=== PATIENT | female | born 1960 | race Caucasian/White ===

== ENCOUNTER → 2017-03-16 10:43 | Outpatient (CLI) | payer BC, SELFPAY ==
[2017-03-16 12:02] LABS: Absolute Lymphocyte Count 2.08 X10^3/ul (0.83-4.51); Absolute Neutrophil Count 2.4 X10^3/uL (2.0-7.7); Basophil# 0.04 X10^3/uL; Basophil% 0.7 % (0-1); Eosinophil# 0.16 X10^3/uL; Hematocrit 44.6 % (37-47); Hemoglobin 15.2 g/dl (12.0-15.0); Lymphocyte # 2.08 X10^3/ul (4.0); Lymphocyte % 38.4 % (19-41); Mean Corp Hgb Conc 34.1 g/gl (32-36); Mean Corpuscular Hgb 31.7 pg (27.0-32.0); Mean Corpuscular Volume 92.9 fL (81-99); Mean Platelet Vol. 10.8 fl (6.2-12.0); Monocyte# 0.76 X10^3/uL; Neutrophil # 2.37 X10^3/uL (2.7-7.7); Neutrophil % 43.7 % (47-70); Platelet Count 333 K/mm3 (150-450); RBC Distribution Width SD 46.1 fl (35.1-43.9); White Blood Count 5.4 K/mm3 (4.4-11.0)
[2017-03-16 12:07] LABS: POSITIVE COUNT NO; POSITIVE DIFFERENTIAL NO; POSITIVE MORPHOLOGY NO
[2017-03-16 12:26] LABS: ALB/GLOB Ratio 1.1 RATIO (0.9-2.4); AST(SGOT) 28 U/L (15-37); Alanine Aminotransfer ALT/SGPT 46 U/L (13-56); Albumin, Serum 3.9 g/dL (3.2-5.0); Alkaline Phosphatase 83 U/L (45-117); Anion Gap 10 (5-15); BUN 11 mg/dL (7-18); BUN/Creat Ratio 13.7 RATIO (10-20); Calcium,Total 8.8 mg/dL (8.5-10.1); Chloride 101 mmol/L (98-107); EST Glomerular Filtration Rate 78 mL/min (>60); Est Glom Filt Rate - Afr Amer 95 mL/min (>60); Globulin 3.6 g/dL (2.2-4.2); Glucose 92 mg/dL (70-110); Potassium 3.7 mmol/L (3.5-5.1); Protein, Total 7.5 g/dL (6.4-8.2); Sodium Level 136 mmol/L (136-145)
== END ==
PROVIDERS: Family Provider Family Medicine; PCP Family Medicine; Visit Provider Internal Medicine Rheumatology
DX: L40.59 Other psoriatic arthropathy (principal); Z79.899 Other long term (current) drug therapy; L40.8 Other psoriasis; M35.00 Sjogren syndrome, unspecified; Q66.7 Congenital pes cavus; K21.9 Gastro-esophageal reflux disease without esophagitis; M47.892 Other spondylosis, cervical region; M51.36 Other intervertebral disc degeneration, lumbar region; F32.89 Other specified depressive episodes; F41.9 Anxiety disorder, unspecified; E03.9 Hypothyroidism, unspecified; Z85.820 Personal history of malignant melanoma of skin
CPT/HCPCS: 36415; 80053; 85025

== ENCOUNTER → 2017-06-08 09:38 | Outpatient (CLI) | payer BC, SELFPAY ==
[2017-06-08 12:01] LABS: Absolute Lymphocyte Count 1.95 X10^3/ul (0.83-4.51); Absolute Neutrophil Count 3.2 X10^3/uL (2.0-7.7); Basophil# 0.02 X10^3/uL; Basophil% 0.3 % (0-1); Eosinophil# 0.15 X10^3/uL; Eosinophils% 2.4 % (0-5); Hematocrit 46.4 % (37-47); Hemoglobin 15.4 g/dl (12.0-15.0); Lymphocyte # 1.95 X10^3/ul (4.0); Lymphocyte % 31.8 % (19-41); Mean Corp Hgb Conc 33.2 g/gl (32-36); Mean Corpuscular Hgb 31.5 pg (27.0-32.0); Mean Corpuscular Volume 94.9 fL (81-99); Mean Platelet Vol. 10.6 fl (6.2-12.0); Monocyte# 0.83 X10^3/uL; Monocyte% 13.5 % (0-10); Neutrophil # 3.17 X10^3/uL (2.7-7.7); Neutrophil % 51.8 % (47-70); Platelet Count 356 K/mm3 (150-450); RBC Distribution Width CV 14.1 % (11.6-14.6); RBC Distribution Width SD 47.8 fl (35.1-43.9); Red Blood Count 4.89 M/mm3 (4.2-5.4); White Blood Count 6.1 K/mm3 (4.4-11.0)
[2017-06-08 12:02] LABS: Differential Indicated SCAN CRITERIA MET; POSITIVE COUNT NO; POSITIVE DIFFERENTIAL NO; POSITIVE MORPHOLOGY YES
[2017-06-08 12:13] LABS: ALB/GLOB Ratio 1.1 RATIO (0.9-2.4); AST(SGOT) 28 U/L (15-37); Alanine Aminotransfer ALT/SGPT 41 U/L (13-56); Alkaline Phosphatase 91 U/L (45-117); Anion Gap 8 (5-15); BUN 9 mg/dL (7-18); BUN/Creat Ratio 11.1 RATIO (10-20); Calcium,Total 9.2 mg/dL (8.5-10.1); Chloride 103 mmol/L (98-107); Creatinine, Serum 0.81 mg/dL (0.55-1.02); EST Glomerular Filtration Rate 77 mL/min (>60); Est Glom Filt Rate - Afr Amer 93 mL/min (>60); Globulin 3.7 g/dL (2.2-4.2); Glucose 73 mg/dL (74-106); Potassium 4.1 mmol/L (3.5-5.1); Protein, Total 7.7 g/dL (6.4-8.2); Sodium Level 137 mmol/L (136-145)
[2017-06-08 12:29] LABS: Platelet Estimate ADEQUATE (ADEQ); Platelet Morphology LARGE
== END ==
PROVIDERS: Family Provider Family Medicine; PCP Family Medicine; Visit Provider Internal Medicine Rheumatology
DX: L40.59 Other psoriatic arthropathy (principal); Z79.899 Other long term (current) drug therapy; L40.8 Other psoriasis; M35.00 Sjogren syndrome, unspecified; Q66.7 Congenital pes cavus; K21.9 Gastro-esophageal reflux disease without esophagitis; M47.892 Other spondylosis, cervical region; M51.36 Other intervertebral disc degeneration, lumbar region; F32.89 Other specified depressive episodes; F41.9 Anxiety disorder, unspecified; E03.9 Hypothyroidism, unspecified; Z85.820 Personal history of malignant melanoma of skin
CPT/HCPCS: 36415; 80053; 85025

== ENCOUNTER → 2017-07-08 17:02 | Outpatient (CLI) | payer BC, SELFPAY ==
--- NOTE | 2017-07-08 17:06 | CT_ITS ---
STUDY: CT TEMPORAL BONES WITH CONTRAST - ATTN: I.A.C. S REASON FOR EXAM: Female, 56 years old. GRAVES DX RADIATION DOSAGE (If Supplied By Facility): CTDIvol = ( 29.38 ) mGy, DLP = ( 742.30 ) mGycm TECHNIQUE: The patient was scanned in a multi detector CT scanner. Transaxial imaging was performed with the administration of 100 ml of Isovue 300 intravenous contrast material. Sagittal and coronal images were reconstructed. Individualized dose optimization techniques were used for this CT. COMPARISON: None. FINDINGS: RIGHT TEMPORAL BONE Normal right internal auditory canal. There is no demonstrated enhancing abnormality. Normal visualized ossicles and tympanic cavity. Normal right cochlea and semicircular canals. Normal vestibular aqueduct. Normal right petrous carotid artery. Normal right jugular fossa. Normal right mastoid air cells. Normal right petrous apex. LEFT TEMPORAL BONE Normal left internal auditory canal. There is no demonstrated enhancing abnormality. Degenerative findings of left mandibular condyle. Normal visualized ossicles and tympanic cavity. Normal left cochlea and semicircular canals. Normal vestibular aqueduct. Normal left petrous carotid artery. Normal right jugular fossa. Normal left mastoid air cells. Normal left petrous apex. CT/Orb Sella Post Fossa Ear W/WO IMPRESSION: Normal enhanced CT examination of the bilateral temporal bones (I.A.C.'s). Degenerative findings of left mandibular condyle. Electronically Signed: Gume Zapata MD at 22:22 EDT , Service support ,
== END ==
PROVIDERS: Family Provider Family Medicine; PCP Family Medicine; Visit Provider Ophthalmology
DX: H05.20 Unspecified exophthalmos (principal); E03.9 Hypothyroidism, unspecified
CPT/HCPCS: 70482; Q9967

== ENCOUNTER → 2017-07-20 11:24 | Outpatient (CLI) | payer BC, SELFPAY ==
--- NOTE | 2017-07-20 11:24 | DT_ITS ---
This patient was seen during an EMR downtime July 18, 2017 - July 25, 2017. This patient may have a combination of paper and electronic documentation or all paper documentation. All documentation is viewable within the e-chart portion of [employer] for each patient visit.
--- NOTE | 2017-07-20 11:24 | DT_ITS ---
This patient was seen during an EMR downtime July 18, 2017 - July 25, 2017. This patient may have a combination of paper and electronic documentation or all paper documentation. All documentation is viewable within the e-chart portion of [employer] for each patient visit.
[2017-07-25 08:18] LABS: T4 Free Direct 1.09 ng/dL (0.76-1.46); Thyroid Stim Hormone (TSH) 1.45 uIU/mL (0.358-3.74)
== END ==
PROVIDERS: Family Provider Family Medicine; PCP Family Medicine; Visit Provider Family Medicine
DX: E03.9 Hypothyroidism, unspecified (principal)
CPT/HCPCS: 36415; 84439; 84443

== ENCOUNTER → 2017-08-22 14:45 | Outpatient (CLI) | payer BC, SELFPAY ==
[2017-08-22 17:40] LABS: Absolute Lymphocyte Count 2.12 X10^3/ul (0.83-4.51); Absolute Neutrophil Count 3.1 X10^3/uL (2.0-7.7); Basophil# 0.02 X10^3/uL; Basophil% 0.3 % (0-1); Eosinophil# 0.12 X10^3/uL; Eosinophils% 2.1 % (0-5); Hematocrit 44.3 % (37-47); Hemoglobin 14.8 g/dl (12.0-15.0); Lymphocyte # 2.12 X10^3/ul (4.0); Lymphocyte % 36.5 % (19-41); Mean Corp Hgb Conc 33.4 g/gl (32-36); Mean Corpuscular Hgb 31.4 pg (27.0-32.0); Mean Corpuscular Volume 93.9 fL (81-99); Mean Platelet Vol. 10.3 fl (6.2-12.0); Monocyte# 0.45 X10^3/uL; Monocyte% 7.7 % (0-10); Neutrophil # 3.09 X10^3/uL (2.7-7.7); Neutrophil % 53.2 % (47-70); Platelet Count 324 K/mm3 (150-450); RBC Distribution Width CV 14.1 % (11.6-14.6); Red Blood Count 4.72 M/mm3 (4.2-5.4); White Blood Count 5.8 K/mm3 (4.4-11.0)
[2017-08-22 17:45] LABS: POSITIVE COUNT NO; POSITIVE DIFFERENTIAL NO; POSITIVE MORPHOLOGY NO
[2017-08-22 18:03] LABS: ALB/GLOB Ratio 1.1 RATIO (0.9-2.4); AST(SGOT) 35 U/L (15-37); Alanine Aminotransfer ALT/SGPT 44 U/L (13-56); Albumin, Serum 3.9 g/dL (3.2-5.0); Alkaline Phosphatase 92 U/L (45-117); Anion Gap 11 (5-15); BUN 12 mg/dL (7-18); BUN/Creat Ratio 14.3 RATIO (10-20); Calcium,Total 9.1 mg/dL (8.5-10.1); Chloride 104 mmol/L (98-107); Creatinine, Serum 0.84 mg/dL (0.55-1.02); EST Glomerular Filtration Rate 74 mL/min (>60); Est Glom Filt Rate - Afr Amer 90 mL/min (>60); Globulin 3.5 g/dL (2.2-4.2); Glucose 101 mg/dL (74-106); Potassium 3.6 mmol/L (3.5-5.1); Protein, Total 7.4 g/dL (6.4-8.2); Sodium Level 140 mmol/L (136-145)
== END ==
PROVIDERS: Family Provider Family Medicine; PCP Family Medicine; Visit Provider Internal Medicine Rheumatology
DX: L40.59 Other psoriatic arthropathy (principal); Z79.899 Other long term (current) drug therapy; L40.8 Other psoriasis; M35.00 Sjogren syndrome, unspecified; Q66.7 Congenital pes cavus; K21.9 Gastro-esophageal reflux disease without esophagitis; M47.892 Other spondylosis, cervical region; M51.36 Other intervertebral disc degeneration, lumbar region; F32.89 Other specified depressive episodes; F41.9 Anxiety disorder, unspecified; E03.9 Hypothyroidism, unspecified; Z85.820 Personal history of malignant melanoma of skin
CPT/HCPCS: 36415; 80053; 85025

== ENCOUNTER → 2017-11-17 09:45 | Outpatient (CLI) | payer BC, SELFPAY ==
[2017-11-17 12:41] LABS: Absolute Lymphocyte Count 1.74 X10^3/ul (0.83-4.51); Absolute Neutrophil Count 2.5 X10^3/uL (2.0-7.7); Basophil# 0.03 X10^3/uL; Basophil% 0.6 % (0-1); Eosinophils% 2.1 % (0-5); Hematocrit 43.7 % (37-47); Hemoglobin 14.9 g/dl (12.0-15.0); Lymphocyte # 1.74 X10^3/ul (4.0); Lymphocyte % 36.6 % (19-41); Mean Corp Hgb Conc 34.1 g/gl (32-36); Mean Corpuscular Hgb 31.8 pg (27.0-32.0); Mean Corpuscular Volume 93.4 fL (81-99); Mean Platelet Vol. 10.4 fl (6.2-12.0); Monocyte# 0.37 X10^3/uL; Monocyte% 7.8 % (0-10); Neutrophil % 52.7 % (47-70); Platelet Count 332 K/mm3 (150-450); RBC Distribution Width CV 14.1 % (11.6-14.6); RBC Distribution Width SD 46.2 fl (35.1-43.9); Red Blood Count 4.68 M/mm3 (4.2-5.4); White Blood Count 4.8 K/mm3 (4.4-11.0)
[2017-11-17 12:51] LABS: POSITIVE COUNT NO; POSITIVE DIFFERENTIAL NO; POSITIVE MORPHOLOGY NO
[2017-11-17 13:00] LABS: ALB/GLOB Ratio 1.1 RATIO (0.9-2.4); AST(SGOT) 28 U/L (15-37); Alanine Aminotransfer ALT/SGPT 46 U/L (13-56); Albumin, Serum 3.8 g/dL (3.2-5.0); Alkaline Phosphatase 93 U/L (45-117); Anion Gap 10 (5-15); BUN 10 mg/dL (7-18); BUN/Creat Ratio 11.1 RATIO (10-20); Calcium,Total 9.1 mg/dL (8.5-10.1); Chloride 105 mmol/L (98-107); EST Glomerular Filtration Rate 69 mL/min (>60); Est Glom Filt Rate - Afr Amer 83 mL/min (>60); Globulin 3.4 g/dL (2.2-4.2); Glucose 149 mg/dL (74-106); Potassium 4.2 mmol/L (3.5-5.1); Protein, Total 7.2 g/dL (6.4-8.2); Sodium Level 138 mmol/L (136-145)
== END ==
PROVIDERS: Family Provider Family Medicine; PCP Family Medicine; Referring Provider Internal Medicine Rheumatology; Visit Provider Internal Medicine Rheumatology
DX: L40.59 Other psoriatic arthropathy (principal); Z79.899 Other long term (current) drug therapy; L40.8 Other psoriasis; M35.00 Sjogren syndrome, unspecified; Q66.7 Congenital pes cavus; K21.9 Gastro-esophageal reflux disease without esophagitis; M47.892 Other spondylosis, cervical region; M51.36 Other intervertebral disc degeneration, lumbar region
CPT/HCPCS: 36415; 80053; 85025

== ENCOUNTER → 2018-02-13 10:09 | Outpatient (CLI) | payer BC, SELFPAY ==
[2018-02-13 12:22] LABS: Absolute Lymphocyte Count 1.69 X10^3/ul (0.83-4.51); Absolute Neutrophil Count 4.2 X10^3/uL (2.0-7.7); Basophil# 0.02 X10^3/uL; Basophil% 0.3 % (0-1); Eosinophil# 0.11 X10^3/uL; Eosinophils% 1.7 % (0-5); Hematocrit 44.3 % (37-47); Hemoglobin 15.3 g/dl (12.0-15.0); Lymphocyte # 1.69 X10^3/ul (4.0); Lymphocyte % 25.6 % (19-41); Mean Corp Hgb Conc 34.5 g/gl (32-36); Mean Corpuscular Hgb 32.2 pg (27.0-32.0); Mean Corpuscular Volume 93.3 fL (81-99); Mean Platelet Vol. 10.5 fl (6.2-12.0); Monocyte# 0.53 X10^3/uL; Neutrophil # 4.24 X10^3/uL (2.7-7.7); Neutrophil % 64.2 % (47-70); Platelet Count 345 K/mm3 (150-450); RBC Distribution Width CV 13.9 % (11.6-14.6); RBC Distribution Width SD 45.3 fl (35.1-43.9); Red Blood Count 4.75 M/mm3 (4.2-5.4); White Blood Count 6.6 K/mm3 (4.4-11.0)
[2018-02-13 12:24] LABS: POSITIVE COUNT NO; POSITIVE DIFFERENTIAL NO; POSITIVE MORPHOLOGY NO
[2018-02-13 12:43] LABS: ALB/GLOB Ratio 1.1 RATIO (0.9-2.4); AST(SGOT) 31 U/L (15-37); Alanine Aminotransfer ALT/SGPT 47 U/L (13-56); Albumin, Serum 3.9 g/dL (3.2-5.0); Alkaline Phosphatase 92 U/L (45-117); Anion Gap 10 (5-15); BUN 11 mg/dL (7-18); BUN/Creat Ratio 14.1 RATIO (10-20); Calcium,Total 9.2 mg/dL (8.5-10.1); Chloride 104 mmol/L (98-107); Cholesterol 186 mg/dL (200); Creatinine, Serum 0.78 mg/dL (0.55-1.02); EST Glomerular Filtration Rate 81 mL/min (>60); Est Glom Filt Rate - Afr Amer 98 mL/min (>60); Globulin 3.4 g/dL (2.2-4.2); Glucose 95 mg/dL (74-106); High Density Lipoprotein 35 mg/dL; Potassium 4.1 mmol/L (3.5-5.1); Protein, Total 7.3 g/dL (6.4-8.2); Sodium Level 139 mmol/L (136-145); T4 Free Direct 1.05 ng/dL (0.76-1.46); Thyroid Stim Hormone (TSH) 1.46 uIU/mL (0.358-3.74); Triglycerides 201 mg/dL; Very Low Density Lipoprotein 40 mg/dL (5-40)
== END ==
PROVIDERS: Family Provider Family Medicine; PCP Family Medicine; Referring Provider Internal Medicine Rheumatology; Visit Provider Family Medicine
DX: L40.59 Other psoriatic arthropathy (principal); Z79.899 Other long term (current) drug therapy; L40.8 Other psoriasis; M35.00 Sjogren syndrome, unspecified; Q66.7 Congenital pes cavus; K21.9 Gastro-esophageal reflux disease without esophagitis; M47.892 Other spondylosis, cervical region; M51.36 Other intervertebral disc degeneration, lumbar region; E78.1 Pure hyperglyceridemia; E03.9 Hypothyroidism, unspecified
CPT/HCPCS: 36415; 80053; 80061; 84439; 84443; 85025

== ENCOUNTER → 2018-03-08 14:53 | Outpatient (CLI) | payer BC, SELFPAY ==
[2018-02-25 10:39] VITALS: BMI 31.4
--- NOTE | 2018-03-08 14:56 | BI_ITS ---
MAMMOGRAPHY - BILATERAL SCREENING REASON FOR EXAM: Female, 57 years old. Routine annual screening examination. PERTINENT HISTORY: Non-contributory. Remote left stereotactic breast biopsy and excisional breast biopsy. TECHNIQUE: Digital bilateral breast ifrah (3D mammographic acquisition) in the CC and MLO projections. 2-D mediolateral oblique (MLO) and craniocaudad (CC) views of both breasts were obtained. CAD: Full Field Digital Mammography with Computer Added Detection was performed. COMPARISON: Comparison is made with prior study dated January 19, 2017 and December 04, 2015. FINDINGS: Breast Composition: There are scattered areas of fibroglandular density. There are no dominant masses or suspicious calcifications. Stable small bilateral axillary lymph nodes. A tissue clip marker is once again seen in the central lateral aspect of the left breast. No other significant abnormalities are identified. There has been no significant change since the prior study. BI/SCREENING MAMM (CAD), BILAT IMPRESSION: Stable bilateral screening mammogram. Yearly follow-up mammogram recommended. (A) ASSESSMENT CATEGORY: BIRADS Category 2: Benign. A letter regarding these results will be sent to the patient by the facility within 30 days. Approximately 10% of breast cancers are not detected by mammography. A normal mammogram should not delay biopsy of a clinically suspicious abnormality. [id number] Electronically Signed: Raleigh Corrales MD at 8:48 EST , Service support ,
--- OUTSIDE RECORDS SUMMARY | 2018-05-10 17:28 | XMS RPT_ITS ---
:1960 Author Organization [place] Support Name Relationship Address Phone JMSM Unavailable [address] + [place] [address] SILVA, NEISHA Unavailable [address] + [address] [place] [address] JMSM Unavailable [address] + [place] [address] SILVA, NEISHA Unavailable [address] + [address] [place] [address] JMSM Unavailable [address] + [place] [address] SILVA, NEISHA Unavailable Unavailable + JMSM Unavailable [address] + [place] [address] LONBHARTI, PANTERA Unavailable [address] + [place] [address] JMSM Unavailable [address] + [place] [address] LONIER, PANTERA Unavailable [address] + [place] [address] JMSM Unavailable [address] + [place] [address] LONIER, PANTERA Unavailable [address] + [place] [address] JMSM Unavailable [address] + [place] [address] LONIER, PANTERA Unavailable [address] + [place] [address] JMSM Unavailable [address] + [place] [address] LONIER, PANTERA Unavailable [address] + [place] [address] JMSM Unavailable [address] + [place] [address] PANTERA SEO Unavailable [facility] + [place] [address] Care Team Providers Name Role Phone NazAdam Attending Unavailable Naz, Adam Primary Care Unavailable Vellanki, Marybel Referring Unavailable Vellanki, Marybel Consulting Unavailable Adam Sampson NASCAR RACER-C Attending Unavailable Naz, Adam Referring Unavailable Vellanki, Marybel Attending Unavailable Vellanki, Marybel Referring Unavailable Naz, Adam Primary Care Unavailable Vellanki, Marybel Attending Unavailable Naz, Adam Primary Care Unavailable Mona Fatima Attending Unavailable Mona Fatima Referring Unavailable Naz, Adam Primary Care Unavailable NazAdam parks Attending Unavailable Naz, Adam Referring Unavailable Naz, Adam Primary Care Unavailable NazAdam parks Attending Unavailable Naz, Adam Referring Unavailable Naz, Adam Primary Care Unavailable Vellanki, Marybel Attending Unavailable Vellanki, Marybel Referring Unavailable Naz, Adam Primary Care Unavailable Vellanki, Marybel Attending Unavailable Vellanki, Marybel Referring Unavailable Naz, Adam Primary Care Unavailable PROBLEMS PROBLEMS DATE TYPE CONDITION / CODE ATTENDING STATUS SOURCE 02/13/2018 Unknown 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 [place] hyperglyceridemia / Community E78.1(ICD-10) Hospital Repository 02/13/2018 Unknown E03.9 - Adam Childs Active [place] Hypothyroidism, Community unspecified / Hospital E03.9(ICD-10) Repository 11/17/2017 Unknown 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, Active [place] psoriatic arthropathy [facility] / L40.59(ICD-10) Hospital Repository 11/17/2017 Unknown Z79.899 - Other long Vellanki, Active [facility] term (current) drug [facility] therapy / Hospital Z79.899(ICD-10) Repository 11/17/2017 Unknown L40.8 - Other [place]i, Active [facility] psoriasis / [facility] L40.8(ICD-10) Hospital Repository 11/17/2017 Unknown M35.00 - Sicca Vellanki, Active [place] syndrome, unspecified [facility] / M35.00(ICD-10) Hospital Repository 11/17/2017 Unknown 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, 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 / Q66.7(ICD-10) [facility] Hospital Repository 11/17/2017 Unknown K21.9 - Vellanki, Active [place] Gastro-esophageal [facility] reflux disease without Hospital esophagitis / Repository K21.9(ICD-10) 11/17/2017 Unknown M47.892 - Other V[place]anki, Active [place] spondylosis, cervical [facility] region / Hospital M47.892(ICD-10) Repository 11/17/2017 Unknown M51.36 - Other [place]i, Active [place] intervertebral disc [facility] degeneration, lumbar Hospital region / Repository M51.36(ICD-10) 08/22/2017 Unknown F41.9 - Anxiety [place]i, Active [place] disorder, unspecified [facility] / F41.9(ICD-10) Hospital Repository 08/22/2017 Unknown Z85.820 - Personal [place]i, Active [facility] history of malignant [facility] melanoma of skin / Hospital Z85.820(ICD-10) Repository 07/08/2017 Unknown 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.20 - Unspecified Kushal, Active [facility] exophthalmos / [facility] H05.20(ICD-10) Hospital Repository PROCEDURES PROCEDURES No Procedure Records FoundRESULTS RESULTS SCREENING MAMM (CAD), Observed: 03/08/2018 Status: F Source: [facility] 2:56 PM [facility] REPOSITORY [facility] Imaging Services [address] [place] [address] SCREENING MAMM (CAD), BILAT MR#: [id number] Acct: [id number] Name: KATJATAMIE Abdullahi Rep #: [id number] : 1960 F 57 From: Raleigh Corrales MD PCP: Adam Childs DO Status: REG CLI Study: SCREENING MAMM (CAD), BILAT Date of Exam: 03/08/18 Exam# [id number] Ordering Dr: Adam Childs DO MAMMOGRAPHY - BILATERAL SCREENING REASON FOR EXAM: Female, 57 years old. Routine annual screening examination. PERTINENT HISTORY: Non-contributory. Remote left stereotactic breast biopsy and excisional breast biopsy. TECHNIQUE: Digital bilateral breast ifrah (3D mammographic acquisition) in the CC and MLO projections. 2-D mediolateral oblique (MLO) and craniocaudad (CC) views of both breasts were obtained. CAD: Full Field Digital Mammography with Computer Added Detection was performed. COMPARISON: Comparison is made with prior study dated January 19, 2017 and December 04, 2015. FINDINGS: Breast Composition: There are scattered areas of fibroglandular density. There are no dominant masses or suspicious calcifications. Stable small bilateral axillary lymph nodes. A tissue clip marker is once again seen in the central lateral aspect of the left breast. No other significant abnormalities are identified. There has been no significant change since the prior study. BI/SCREENING MAMM (CAD), BILAT IMPRESSION: Stable bilateral screening mammogram. Yearly follow-up mammogram recommended. (A) ASSESSMENT CATEGORY: BIRADS Category 2: Benign. A letter regarding these results will be sent to the patient by the facility within 30 days. Approximately 10% of breast cancers are not detected by mammography. A normal mammogram should not delay biopsy of a clinically suspicious abnormality. [id number] Electronically Signed: Raleigh Corrales MD at 8:48 EST , Service support , CC: Adam Childs DO Poacher Operator: Signed URGENT CARE VISIT Observed: 02/25/2018 Status: F Source: [place] REPORT 11:00 AM [facility] REPOSITORY [facility] [address] [place] [address] [address] [place] [address] OFFICE VISIT Date of Service: 02/25/18 MR#: [id number] Acct: [id number] Name: TAMIE HIGHTOWER Rep #: [id number] : 1960 Provider: Adam Sampson NP Age/Sex: 57/F Location: [facility] Status: Signed Intake Vital Signs02/25/18 Height 5 ft 8 in 02/25/18 Weight: 207 lb 02/25/18 Body Mass Index (BMI) 31.4 02/25/18 Blood Pressure 122/74 H Intake Visit Reasons: SINUS INFECTION Chief Complaint: sinus pressure, headache Film And Video Graphics Designer Required: No Accompanied by: SELF Is patient in pain?: No Allergies No Known Allergies Allergy (Verified 02/25/18 10:39) Medications Levothyroxine [Synthroid] 75 mcg PO DAILY 02/10/16 [History Confirmed 02/25/18] Methotrexate 2.5 mg PO DAILY 02/10/16 [History Confirmed 02/25/18] citalopram 10 mg tablet 10 mg PO DAILY 02/25/18 [History Confirmed 02/25/18] doxycycline hyclate 100 mg tablet 100 mg PO BID #14 tab 02/25/18 [Rx Confirmed 02/25/18] esomeprazole magnesium 20 mg capsule,delayed release 20 mg PO DAILY 02/25/18 [History Confirmed 02/25/18] folic acid 0.8 mg capsule 0.8 mg PO DAILY 02/25/18 [History Confirmed 02/25/18] PFSH Medical History Arthritis (Acute) Fatigue (Acute) History of cancer (Acute) Severe headache (Acute) Shortness of breath (Acute) Shoulder pain (Acute) Thyroid disease (Acute) Surgical History HISTORY OF BLADDER LIFT (Acute) History of hysterectomy (Acute) Family History Mother Heart disease Father Heart disease Social History Smoking Status: Former smoker alcohol intake: never HPI HPI Chief Complaint: sinus pressure, headache Details: TAMIE HIGHTOWER, is a 57 F who presents to the office today for an acute visit for sinus pressure and headache. Patient history as listed above. Patient states was seen in primary care office on Tuesday diagnosed with viral URI and was instructed to continue supportive therapy unless not resolved or worsening. Patient states that now it has been going on for a week and half with no relief of symptoms. Patient having sinus pressure, headaches and cough which has mostly been nonproductive but infrequently will produce a green sputum. Patient denies any fevers and states she is sleeping okay at night. She is taking Tylenol and nasal spray with little relief. She states that bending forward makes the sinus pressure headache worse. Patient denies any other aggravating or alleviating factors. Denies any recent antibiotic use The patient otherwise denies any fever, chills, nausea, vomiting, shortness of breath, chest pain or pressure, palpitations, orthopnea, lower extremity edema, syncope or presyncopal episodes. ROS Const Constitutional: No fever(s), chills, weakness, change in appetite, sleep problems, fatigue, malaise or frequent falls Eyes Eyes: No blurry vision, change in vision, double vision or discharge ENT ENT: Positive for nasal congestion, sinus pain, sinus pressure and nasal discharge; no abnormal hearing, ear pain, ear pressure or dizziness/vertigo Resp Respiratory: No cough, wheezing or shortness of breath Cardio Cardiology: No chest pain at rest, chest pain with exertion, shortness of breath, dyspnea on exertion, lightheadedness, irregular heart rhythm, fast heart rate, palpitations, orthopnea or generalized swelling Gastro GI: No abdominal pain, change in bowel habits, constipation, diarrhea, vomiting or nausea/dyspepsia Musc Musculoskeletal: No joint pain, back pain, limited range of motion, joint swelling, muscle weakness, tingling or numbness Skin Skin: No change in skin color, wounds, rash or itching Neuro Neurology: No weakness, frequent falls, abnormal hearing, tingling, numbness, unsteady gait/balance, dizziness, loss of vision or memory loss Psych Psychiatric: No change in appetite, No memory loss, No anxiety, No depression, No Thoughts of harming yourself/Others Endo Endocrine: No fatigue, increased thirst/drinking, increased urination, increased hunger or heat intolerance Aller/Imm Allergy/Immunologic: No wheezing, itchy eyes or seasonal allergy symptoms Samuel/Lymp Hematologic/Lymphatic: No easy bleeding, easy bruising or enlarged lymph nodes Exam Const General: cooperative, comfortable, no acute distress Nutritional Appearance: average body habitus, well nourished Orientation: alert, oriented x3 Limitations: mental status not altered [facility] Head: normal to inspection Ears: hearing grossly normal bilaterally, TM abnormal (old scarring present b/l) Nose: external nose normal, mucous membranes and turbinates abnormal erythematous, nasal discharge clear Face and sinus: normal facial exam, sinus tenderness frontal Neck Neck: no lymphadenopathy Resp Effort AND Inspection: normal respiratory effort, able to speak in complete sentences, normal respiratory pattern, symmetric chest movement, no audible wheezes, no cough Auscultation: Bilateral: Clear to Auscultation Cardio Palpation: normal PMI Rate: regular rate Heart Sounds: S1 normal, S2 normal, normal S1 and S2, no click, no gallops, no murmurs, no rubs Musc Musculoskeletal: No muscle weakness Skin General: no rashes or lesions noted, elasticity normal, turgor normal Lesions: no lesions Rashes: no rashes Neuro General: alert, awake, oriented x3, CN's II-XI intact bilaterally Speech: speech normal Gait: normal gait Motor: muscle tone normal throughout Extrem General: normal to inspection, normal gait, no edema, no pedal edema Psych Appearance: grossly normal Mental Status: mental status grossly normal Affect: normal affect Attitude: cooperative Thought Process: normal Assessment AND Plan Problems 1. Acute non-recurrent frontal sinusitis J01.10 Plan Patient symptoms are consistent with that of acute frontal sinusitis, given the duration of her symptoms and the fact that she is immunocompromised on methotrexate therapy, we will treat her empirically with doxycycline 100 mg x 7 days twice daily. Discussed potential side effects of medication and how to properly take this. Also encourage patient to continue with her nasal steroid as this will help with her symptoms as well. Discussed red flag symptoms requiring urgent medical attention. Discussed conservative measures such as rest, increasing fluids, and hand hygiene. Patient verbalized understanding. Patient to follow-up with PCP if condition progresses or worsens. Dragon disc Medications New: Coding Level of Care Code Off vis,new,level 3 Diagnoses Acute non-recurrent frontal sinusitis J01.10 Recurrence: non-recurrent 02/25/18 1100 <Electronically signed by Adam LAWRENCE> Date Adam LAWRENCE Cosigner Signature: Date (if applicable) CC: CBC W/DIFF, AUTOMATED Collected: 02/13/2018 Status: F Source: [place] 10:14 AM [facility] REPOSITORY TYPE CODE TESTS RESULT OUT OF RANGE REFERENCE UNITS LAB L100.1000 4.4-11.0 K/mm3 Normal WBC 6.6 LAB L100.1200 4.2-5.4 M/mm3 Normal RBC 4.75 LAB L100.1300 12.0-15.0 g/dl High HGB 15.3 LAB L100.1400 37-47 % Normal HCT 44.3 LAB L100.1500 81-99 fL Normal MCV 93.3 LAB L100.1600 27.0-32.0 pg High MCH 32.2 LAB L100.1700 32-36 g/gl Normal MCHC 34.5 LAB L100.1810 11.6-14.6 % Normal RDW CV 13.9 LAB L100.1820 35.1-43.9 fl High RDW SD 45.3 LAB L100.1900 150-450 K/mm3 Normal PLT 345 LAB L100.2000 6.2-12.0 fl Normal MPV 10.5 LAB L100.2100 47-70 % Normal NEUT% 64.2 LAB L100.2200 19-41 % Normal LY% 25.6 LAB L100.2300 0-10 % Normal MONO% 8.0 LAB L100.2400 0-5 % Normal EO% 1.7 LAB L100.2500 0-1 % Normal BASO% 0.3 LAB L100.2550 0.0-0.9 % Normal IM GRAN % 0.200 Result Comment: IG% - Immature Granulocytes (promyelocytes, myelocytes and metamyelocytes) > 1% indicates that a LEFT SHIFT is Present. LAB L100.2620 2.0-7.7 X10 3/uL Normal Absolute Neut 4.2 LAB L100.2720 0.83-4.51 X10 3/ul Normal Absolute Lymph 1.69 Performed By: #### L100.0100 #### [facility] [address] [place], [address] LIPID PROFILE Collected: 02/13/2018 Status: F Source: [place] 10:14 AM [facility] REPOSITORY TYPE CODE TESTS RESULT OUT OF RANGE REFERENCE UNITS LAB L501.4900 200 mg/dL Normal CHOL 186 Result Comment: <200 mg/dL Desirable 200-240 mg/dL Borderline >240 mg/dL High Risk LAB L501.5000 mg/dL High TRIG 201 Result Comment: The drugs N-Acetylcysteine and Metamizole may falsely depress this assay. Serum Triglycerides Reference Interval Normal <150 mg/dL Borderline high 150 - 199 mg/dL High 200 - 499 mg/dL Very High > or = 500 mg/dL LAB L501.6400 mg/dL Low HDL 35 Result Comment: The drugs N-Acetylcysteine and Metamizole may falsely depress this assay. Reference Range HDL <40 mg/dL Low HDL Cholesterol HDL >or= 60 mg/dL High HDL Cholesterol LAB L501.6500 0-130 mg/dL Normal LDL 111 LAB L501.6600 5-40 mg/dL Normal VLDL 40 Performed By: #### L500.4100, L501.9520, L506.0400 #### [facility] [address] [place], [address] THYROID STIM HORMONE Collected: 02/13/2018 Status: F Source: [place] (TSH) 10:14 AM [facility] REPOSITORY TYPE CODE TESTS RESULT OUT OF RANGE REFERENCE UNITS LAB L501.9520 0.358-3.74 uIU/mL Normal TSH 1.46 Performed By: #### L500.4100, L501.9520, L506.0400 #### [facility] [address] [place], [place], [address] T4 FREE DIRECT Collected: 02/13/2018 Status: F Source: [place] 10:14 AM [facility] REPOSITORY TYPE CODE TESTS RESULT OUT OF RANGE REFERENCE UNITS LAB L506.0400 0.76-1.46 ng/dL Normal T4 FREE 1.05 DIRECT Performed By: #### L500.4100, L501.9520, L506.0400 #### [facility] [address] [place], [address] COMPREHENSIVE METABOLIC Collected: 02/13/2018 Status: F Source: [place] [facility] 10:14 AM [facility] REPOSITORY TYPE CODE TESTS RESULT OUT OF RANGE REFERENCE UNITS LAB L501.0100 74-106 mg/dL Normal GLU 95 Result Comment: Please note revised GLUCOSE reference range effective 2017. LAB L501.1000 7-18 mg/dL Normal BUN 11 LAB L501.1100 0.55-1.02 mg/dL Normal CREAT,SERUM 0.78 Result Comment: The validity of the calculated GFR AND GFRAA in patients over 70 years has not been determined. Clinical correlation is essential. LAB L501.1110 >60 mL/min Normal EST GFR 81 Result Comment: Non- GFR Calc LAB L501.1115 >60 mL/min Normal EST GFR - AA 98 Result Comment: GFR Calc LAB L501.1300 10-20 RATIO Normal BUN/CRE 14.1 LAB L501.1500 6.4-8.2 g/dL T Normal PROT 7.3 LAB L501.1800 3.2-5.0 g/dL Normal ALB 3.9 LAB L501.1950 2.2-4.2 g/dL Normal GLOB 3.4 LAB L501.2000 0.9-2.4 RATIO Normal A/G 1.1 LAB L501.2200 8.5-10.1 mg/dL CA Normal 9.2 LAB L501.4100 15-37 U/L Normal AST 31 LAB L501.4305 45-117 U/L Normal ALK P 92 LAB L501.4405 13-56 U/L Normal ALT 47 LAB L501.4600 0.20-1.00 mg/dL T Normal BILI 0.60 LAB L501.5300 136-145 mmol/L NA Normal 139 LAB L501.5600 3.5-5.1 mmol/L K Normal 4.1 LAB L501.5900 98-107 mmol/L CL Normal 104 LAB L501.6100 21.0-32.0 mmol/L Normal CO2 25.0 LAB L501.6200 5-15 Normal GAP 10 Performed By: #### L500.4050 #### [facility] [address] [place], [address] CBC W/DIFF, AUTOMATED Collected: 11/17/2017 Status: F Source: [place] 9:48 AM [facility] REPOSITORY TYPE CODE TESTS RESULT OUT OF RANGE REFERENCE UNITS LAB L100.1000 4.4-11.0 K/mm3 Normal WBC 4.8 LAB L100.1200 4.2-5.4 M/mm3 Normal RBC 4.68 LAB L100.1300 12.0-15.0 g/dl Normal HGB 14.9 LAB L100.1400 37-47 % Normal HCT 43.7 LAB L100.1500 81-99 fL Normal MCV 93.4 LAB L100.1600 27.0-32.0 pg Normal MCH 31.8 LAB L100.1700 32-36 g/gl Normal MCHC 34.1 LAB L100.1810 11.6-14.6 % Normal RDW CV 14.1 LAB L100.1820 35.1-43.9 fl High RDW SD 46.2 LAB L100.1900 150-450 K/mm3 Normal PLT 332 LAB L100.2000 6.2-12.0 fl Normal MPV 10.4 LAB L100.2100 47-70 % Normal NEUT% 52.7 LAB L100.2200 19-41 % Normal LY% 36.6 LAB L100.2300 0-10 % Normal MONO% 7.8 LAB L100.2400 0-5 % Normal EO% 2.1 LAB L100.2500 0-1 % Normal BASO% 0.6 LAB L100.2550 0.0-0.9 % Normal IM GRAN % 0.200 Result Comment: IG% - Immature Granulocytes (promyelocytes, myelocytes and metamyelocytes) > 1% indicates that a LEFT SHIFT is Present. LAB L100.2620 2.0-7.7 X10 3/uL Normal Absolute Neut 2.5 LAB L100.2720 0.83-4.51 X10 3/ul Normal Absolute Lymph 1.74 Performed By: #### L100.0100 #### [facility] [address] [place], [place], [address] COMPREHENSIVE METABOLIC Collected: 11/17/2017 Status: F Source: [facility] 9:48 AM [facility] REPOSITORY TYPE CODE TESTS RESULT OUT OF RANGE REFERENCE UNITS LAB L501.0100 74-106 mg/dL High GLU 149 Result Comment: Fasting Glucose result greater than or equal to 126 mg/dL suggests DIABETES MELLITUS per A.D.A. criteria. Please note revised GLUCOSE reference range effective 2017. LAB L501.1000 7-18 mg/dL Normal BUN 10 LAB L501.1100 0.55-1.02 mg/dL Normal CREAT,SERUM 0.90 Result Comment: The validity of the calculated GFR AND GFRAA in patients over 70 years has not been determined. Clinical correlation is essential. LAB L501.1110 >60 mL/min Normal EST GFR 69 Result Comment: Non- GFR Calc LAB L501.1115 >60 mL/min Normal EST GFR - AA 83 Result Comment: GFR Calc LAB L501.1300 10-20 RATIO Normal BUN/CRE 11.1 LAB L501.1500 6.4-8.2 g/dL T Normal PROT 7.2 LAB L501.1800 3.2-5.0 g/dL Normal ALB 3.8 LAB L501.1950 2.2-4.2 g/dL Normal GLOB 3.4 LAB L501.2000 0.9-2.4 RATIO Normal A/G 1.1 LAB L501.2200 8.5-10.1 mg/dL CA Normal 9.1 LAB L501.4100 15-37 U/L Normal AST 28 LAB L501.4305 45-117 U/L Normal ALK P 93 LAB L501.4405 13-56 U/L Normal ALT 46 LAB L501.4600 0.20-1.00 mg/dL T Normal BILI 0.40 LAB L501.5300 136-145 mmol/L NA Normal 138 LAB L501.5600 3.5-5.1 mmol/L K Normal 4.2 LAB L501.5900 98-107 mmol/L CL Normal 105 LAB L501.6100 21.0-32.0 mmol/L Normal CO2 23.0 LAB L501.6200 5-15 Normal GAP 10 Performed By: #### L500.4050 #### [facility] [address] [place], [place] [address]. [place], [address] CBC W/DIFF, AUTOMATED Collected: 08/22/2017 Status: F Source: [place] 2:52 PM [facility] REPOSITORY TYPE CODE TESTS RESULT OUT OF RANGE REFERENCE UNITS LAB L100.1000 4.4-11.0 K/mm3 Normal WBC 5.8 LAB L100.1200 4.2-5.4 M/mm3 Normal RBC 4.72 LAB L100.1300 12.0-15.0 g/dl Normal HGB 14.8 LAB L100.1400 37-47 % Normal HCT 44.3 LAB L100.1500 81-99 fL Normal MCV 93.9 LAB L100.1600 27.0-32.0 pg Normal MCH 31.4 LAB L100.1700 32-36 g/gl Normal MCHC 33.4 LAB L100.1810 11.6-14.6 % Normal RDW CV 14.1 LAB L100.1820 35.1-43.9 fl High RDW SD 48.0 LAB L100.1900 150-450 K/mm3 Normal PLT 324 LAB L100.2000 6.2-12.0 fl Normal MPV 10.3 LAB L100.2100 47-70 % Normal NEUT% 53.2 LAB L100.2200 19-41 % Normal LY% 36.5 LAB L100.2300 0-10 % Normal MONO% 7.7 LAB L100.2400 0-5 % Normal EO% 2.1 LAB L100.2500 0-1 % Normal BASO% 0.3 LAB L100.2550 0.0-0.9 % Normal IM GRAN % 0.200 Result Comment: IG% - Immature Granulocytes (promyelocytes, myelocytes and metamyelocytes) > 1% indicates that a LEFT SHIFT is Present. LAB L100.2620 2.0-7.7 X10 3/uL Normal Absolute Neut 3.1 LAB L100.2720 0.83-4.51 X10 3/ul Normal Absolute Lymph 2.12 Performed By: #### L100.0100 #### [facility] [address] [place], [address] COMPREHENSIVE METABOLIC Collected: 08/22/2017 Status: F Source: [facility] 2:52 PM [facility] REPOSITORY TYPE CODE TESTS RESULT OUT OF RANGE REFERENCE UNITS LAB L501.0100 74-106 mg/dL Normal GLU 101 Result Comment: Fasting Glucose result from 100 to 125 mg/dL suggests IMPAIRED HOMEOSTASIS per A.D.A. criteria. Please note revised GLUCOSE reference range effective 2017. LAB L501.1000 7-18 mg/dL Normal BUN 12 LAB L501.1100 0.55-1.02 mg/dL Normal CREAT,SERUM 0.84 Result Comment: The validity of the calculated GFR AND GFRAA in patients over 70 years has not been determined. Clinical correlation is essential. LAB L501.1110 >60 mL/min Normal EST GFR 74 Result Comment: Non- GFR Calc LAB L501.1115 >60 mL/min Normal EST GFR - AA 90 Result Comment: GFR Calc LAB L501.1300 10-20 RATIO Normal BUN/CRE 14.3 LAB L501.1500 6.4-8.2 g/dL T Normal PROT 7.4 LAB L501.1800 3.2-5.0 g/dL Normal ALB 3.9 LAB L501.1950 2.2-4.2 g/dL Normal GLOB 3.5 LAB L501.2000 0.9-2.4 RATIO Normal A/G 1.1 LAB L501.2200 8.5-10.1 mg/dL CA Normal 9.1 LAB L501.4100 15-37 U/L Normal AST 35 LAB L501.4305 45-117 U/L Normal ALK P 92 LAB L501.4405 13-56 U/L Normal ALT 44 LAB L501.4600 0.20-1.00 mg/dL T Normal BILI 0.40 LAB L501.5300 136-145 mmol/L NA Normal 140 LAB L501.5600 3.5-5.1 mmol/L K Normal 3.6 LAB L501.5900 98-107 mmol/L CL Normal 104 LAB L501.6100 21.0-32.0 mmol/L Normal CO2 25.0 LAB L501.6200 5-15 Normal GAP 11 Performed By: #### L500.4050 #### [facility] [address] [place], [address] DOWNTIME REPORT Observed: 08/04/2017 Status: F Source: [place] 2:51 PM [facility] REPOSITORY [facility] Medical Records Department [address] [place] [address] Downtime Report MR#: [id number] Acct: [id number] Name: TAMIE HIGHTOWER Rep #: [id number] : 1960 57 From: Manjit Aleman PCP: Adam Childs DO Status: REG CLI This patient was seen during an EMR downtime July 18, 2017 - July 25, 2017. This patient may have a combination of paper and electronic documentation or all paper documentation. All documentation is viewable within the e-chart portion of [employer] for each patient visit. DOWNTIME REPORT Observed: 08/04/2017 Status: F Source: [place] 2:38 PM [facility] REPOSITORY [facility] Medical Records Department [address] [address] Downtime Report MR#: [id number] Acct: [id number] Name: TAMIE HIGHTOWER Rep #: [id number] : 1960 57 From: Manjit Aleman PCP: Adam Childs DO Status: REG CLI This patient was seen during an EMR downtime July 18, 2017 - July 25, 2017. This patient may have a combination of paper and electronic documentation or all paper documentation. All documentation is viewable within the e-chart portion of [employer] for each patient visit. THYROID STIM HORMONE Collected: 07/20/2017 Status: F Source: [place] (TSH) 11:24 AM [facility] REPOSITORY Order Comment: RESULT(S) PREVIOUSLY REPORTED ON MANUAL REQUISITION DURING DOWNTIME. TYPE CODE TESTS RESULT OUT OF RANGE REFERENCE UNITS LAB L501.9520 0.358-3.74 uIU/mL Normal TSH 1.45 Performed By: #### L501.9520, L506.0400 #### [facility] [address] [place], [address] T4 FREE DIRECT Collected: 07/20/2017 Status: F Source: [place] 11:24 AM [facility] REPOSITORY Order Comment: RESULT(S) PREVIOUSLY REPORTED ON MANUAL REQUISITION DURING DOWNTIME. TYPE CODE TESTS RESULT OUT OF RANGE REFERENCE UNITS LAB L506.0400 0.76-1.46 ng/dL Normal T4 FREE 1.09 DIRECT Performed By: #### L501.9520, L506.0400 #### [facility] [address] [place], [address] ORB SELLA POST Observed: 07/08/2017 Status: F Source: [place] FOSSA EAR W/WO 5:07 PM [facility] REPOSITORY [facility] Imaging Services [address] [address] Orb Sella Post Fossa Ear W/WO MR#: [id number] Acct: [id number] Name: TAMIE HIGHTOWER Rep #: [id number] : 1960 F 56 From: Gume Zapata MD PCP: Adam Childs DO Status: REG CLI Study: Orb Sella Post Fossa Ear W/WO Date of Exam: 07/08/17 Exam# [id number] Ordering Dr: Mona Fatima MD ADDENDUM by Ruel Jimenez on 07/15/[address]/Orb Sella Post Fossa Ear W/WO IMPRESSION: Normal CT examination of the bilateral orbits. Electronically Signed: Ruel Jimenez MD at 14:39 EDT , Service support , 07/15/17 1509 Date cc: Adam Childs DO; Mona Fatima * Signed ADDENDUM by Ruel Jimenez on 07/15/[address]/Orb Sella Post Fossa Ear W/WO IMPRESSION: Normal CT examination of the bilateral orbits. Electronically Signed: Ruel Jimenez MD at 14:39 EDT , Service support , 07/15/17 1446 Date cc: Adam Childs DO; Mona Fatima * Signed ADDENDUM by Ruel Jimenez on 07/15/17 at 1439 ADDENDUM Normal globes. Normal intraconal spaces. Normal optic nerve sheath complex. Normal bilateral extraocular muscles. Normal lacrimal glands. Normal bilateral medial and inferior orbital franco. Normal bilateral maxillary bones. Normal soft tissue structures. 07/15/171438 Date cc: Adam Childs DO; Mona Fatima * Signed ADDENDUM by Ruel Jimenez on 07/15/17 at 1439 ADDENDUM Normal globes. Normal intraconal spaces. Normal optic nerve sheath complex. Normal bilateral extraocular muscles. Normal lacrimal glands. Normal bilateral medial and inferior orbital franco. Normal bilateral maxillary bones. Normal soft tissue structures. 07/15/17 1439 Date cc: Adam Childs DO; Mona Fatima * Signed ADDENDUM by Gume Zapata on 07/08/[address]/Orb Sella Post Fossa Ear W/WO IMPRESSION: Normal enhanced CT examination of the bilateral temporal bones (I.A.C.'s). Degenerative findings of left mandibular condyle. Electronically Signed: Gume Zapata MD at 22:22 EDT , Service support , 07/15/17 1508 Date cc: Adam Childs DO; Mona Fatima * Signed ADDENDUM by Gume Zapata on 07/08/17 at 2222 STUDY: CT TEMPORAL BONES WITH CONTRAST - ATTN: I.A.C. S REASON FOR EXAM: Female, 56 years old. GRAVES DX RADIATION DOSAGE (If Supplied By Facility): CTDIvol = ( 29.38 ) mGy, DLP = ( 742.30 ) mGycm TECHNIQUE: The patient was scanned in a multi detector CT scanner. Transaxial imaging was performed with the administration of 100 ml of Isovue 300 intravenous contrast material. Sagittal and coronal images were reconstructed. Individualized dose optimization techniques were used for this CT. COMPARISON: None. FINDINGS: RIGHT TEMPORAL BONE Normal right internal auditory canal. There is no demonstrated enhancing abnormality. Normal visualized ossicles and tympanic cavity. Normal right cochlea and semicircular canals. Normal vestibular aqueduct. Normal right petrous carotid artery. Normal right jugular fossa. Normal right mastoid air cells. Normal right petrous apex. LEFT TEMPORAL BONE Normal left internal auditory canal. There is no demonstrated enhancing abnormality. Degenerative findings of left mandibular condyle. Normal visualized ossicles and tympanic cavity. Normal left cochlea and semicircular canals. Normal vestibular aqueduct. Normal left petrous carotid artery. Normal right jugular fossa. Normal left mastoid air cells. Normal left petrous apex. 07/08/172221 Date cc: Adam Childs DO; Mona Fatima * Signed STUDY: CT TEMPORAL BONES WITH CONTRAST - ATTN: I.A.C. S REASON FOR EXAM: Female, 56 years old. GRAVES DX RADIATION DOSAGE (If Supplied By Facility): CTDIvol = ( 29.38 ) mGy, DLP = ( 742.30 ) mGycm TECHNIQUE: The patient was scanned in a multi detector CT scanner. Transaxial imaging was performed with the administration of 100 ml of Isovue 300 intravenous contrast material. Sagittal and coronal images were reconstructed. Individualized dose optimization techniques were used for this CT. COMPARISON: None. FINDINGS: RIGHT TEMPORAL BONE Normal right internal auditory canal. There is no demonstrated enhancing abnormality. Normal visualized ossicles and tympanic cavity. Normal right cochlea and semicircular canals. Normal vestibular aqueduct. Normal right petrous carotid artery. Normal right jugular fossa. Normal right mastoid air cells. Normal right petrous apex. LEFT TEMPORAL BONE Normal left internal auditory canal. There is no demonstrated enhancing abnormality. Degenerative findings of left mandibular condyle. Normal visualized ossicles and tympanic cavity. Normal left cochlea and semicircular canals. Normal vestibular aqueduct. Normal left petrous carotid artery. Normal right jugular fossa. Normal left mastoid air cells. Normal left petrous apex. CT/Orb Sella Post Fossa Ear W/WO IMPRESSION: Normal enhanced CT examination of the bilateral temporal bones (I.A.C.'s). Degenerative findings of left mandibular condyle. Electronically Signed: Gume Zapata MD at 22:22 EDT , Service support , CC: Adam Fatima Poacher Operator: Signed CBC W/DIFF, AUTOMATED Collected: 06/08/2017 Status: F Source: [place] 9:42 AM [facility] REPOSITORY TYPE CODE TESTS RESULT OUT OF RANGE REFERENCE UNITS LAB L100.1000 4.4-11.0 K/mm3 Normal WBC 6.1 LAB L100.1200 4.2-5.4 M/mm3 Normal RBC 4.89 LAB L100.1300 12.0-15.0 g/dl High HGB 15.4 LAB L100.1400 37-47 % Normal HCT 46.4 LAB L100.1500 81-99 fL Normal MCV 94.9 LAB L100.1600 27.0-32.0 pg Normal MCH 31.5 LAB L100.1700 32-36 g/gl Normal MCHC 33.2 LAB L100.1810 11.6-14.6 % Normal RDW CV 14.1 LAB L100.1820 35.1-43.9 fl High RDW SD 47.8 LAB L100.1900 150-450 K/mm3 Normal PLT 356 LAB L100.2000 6.2-12.0 fl Normal MPV 10.6 LAB L100.2100 47-70 % Normal NEUT% 51.8 LAB L100.2200 19-41 % Normal LY% 31.8 LAB L100.2300 0-10 % High MONO% 13.5 LAB L100.2400 0-5 % Normal EO% 2.4 LAB L100.2500 0-1 % Normal BASO% 0.3 LAB L100.2550 0.0-0.9 % Normal IM GRAN % 0.200 Result Comment: IG% - Immature Granulocytes (promyelocytes, myelocytes and metamyelocytes) > 1% indicates that a LEFT SHIFT is Present. LAB L100.2620 2.0-7.7 X10 3/uL Normal Absolute Neut 3.2 LAB L100.2720 0.83-4.51 X10 3/ul Normal Absolute Lymph 1.95 LAB L100.5500 ADEQ Normal PLT EST ADEQUATE LAB L100.5650 Normal PLT MORPH LARGE Performed By: #### L100.0100 #### [facility] [address] [place], [place], [address] COMPREHENSIVE METABOLIC Collected: 06/08/2017 Status: F Source: [facility] 9:42 AM [facility] REPOSITORY TYPE CODE TESTS RESULT OUT OF RANGE REFERENCE UNITS LAB L501.0100 74-106 mg/dL Low GLU 73 Result Comment: Please note revised GLUCOSE reference range effective 2017. LAB L501.1000 7-18 mg/dL Normal BUN 9 LAB L501.1100 0.55-1.02 mg/dL Normal CREAT,SERUM 0.81 Result Comment: The validity of the calculated GFR AND GFRAA in patients over 70 years has not been determined. Clinical correlation is essential. LAB L501.1110 >60 mL/min Normal EST GFR 77 Result Comment: Non- GFR Calc LAB L501.1115 >60 mL/min Normal EST GFR - AA 93 Result Comment: GFR Calc LAB L501.1300 10-20 RATIO Normal BUN/CRE 11.1 LAB L501.1500 6.4-8.2 g/dL T Normal PROT 7.7 LAB L501.1800 3.2-5.0 g/dL Normal ALB 4.0 LAB L501.1950 2.2-4.2 g/dL Normal GLOB 3.7 LAB L501.2000 0.9-2.4 RATIO Normal A/G 1.1 LAB L501.2200 8.5-10.1 mg/dL CA Normal 9.2 LAB L501.4100 15-37 U/L Normal AST 28 Result Comment: Slight Hemolysis, Result may be falsely increased. LAB L501.4305 45-117 U/L Normal ALK P 91 LAB L501.4405 13-56 U/L Normal ALT 41 LAB L501.4600 0.20-1.00 mg/dL Normal T BILI 0.40 LAB L501.5300 136-145 mmol/L Normal NA 137 LAB L501.5600 3.5-5.1 mmol/L Normal K 4.1 Result Comment: Slight Hemolysis, Result may be falsely increased. LAB L501.5900 98-107 mmol/L Normal CL 103 LAB L501.6100 21.0-32.0 mmol/L Normal CO2 26.0 LAB L501.6200 5-15 Normal 8 GAP Performed By: #### L500.4050 #### [facility] [address] [place], [place] [address], [address] CBC W/DIFF, AUTOMATED Collected: 03/16/2017 Status: F Source: [place] 10:53 AM [facility] [place] REPOSITORY TYPE CODE TESTS RESULT OUT OF RANGE REFERENCE UNITS LAB L100.1000 4.4-11.0 K/mm3 Normal WBC 5.4 LAB L100.1200 4.2-5.4 M/mm3 Normal RBC 4.80 LAB L100.1300 12.0-15.0 g/dl High HGB 15.2 LAB L100.1400 37-47 % Normal HCT 44.6 LAB L100.1500 81-99 fL Normal MCV 92.9 LAB L100.1600 27.0-32.0 pg Normal MCH 31.7 LAB L100.1700 32-36 g/gl Normal MCHC 34.1 LAB L100.1810 11.6-14.6 % Normal RDW CV 14.0 LAB L100.1820 35.1-43.9 fl High RDW SD 46.1 LAB L100.1900 150-450 K/mm3 Normal PLT 333 LAB L100.2000 6.2-12.0 fl Normal MPV 10.8 LAB L100.2100 47-70 % Low NEUT% 43.7 LAB L100.2200 19-41 % Normal LY% 38.4 LAB L100.2300 0-10 % High MONO% 14.0 LAB L100.2400 0-5 % Normal EO% 3.0 LAB L100.2500 0-1 % Normal BASO% 0.7 LAB L100.2550 0.0-0.9 % Normal IM GRAN % 0.200 Result Comment: IG% - Immature Granulocytes (promyelocytes, myelocytes and metamyelocytes) > 1% indicates that a LEFT SHIFT is Present. LAB L100.2620 2.0-7.7 X10 3/uL Normal Absolute Neut 2.4 LAB L100.2720 0.83-4.51 X10 3/ul Normal Absolute Lymph 2.08 Performed By: #### L100.0100 #### [facility] [address] [place], [address] COMPREHENSIVE METABOLIC Collected: 03/16/2017 Status: F Source: [facility] 10:53 AM [facility] REPOSITORY TYPE CODE TESTS RESULT OUT OF RANGE REFERENCE UNITS LAB L501.0100 70-110 mg/dL Normal GLU 92 LAB L501.1000 7-18 mg/dL Normal BUN 11 LAB L501.1100 0.55-1.02 mg/dL Normal 0.80 CREAT,SERUM Result Comment: The validity of the calculated GFR AND GFRAA in patients over 70 years has not been determined. Clinical correlation is essential. LAB L501.1110 >60 mL/min Normal EST GFR 78 Result Comment: Non- GFR Calc LAB L501.1115 >60 mL/min Normal EST GFR - AA 95 Result Comment: GFR Calc LAB L501.1300 10-20 RATIO Normal BUN/CRE 13.7 LAB L501.1500 6.4-8.2 g/dL T Normal PROT 7.5 LAB L501.1800 3.2-5.0 g/dL Normal ALB 3.9 LAB L501.1950 2.2-4.2 g/dL Normal GLOB 3.6 LAB L501.2000 0.9-2.4 RATIO Normal A/G 1.1 LAB L501.2200 8.5-10.1 mg/dL CA Normal 8.8 LAB L501.4100 15-37 U/L Normal AST 28 LAB L501.4305 45-117 U/L Normal ALK P 83 LAB L501.4405 13-56 U/L Normal ALT 46 Result Comment: Please note revised ALT reference range effective 2017. LAB L501.4600 0.20-1.00 mg/dL Normal T BILI 0.50 LAB L501.5300 136-145 mmol/L Normal NA 136 LAB L501.5600 3.5-5.1 mmol/L Normal K 3.7 LAB L501.5900 98-107 mmol/L Normal CL 101 LAB L501.6100 21.0-32.0 mmol/L Normal CO2 25.0 LAB L501.6200 5-15 Normal GAP 10 Performed By: #### L500.4050 #### [facility] [address] [place], [address] ALLERGIES ALLERGIES DATE TYPE / CODE NAME / CODE REACTION SEVERITY SOURCE 02/25/2018 Drug No Known Unknown [facility] Allergy/4160 Allergies/F00 Hospital 99442(SNOMED [id number](RXNOR Repository CT) M) ENCOUNTERS ENCOUNTERS ADMIT/DISCHARGE ACCOUNT ADMITTING ENCOUNTER LOCATION SOURCE NUMBER CLASS 03/08/2018 [id number] Ambulatory [place] [facility] 8 [facility] ing:OPBI Repository 02/25/2018/ [id number] Ambulatory BMSBuilding:B [place] [address] [place] [address] Repository 02/13/2018 [id number] Ambulatory [place] 8 [facility] ing:MTLAB Repository 11/17/2017 [id number] Ambulatory [place] 6 [facility] ing:MTLAB Repository 08/22/2017 [id number] Ambulatory [place] 9 [facility] ing:MTLAB Repository 07/20/2017 [id number] Ambulatory [place] 9 [facility] ing:BFHLAB Repository 07/08/2017 [id number] Ambulatory [place] 2 [facility] ing:CT Repository 06/08/2017 [id number] Ambulatory [place] 3 [facility] ing:MTLAB Repository 03/16/2017 [id number] Ambulatory [place] 8 [facility] ing:MTLAB Repository PAYERS PAYERS ENCOUNTER GUARANTOR PAYER SUBSCRIBER SOURCE 03/08/2018 TAMIE L Primary TAMIE L [place] [id number] Insurance:ANTHEMPolic WALKERDOB: [facility] [address] Number: [id number] [id number] Repository [address]Jpp: (330) Date:3415-31-50XQ [phone] () [address] [place] [address] [place] [address]DV: 03/08/2018 Secondary NOT GIVENUNK [place] Insurance:SELF PAY [facility] Number: Effective Repository Date:2018-02-01 02/25/2018 TAMIE L Primary TAMIE L [place] [id number] Insurance:ANTHEMPolic [facility]ERD[facility] [address] Number: [id number] [id number] Repository [address]Raf: (330) Date:4239-97-26CD [phone] () [address] [place] [address] [place] [address]YT: 02/25/2018 Secondary NOT GIVENUNK [place] Insurance:SELF PAY [facility] Number: Effective Repository Date:2018-02-25 02/13/2018 TAMIE L Primary TAMIE L [place] [id number] Insurance:ANTHEMPolic WALKERDOB[facility] [address] Number: [id number] [address] [id number] Repository [address]Vhc: (330) Date:2859-48-79XB [phone] () [address] [place] [address] [place] [address]TS: 02/13/2018 Secondary NOT GIVENUNK [place] Insurance:SELF PAY [facility] Number: Effective Repository Date:2018-02-01 11/17/2017 Tamie L Primary Tamie L [place] [id number] Insurance:ANTHEMPolic [address]D[facility] [address] Number: [id number] [id number] Repository [address]Xup: (330) Date:4230-20-77QK [phone] () [id number], [place] [address]RQ: 11/17/2017 Secondary NOT GIVENUNK [place] Insurance:SELF PAY [facility] Number: Effective Repository Date:2017-11-17 08/22/2017 Tamie L Primary Tamie L [place] [id number] Insurance:ANTHEMPolic WalkerDOB[facility] [address] Number: [id number] [id number] Repository [address]Afd: (330) Date:3056-30-68CX [phone] () [address], [place] [address]HS: 08/22/2017 Secondary NOT GIVENUNK [place] Insurance:SELF PAY [facility] Number: Effective Repository Date:2017-08-22 07/20/2017 Tamie L Primary Tamie L [place] [id number] Insurance:ANTHEMPolic WalkerDOB: [facility] [address] Number: [id number] [id number] Repository [address]Hjy: (330) Date:1653-32-97AP [phone] () [id number], [place] [address]IF: 07/20/2017 Secondary NOT GIVENUNK [place] Insurance:SELF PAY [facility] Number: Effective Repository Date:2017-07-20 07/08/2017 Tamie L Primary Tamie L [place] [id number] Insurance:ANTHEMPolic WalkerDOB: [facility] [address] Number: [id number] [id number] Repository [address]Spw: (330) Date:4488-58-50QG [phone] () [address], [place] [address]NB: 07/08/2017 Secondary NOT GIVENUNK [place] Insurance:SELF PAY [facility] Number: Effective Repository Date:2017-07-01 06/08/2017 Tamie L Primary Tamie L [place] [id number] Insurance:ANTHEMPolic WalkerDOB: [facility] [address] Number: [id number] [id number] Repository [address]Rrj: (330) Date:3018-48-90HG [phone] () [address], [place] [address]DM: 06/08/2017 Secondary NOT GIVENUNK [place] Insurance:SELF PAY [facility] Number: Effective Repository Date:2017-06-08 03/16/2017 Tamie L Primary Tamie L [place] [id number] Insurance:ANTHEMPolic WalkerDOB: [facility] [address] Number: [id number] [id number] Repository [address]Dzi: (330) Date:9794-55-43BR [phone] () [address]Q, [place] [address]DB: 03/16/2017 Secondary NOT GIVENUNK [place] Insurance:SELF PAY [facility] Number: Effective Repository Date:2017-03-16
== END ==
PROVIDERS: Family Provider Family Medicine; PCP Family Medicine; Referring Provider Family Medicine; Visit Provider Family Medicine
DX: Z12.31 Encounter for screening mammogram for malignant neoplasm of breast (principal)
CPT/HCPCS: 77063; 77067

== ENCOUNTER → 2018-06-07 | Outpatient (CLI) | payer BC, SELFPAY ==
[2018-02-25 10:39] VITALS: BMI 31.4
[2018-06-07 12:36] LABS: Absolute Lymphocyte Count 2.14 X10^3/ul (0.83-4.51); Absolute Neutrophil Count 2.8 X10^3/uL (2.0-7.7); Basophil# 0.02 X10^3/uL; Basophil% 0.3 % (0-1); Eosinophil# 0.22 X10^3/uL; Eosinophils% 3.8 % (0-5); Hemoglobin 15.3 g/dl (12.0-15.0); Lymphocyte # 2.14 X10^3/ul (4.0); Lymphocyte % 37.3 % (19-41); Mean Corpuscular Hgb 31.7 pg (27.0-32.0); Mean Corpuscular Volume 93.4 fL (81-99); Mean Platelet Vol. 10.4 fl (6.2-12.0); Monocyte# 0.55 X10^3/uL; Monocyte% 9.6 % (0-10); Neutrophil # 2.79 X10^3/uL (2.7-7.7); Neutrophil % 48.8 % (47-70); Platelet Count 343 K/mm3 (150-450); RBC Distribution Width CV 14.7 % (11.6-14.6); RBC Distribution Width SD 49.5 fl (35.1-43.9); Red Blood Count 4.82 M/mm3 (4.2-5.4); White Blood Count 5.7 K/mm3 (4.4-11.0)
[2018-06-07 12:37] LABS: POSITIVE COUNT NO; POSITIVE DIFFERENTIAL NO; POSITIVE MORPHOLOGY NO
[2018-06-07 12:45] LABS: ALB/GLOB Ratio 1.2 RATIO (0.9-2.4); AST(SGOT) 41 U/L (15-37); Alanine Aminotransfer ALT/SGPT 57 U/L (13-56); Alkaline Phosphatase 95 U/L (45-117); Anion Gap 5 (5-15); BUN 10 mg/dL (7-18); BUN/Creat Ratio 11.5 RATIO (10-20); Calcium,Total 8.7 mg/dL (8.5-10.1); Chloride 103 mmol/L (98-107); Creatinine, Serum 0.87 mg/dL (0.55-1.02); EST Glomerular Filtration Rate 71 mL/min (>60); Est Glom Filt Rate - Afr Amer 86 mL/min (>60); Globulin 3.4 g/dL (2.2-4.2); Glucose 90 mg/dL (74-106); Protein, Total 7.4 g/dL (6.4-8.2); Sodium Level 136 mmol/L (136-145)
== END | disposition home or self-care (01) ==
LOC: MTLAB 11:13
PROVIDERS: Family Provider Family Medicine; PCP Family Medicine; Referring Provider Internal Medicine Rheumatology; Visit Provider Internal Medicine Rheumatology
DX: L40.59 Other psoriatic arthropathy (principal); Z79.899 Other long term (current) drug therapy; L40.8 Other psoriasis; M35.00 Sjogren syndrome, unspecified; Q66.7 Congenital pes cavus; M47.892 Other spondylosis, cervical region; M51.36 Other intervertebral disc degeneration, lumbar region; F32.89 Other specified depressive episodes; F41.9 Anxiety disorder, unspecified; E03.9 Hypothyroidism, unspecified; Z85.820 Personal history of malignant melanoma of skin
CPT/HCPCS: 36415; 80053; 85025

== ENCOUNTER → 2018-06-14 | Outpatient (CLI) | payer BC, SELFPAY ==
[2018-02-25 10:39] VITALS: BMI 31.4
[2018-06-14 14:27] LABS: AST(SGOT) 35 U/L (15-37); Alanine Aminotransfer ALT/SGPT 49 U/L (13-56); Albumin, Serum 4.1 g/dL (3.2-5.0); Alkaline Phosphatase 93 U/L (45-117); Bilirubin, Direct 0.09 mg/dL (0.00-0.30); Globulin 3.3 g/dL (2.2-4.2); Protein, Total 7.4 g/dL (6.4-8.2)
== END | disposition home or self-care (01) ==
LOC: MTLAB 11:49
PROVIDERS: Family Provider Family Medicine; PCP Family Medicine; Referring Provider Internal Medicine Rheumatology; Visit Provider Internal Medicine Rheumatology
DX: L40.59 Other psoriatic arthropathy (principal); Z79.899 Other long term (current) drug therapy; L40.8 Other psoriasis; M35.00 Sjogren syndrome, unspecified; Q66.7 Congenital pes cavus; K21.9 Gastro-esophageal reflux disease without esophagitis; M47.892 Other spondylosis, cervical region; M51.36 Other intervertebral disc degeneration, lumbar region; E03.9 Hypothyroidism, unspecified; Z85.820 Personal history of malignant melanoma of skin
CPT/HCPCS: 36415; 80076

== ENCOUNTER → 2018-08-09 | Outpatient (CLI) | payer BC, SELFPAY ==
[2018-07-07 17:50] VITALS: BMI 31.4
--- NOTE | 2018-08-09 12:20 | RAD_ITS ---
STUDY: X-RAY CHEST REASON FOR EXAM: Female, 58 years old. TECHNIQUE: 1 view COMPARISON: June 18, 2015. FINDINGS: Both lung thompson are clear except for minimal linear atelectasis right midlung. Heavy markings seen in in the medial aspect of the right base. Otherwise no evidence of pneumothorax or pleural effusion. The heart is not enlarged. The trachea is in the midline. The bony thorax is intact. There is mild scoliosis of the dorsal spine convexity to the right RAD/Chest PA and Lateral IMPRESSION: Negative study for intrathoracic active disease Electronically Signed: Black Robertson, at 15:21 EDT Tel , Service support ,
== END | disposition home or self-care (01) ==
LOC: MTRAD 12:19
PROVIDERS: Family Provider Family Medicine; PCP Family Medicine; Referring Provider Family Medicine; Visit Provider Family Medicine
DX: R05 Cough (principal)
CPT/HCPCS: 71046

== ENCOUNTER → 2018-09-20 | Outpatient (CLI) | payer BC, SELFPAY ==
[2018-07-07 17:50] VITALS: BMI 31.4
[2018-09-20 12:20] LABS: Absolute Lymphocyte Count 2.19 X10^3/uL (0.83-4.51); Absolute Neutrophil Count 2.3 X10^3/uL (2.0-7.7); Basophil# 0.04 X10^3/uL; Basophil% 0.7 % (0-1); Eosinophil# 0.12 X10^3/uL; Eosinophils% 2.2 % (0-5); Hematocrit 44.3 % (37-47); Hemoglobin 14.8 g/dL (12.0-15.0); Lymphocyte # 2.19 X10^3/ul (4.0); Lymphocyte % 40.8 % (19-41); Mean Corp Hgb Conc 33.4 g/dL (32-36); Mean Corpuscular Hgb 31.5 pg (27.0-32.0); Mean Corpuscular Volume 94.3 fL (81-99); Mean Platelet Vol. 10.1 fl (6.2-12.0); NRBC Flagged by Analyzer 0 % (0-5); Neutrophil % 42.9 % (47-70); Platelet Count 346 K/mm3 (150-450); RBC Distribution Width CV 14.2 % (11.6-14.6); RBC Distribution Width SD 48.6 fl (35.1-43.9); White Blood Count 5.4 K/mm3 (4.4-11.0)
[2018-09-20 13:04] LABS: ALB/GLOB Ratio 1.1 RATIO (0.9-2.4); AST(SGOT) 35 U/L (15-37); Alanine Aminotransfer ALT/SGPT 48 U/L (13-56); Albumin, Serum 3.9 g/dL (3.2-5.0); Alkaline Phosphatase 90 U/L (45-117); Anion Gap 6 (5-15); BUN 12 mg/dL (7-18); BUN/Creat Ratio 14.6 RATIO (10-20); Calcium,Total 8.9 mg/dL (8.5-10.1); Chloride 103 mmol/L (98-107); Creatinine, Serum 0.82 mg/dL (0.55-1.02); EST Glomerular Filtration Rate 76 mL/min (>60); Est Glom Filt Rate - Afr Amer 92 mL/min (>60); Globulin 3.5 g/dL (2.2-4.2); Glucose 109 mg/dL (74-106); Potassium 3.5 mmol/L (3.5-5.1); Protein, Total 7.4 g/dL (6.4-8.2); Sodium Level 136 mmol/L (136-145)
== END | disposition home or self-care (01) ==
LOC: MTLAB 11:24
PROVIDERS: Family Provider Family Medicine; PCP Family Medicine; Referring Provider Internal Medicine Rheumatology; Visit Provider Internal Medicine Rheumatology
DX: L40.59 Other psoriatic arthropathy (principal); Z79.899 Other long term (current) drug therapy; L40.8 Other psoriasis; M35.00 Sjogren syndrome, unspecified; Q66.7 Congenital pes cavus; K21.9 Gastro-esophageal reflux disease without esophagitis; M47.892 Other spondylosis, cervical region; M51.36 Other intervertebral disc degeneration, lumbar region; F32.89 Other specified depressive episodes
CPT/HCPCS: 36415; 80053; 85025

== ENCOUNTER 2018-10-02 04:50 | Emergency (ER) | payer BC, SELFPAY ==
[2018-07-07 17:50] VITALS: BMI 31.4
[2018-10-02 04:51] VITALS: BP 134/74; PULSE 60; RESP 16; TEMP 36.6; O2SAT 95; BMI 32.3
--- NOTE | 2018-10-02 05:00 | RAD_ITS ---
STUDY: X-RAY - LUMBAR SPINE REASON FOR EXAM: Female, 58 years old. Trauma. TECHNIQUE: 3 view(s) of the lumbar spine were obtained. COMPARISON: None FINDINGS: Normal lumbar lordosis. There is 18 degrees levoscoliosis of the lumbar spine. There is 5 mm retrolisthesis at L2-3. There is multilevel endplate spondylosis of the lumbar vertebrae. There is multi-level degenerative disc disease with multi-level disc space narrowing. The soft tissue structures are unremarkable. RAD/Lumbar Spine 2 or 3 Views IMPRESSION: Degenerative changes of the spine, as detailed above. Electronically Signed: Jarrod Anthony, at 5:36 EDT Tel , Service support ,
--- NOTE | 2018-10-02 05:01 | ED.VIS.BACK ---
History of Present Illness Chief Complaint: Back Informant: Patient Onset: Hours - about 17 Context: Sudden Onset Injury: Lifting Timing: Continuous Quality: Aching Location: Lumbar Current Severity: Severe Maximum Severity: Severe Worsened by: improves with: Movement Relieved by: Remaining Still Associated Symptoms: Tingling, Radiation to Right Leg Narrative: Patient lifted her grandson yesterday and had sudden onset of significant discomfort in her low back, she states it feels deep inside. She denies any saddle anesthesia but states she had some tingling at one point down in her distal right lower extremity. No weakness. No falls or direct injury. No bowel or bladder dysfunction. No abdominal discomfort. At one point the pain was so severe it made her feel like she was going to pass out. No chest discomfort or palpitations. Moving makes it worse. Pain feels like it is mostly in the middle. Past Medical History - Allergies and Home Meds Allergies/Adverse Reactions: Allergies No Known Allergies Allergy (Verified 02/25/18 10:39) Primary Care Physician: Adam Childs DO [Primary Care Provider] - Smoking Status: Never smoker Review of Systems General: Denies: Chills, Fever, Sweats Cardiovascular: Denies: Chest pain, Palpitations Respiratory: Denies: Dyspnea, Cough, Dyspnea on exertion Gastrointestinal: Denies: Abdominal pain, Nausea, Vomiting, Diarrhea, Melena, Hematochezia Musculoskeletal: Reports: Back pain, Extremity Pain - when shooting down RLE. Denies: Neck pain, Swelling Skin: Denies: Rash, Wounds Neurological: Reports: Parasthesia - tingling down RLE intermittently. Denies: Headache, Weakness Physical Exam Vital Signs/Narrative: Vital Signs Temp Pulse Resp BP Pulse Ox 10/02/18 04:51 97.9 F 60 16 134/74 H 95 Inital Vital Signs reviewed: Yes General: Well nourished, Well developed, - - NAD. uncomfortable when actively sitting forward/up. Head: Normocephalic, Atraumatic Back: Normal Inspection, Nontender, Negative SLR - Right, Negative SLR - Left Extremeties: Nontender, No edema Skin: Normal color, No rash Neuro: Alert, Oriented, Normal Strength, Normal Sensation, Normal DTR, Normal Gait, Normal Reflexes Psychological: Normal affect, Normal Mood Diagnostic/Tx/Re-eval Clinical Impression(s) from Imaging Studies Lumbar Spine X-Ray 10/02/18 05:00 IMPRESSION: Degenerative changes of the spine, as detailed above. Electronically Signed: Jarrod Anthony, at 5:36 EDT Tel , Service support , - Medical Decision Making X-rays show chronic abnormalities and no acute compression fractures. Differential here includes musculoskeletal strain/sprain, in addition to ruptured disc. At this time I recommend supportive care, she states she is not having any of the leg symptoms now, letting pain be her guide, close outpatient follow-up as if the pain continues, she may need reevaluation for possible advanced imaging. Discussed all this at the bedside, all questions answered and she is comfortable with this plan. We will give her prescription for some analgesics, she was given Toradol here which helped a little, but she is driving herself home. ED Disposition - Plan for ED Patient: Disposition: Home or Assisted Living Diagnosis: Acute lumbosacral myofascial strain Instructions: BACK PAIN (Acute or Chronic) Prescriptions: Hydrocodone Bitart/Apap 5-325 [[place] 5MG-325MG] 1 tab PO Q6H PRN PRN 3 Days #12 tab PRN Reason: Pain Prescription Printed Orphenadrine [Norflex ER] 100 mg PO BID PRN #10 tab PRN Reason: Muscle Spasm Prescription Printed Referrals: Adam Childs DO [Primary Care Provider] - 1 Week if not improving Additional Instructions: Take ibuprofen in addition to prescriptions as tolerated for pain.
[2018-10-02] MEDS: Ketorolac 60 MG/2 ML Vial IM (05:07)
== END 2018-10-02 05:59 | disposition home or self-care (01) ==
PROVIDERS: Emergency Provider Emergency Medicine; Family Provider Family Medicine; PCP Family Medicine
DX: S39.012A Strain of muscle, fascia and tendon of lower back, initial encounter (principal); R20.2 Paresthesia of skin; X50.9XXA Other and unspecified overexertion or strenuous movements or postures, initial encounter; Y93.9 Activity, unspecified; Y92.9 Unspecified place or not applicable; Z79.899 Other long term (current) drug therapy
CPT/HCPCS: 72100; 96372; 99282

== ENCOUNTER → 2018-11-25 14:45 | Outpatient (CLI) | payer BC, SELFPAY ==
[2018-11-25 10:14] VITALS: BMI 32.3
[2018-11-25 15:05] LABS: Mucous, Urine 0 SEEN /hpf (<or=2+); Red Blood Cells-Urine 0 SEEN /hpf (0-5); Squamous Epithelial Cells - UA 0 SEEN /hpf (5-10)
[2018-11-25 15:20] LABS: Color, Urine Yellow (Yellow); Glucose, Dipstick Normal (Normal); Ketone-Dipstick Negative (Negative); Leukocyte Esterase-Dipstick 100 /ul (Negative); Nitrite-Dipstick Negative (Negative); Occult Blood-Urine 10 /ul (Negative); Protein-Dipstick Negative (Negative); Specific Gravity, Urine 1.015 (1.002-1.030); Urine Bilirubin Dipstick Negative (Negative); Urine Clarity Clear (Clear); Urine Urobilinogen Normal (Normal)
[2018-11-25 16:25] LABS: Bacteria RARE /hpf (None Seen); White Blood Cells 0-5 SEEN /hpf (0-5)
== END ==
PROVIDERS: Family Provider Family Medicine; PCP Family Medicine; Visit Provider Physician Assistant Medical
DX: M54.5 Low back pain (principal); R10.9 Unspecified abdominal pain
CPT/HCPCS: 81001; 87077; 87086; 87088; 87186

== ENCOUNTER → 2018-12-21 11:53 | Outpatient (CLI) | payer BC, SELFPAY ==
[2018-11-25 10:14] VITALS: BMI 32.3
[2018-12-21 14:32] LABS: Absolute Lymphocyte Count 2.12 X10^3/uL (0.83-4.51); Absolute Neutrophil Count 2.8 X10^3/uL (2.0-7.7); Basophil# 0.05 X10^3/uL; Basophil% 0.8 % (0-1); Eosinophil# 0.15 X10^3/uL; Eosinophils% 2.5 % (0-5); Hematocrit 44.3 % (37-47); Hemoglobin 14.8 g/dL (12.0-15.0); Lymphocyte # 2.12 X10^3/ul (4.0); Lymphocyte % 35.3 % (19-41); Mean Corp Hgb Conc 33.4 g/dL (32-36); Mean Corpuscular Hgb 31.5 pg (27.0-32.0); Mean Corpuscular Volume 94.3 fL (81-99); Mean Platelet Vol. 10.2 fl (6.2-12.0); Monocyte# 0.92 X10^3/uL; Monocyte% 15.3 % (0-10); NRBC Flagged by Analyzer 0 % (0-5); Neutrophil # 2.75 X10^3/uL (2.7-7.7); Neutrophil % 45.8 % (47-70); Platelet Count 359 K/mm3 (150-450); RBC Distribution Width CV 13.8 % (11.6-14.6)
[2018-12-21 14:46] LABS: ALB/GLOB Ratio 1.1 RATIO (0.9-2.4); AST(SGOT) 26 U/L (15-37); Alanine Aminotransfer ALT/SGPT 36 U/L (13-56); Albumin, Serum 3.9 g/dL (3.2-5.0); Alkaline Phosphatase 90 U/L (45-117); Anion Gap 9 (5-15); BUN 11 mg/dL (7-18); BUN/Creat Ratio 12.3 RATIO (10-20); Calcium,Total 9.5 mg/dL (8.5-10.1); Chloride 103 mmol/L (98-107); Creatinine, Serum 0.89 mg/dL (0.55-1.02); EST Glomerular Filtration Rate 69 mL/min (>60); Est Glom Filt Rate - Afr Amer 83 mL/min (>60); Globulin 3.6 g/dL (2.2-4.2); Glucose 81 mg/dL (74-106); Potassium 4.1 mmol/L (3.5-5.1); Protein, Total 7.5 g/dL (6.4-8.2); Sodium Level 138 mmol/L (136-145)
== END ==
PROVIDERS: Family Provider Family Medicine; PCP Family Medicine; Referring Provider Internal Medicine Rheumatology; Visit Provider Internal Medicine Rheumatology
DX: L40.59 Other psoriatic arthropathy (principal); Z79.899 Other long term (current) drug therapy; L40.8 Other psoriasis; M35.00 Sjogren syndrome, unspecified; Q66.70 Congenital pes cavus, unspecified foot; K21.9 Gastro-esophageal reflux disease without esophagitis; M47.892 Other spondylosis, cervical region; M51.36 Other intervertebral disc degeneration, lumbar region
CPT/HCPCS: 36415; 80053; 85025

== ENCOUNTER 2019-02-13 08:43 | Emergency (ER) | payer BC, SELFPAY ==
[2019-01-04 17:48] VITALS: BMI 32.3
[2019-02-13 08:44] VITALS: BP 126/72; PULSE 75; RESP 18; TEMP 35.9; O2SAT 99; BMI 31.6
[2019-02-13 08:45] VITALS: BP 126/72; PULSE 75; RESP 18; TEMP 35.9; O2SAT 99
--- NOTE | 2019-02-13 08:51 | ED.VIS.GEN ---
History of Present Illness Chief Complaint: Abscess Informant: Patient Onset: Weeks Context: Gradual Onset Timing: Waxes and wanes Current Severity: Mild Maximum Severity: Moderate Narrative: Patient presents with an abscess to the left axilla. She states she first noted it a month or so ago. She states she was able to get it to drain slightly and improved for short time, but recently became enlarged again. She has an appointment to see her doctor later this week but when she noted red streaking thought she should get it seen earlier. She denies fever or chills. She is had no spontaneous drainage from the wound. It is noted that she is on methotrexate secondary to history of psoriatic arthritis. - Past Medical History (1) Hypothyroid Status: Chronic (2) GERD (gastroesophageal reflux disease) Status: Chronic (3) Anxiety Status: Chronic (4) Depression Status: Chronic (5) Psoriatic arthritis Status: Chronic Past Medical History - Allergies and Home Meds Allergies/Adverse Reactions: Allergies No Known Allergies Allergy (Verified 02/13/19 08:44) Primary Care Physician: Adam Childs DO [Primary Care Provider] - Prior records reviewed: Yes Surgical History: appendectomy, hysterectomy Smoking Status: Never smoker Review of Systems General: Denies: Chills, Fever Eyes: Denies: Visual changes - bilaterally ENT: Denies: Bilateral ear pain Cardiovascular: Denies: Chest pain Respiratory: Denies: Dyspnea, Cough Gastrointestinal: Denies: Abdominal pain, Nausea, Vomiting, Diarrhea Musculoskeletal: Denies: Neck pain, Back pain Skin: Reports: Abscess Endocrine: Denies: Polyuria, Polydipsia Hematologic: Denies: Easy bruising Allergy: Denies: Uticaria Physical Exam Vital Signs/Narrative: Vital Signs Temp Pulse Resp BP Pulse Ox 02/13/19 08:45 96.6 F L 75 18 126/72 H 99 02/13/19 08:44 96.6 F L 75 18 126/72 H 99 Inital Vital Signs reviewed: Yes General: Well nourished, Well developed Head: Normocephalic ENT: Moist mucous membranes Neck: Supple Cardiovascular: Regular rate, Regular rhythm Respiratory: No distress, CTA bilaterally Abdomen: Soft, Nontender Skin: - - 2 x 3 cm cutaneous abscess in the left axilla with mild surrounding erythema. No spontaneous drainage. Slight lymphangitic streak noted. Psychological: Normal affect Diagnostic/Tx/Re-eval - Medical Decision Making Patient is given Bactrim and Keflex. I&D is performed. 1/2 cc of 1% lidocaine is used locally for anesthesia. Stab incision is made with a #11 blade. There is return of blood and pus. Capsule wall remains thick and firm. Wound is cleansed and dressed. She will be given prescription for Bactrim and Keflex. She already has follow-up ointment scheduled with her doctor later this week. ED Disposition - Plan for ED Patient: Disposition: Home or Assisted Living Diagnosis: Cutaneous abscess Instructions: ABSCESS, Incision and Drainage Prescriptions: Smz/Tmp Ds [Bactrim Ds] 1 tab PO BID #20 tab Transmission Status: Pending to [id number] Cephalexin [Keflex] 500 mg PO Q6 #40 cap Transmission Status: [facility] to [id number] Referrals: Adam Childs DO [Primary Care Provider] - Keep Delphine appointment
[2019-02-13] MEDS: Cephalexin 500 MG Capsule PO (08:56)
[2019-02-13] MEDS: Smz/Tmp Ds Tablet 1 TABLET PO (08:56)
== END 2019-02-13 09:21 | disposition home or self-care (01) ==
LOC: ED 09:13
PROVIDERS: Emergency Provider Emergency Medicine; Family Provider Family Medicine; PCP Family Medicine
DX: L02.412 Cutaneous abscess of left axilla (principal); L40.50 Arthropathic psoriasis, unspecified; E03.9 Hypothyroidism, unspecified; K21.9 Gastro-esophageal reflux disease without esophagitis; F32.9 Major depressive disorder, single episode, unspecified; F41.9 Anxiety disorder, unspecified; Z79.899 Other long term (current) drug therapy
CPT/HCPCS: 10060; 99283

== ENCOUNTER 2019-02-25 17:32 | Emergency (ER) | payer BC, SELFPAY ==
[2019-02-25 17:33] VITALS: BP 156/76; PULSE 65; RESP 18; TEMP 36.4; O2SAT 97; BMI 30.9
--- NOTE | 2019-02-25 17:50 | ED.VIS.GEN ---
History of Present Illness Chief Complaint: Overdose Informant: Patient Onset: Today Narrative: Presents ED for evaluation after being referred by poison control. Patient reports he took an extra days worth of methotrexate. She has been taken this medication for the past 1 to 2 years for treatment of psoriatic arthritis. She is followed by rheumatology. She takes the medications weekly on Tuesday 10 mg in the morning and 10 mg in the evening. She reports she took it yesterday, however today after taking her evening dose realized it was Tuesday and Tuesday. She reports called her pharmacy who referred her to talk with poison control. Reports she was placed on hold and was told to go to the ED. She states she has her typical nausea with the medications. Denies vomiting. Denies abdominal pain. No chest pains or palpitations. Prior similar symptoms: No Past Medical History - Allergies and Home Meds Allergies/Adverse Reactions: Allergies No Known Allergies Allergy (Verified 02/25/19 17:33) Primary Care Physician: Adam Childs DO [Primary Care Provider] - Surgical History: appendectomy, hysterectomy Smoking Status: Former smoker Review of Systems General: Denies: Chills, Fever, Sweats Eyes: Denies: Visual changes - bilaterally, Diplopia ENT: Denies: Rhinorrhea, Sore throat Cardiovascular: Denies: Chest pain, Palpitations Respiratory: Denies: Dyspnea, Cough, Dyspnea on exertion Gastrointestinal: Reports: Nausea. Denies: Abdominal pain, Vomiting, Diarrhea, Melena, Hematochezia Genitourinary: Denies: Dysuria, Hematuria, Frequency Musculoskeletal: Denies: Back pain, Extremity Pain Skin: Denies: Rash, Wounds Neurological: Denies: Headache, Weakness, Numbness Physical Exam Vital Signs/Narrative: Vital Signs Temp Pulse Resp BP Pulse Ox 02/25/19 17:33 97.6 F L 65 18 156/76 H 97 Inital Vital Signs reviewed: Yes General: Well nourished, Well developed, No Acute Distress Head: Normocephalic, Atraumatic Eyes: Perrl, EOMI ENT: Moist mucous membranes, No rhinorrhea Neck: Supple, Nontender Cardiovascular: Regular rate, Regular rhythm, No murmurs Respiratory: No distress, CTA bilaterally, Chest nontender Abdomen: Soft, Nontender, Nondistended, Normal bowel sounds Back: Nontender, Normal Inspection Extremities: Nontender, No edema Skin: Normal color, No rash Neurological: Alert, Oriented x3, Cranial nerves II-XII grossly intact, Normal Strength, Normal Sensation Psychological: Normal affect, Normal Mood Diagnostic/Tx/Re-eval - Medical Decision Making Patient vital signs stable, nontoxic. Typical nausea with her medications. She declines any medications. Evaluation of medications, there are treatments with this medications that are for daily treatments and not weekly. Discussed with patient that her accidentally taking an extra days worth should not be harmful. Her vital signs are stable. Do not feel any work-up is necessary. However discussed with patient any abnormal symptoms she may return for reevaluation. All questions were answered. ED Disposition - Plan for ED Patient: Disposition: Home or Assisted Living Diagnosis: Accidental drug ingestion, History of psoriatic arthritis Referrals: Adam Childs DO [Primary Care Provider] - 5-7 Days Additional Instructions: Continue your methotrexate regimen on Saturdays. Any new or abnormal symptoms may return for reevaluation.
[2019-02-25 18:02] VITALS: RESP 18
== END 2019-02-25 18:02 | disposition home or self-care (01) ==
PROVIDERS: Emergency Provider Emergency Medicine; Family Provider Family Medicine; PCP Family Medicine
DX: R11.0 Nausea (principal); T45.1X5A Adverse effect of antineoplastic and immunosuppressive drugs, initial encounter; Y92.9 Unspecified place or not applicable; L40.50 Arthropathic psoriasis, unspecified; Z87.891 Personal history of nicotine dependence
CPT/HCPCS: 99282

== ENCOUNTER → 2019-03-21 09:55 | Outpatient (CLI) | payer BC, SELFPAY ==
[2019-02-25 17:33] VITALS: BMI 30.9
[2019-03-21 12:22] LABS: Absolute Lymphocyte Count 1.46 X10^3/uL (0.83-4.51); Absolute Neutrophil Count 2.1 X10^3/uL (2.0-7.7); Basophil# 0.03 X10^3/uL; Basophil% 0.8 % (0-1); Eosinophil# 0.07 X10^3/uL; Eosinophils% 1.8 % (0-5); Hematocrit 43.4 % (37-47); Hemoglobin 14.6 g/dL (12.0-15.0); Lymphocyte # 1.46 X10^3/ul (4.0); Lymphocyte % 36.5 % (19-41); Mean Corp Hgb Conc 33.6 g/dL (32-36); Mean Corpuscular Hgb 30.7 pg (27.0-32.0); Mean Corpuscular Volume 91.4 fL (81-99); Monocyte# 0.37 X10^3/uL; Monocyte% 9.3 % (0-10); NRBC Flagged by Analyzer 0 % (0-5); Neutrophil # 2.06 X10^3/uL (2.7-7.7); Neutrophil % 51.3 % (47-70); Platelet Count 333 K/mm3 (150-450); RBC Distribution Width SD 46.5 fl (35.1-43.9); Red Blood Count 4.75 M/mm3 (4.2-5.4)
[2019-03-21 12:41] LABS: AST(SGOT) 17 U/L (15-37); Alanine Aminotransfer ALT/SGPT 27 U/L (12-78); Albumin, Serum 3.6 g/dL (3.4-5.0); Alkaline Phosphatase 94 U/L (50-136); Anion Gap 6 (5-15); BUN 11 mg/dL (7-18); BUN/Creat Ratio 11.4 RATIO (10-20); Calcium,Total 8.9 mg/dL (8.5-10.1); Chloride 108 mmol/L (98-107); Creatinine, Serum 0.96 mg/dL (0.55-1.20); EST Glomerular Filtration Rate 63 mL/min (>60); Est Glom Filt Rate - Afr Amer 76 mL/min (>60); Globulin 3.5 g/dL (2.3-3.5); Glucose 118 mg/dL (70-110); Potassium 3.7 mmol/L (3.5-5.1); Protein, Total 7.1 g/dL (6.4-8.2); Sodium Level 139 mmol/L (136-145)
== END ==
PROVIDERS: PCP Family Medicine; Referring Provider Internal Medicine Rheumatology; Visit Provider Internal Medicine Rheumatology
DX: L40.59 Other psoriatic arthropathy (principal); Z79.899 Other long term (current) drug therapy; L40.8 Other psoriasis; M35.00 Sjogren syndrome, unspecified; Q66.70 Congenital pes cavus, unspecified foot; K21.9 Gastro-esophageal reflux disease without esophagitis; M47.892 Other spondylosis, cervical region; M51.36 Other intervertebral disc degeneration, lumbar region
CPT/HCPCS: 36415; 80053; 85025

== ENCOUNTER → 2019-06-13 09:50 | Outpatient (CLI) | payer BC, SELFPAY ==
[2019-06-13 12:11] LABS: Absolute Lymphocyte Count 1.58 X10^3/uL (0.83-4.51); Absolute Neutrophil Count 1.9 X10^3/uL (2.0-7.7); Basophil# 0.03 X10^3/uL; Basophil% 0.8 % (0-1); Eosinophil# 0.08 X10^3/uL; Hemoglobin 14.7 g/dL (12.0-15.0); Lymphocyte # 1.58 X10^3/ul (4.0); Lymphocyte % 39.6 % (19-41); Mean Corp Hgb Conc 33.4 g/dL (32-36); Mean Corpuscular Hgb 30.9 pg (27.0-32.0); Mean Corpuscular Volume 92.6 fL (81-99); Mean Platelet Vol. 10.4 fl (6.2-12.0); Monocyte# 0.35 X10^3/uL; Monocyte% 8.8 % (0-10); NRBC Flagged by Analyzer 0 % (0-5); Neutrophil # 1.94 X10^3/uL (2.7-7.7); Neutrophil % 48.5 % (47-70); Platelet Count 322 K/mm3 (150-450); RBC Distribution Width CV 13.6 % (11.6-14.6); RBC Distribution Width SD 46.5 fl (35.1-43.9); Red Blood Count 4.75 M/mm3 (4.2-5.4)
[2019-06-13 12:22] LABS: ALB/GLOB Ratio 1.1 RATIO (0.9-2.4); AST(SGOT) 30 U/L (15-37); Alanine Aminotransfer ALT/SGPT 37 U/L (13-56); Albumin, Serum 3.8 g/dL (3.2-5.0); Alkaline Phosphatase 80 U/L (45-117); Anion Gap 5 (5-15); BUN 7 mg/dL (7-18); BUN/Creat Ratio 8.1 RATIO (10-20); Calcium,Total 9.5 mg/dL (8.5-10.1); Chloride 105 mmol/L (98-107); Creatinine, Serum 0.86 mg/dL (0.55-1.02); EST Glomerular Filtration Rate 71 mL/min (>60); Est Glom Filt Rate - Afr Amer 86 mL/min (>60); Globulin 3.6 g/dL (2.2-4.2); Glucose 111 mg/dL (74-106); Potassium 3.5 mmol/L (3.5-5.1); Protein, Total 7.4 g/dL (6.4-8.2); Sodium Level 137 mmol/L (136-145)
== END ==
PROVIDERS: PCP Family Medicine; Referring Provider Internal Medicine Rheumatology; Visit Provider Internal Medicine Rheumatology
DX: L40.59 Other psoriatic arthropathy (principal); Z79.899 Other long term (current) drug therapy; L40.8 Other psoriasis; M35.00 Sjogren syndrome, unspecified; Q66.70 Congenital pes cavus, unspecified foot; K21.9 Gastro-esophageal reflux disease without esophagitis; M47.892 Other spondylosis, cervical region; M51.36 Other intervertebral disc degeneration, lumbar region; F32.89 Other specified depressive episodes; F41.9 Anxiety disorder, unspecified; E03.9 Hypothyroidism, unspecified; Z85.820 Personal history of malignant melanoma of skin
CPT/HCPCS: 36415; 80053; 85025

== ENCOUNTER → 2019-08-27 | Outpatient (CLI) | payer BC, SELFPAY ==
[2019-08-27 08:55] VITALS: BMI 30.9
[2019-08-27 12:00] LABS: Mucous, Urine 0 SEEN /hpf (<or=2+)
[2019-08-27 12:15] LABS: Color, Urine Yellow (Yellow); Glucose, Dipstick Normal (Normal); Ketone-Dipstick Negative (Negative); Leukocyte Esterase-Dipstick 500 /ul (Negative); Nitrite-Dipstick Negative (Negative); Occult Blood-Urine 10 /ul (Negative); Protein-Dipstick Negative (Negative); Urine Bilirubin Dipstick Negative (Negative); Urine Clarity Sl. Cloudy (Clear); Urine Urobilinogen Normal (Normal)
[2019-08-27 12:29] LABS: Bacteria 1+ /hpf (None Seen); Red Blood Cells-Urine 0-5 SEEN /hpf (0-5); Squamous Epithelial Cells - UA 0-5 SEEN /hpf (5-10); White Blood Cells 25-50 SEEN /hpf (0-5)
== END | disposition home or self-care (01) ==
LOC: LABSPEC 10:26
PROVIDERS: PCP Family Medicine; Referring Provider Physician Assistant Surgical; Visit Provider Physician Assistant Surgical
DX: R35.0 Frequency of micturition (principal)
CPT/HCPCS: 81001; 87086; 87088; 87186

== ENCOUNTER → 2019-09-05 09:19 | Outpatient (CLI) | payer BC, SELFPAY ==
[2019-08-27 08:55] VITALS: BMI 30.9
[2019-09-05 10:21] LABS: Absolute Lymphocyte Count 1.61 X10^3/uL (0.83-4.51); Absolute Neutrophil Count 2.9 X10^3/uL (2.0-7.7); Basophil# 0.03 X10^3/uL; Basophil% 0.6 % (0-1); Eosinophils% 1.9 % (0-5); Hematocrit 44.7 % (37-47); Hemoglobin 14.9 g/dL (12.0-15.0); Lymphocyte # 1.61 X10^3/ul (4.0); Lymphocyte % 30.9 % (19-41); Mean Corp Hgb Conc 33.3 g/dL (32-36); Mean Corpuscular Hgb 31.8 pg (27.0-32.0); Mean Corpuscular Volume 95.5 fL (81-99); Mean Platelet Vol. 10.4 fl (6.2-12.0); Monocyte# 0.57 X10^3/uL; Monocyte% 10.9 % (0-10); NRBC Flagged by Analyzer 0 % (0-5); Neutrophil # 2.88 X10^3/uL (2.7-7.7); Neutrophil % 55.3 % (47-70); Platelet Count 340 K/mm3 (150-450); RBC Distribution Width CV 13.3 % (11.6-14.6); RBC Distribution Width SD 46.5 fl (35.1-43.9); Red Blood Count 4.68 M/mm3 (4.2-5.4); White Blood Count 5.2 K/mm3 (4.4-11.0)
[2019-09-05 11:26] LABS: ALB/GLOB Ratio 1.1 RATIO (0.9-2.4); AST(SGOT) 19 U/L (15-37); Alanine Aminotransfer ALT/SGPT 25 U/L (13-56); Albumin, Serum 3.7 g/dL (3.2-5.0); Alkaline Phosphatase 89 U/L (45-117); Anion Gap 3 (5-15); BUN 5 mg/dL (7-18); BUN/Creat Ratio 6.6 RATIO (10-20); Chloride 103 mmol/L (98-107); Creatinine, Serum 0.76 mg/dL (0.55-1.02); EST Glomerular Filtration Rate 82 mL/min (>60); Est Glom Filt Rate - Afr Amer 99 mL/min (>60); Globulin 3.5 g/dL (2.2-4.2); Glucose 83 mg/dL (74-106); Potassium 3.7 mmol/L (3.5-5.1); Protein, Total 7.2 g/dL (6.4-8.2); Sodium Level 135 mmol/L (136-145)
== END ==
PROVIDERS: PCP Family Medicine; Referring Provider Internal Medicine Rheumatology; Visit Provider Internal Medicine Rheumatology
DX: L40.59 Other psoriatic arthropathy (principal); L40.8 Other psoriasis; M35.00 Sjogren syndrome, unspecified; K21.9 Gastro-esophageal reflux disease without esophagitis; M47.892 Other spondylosis, cervical region; M51.36 Other intervertebral disc degeneration, lumbar region; F41.9 Anxiety disorder, unspecified; E03.9 Hypothyroidism, unspecified; Z79.899 Other long term (current) drug therapy; Z85.820 Personal history of malignant melanoma of skin
CPT/HCPCS: 36415; 80053; 85025

== ENCOUNTER 2019-11-01 16:09 | Emergency (ER) | payer BC, SELFPAY ==
[2019-08-27 08:55] VITALS: BMI 30.9
[2019-11-01 16:11] VITALS: BP 117/75; BP 119/75; PULSE 56; PULSE 59; RESP 17; TEMP 36.2; O2SAT 97; O2SAT 99; BMI 26.4
[2019-11-01] MEDS: diazePAM 5 MG Tablet PO (16:34)
[2019-11-01] MEDS: Ketorolac 60 MG/2 ML Vial IM (16:34)
--- NOTE | 2019-11-01 16:41 | ED.VIS.GEN ---
History of Present Illness Chief Complaint: Back Informant: Patient Onset: Today Narrative: Patient presents with worsening nontraumatic back pain since awakening this morning. Pain to her sides of her legs. She states she does yoga every day, there was no event that worsen the symptoms. She states she felt tight throughout the morning she tried doing yoga with stiffened up and caused her significant pain. She states she has had similar symptoms in the past however this is more significant she took tramadol at noon with no relief. She uses it for arthritis as needed however is not used it for 8 months. Denies any allergies. Denies history of gastric ulcers or kidney injury. Denies loss of bowel or bladder control. Pain is worse with movement. Prior similar symptoms: Yes Past Medical History - Allergies and Home Meds Allergies/Adverse Reactions: Allergies No Known Allergies Allergy (Verified 11/01/19 16:11) Primary Care Physician: Adam Childs DO [Primary Care Provider] - Past Medical History: - - Depression, anxiety, psoriatic arthritis, hypothyroidism Surgical History: appendectomy, hysterectomy Smoking Status: Former smoker Review of Systems General: Denies: Chills, Fever, Sweats Eyes: Denies: Visual changes - bilaterally, Diplopia ENT: Denies: Rhinorrhea, Sore throat Cardiovascular: Denies: Chest pain, Palpitations Respiratory: Denies: Dyspnea, Cough, Dyspnea on exertion Gastrointestinal: Denies: Abdominal pain, Nausea, Vomiting, Diarrhea, Melena, Hematochezia Genitourinary: Denies: Dysuria, Hematuria, Frequency Musculoskeletal: Reports: Back pain. Denies: Extremity Pain Skin: Denies: Rash, Wounds Neurological: Denies: Headache, Weakness, Numbness Physical Exam Vital Signs/Narrative: Vital Signs Temp Pulse Resp BP Pulse Ox 11/01/19 16:11 97.2 F L 59 L 17 117/75 99 Inital Vital Signs reviewed: Yes General: Well nourished, Well developed, - - Uncomfortable, pain worse with movement. Head: Normocephalic, Atraumatic Eyes: Perrl, EOMI ENT: Moist mucous membranes, No rhinorrhea Neck: Supple, Nontender Cardiovascular: Regular rate, Regular rhythm, No murmurs Respiratory: No distress, CTA bilaterally, Chest nontender Abdomen: Soft, Nontender, Nondistended, Normal bowel sounds Back: Normal Inspection, - - No midline back pain paralumbar tenderness, straight leg test was negative bilaterally 2+ patellar reflex bilaterally. Extremities: Nontender, No edema Skin: Normal color, No rash Neurological: Alert, Oriented x3, Cranial nerves II-XII grossly intact, Normal Strength, Normal Sensation Psychological: Normal affect, Normal Mood Diagnostic/Tx/Re-eval - Medical Decision Making Patient with no falls or direct injuries. No cauda equina symptoms. History exam concerns for significant back spasms. She is given Toradol and p.o. Valium. She was observed, on reevaluation significant improvement and was able to move by herself. Discussed with patient will use NSAIDs [id number] for the next 2 days then as needed, she will use Valium as needed, additionally she does have her tramadol's for additional breakthrough medications as needed. Discussed with patient follow-up with her PCP for further evaluation and treatment as needed. All questions were answered. ED Disposition - Plan for ED Patient: Disposition: Home or Assisted Living Diagnosis: Spasm of back muscles Instructions: ED Spasm Back No Trauma Prescriptions: Ibuprofen 600 mg PO 4X/DAY PRN #20 tab PRN Reason: Pain Or Fever Transmission Status: [id number] Diazepam [Valium] 5 mg PO Q8 PRN #12 tablet PRN Reason: Muscle Spasm Transmission Status: [id number] Referrals: Adam Childs DO [Primary Care Provider] - 3-5 Days
== END 2019-11-01 17:42 | disposition home or self-care (01) ==
PROVIDERS: Emergency Provider Emergency Medicine; PCP Family Medicine
DX: M62.830 Muscle spasm of back (principal); M54.9 Dorsalgia, unspecified; F41.9 Anxiety disorder, unspecified; E03.9 Hypothyroidism, unspecified; L40.50 Arthropathic psoriasis, unspecified; F32.9 Major depressive disorder, single episode, unspecified; Z79.899 Other long term (current) drug therapy; Z87.891 Personal history of nicotine dependence
CPT/HCPCS: 96372; 99284

== ENCOUNTER → 2019-11-28 08:21 | Outpatient (CLI) | payer BC, SELFPAY ==
[2019-11-01 16:11] VITALS: BMI 26.4
[2019-11-28 09:54] LABS: Absolute Lymphocyte Count 1.48 X10^3/uL (0.83-4.51); Absolute Neutrophil Count 2.6 X10^3/uL (2.0-7.7); Basophil# 0.03 X10^3/uL; Basophil% 0.7 % (0-1); Eosinophil# 0.09 X10^3/uL; Hematocrit 45.4 % (37-47); Lymphocyte # 1.48 X10^3/ul (4.0); Lymphocyte % 32.5 % (19-41); Mean Corpuscular Hgb 31.4 pg (27.0-32.0); Mean Platelet Vol. 10.3 fl (6.2-12.0); Monocyte# 0.32 X10^3/uL; NRBC Flagged by Analyzer 0 % (0-5); Neutrophil # 2.62 X10^3/uL (2.7-7.7); Neutrophil % 57.6 % (47-70); Platelet Count 335 K/mm3 (150-450); RBC Distribution Width CV 13.6 % (11.6-14.6); RBC Distribution Width SD 47.9 fl (35.1-43.9); Red Blood Count 4.78 M/mm3 (4.2-5.4); White Blood Count 4.6 K/mm3 (4.4-11.0)
[2019-11-28 10:30] LABS: ALB/GLOB Ratio 1.1 RATIO (0.9-2.4); AST(SGOT) 16 U/L (15-37); Alanine Aminotransfer ALT/SGPT 21 U/L (13-56); Albumin, Serum 3.8 g/dL (3.2-5.0); Alkaline Phosphatase 85 U/L (45-117); Anion Gap 6 (5-15); BUN 8 mg/dL (7-18); BUN/Creat Ratio 9.3 RATIO (10-20); Calcium,Total 9.3 mg/dL (8.5-10.1); Chloride 104 mmol/L (98-107); Creatinine, Serum 0.86 mg/dL (0.55-1.02); EST Glomerular Filtration Rate 72 mL/min (>60); Est Glom Filt Rate - Afr Amer 87 mL/min (>60); Globulin 3.5 g/dL (2.2-4.2); Glucose 123 mg/dL (74-106); Potassium 3.8 mmol/L (3.5-5.1); Protein, Total 7.3 g/dL (6.4-8.2); Sodium Level 137 mmol/L (136-145)
== END ==
PROVIDERS: PCP Family Medicine; Referring Provider Internal Medicine Rheumatology; Visit Provider Internal Medicine Rheumatology
DX: L40.59 Other psoriatic arthropathy (principal); Z79.899 Other long term (current) drug therapy; L40.8 Other psoriasis; M35.00 Sjogren syndrome, unspecified; Q66.70 Congenital pes cavus, unspecified foot; K21.9 Gastro-esophageal reflux disease without esophagitis; M47.892 Other spondylosis, cervical region; M51.36 Other intervertebral disc degeneration, lumbar region; F32.89 Other specified depressive episodes; F41.9 Anxiety disorder, unspecified; E03.9 Hypothyroidism, unspecified; Z85.820 Personal history of malignant melanoma of skin
CPT/HCPCS: 36415; 80053; 85025

== ENCOUNTER → 2020-02-05 09:10 | Outpatient (CLI) | payer BC, SELFPAY | PROVIDERS: PCP Family Medicine; Referring Provider Family Medicine; Visit Provider Family Medicine | DX: Z20.828 Contact with and (suspected) exposure to other viral communicable diseases (principal) | CPT/HCPCS: 87635; C9803; U0003 ==

== ENCOUNTER → 2020-02-18 12:45 | Outpatient (CLI) | payer BC, SELFPAY ==
[2020-02-18 15:38] LABS: Absolute Lymphocyte Count 2.12 X10^3/uL (0.83-4.51); Basophil# 0.03 X10^3/uL; Basophil% 0.5 % (0-1); Eosinophil# 0.07 X10^3/uL; Eosinophils% 1.2 % (0-5); Hematocrit 43.5 % (37-47); Hemoglobin 14.5 g/dL (12.0-15.0); Lymphocyte # 2.12 X10^3/ul (4.0); Lymphocyte % 36.7 % (19-41); Mean Corp Hgb Conc 33.3 g/dL (32-36); Mean Corpuscular Hgb 31.3 pg (27.0-32.0); Mean Corpuscular Volume 93.8 fL (81-99); Mean Platelet Vol. 9.9 fl (6.2-12.0); Monocyte# 0.52 X10^3/uL; NRBC Flagged by Analyzer 0 % (0-5); Neutrophil # 3.03 X10^3/uL (2.7-7.7); Neutrophil % 52.4 % (47-70); Platelet Count 347 K/mm3 (150-450); RBC Distribution Width CV 13.2 % (11.6-14.6); RBC Distribution Width SD 45.1 fl (35.1-43.9); Red Blood Count 4.64 M/mm3 (4.2-5.4); White Blood Count 5.8 K/mm3 (4.4-11.0)
[2020-02-18 15:56] LABS: ALB/GLOB Ratio 1.2 RATIO (0.9-2.4); AST(SGOT) 14 U/L (15-37); Alanine Aminotransfer ALT/SGPT 21 U/L (13-56); Albumin, Serum 3.8 g/dL (3.2-5.0); Alkaline Phosphatase 83 U/L (45-117); Anion Gap 7 (5-15); BUN 9 mg/dL (7-18); BUN/Creat Ratio 10.4 RATIO (10-20); Chloride 106 mmol/L (98-107); Creatinine, Serum 0.86 mg/dL (0.55-1.02); EST Glomerular Filtration Rate 71 mL/min (>60); Est Glom Filt Rate - Afr Amer 86 mL/min (>60); Globulin 3.3 g/dL (2.2-4.2); Glucose 107 mg/dL (74-106); Potassium 3.6 mmol/L (3.5-5.1); Protein, Total 7.1 g/dL (6.4-8.2); Sodium Level 139 mmol/L (136-145)
== END ==
PROVIDERS: PCP Family Medicine; Referring Provider Internal Medicine Rheumatology; Visit Provider Internal Medicine Rheumatology
DX: L40.59 Other psoriatic arthropathy (principal); Z79.899 Other long term (current) drug therapy; L40.8 Other psoriasis; M35.00 Sjogren syndrome, unspecified; Q66.70 Congenital pes cavus, unspecified foot; K21.9 Gastro-esophageal reflux disease without esophagitis; M47.892 Other spondylosis, cervical region; M51.36 Other intervertebral disc degeneration, lumbar region; F32.89 Other specified depressive episodes; F41.9 Anxiety disorder, unspecified; E03.9 Hypothyroidism, unspecified; Z85.820 Personal history of malignant melanoma of skin
CPT/HCPCS: 36415; 80053; 85025

== ENCOUNTER → 2020-05-13 10:40 | Outpatient (CLI) | payer BC, SELFPAY ==
[2020-05-13 12:11] LABS: Absolute Lymphocyte Count 1.25 X10^3/uL (0.83-4.51); Absolute Neutrophil Count 2.3 X10^3/uL (2.0-7.7); Basophil# 0.04 X10^3/uL; Eosinophil# 0.07 X10^3/uL; Eosinophils% 1.7 % (0-5); Hematocrit 43.4 % (37-47); Hemoglobin 14.6 g/dL (12.0-15.0); Lymphocyte # 1.25 X10^3/ul (4.0); Lymphocyte % 30.4 % (19-41); Mean Corp Hgb Conc 33.6 g/dL (32-36); Mean Corpuscular Hgb 31.7 pg (27.0-32.0); Mean Corpuscular Volume 94.3 fL (81-99); Mean Platelet Vol. 10.4 fl (6.2-12.0); Monocyte# 0.49 X10^3/uL; Monocyte% 11.9 % (0-10); NRBC Flagged by Analyzer 0 % (0-5); Neutrophil # 2.26 X10^3/uL (2.7-7.7); Platelet Count 354 K/mm3 (150-450); RBC Distribution Width CV 13.3 % (11.6-14.6); White Blood Count 4.1 K/mm3 (4.4-11.0)
[2020-05-13 12:23] LABS: ALB/GLOB Ratio 1.1 RATIO (0.9-2.4); AST(SGOT) 17 U/L (15-37); Alanine Aminotransfer ALT/SGPT 22 U/L (13-56); Albumin, Serum 3.8 g/dL (3.2-5.0); Alkaline Phosphatase 90 U/L (45-117); Anion Gap 7 (5-15); BUN 8 mg/dL (7-18); BUN/Creat Ratio 9.5 RATIO (10-20); Calcium,Total 9.4 mg/dL (8.5-10.1); Chloride 106 mmol/L (98-107); Creatinine, Serum 0.84 mg/dL (0.55-1.02); EST Glomerular Filtration Rate 73 mL/min (>60); Est Glom Filt Rate - Afr Amer 89 mL/min (>60); Globulin 3.4 g/dL (2.2-4.2); Glucose 91 mg/dL (74-106); Potassium 3.7 mmol/L (3.5-5.1); Protein, Total 7.2 g/dL (6.4-8.2); Sodium Level 137 mmol/L (136-145)
== END ==
PROVIDERS: PCP Family Medicine; Referring Provider Internal Medicine Rheumatology; Visit Provider Internal Medicine Rheumatology
DX: L40.59 Other psoriatic arthropathy (principal); Z79.899 Other long term (current) drug therapy; L40.8 Other psoriasis; M35.00 Sjogren syndrome, unspecified; Q66.70 Congenital pes cavus, unspecified foot; K21.9 Gastro-esophageal reflux disease without esophagitis; M47.892 Other spondylosis, cervical region; M51.36 Other intervertebral disc degeneration, lumbar region; F32.89 Other specified depressive episodes; F41.9 Anxiety disorder, unspecified; E03.9 Hypothyroidism, unspecified; Z85.820 Personal history of malignant melanoma of skin
CPT/HCPCS: 36415; 80053; 85025

== ENCOUNTER → 2020-05-28 09:20 | Outpatient (CLI) | payer BC, SELFPAY ==
[2020-05-28 11:02] LABS: Cholesterol 192 mg/dL (200); High Density Lipoprotein 50 mg/dL; T4 Free Direct 1.17 ng/dL (0.76-1.46); Triglycerides 154 mg/dL; Very Low Density Lipoprotein 31 mg/dL (5-40)
== END ==
PROVIDERS: PCP Family Medicine; Referring Provider Family Medicine; Visit Provider Family Medicine
DX: Z00.00 Encounter for general adult medical examination without abnormal findings (principal); E03.9 Hypothyroidism, unspecified; E78.1 Pure hyperglyceridemia
CPT/HCPCS: 36415; 80061; 84439; 84443

== ENCOUNTER → 2020-08-13 07:54 | Outpatient (CLI) | payer BC, SELFPAY ==
--- NOTE | 2020-08-13 07:56 | BI_ITS ---
MAMMOGRAPHY - BILATERAL SCREENING REASON FOR EXAM: Female, 60 years old. Routine annual screening examination. PERTINENT HISTORY: Non-contributory. Remote left stereotactic and left excisional breast biopsies. TECHNIQUE: Digital bilateral breast osiel (3D mammographic acquisition) in the CC and MLO projections. 2-D mediolateral oblique (MLO) and craniocaudad (CC) views of both breasts were obtained. CAD: Full Field Digital Mammography with Computer Added Detection was performed. COMPARISON: Comparison is made with prior study dated 03/08/2018 and 01/19/2017. FINDINGS: Breast Composition: There are scattered areas of fibroglandular density. There are no dominant masses or suspicious calcifications. Stable asymmetry of breast tissue were more breast tissue is seen in the retroareolar region of the left breast as compared to the right side. A tissue clip marker is once again seen in the central lateral aspect of the left breast. Stable small benign-appearing bilateral axillary lymph nodes. No other significant abnormalities are identified. There has been no significant change since the prior study. BI/SCRN MAMM (CAD)W/OSIEL BILAT IMPRESSION: Stable bilateral screening mammogram. Yearly follow-up mammogram recommended. (A) ASSESSMENT CATEGORY: BIRADS Category 2: Benign. A letter regarding these results will be sent to the patient by the facility within 30 days. Approximately 10% of breast cancers are not detected by mammography. A normal mammogram should not delay biopsy of a clinically suspicious abnormality. [id number] Electronically Signed: Raleigh Corrales MD at 8:55 EDT , Service support ,
== END ==
PROVIDERS: PCP Family Medicine; Referring Provider Family Medicine; Visit Provider Family Medicine
DX: Z12.31 Encounter for screening mammogram for malignant neoplasm of breast (principal)
CPT/HCPCS: 77063; 77067

== ENCOUNTER → 2020-08-19 09:31 | Outpatient (CLI) | payer BC, SELFPAY ==
[2020-08-19 12:06] LABS: Absolute Lymphocyte Count 1.42 X10^3/uL (0.83-4.51); Absolute Neutrophil Count 2.7 X10^3/uL (2.0-7.7); Basophil# 0.03 X10^3/uL; Basophil% 0.6 % (0-1); Eosinophil# 0.14 X10^3/uL; Eosinophils% 2.9 % (0-5); Hematocrit 43.6 % (37-47); Hemoglobin 14.7 g/dL (12.0-15.0); Lymphocyte # 1.42 X10^3/ul (0.83-4.51); Lymphocyte % 29.7 % (19-41); Mean Corp Hgb Conc 33.7 g/dL (32-36); Mean Corpuscular Hgb 31.1 pg (27.0-32.0); Mean Corpuscular Volume 92.4 fL (81-99); Mean Platelet Vol. 9.8 fl (6.2-12.0); Monocyte# 0.53 X10^3/uL; Monocyte% 11.1 % (0-10); NRBC Flagged by Analyzer 0 % (0-5); Neutrophil # 2.65 X10^3/uL (2.7-7.7); Neutrophil % 55.5 % (47-70); Platelet Count 339 K/mm3 (150-450); RBC Distribution Width CV 13.3 % (11.6-14.6); RBC Distribution Width SD 45.1 fl (35.1-43.9); Red Blood Count 4.72 M/mm3 (4.2-5.4); White Blood Count 4.8 K/mm3 (4.4-11.0)
[2020-08-19 12:18] LABS: ALB/GLOB Ratio 1.1 RATIO (0.9-2.4); AST(SGOT) 19 U/L (15-37); Alanine Aminotransfer ALT/SGPT 21 U/L (13-56); Albumin, Serum 3.7 g/dL (3.2-5.0); Alkaline Phosphatase 93 U/L (45-117); Anion Gap 9 (5-15); BUN 9 mg/dL (7-18); BUN/Creat Ratio 10.4 RATIO (10-20); Calcium,Total 9.5 mg/dL (8.5-10.1); Chloride 104 mmol/L (98-107); Creatinine, Serum 0.87 mg/dL (0.55-1.02); EST Glomerular Filtration Rate 70 mL/min (>60); Est Glom Filt Rate - Afr Amer 85 mL/min (>60); Globulin 3.4 g/dL (2.2-4.2); Glucose 75 mg/dL (74-106); Potassium 3.7 mmol/L (3.5-5.1); Protein, Total 7.1 g/dL (6.4-8.2); Sodium Level 140 mmol/L (136-145)
== END ==
PROVIDERS: PCP Family Medicine; Referring Provider Internal Medicine Rheumatology; Visit Provider Internal Medicine Rheumatology
DX: L40.59 Other psoriatic arthropathy (principal); Z79.899 Other long term (current) drug therapy; L40.8 Other psoriasis; M35.00 Sjogren syndrome, unspecified; Q66.70 Congenital pes cavus, unspecified foot; K21.9 Gastro-esophageal reflux disease without esophagitis; M47.892 Other spondylosis, cervical region; M51.36 Other intervertebral disc degeneration, lumbar region; F32.89 Other specified depressive episodes; F41.9 Anxiety disorder, unspecified; E03.9 Hypothyroidism, unspecified; Z85.820 Personal history of malignant melanoma of skin
CPT/HCPCS: 36415; 80053; 85025

== ENCOUNTER → 2020-11-10 09:32 | Outpatient (CLI) | payer BC, SELFPAY ==
[2020-11-10 12:15] LABS: Absolute Lymphocyte Count 1.44 X10^3/uL (0.83-4.51); Absolute Neutrophil Count 2.3 X10^3/uL (2.0-7.7); Basophil# 0.04 X10^3/uL; Basophil% 0.9 % (0-1); Eosinophil# 0.09 X10^3/uL; Hemoglobin 14.6 g/dL (12.0-15.0); Lymphocyte # 1.44 X10^3/ul (0.83-4.51); Lymphocyte % 32.3 % (19-41); Mean Corp Hgb Conc 33.2 g/dL (32-36); Mean Corpuscular Hgb 31.2 pg (27.0-32.0); Monocyte# 0.59 X10^3/uL; Monocyte% 13.2 % (0-10); NRBC Flagged by Analyzer 0 % (0-5); Neutrophil # 2.29 X10^3/uL (2.7-7.7); Neutrophil % 51.4 % (47-70); Platelet Count 371 K/mm3 (150-450); RBC Distribution Width CV 13.8 % (11.6-14.6); RBC Distribution Width SD 46.8 fl (35.1-43.9); Red Blood Count 4.68 M/mm3 (4.2-5.4); White Blood Count 4.5 K/mm3 (4.4-11.0)
[2020-11-10 12:50] LABS: ALB/GLOB Ratio 1.1 RATIO (0.9-2.4); AST(SGOT) 19 U/L (15-37); Alanine Aminotransfer ALT/SGPT 21 U/L (13-56); Albumin, Serum 3.7 g/dL (3.2-5.0); Alkaline Phosphatase 81 U/L (45-117); Anion Gap 9 (5-15); BUN 9 mg/dL (7-18); BUN/Creat Ratio 11.1 RATIO (10-20); Calcium,Total 9.1 mg/dL (8.5-10.1); Chloride 102 mmol/L (98-107); Creatinine, Serum 0.81 mg/dL (0.55-1.02); EST Glomerular Filtration Rate 76 mL/min (>60); Est Glom Filt Rate - Afr Amer 93 mL/min (>60); Globulin 3.5 g/dL (2.2-4.2); Glucose 85 mg/dL (74-106); Potassium 3.6 mmol/L (3.5-5.1); Protein, Total 7.2 g/dL (6.4-8.2); Sodium Level 137 mmol/L (136-145)
== END ==
PROVIDERS: PCP Family Medicine; Referring Provider Internal Medicine Rheumatology; Visit Provider Internal Medicine Rheumatology
DX: L40.59 Other psoriatic arthropathy (principal); Z79.899 Other long term (current) drug therapy; L40.8 Other psoriasis; M35.00 Sjogren syndrome, unspecified; Q66.70 Congenital pes cavus, unspecified foot; K21.9 Gastro-esophageal reflux disease without esophagitis; M47.892 Other spondylosis, cervical region; M51.36 Other intervertebral disc degeneration, lumbar region; F32.89 Other specified depressive episodes; F41.9 Anxiety disorder, unspecified; E03.9 Hypothyroidism, unspecified; Z85.820 Personal history of malignant melanoma of skin
CPT/HCPCS: 36415; 80053; 85025

== ENCOUNTER → 2021-02-03 15:43 | Outpatient (CLI) | payer BC, SELFPAY ==
[2021-02-03 17:36] LABS: Absolute Lymphocyte Count 2.54 X10^3/uL (0.83-4.51); Basophil# 0.04 X10^3/uL; Basophil% 0.6 % (0-1); Eosinophil# 0.14 X10^3/uL; Eosinophils% 2.2 % (0-5); Hematocrit 43.6 % (37-47); Hemoglobin 14.5 g/dL (12.0-15.0); Lymphocyte # 2.54 X10^3/ul (0.83-4.51); Lymphocyte % 39.2 % (19-41); Mean Corp Hgb Conc 33.3 g/dL (32-36); Mean Corpuscular Hgb 31.1 pg (27.0-32.0); Mean Corpuscular Volume 93.6 fL (81-99); Mean Platelet Vol. 9.3 fl (6.2-12.0); Monocyte# 0.74 X10^3/uL; Monocyte% 11.4 % (0-10); NRBC Flagged by Analyzer 0 % (0-5); Neutrophil # 2.98 X10^3/uL (2.7-7.7); Platelet Count 421 K/mm3 (150-450); RBC Distribution Width CV 13.2 % (11.6-14.6); RBC Distribution Width SD 45.2 fl (35.1-43.9); Red Blood Count 4.66 M/mm3 (4.2-5.4); White Blood Count 6.5 K/mm3 (4.4-11.0)
[2021-02-03 18:06] LABS: AST(SGOT) 15 U/L (15-37); Alanine Aminotransfer ALT/SGPT 22 U/L (13-56); Albumin, Serum 3.8 g/dL (3.2-5.0); Alkaline Phosphatase 102 U/L (45-117); Anion Gap 7 (5-15); BUN 10 mg/dL (7-18); Calcium,Total 9.2 mg/dL (8.5-10.1); Chloride 103 mmol/L (98-107); Creatinine, Serum 0.84 mg/dL (0.55-1.02); EST Glomerular Filtration Rate 74 mL/min (>60); Est Glom Filt Rate - Afr Amer 89 mL/min (>60); Globulin 3.7 g/dL (2.2-4.2); Glucose 89 mg/dL (74-106); Potassium 3.8 mmol/L (3.5-5.1); Protein, Total 7.5 g/dL (6.4-8.2); Sodium Level 136 mmol/L (136-145)
== END ==
PROVIDERS: PCP Family Medicine; Referring Provider Internal Medicine Rheumatology; Visit Provider Internal Medicine Rheumatology
DX: L40.59 Other psoriatic arthropathy (principal); Z79.899 Other long term (current) drug therapy; L40.8 Other psoriasis; M35.00 Sjogren syndrome, unspecified; Q66.70 Congenital pes cavus, unspecified foot; K21.9 Gastro-esophageal reflux disease without esophagitis; M47.892 Other spondylosis, cervical region; M51.36 Other intervertebral disc degeneration, lumbar region; F32.89 Other specified depressive episodes; F41.9 Anxiety disorder, unspecified
CPT/HCPCS: 36415; 80053; 85025

== ENCOUNTER 2021-04-30 09:16 | Outpatient (CLI) | payer BC, SELFPAY ==
[2021-04-30 12:21] LABS: Absolute Lymphocyte Count 1.46 X10^3/uL (0.83-4.51); Absolute Neutrophil Count 3.1 X10^3/uL (2.0-7.7); Basophil# 0.03 X10^3/uL; Basophil% 0.6 % (0-1); Eosinophil# 0.09 X10^3/uL; Eosinophils% 1.7 % (0-5); Hematocrit 42.3 % (37-47); Hemoglobin 14.7 g/dL (12.0-15.0); Lymphocyte # 1.46 X10^3/ul (0.83-4.51); Lymphocyte % 28.2 % (19-41); Mean Corp Hgb Conc 34.8 g/dL (32-36); Mean Platelet Vol. 10.2 fl (6.2-12.0); Monocyte% 9.7 % (0-10); NRBC Flagged by Analyzer 0 % (0-5); Neutrophil # 3.09 X10^3/uL (2.7-7.7); Neutrophil % 59.6 % (47-70); Platelet Count 335 K/mm3 (150-450); RBC Distribution Width CV 13.7 % (11.6-14.6); White Blood Count 5.2 K/mm3 (4.4-11.0)
[2021-04-30 12:29] LABS: ALB/GLOB Ratio 1.1 RATIO (0.9-2.4); AST(SGOT) 23 U/L (15-37); Alanine Aminotransfer ALT/SGPT 24 U/L (13-56); Albumin, Serum 3.9 g/dL (3.2-5.0); Alkaline Phosphatase 76 U/L (45-117); Anion Gap 8 (5-15); BUN 9 mg/dL (7-18); Calcium,Total 9.2 mg/dL (8.5-10.1); Chloride 106 mmol/L (98-107); Creatinine, Serum 0.82 mg/dL (0.55-1.02); EST Glomerular Filtration Rate 75 mL/min (>60); Est Glom Filt Rate - Afr Amer 91 mL/min (>60); Globulin 3.4 g/dL (2.2-4.2); Glucose 116 mg/dL (74-106); Potassium 3.6 mmol/L (3.5-5.1); Protein, Total 7.3 g/dL (6.4-8.2); Sodium Level 136 mmol/L (136-145)
== END 2021-04-30 23:59 | disposition home or self-care (01) ==
LOC: MTLAB 09:17
PROVIDERS: PCP Family Medicine; Referring Provider Internal Medicine Rheumatology; Visit Provider Internal Medicine Rheumatology
DX: L40.59 Other psoriatic arthropathy (principal); M35.00 Sjogren syndrome, unspecified; Z79.899 Other long term (current) drug therapy; L40.8 Other psoriasis; K21.9 Gastro-esophageal reflux disease without esophagitis; M47.892 Other spondylosis, cervical region; M51.36 Other intervertebral disc degeneration, lumbar region; F32.89 Other specified depressive episodes; F41.9 Anxiety disorder, unspecified; E03.9 Hypothyroidism, unspecified; Z85.820 Personal history of malignant melanoma of skin
CPT/HCPCS: 36415; 80053; 85025

== ENCOUNTER → 2021-07-22 | Outpatient (CLI) | payer BC, SELFPAY ==
[2021-07-22 12:16] LABS: Absolute Lymphocyte Count 1.29 X10^3/uL (0.83-4.51); Absolute Neutrophil Count 2.5 X10^3/uL (2.0-7.7); Basophil# 0.04 X10^3/uL; Basophil% 0.9 % (0-1); Eosinophil# 0.09 X10^3/uL; Hematocrit 42.2 % (37-47); Hemoglobin 14.5 g/dL (12.0-15.0); Lymphocyte # 1.29 X10^3/ul (0.83-4.51); Lymphocyte % 28.7 % (19-41); Mean Corp Hgb Conc 34.4 g/dL (32-36); Mean Corpuscular Hgb 31.9 pg (27.0-32.0); Mean Platelet Vol. 10.1 fl (6.2-12.0); Monocyte# 0.52 X10^3/uL; Monocyte% 11.6 % (0-10); NRBC Flagged by Analyzer 0 % (0-5); Neutrophil # 2.54 X10^3/uL (2.7-7.7); Neutrophil % 56.6 % (47-70); Platelet Count 345 K/mm3 (150-450); RBC Distribution Width CV 13.9 % (11.6-14.6); RBC Distribution Width SD 46.6 fl (35.1-43.9); Red Blood Count 4.54 M/mm3 (4.2-5.4); White Blood Count 4.5 K/mm3 (4.4-11.0)
[2021-07-22 12:42] LABS: ALB/GLOB Ratio 1.2 RATIO (0.9-2.4); AST(SGOT) 18 U/L (15-37); Alanine Aminotransfer ALT/SGPT 23 U/L (13-56); Albumin, Serum 3.8 g/dL (3.2-5.0); Alkaline Phosphatase 77 U/L (45-117); Anion Gap 7 (5-15); BUN 8 mg/dL (7-18); BUN/Creat Ratio 9.9 RATIO (10-20); Calcium,Total 9.3 mg/dL (8.5-10.1); Chloride 104 mmol/L (98-107); Creatinine, Serum 0.81 mg/dL (0.55-1.02); EST Glomerular Filtration Rate 77 mL/min (>60); Est Glom Filt Rate - Afr Amer 93 mL/min (>60); Globulin 3.2 g/dL (2.2-4.2); Glucose 96 mg/dL (74-106); Potassium 3.9 mmol/L (3.5-5.1); Sodium Level 137 mmol/L (136-145)
== END | disposition home or self-care (01) ==
LOC: MTLAB 09:45
PROVIDERS: PCP Family Medicine; Referring Provider Internal Medicine Rheumatology; Visit Provider Internal Medicine Rheumatology
DX: L40.59 Other psoriatic arthropathy (principal); M35.00 Sjogren syndrome, unspecified; Z79.899 Other long term (current) drug therapy; L40.8 Other psoriasis; Q66.70 Congenital pes cavus, unspecified foot; K21.9 Gastro-esophageal reflux disease without esophagitis; M47.892 Other spondylosis, cervical region; M51.36 Other intervertebral disc degeneration, lumbar region; F32.89 Other specified depressive episodes; F41.9 Anxiety disorder, unspecified; E03.9 Hypothyroidism, unspecified; Z85.820 Personal history of malignant melanoma of skin
CPT/HCPCS: 36415; 80053; 85025

== ENCOUNTER → 2021-08-26 | Outpatient (CLI) | payer BC, SELFPAY ==
--- NOTE | 2021-08-26 10:11 | BI_ITS ---
MAMMOGRAPHY - BILATERAL SCREENING REASON FOR EXAM: Female, 61 years old. Routine annual screening examination. PERTINENT HISTORY: Non-contributory. Prior left excisional breast biopsy and left stereotactic breast. TECHNIQUE: Digital bilateral breast osiel (3D mammographic acquisition) in the CC and MLO projections. 2-D mediolateral oblique (MLO) and craniocaudad (CC) views of both breasts were obtained. CAD: Full Field Digital Mammography with Computer Added Detection was performed. COMPARISON: Comparison is made with prior study dated 08/13/2020 and 03/08/2018. FINDINGS: Breast Composition: There are scattered areas of fibroglandular density. There are no dominant masses or suspicious calcifications. Stable small benign appearing bilateral axillary nodes. No other significant abnormalities are identified. There has been no significant change since the prior study. BI/SCRN MAMM (CAD)W/OSIEL BILAT IMPRESSION: Stable bilateral screening mammogram. Yearly follow-up mammogram recommended. (A) ASSESSMENT CATEGORY: BIRADS Category 2: Benign. A letter regarding these results will be sent to the patient by the facility within 30 days. Approximately 10% of breast cancers are not detected by mammography. A normal mammogram should not delay biopsy of a clinically suspicious abnormality. [id number] Electronically Signed: Raleigh Corrales MD at 11:11 EDT ,
== END | disposition home or self-care (01) ==
LOC: OPBI 10:10
PROVIDERS: PCP Family Medicine; Visit Provider Family Medicine
DX: Z12.31 Encounter for screening mammogram for malignant neoplasm of breast (principal)
CPT/HCPCS: 77063; 77067

== ENCOUNTER → 2021-10-08 | Outpatient (CLI) | payer BC, SELFPAY ==
[2021-10-08 17:49] LABS: Absolute Lymphocyte Count 1.41 X10^3/uL (0.83-4.51); Absolute Neutrophil Count 5.2 X10^3/uL (2.0-7.7); Basophil# 0.03 X10^3/uL; Basophil% 0.4 % (0-1); Eosinophils% 1.4 % (0-5); Hematocrit 44.9 % (37-47); Hemoglobin 15.3 g/dL (12.0-15.0); Lymphocyte # 1.41 X10^3/ul (0.83-4.51); Lymphocyte % 19.9 % (19-41); Mean Corp Hgb Conc 34.1 g/dL (32-36); Mean Corpuscular Hgb 31.7 pg (27.0-32.0); Mean Corpuscular Volume 93.2 fL (81-99); Mean Platelet Vol. 10.1 fl (6.2-12.0); Monocyte# 0.37 X10^3/uL; Monocyte% 5.2 % (0-10); NRBC Flagged by Analyzer 0 % (0-5); Neutrophil # 5.15 X10^3/uL (2.7-7.7); Neutrophil % 72.8 % (47-70); Platelet Count 356 K/mm3 (150-450); RBC Distribution Width CV 13.6 % (11.6-14.6); RBC Distribution Width SD 45.8 fl (35.1-43.9); Red Blood Count 4.82 M/mm3 (4.2-5.4); White Blood Count 7.1 K/mm3 (4.4-11.0)
[2021-10-08 18:31] LABS: ALB/GLOB Ratio 1.1 RATIO (0.9-2.4); AST(SGOT) 24 U/L (15-37); Alanine Aminotransfer ALT/SGPT 27 U/L (13-56); Albumin, Serum 3.9 g/dL (3.2-5.0); Alkaline Phosphatase 83 U/L (45-117); Anion Gap 8 (5-15); BUN 9 mg/dL (7-18); BUN/Creat Ratio 11.2 RATIO (10-20); Calcium,Total 9.5 mg/dL (8.5-10.1); Chloride 102 mmol/L (98-107); EST Glomerular Filtration Rate 77 mL/min (>60); Est Glom Filt Rate - Afr Amer 93 mL/min (>60); Globulin 3.5 g/dL (2.2-4.2); Glucose 105 mg/dL (74-106); Protein, Total 7.4 g/dL (6.4-8.2); Sodium Level 136 mmol/L (136-145)
== END | disposition home or self-care (01) ==
LOC: MTLAB 16:33
PROVIDERS: PCP Family Medicine; Referring Provider Internal Medicine Rheumatology; Visit Provider Internal Medicine Rheumatology
DX: L40.59 Other psoriatic arthropathy (principal); M35.00 Sjogren syndrome, unspecified; Z79.899 Other long term (current) drug therapy; L40.8 Other psoriasis; Q66.70 Congenital pes cavus, unspecified foot; K21.9 Gastro-esophageal reflux disease without esophagitis; M47.892 Other spondylosis, cervical region; M51.36 Other intervertebral disc degeneration, lumbar region; F32.89 Other specified depressive episodes; F41.9 Anxiety disorder, unspecified; E03.9 Hypothyroidism, unspecified; Z85.820 Personal history of malignant melanoma of skin
CPT/HCPCS: 36415; 80053; 85025

== ENCOUNTER 2022-01-11 09:16 | Outpatient (CLI) | payer BC, SELFPAY ==
[2022-01-11 09:52] LABS: Absolute Lymphocyte Count 1.28 X10^3/uL (0.83-4.51); Absolute Neutrophil Count 2.8 X10^3/uL (2.0-7.7); Basophil# 0.04 X10^3/uL; Basophil% 0.8 % (0-1); Eosinophil# 0.08 X10^3/uL; Eosinophils% 1.7 % (0-5); Hematocrit 43.7 % (37-47); Hemoglobin 14.7 g/dL (12.0-15.0); Lymphocyte # 1.28 X10^3/ul (0.83-4.51); Lymphocyte % 26.8 % (19-41); Mean Corp Hgb Conc 33.6 g/dL (32-36); Mean Corpuscular Hgb 31.4 pg (27.0-32.0); Mean Corpuscular Volume 93.4 fL (81-99); Mean Platelet Vol. 9.7 fl (6.2-12.0); Monocyte# 0.55 X10^3/uL; Monocyte% 11.5 % (0-10); NRBC Flagged by Analyzer 0 % (0-5); Neutrophil # 2.82 X10^3/uL (2.7-7.7); Platelet Count 373 K/mm3 (150-450); RBC Distribution Width CV 13.7 % (11.6-14.6); RBC Distribution Width SD 46.5 fl (35.1-43.9); Red Blood Count 4.68 M/mm3 (4.2-5.4); White Blood Count 4.8 K/mm3 (4.4-11.0)
[2022-01-11 10:21] LABS: ALB/GLOB Ratio 1.2 RATIO (0.9-2.4); AST(SGOT) 21 U/L (15-37); Alanine Aminotransfer ALT/SGPT 25 U/L (13-56); Albumin, Serum 3.8 g/dL (3.2-5.0); Alkaline Phosphatase 86 U/L (45-117); Anion Gap 6 (5-15); BUN 11 mg/dL (7-18); BUN/Creat Ratio 13.5 RATIO (10-20); Calcium,Total 9.7 mg/dL (8.5-10.1); Chloride 105 mmol/L (98-107); Creatinine, Serum 0.82 mg/dL (0.55-1.02); EST Glomerular Filtration Rate 75 mL/min (>60); Est Glom Filt Rate - Afr Amer 91 mL/min (>60); Globulin 3.3 g/dL (2.2-4.2); Glucose 91 mg/dL (74-106); Potassium 4.1 mmol/L (3.5-5.1); Protein, Total 7.1 g/dL (6.4-8.2); Sodium Level 137 mmol/L (136-145)
== END 2022-01-11 23:59 | disposition home or self-care (01) ==
PROVIDERS: PCP Family Medicine; Referring Provider Internal Medicine Rheumatology; Visit Provider Internal Medicine Rheumatology
DX: L40.59 Other psoriatic arthropathy (principal); M35.00 Sjogren syndrome, unspecified; Z79.899 Other long term (current) drug therapy; L40.8 Other psoriasis; K21.9 Gastro-esophageal reflux disease without esophagitis; M47.892 Other spondylosis, cervical region; M51.36 Other intervertebral disc degeneration, lumbar region; F41.9 Anxiety disorder, unspecified; E03.9 Hypothyroidism, unspecified; Z85.820 Personal history of malignant melanoma of skin; Q66.70 Congenital pes cavus, unspecified foot; F32.A Depression, unspecified
CPT/HCPCS: 36415; 80053; 85025

== ENCOUNTER → 2022-02-03 | Outpatient (CLI) | payer BC, SELFPAY ==
[2022-02-03 15:32] LABS: Mucous, Urine 0 SEEN /hpf (<or=2+)
[2022-02-03 15:50] LABS: Color, Urine Straw (Yellow); Glucose, Dipstick Normal (Normal); Ketone-Dipstick Negative (Negative); Leukocyte Esterase-Dipstick 500 /ul (Negative); Nitrite-Dipstick Negative (Negative); Occult Blood-Urine 50 /ul (Negative); Protein-Dipstick 15 mg/dl (Negative); Specific Gravity, Urine 1.005 (1.002-1.030); Urine Bilirubin Dipstick Negative (Negative); Urine Clarity Sl. Cloudy (Clear); Urine Urobilinogen Normal (Normal)
[2022-02-03 16:10] LABS: White Blood Cells >100 SEEN /hpf (0-5)
[2022-02-03 16:11] LABS: Squamous Epithelial Cells - UA 0-5 SEEN /hpf (5-10)
[2022-02-03 16:12] LABS: Red Blood Cells-Urine 5-10 SEEN /hpf (0-5)
[2022-02-03 16:13] LABS: Bacteria 1+ /hpf (None Seen)
== END | disposition home or self-care (01) ==
LOC: LABSPEC 15:27
PROVIDERS: PCP Family Medicine; Visit Provider Physician Assistant
DX: R30.0 Dysuria (principal)
CPT/HCPCS: 81001; 87086; 87088; 87186

== ENCOUNTER → 2022-02-25 | Outpatient (CLI) | payer BC, SELFPAY ==
[2022-02-25 15:31] LABS: Mucous, Urine 0 SEEN /hpf (<or=2+); Red Blood Cells-Urine 0 SEEN /hpf (0-5)
[2022-02-25 16:03] LABS: Color, Urine Yellow (Yellow); Glucose, Dipstick Normal (Normal); Ketone-Dipstick Negative (Negative); Leukocyte Esterase-Dipstick 500 /ul (Negative); Nitrite-Dipstick Negative (Negative); Occult Blood-Urine 10 /ul (Negative); Protein-Dipstick Negative (Negative); Urine Bilirubin Dipstick Negative (Negative); Urine Clarity Clear (Clear); Urine Urobilinogen Normal (Normal)
[2022-02-25 16:40] LABS: Bacteria RARE /hpf (None Seen); Squamous Epithelial Cells - UA 0-5 SEEN /hpf (5-10); White Blood Cells 5-10 SEEN /hpf (0-5)
== END | disposition home or self-care (01) ==
LOC: LABSPEC 15:11
PROVIDERS: PCP Family Medicine; Visit Provider Physician Assistant
DX: R30.0 Dysuria (principal)
CPT/HCPCS: 81001; 87086; 87088

== ENCOUNTER → 2022-04-02 | Outpatient (CLI) | payer BC, SELFPAY ==
[2022-04-02 12:46] LABS: Absolute Lymphocyte Count 1.58 X10^3/uL (0.83-4.51); Absolute Neutrophil Count 2.4 X10^3/uL (2.0-7.7); Basophil# 0.04 X10^3/uL; Basophil% 0.9 % (0-1); Eosinophil# 0.08 X10^3/uL; Eosinophils% 1.7 % (0-5); Hematocrit 44.9 % (37-47); Hemoglobin 14.8 g/dL (12.0-15.0); Lymphocyte # 1.58 X10^3/ul (0.83-4.51); Lymphocyte % 34.3 % (19-41); Mean Corpuscular Hgb 31.7 pg (27.0-32.0); Mean Corpuscular Volume 96.1 fL (81-99); Mean Platelet Vol. 10.3 fl (6.2-12.0); Monocyte# 0.54 X10^3/uL; Monocyte% 11.7 % (0-10); NRBC Flagged by Analyzer 0 % (0-5); Neutrophil # 2.36 X10^3/uL (2.7-7.7); Neutrophil % 51.2 % (47-70); Platelet Count 355 K/mm3 (150-450); RBC Distribution Width CV 13.8 % (11.6-14.6); RBC Distribution Width SD 48.5 fl (35.1-43.9); Red Blood Count 4.67 M/mm3 (4.2-5.4); White Blood Count 4.6 K/mm3 (4.4-11.0)
[2022-04-02 12:49] LABS: ALB/GLOB Ratio 1.1 RATIO (0.9-2.4); AST(SGOT) 24 U/L (15-37); Alanine Aminotransfer ALT/SGPT 24 U/L (13-56); Albumin, Serum 3.8 g/dL (3.2-5.0); Alkaline Phosphatase 80 U/L (45-117); Anion Gap 9 (5-15); BUN 7 mg/dL (7-18); BUN/Creat Ratio 7.9 RATIO (10-20); Calcium,Total 9.3 mg/dL (8.5-10.1); Chloride 109 mmol/L (98-107); Creatinine, Serum 0.88 mg/dL (0.55-1.02); EST Glomerular Filtration Rate 69 mL/min (>60); Est Glom Filt Rate - Afr Amer 83 mL/min (>60); Globulin 3.4 g/dL (2.2-4.2); Glucose 115 mg/dL (74-106); Protein, Total 7.2 g/dL (6.4-8.2); Sodium Level 138 mmol/L (136-145)
== END | disposition home or self-care (01) ==
LOC: MTLAB 09:41
PROVIDERS: PCP Family Medicine; Referring Provider Internal Medicine Rheumatology; Visit Provider Internal Medicine Rheumatology
DX: L40.59 Other psoriatic arthropathy (principal); Z79.899 Other long term (current) drug therapy
CPT/HCPCS: 36415; 80053; 85025

== ENCOUNTER → 2022-06-29 | Outpatient (CLI) | payer BC, SELFPAY ==
[2022-06-29 17:47] LABS: Absolute Lymphocyte Count 2.05 X10^3/uL (0.83-4.51); Basophil# 0.03 X10^3/uL; Basophil% 0.5 % (0-1); Eosinophil# 0.12 X10^3/uL; Hematocrit 43.1 % (37-47); Hemoglobin 14.5 g/dL (12.0-15.0); Lymphocyte # 2.05 X10^3/ul (0.83-4.51); Lymphocyte % 34.6 % (19-41); Mean Corp Hgb Conc 33.6 g/dL (32-36); Mean Corpuscular Hgb 31.7 pg (27.0-32.0); Mean Corpuscular Volume 94.3 fL (81-99); Mean Platelet Vol. 10.3 fl (6.2-12.0); Monocyte% 11.8 % (0-10); NRBC Flagged by Analyzer 0 % (0-5); Neutrophil % 50.8 % (47-70); Platelet Count 357 K/mm3 (150-450); RBC Distribution Width CV 13.5 % (11.6-14.6); RBC Distribution Width SD 46.8 fl (35.1-43.9); Red Blood Count 4.57 M/mm3 (4.2-5.4); White Blood Count 5.9 K/mm3 (4.4-11.0)
[2022-06-29 18:33] LABS: AST(SGOT) 23 U/L (15-37); Alanine Aminotransfer ALT/SGPT 26 U/L (13-56); Albumin, Serum 3.6 g/dL (3.2-5.0); Alkaline Phosphatase 98 U/L (45-117); Anion Gap 6 (5-15); BUN 9 mg/dL (7-18); BUN/Creat Ratio 12.2 RATIO (10-20); Calcium,Total 9.1 mg/dL (8.5-10.1); Chloride 107 mmol/L (98-107); Creatinine, Serum 0.74 mg/dL (0.55-1.02); EST Glomerular Filtration Rate 85 mL/min (>60); Est Glom Filt Rate - Afr Amer 103 mL/min (>60); Globulin 3.6 g/dL (2.2-4.2); Glucose 84 mg/dL (74-106); Protein, Total 7.2 g/dL (6.4-8.2); Sodium Level 138 mmol/L (136-145)
== END | disposition home or self-care (01) ==
LOC: MTLAB 15:44
PROVIDERS: PCP Family Medicine; Referring Provider Internal Medicine Rheumatology; Visit Provider Internal Medicine Rheumatology
DX: L40.59 Other psoriatic arthropathy (principal); M35.00 Sjogren syndrome, unspecified; Z79.899 Other long term (current) drug therapy; L40.8 Other psoriasis
CPT/HCPCS: 36415; 80053; 85025

== ENCOUNTER → 2022-07-28 | Outpatient (CLI) | payer BC, SELFPAY ==
[2022-07-28 12:52] LABS: Cholesterol 192 mg/dL (200); High Density Lipoprotein 47 mg/dL; Thyroid Stim Hormone (TSH) 1.37 uIU/mL (0.358-3.74); Triglycerides 114 mg/dL; Very Low Density Lipoprotein 23 mg/dL (5-40)
== END | disposition home or self-care (01) ==
LOC: BFHLAB 08:55
PROVIDERS: PCP Family Medicine; Referring Provider Family Medicine; Visit Provider Family Medicine
DX: Z00.00 Encounter for general adult medical examination without abnormal findings (principal); E03.9 Hypothyroidism, unspecified
CPT/HCPCS: 36415; 80061; 84439; 84443

== ENCOUNTER → 2022-09-03 | Outpatient (CLI) | payer BC, SELFPAY ==
--- NOTE | 2022-09-03 08:26 | BI_ITS ---
MAMMOGRAPHY - BILATERAL SCREENING 3-D TOMOSYNTHESIS REASON FOR EXAM: Female, 62 years old. Routine screening PERTINENT HISTORY: No significant family history. TECHNIQUE: 2-D mammograms and 3-D Tomosynthesis of the breast (s) were performed. CAD was performed. COMPARISON: 08/13/2020 FINDINGS: The breast composition is composed of scattered fibroglandular density. Scattered benign calcifications are seen. No dense spiculated masses or suspicious microcalcifications are identified. No architectural distortion is identified. There is no skin thickening or retraction. There has been no significant change since the prior study. BI/SCRN MAMM (CAD)W/OSIEL BILAT IMPRESSION: No mammographic signs of malignancy. Routine yearly mammograms recommended. ASSESSMENT CATEGORY: BIRADS Category 1: Negative. A letter regarding these results will be sent to the patient by the facility within 30 days. FOLLOW UP RECOMMENDATION: Yearly follow up mammogram recommended. (A) Approximately 10% of breast cancers are not detected by mammography. A normal mammogram should not delay biopsy of a clinically suspicious abnormality. Electronically Signed: Ruel Medrano MD at 9:28 EDT ,
== END | disposition home or self-care (01) ==
LOC: OPBI 08:24
PROVIDERS: PCP Family Medicine; Referring Provider Family Medicine; Visit Provider Family Medicine
DX: Z12.31 Encounter for screening mammogram for malignant neoplasm of breast (principal)
CPT/HCPCS: 77063; 77067

== ENCOUNTER → 2022-09-17 | Outpatient (CLI) | payer BC, SELFPAY ==
[2022-09-17 15:00] LABS: Absolute Lymphocyte Count 1.99 X10^3/uL (0.83-4.51); Basophil# 0.04 X10^3/uL; Basophil% 0.7 % (0-1); Eosinophil# 0.08 X10^3/uL; Eosinophils% 1.4 % (0-5); Hematocrit 42.6 % (37-47); Hemoglobin 14.7 g/dL (12.0-15.0); Lymphocyte # 1.99 X10^3/ul (0.83-4.51); Lymphocyte % 34.5 % (19-41); Mean Corp Hgb Conc 34.5 g/dL (32-36); Mean Corpuscular Hgb 31.3 pg (27.0-32.0); Mean Corpuscular Volume 90.8 fL (81-99); Monocyte# 0.62 X10^3/uL; Monocyte% 10.7 % (0-10); NRBC Flagged by Analyzer 0 % (0-5); Neutrophil # 3.03 X10^3/uL (2.7-7.7); Neutrophil % 52.5 % (47-70); Platelet Count 352 K/mm3 (150-450); RBC Distribution Width CV 13.4 % (11.6-14.6); RBC Distribution Width SD 44.5 fl (35.1-43.9); Red Blood Count 4.69 M/mm3 (4.2-5.4); White Blood Count 5.8 K/mm3 (4.4-11.0)
[2022-09-17 15:35] LABS: AST(SGOT) 22 U/L (15-37); Alanine Aminotransfer ALT/SGPT 23 U/L (13-56); Albumin, Serum 3.5 g/dL (3.2-5.0); Alkaline Phosphatase 83 U/L (45-117); Anion Gap 6 (5-15); BUN 8 mg/dL (7-18); BUN/Creat Ratio 10.9 RATIO (10-20); Chloride 104 mmol/L (98-107); Creatinine, Serum 0.73 mg/dL (0.55-1.02); EST Glomerular Filtration Rate 85 mL/min (>60); Est Glom Filt Rate - Afr Amer 103 mL/min (>60); Globulin 3.4 g/dL (2.2-4.2); Glucose 123 mg/dL (74-106); Potassium 3.9 mmol/L (3.5-5.1); Protein, Total 6.9 g/dL (6.4-8.2); Sodium Level 134 mmol/L (136-145)
== END | disposition home or self-care (01) ==
LOC: MTLAB 12:49
PROVIDERS: PCP Family Medicine; Referring Provider Internal Medicine Rheumatology; Visit Provider Internal Medicine Rheumatology
DX: L40.59 Other psoriatic arthropathy (principal); Z79.899 Other long term (current) drug therapy
CPT/HCPCS: 36415; 80053; 85025

== ENCOUNTER → 2022-12-21 | Outpatient (CLI) | payer BC, SELFPAY ==
[2022-12-21 12:15] LABS: Absolute Lymphocyte Count 0.85 X10^3/uL (0.83-4.51); Basophil# 0.05 X10^3/uL; Basophil% 0.7 % (0-1); Eosinophil# 0.06 X10^3/uL; Eosinophils% 0.9 % (0-5); Hematocrit 43.3 % (37-47); Hemoglobin 14.5 g/dL (12.0-15.0); Lymphocyte # 0.85 X10^3/ul (0.83-4.51); Lymphocyte % 12.1 % (19-41); Mean Corp Hgb Conc 33.5 g/dL (32-36); Mean Corpuscular Hgb 31.2 pg (27.0-32.0); Mean Corpuscular Volume 93.1 fL (81-99); Mean Platelet Vol. 9.8 fl (6.2-12.0); Monocyte# 1.06 X10^3/uL; Monocyte% 15.1 % (0-10); NRBC Flagged by Analyzer 0 % (0-5); Neutrophil # 4.99 X10^3/uL (2.7-7.7); Neutrophil % 70.9 % (47-70); Platelet Count 297 K/mm3 (150-450); RBC Distribution Width CV 14.2 % (11.6-14.6); RBC Distribution Width SD 48.2 fl (35.1-43.9); Red Blood Count 4.65 M/mm3 (4.2-5.4)
[2022-12-21 12:40] LABS: ALB/GLOB Ratio 0.9 RATIO (0.9-2.4); AST(SGOT) 20 U/L (15-37); Alanine Aminotransfer ALT/SGPT 24 U/L (13-56); Albumin, Serum 3.5 g/dL (3.2-5.0); Alkaline Phosphatase 84 U/L (45-117); Anion Gap 7 (5-15); BUN 10 mg/dL (7-18); BUN/Creat Ratio 11.6 RATIO (10-20); Calcium,Total 8.8 mg/dL (8.5-10.1); Chloride 105 mmol/L (98-107); Creatinine, Serum 0.86 mg/dL (0.55-1.02); EST Glomerular Filtration Rate 71 mL/min (>60); Est Glom Filt Rate - Afr Amer 86 mL/min (>60); Globulin 3.7 g/dL (2.2-4.2); Glucose 92 mg/dL (74-106); Potassium 3.6 mmol/L (3.5-5.1); Protein, Total 7.2 g/dL (6.4-8.2); Sodium Level 136 mmol/L (136-145)
== END | disposition home or self-care (01) ==
LOC: MTLAB 10:34
PROVIDERS: PCP Family Medicine; Referring Provider Internal Medicine Rheumatology; Visit Provider Internal Medicine Rheumatology
DX: L40.59 Other psoriatic arthropathy (principal); M35.00 Sjogren syndrome, unspecified; Z79.899 Other long term (current) drug therapy; L40.8 Other psoriasis; K21.9 Gastro-esophageal reflux disease without esophagitis
CPT/HCPCS: 36415; 80053; 85025

== ENCOUNTER → 2023-03-10 | Outpatient (CLI) | payer BC, SELFPAY ==
--- OUTSIDE RECORDS SUMMARY | 2023-03-10 11:27 | XMS RPT_ITS | CCD ---
Author Name Unknown Address [address] [place] [address] Organization [facility] Care Team Providers Care Inorganic Chemical Technician Name Role Phone Crystal Watson Unavailable Maile Brunner Unavailable Unavailable Unavailable Unavailable Dandy Childs Primary Care Provider Shannan Pulliam Attending Unavailable Dandy Childs Primary Care Unavailable PROVIDER, UNKNOWN Referring Unavailable Dandy Childs Primary Care Provider DALY KELLEY Attending Unavailable DANDY CHILDS Primary Care Unavailable JESICA LAM Attending Unavailable DANDY CHILDS Primary Care Unavailable Medications Current Medications Medication Drug Class(es) Dates Sig (Normalized) Sig (Original) apremilast 30 mg oral tablet (2 sources) Start: 03-30-2019 take 1 tablet by mouth in the morning apremilast (Otezla) 30 MG tablet Take 30 mg by mouth in the morning and 30 mg in the evening. 0 03/30/2019 Active Completed/Discontinued Medications Medication Drug Class(es) Dates Sig (Normalized) Sig (Original) budesonide 0.032 mg/actuat metered dose nasal spray (1 source) Corticosteroid Start: 03-23-2016 Rhinocort Allergy 32 MCG/ACT Nasal Suspension 2 (two) Puff once daily for 0 days Quantity: 1 {Puff} Refills: 0 Ordered: 23-Mar-2016 Crystal Watson CNP, CNP, Mary E Start : 23-Mar-2016 Active citalopram 10 mg oral tablet (3 sources) Serotonin Reuptake Inhibitor Start: 03-23-2016 take 1 tablet by mouth once daily CeleXA 10 MG Oral Tablet 1 (one) Tablet daily for 0 days Quantity: 30 {Tablet} Refills: 0 Ordered: 23-Mar-2016 Crystal Watson CNP, CNP, Mary E Start : 23-Mar-2016 Active Problems Active Problems Problem Classification Problem Date Documented Date Episodic/Chronic Anxiety disorders (1 source) Mixed anxiety and depressive disorder; Translations: [Depression with anxiety] 03-23-2016 Chronic Cataract (1 source) Bilateral cataracts; Translations: [Cataracts, bilateral] 03-23-2016 Chronic Diverticulosis and diverticulitis (2 sources) Diverticulosis of large intestine without perforation or abscess without bleeding; Translations: [Dvrtclos of lg int w/o perforation or abscess w/o bleeding] Onset: 11-18-2021 Chronic Esophageal disorders (2 sources) Gastro-esophageal reflux disease without esophagitis; Translations: [Gastro-esophageal reflux disease without esophagitis] Onset: 11-18-2021 Chronic Genitourinary symptoms and ill-defined conditions (1 source) Female stress incontinence; Translations: [Stress incontinence (female) (male)] Onset: 01-27-2022 01-27-2022 Chronic Melanomas of skin (2 sources) Malignant melanoma of skin; Translations: [Malignant melanoma] 03-23-2016 Chronic Past or Other Problems Problem Classification Problem Date Documented Da te Episodic/Chronic Cataract (1 source) Cataract Mood disorders (1 source) Mood disorders Mycoses (1 source) Candidiasis of mouth; Translations: [Thrush] 03-23-2016 Episodic Other complications of (1 source) Livebirth 03-23-2016 Episodic Results Test Name Value Interpretation Reference Range Facil ity Vital Signs Date Time Vital Sign Value Performing Clinician Faci lity 11-18-2021 10:39-0400 Diastolic blood pressure 79 mm[Hg] Shannan Pulliam MD Work Phone: [facility] 11-18-2021 10:39-0400 Heart rate 60 /min Shannan Pulliam MD Work Phone: [facility] 11-18-2021 10:39-0400 Respiratory rate 18 /min Shannan Pulliam MD Work Phone: [facility] 11-18-2021 10:39-0400 SaO2% (BldA) [Mass fraction] 99 % Shannan Pulliam MD Work Phone: [facility] 11-18-2021 10:39-0400 Systolic blood pressure 124 mm[Hg] Shannan Pulliam MD Work Phone: [facility] 11-18-2021 08:59-0400 Body height 168.9 cm Shannan Pulliam MD Work Phone: [facility] 11-18-2021 08:59-0400 Body mass index (BMI) [Ratio] 27.03 kg/m2 Shannan Pulliam MD Work Phone: [facility] 11-18-2021 08:59-0400 Body temperature 97 [degF] Shannan Pulliam MD Work Phone: [facility] 11-18-2021 08:59-0400 Body weight 77.11 kg Shannan Pulliam MD Work Phone: [facility] Encounters Encounter Date Encounter Type Care Provider Facility Start: 06-04-2022 End: 06-04-2022 ambulatory [facility] Start: 05-18-2022 ambulatory Remi Moser RN [facility] Clinical Communication Start: 05-18-2022 Patient encounter procedure Remi Moser RN [facility] Clinical Communication Start: 03-17-2022 End: 03-17-2022 [facility]ulatory [facility] Start: 01-27-2022 End: 01-28-2022 ambulatory [facility] Start: 11-18-2021 End: 11-18-2021 ambulatory [facility] Start: 11-18-2021 End: 11-18-2021 Subsequent hospital visit by physician Shannan Pulliam MD Work Phone: [facility] Procedures Date Procedure Procedure Detail Performing Clinician Start: 06-04-2022 Follow-up visit Follow-up [facility] Start: 11-18-2021 End: 11-18-2021 Colonoscopy Physician Generic Start: 08-26-2021 Mammography Remi milian RN Breast biops Maile Brunner Plan of Treatment Date Care Activity Detail Author Start: 11-19-2031 Screening for malignant neoplasm of colon [facility] Start: 10-15-2022 Influenza vaccination Influenza Vaccine (Season Ended) [facility] Start: 08-26-2022 Screening for malignant neoplasm of breast Mammogram [facility] Start: 06-04-2022 End: 06-04-2022 Patient encounter procedure 06/04/2022 Office Visit Urogynecology Daly Kelley, HEAD PUMPER - STEAM FITTER SUPERVISOR [address] [place] [address] [facility] Start: 09-29-2021 DTaP/Tdap/Td vaccine (2 - Td or Tdap) DTaP/Tdap/Td vaccine (2 - Td or Tdap) [facility] Start: 09-29-2021 DTaP/Tdap/Td Vaccines (2 - Td or Tdap) DTaP/Tdap/Td Vaccines (2 - Td or Tdap) [facility] Start: 09-14-2021 Influenza vaccination Flu vaccine (#1) [facility] Start: 03-23-2016 Iaadiadoo influenza Rapid Flu (78925 x 2) [facility] Work Phone: Start: 03-23-2016 Procedure Education Eprescribed prescriptions (G8553) [facility] Work Phone: Start: 07-30-2009 Screening for malignant neoplasm of breast Breast cancer screen [facility] Start: 07-30-2009 Shingles vaccine (1 of 2) Shingles vaccine (1 of 2) [facility] Start: 07-30-2009 Zoster Vaccines (1 of 2) Zoster Vaccines (1 of 2) [facility] Start: 07-30-2004 Screening for malignant neoplasm of colon [facility] Start: 1999 Lipid panel Lipids [facility] Start: 07-30-1994 Diabetes screen Diabetes screen [facility] Start: 07-30-1989 Screening for malignant neoplasm of cervix [facility] Start: 07-30-1980 Screening for malignant neoplasm of cervix Pap smear [facility] Start: 07-30-1977 Diabetes mellitus screening Diabetes Screening [facility] Start: 07-30-1977 Hepatitis C screening [facility] Start: 07-30-1974 HIV screening HIV screen [facility] Start: 1971 Depression Screen Depression Screen [facility] Start: 07-30-1960 MMR Vaccines (1 of 1 - Standard series) MMR Vaccines (1 of 1 - Standard series) [facility] Start: 01-30-1960 COVID-19 Vaccine (#1) COVID-19 Vaccine (#1) [facility] Start: 1959 Hepatitis B Vaccines (1 of 3 - 3-dose series) Hepatitis B Vaccines (1 of 3 - 3-dose series) [facility] Start: 1959 HIV screening HIV Screening [facility] Start: 1959 Screening for malignant neoplasm of colon [facility] Start: 1959 Thyroid stimulating hormone measurement TSH Level [facility] Immunizations Immunization Date Immunization Notes Care Provider Fa vladimir 11-01-2016 influenza virus vacc ine, unspecified formulation Remi Moser RN [facility] Payers Date Payer Category Payer Unknown 2020 Unknown [id number] [id number] 1959 Unknown [id number] Social History Date Type Detail Facility Alcohol use: Alcohol use: [facility] Work Phone: Tobacco use: Tobacco use: [facility] Work Phone: Start: 11-05-2021 Tobacco smoking status NHIS Never smoked tobacco [facility] Start: 11-05-2021 Tobacco use and exposure Smokeless tobacco non-user [facility] Work Phone: Start: 11-18-2021 End: 03-17-2022 Alcohol intake Ex-drinker (finding) [facility] Work Phone: Start: 10-21-2021 History SDOH Alcohol Comment rare [facility] Work Phone: Start: 1960 Sex Assigned At Not on file [facility] Work Phone: Start: 11-08-2021 End: 11-18-2021 Exposure to SARS-CoV-2 (event) Not sure [facility] Work Phone: Medical Equipment Procedure Code Equipment Code Equipment Origin al Text Equipment Identifier Dates System Sling Transvaginal Midurethral Advantage Fit Blue Polypropylene 2.7 Mm Dilator Pusher Center Tab Delivery Device Handle Curve Needle Tip Steril - [id number] Start: 01-27-2022 Telephone encounter Note 05-21-2022 Telephone Encounter - Jesica Dorado MA - 05/21/2022 8:38 AM EDT Note Date & Type Note Facility 05-21-2022 Telephone encounter Note Form atting of this note might be different from the original. Pt scheduled appt. Thanks [facility] Health Note 05-21-2022 Telephone Encounter - Jesica Dorado MA - 05/21/2022 8:38 AM EDTTelephone Encounter - Remi Moser RN - 05/18/2022 1:26 PM EDT Note Date & Type Note Facility 05-21-2022 Miscellaneous Notes Formattin g of this note might be different from the original. Pt scheduled appt. Thanks Reason for Disposition Caller has NON-URGENT question and triager unable to answer question Answer Assessment - Initial Assessment Questions 1. SYMPTOM: What's the main symptom you're concerned about? (e.g., pain, fever, vomiting) Painful sex and has cold sx temp is 99.4. 2. ONSET: When did start? 3. SURGERY: What surgery did you have? 4. DATE of SURGERY: When was the surgery? 5. ANESTHESIA: What type of anesthesia did you have? (e.g., general, spinal, epidural, local) 6. PAIN: Is there any pain? If Yes, ask: How bad is it? (Scale 1-10; or mild, moderate, severe) Vaginal pain was severe with intercourse 09/23 7. FEVER: Do you have a fever? If Yes, ask: What is your temperature, how was it measured, and when did it start? 99.4 orally 8. VOMITING: Is there any vomiting? If Yes, ask: How many times? 9. BLEEDING: Is there any bleeding? If Yes, ask: How much? and Where? [place] discharge with intercourse mostly. 10. OTHER SYMPTOMS: Do you have any other symptoms? (e.g., drainage from wound, painful urination, constipation) Protocols used: Post-Op Symptoms and [id number] S: [facility] nurse regarding painful intercourse since surgery 02/04. B: Onset of symptoms/concern painful intercourse since surgery. A: Patient complains of painful intercourse and even painful with digital penetration. Patient is experiencing pinkish discharge after intercourse and also woke up with discharge in her underwear. Low grade fever of 99.4 orally. R: Patient advised a message will be sent to practice and she will be contacted for further plan of care. No further needs at this time. Patient instructed to call back with new or worsening symptoms. documented in this encounter [facility] Telephone encounter Note 05-18-2022 Telephone Encounter - Remi Moser RN - 05/18/2022 1:26 PM EDT Note Date & Type Note Facility 05-18-2022 Telephone encounter Note Form atting of this note might be different from the original. Reason for Disposition Caller has NON-URGENT question and triager unable to answer question Answer Assessment - Initial Assessment Questions 1. SYMPTOM: What's the main symptom you're concerned about? (e.g., pain, fever, vomiting) Painful sex and has cold sx temp is 99.4. 2. ONSET: When did start? 3. SURGERY: What surgery did you have? 4. DATE of SURGERY: When was the surgery? 5. ANESTHESIA: What type of anesthesia did you have? (e.g., general, spinal, epidural, local) 6. PAIN: Is there any pain? If Yes, ask: How bad is it? (Scale 1-10; or mild, moderate, severe) Vaginal pain was severe with intercourse 09/23 7. FEVER: Do you have a fever? If Yes, ask: What is your temperature, how was it measured, and when did it start? 99.4 orally 8. VOMITING: Is there any vomiting? If Yes, ask: How many times? 9. BLEEDING: Is there any bleeding? If Yes, ask: How much? and Where? [place] discharge with intercourse mostly. 10. OTHER SYMPTOMS: Do you have any other symptoms? (e.g., drainage from wound, painful urination, constipation) Protocols used: Post-Op Symptoms and [id number] S: [facility] nurse regarding painful intercourse since surgery 02/04. B: Onset of symptoms/concern painful intercourse since surgery. A: Patient complains of painful intercourse and even painful with digital penetration. Patient is experiencing pinkish discharge after intercourse and also woke up with discharge in her underwear. Low grade fever of 99.4 orally. R: Patient advised a message will be sent to practice and she will be contacted for further plan of care. No further needs at this time. Patient instructed to call back with new or worsening symptoms. [facility] Clinical Note 01-27-2022 Note Date & Type Note Facility 01-27-2022 Note [facility] - Patient Pre-procedure Instructions Sleep Apnea: If yes, please bring CPAP machine May shower/brush teeth. Leave valuables/jewelry at home. No makeup, lotion, powder, deodorant or body sprays. No contact lenses No makeup, contact lenses, piercings, or dark nail albanian No solid food after midnight before procedure. Clear liquids only - up to 2 hours prior to your arrival time (water, clear juice, Gatorade, coffee/tea with no milk/sugar, no mints gum or candy If of age, you may need to undergo a test Medications to take the morning of surgery Take the following medications: Levothyroxine No Motrin, ibuprofen or Advil in 24 hours prior to surgery, longer if directed by your surgeon No Aleve or Naprosyn for 3 days prior to surgery or longer if instructed by you r surgeon. If you take blood thinners or aspirin, follow instructions given to you by your surgeon You may take your prescription pain medication, you may take Tylenol for pain. Do not use/smoke THC or drink alcohol in the 24 hours prior to your arrival time. Please Bring your Technical Document Writer's license/photo ID, insurance card, eye drops/sunglasses, inhalers if applicable If you have a Medical Power of Clinical Nursing Instructor, living will, or an advanced directive, please bring a copy with you. We are required to resuscitate and transfer you to the hospital along with your directive. [facility] Clinical Note 01-27-2022 Note Date & Type Note Facility 01-27-2022 Note Patient: Tamie lozano Procedure Summary Date: 01/27/22 Room / Location: [facility] / [facility] OR Anesthesia Start: 814 Anesthesia Stop: 915 Procedures: SLING OPERATION FOR STRESS INCONTINENCE (Perineum) POSTERIOR COLPORRHAPHY REPAIR RECTOCELE (Perineum) CYSTOSCOPY (Urethra) Diagnosis: Stress incontinence (female) (male) (POSTERIOR REPAIR) (CYSTOSCOPY) (SLING) Surgeons: Jesica Lam MD Responsible Provider: No Anesthesiologist - Adrien/MD Melvin Anesthesia Type: general anesthesia ASA Status: 2 Anesthesia Type: general anesthesia Vitals Value Taken Time BP 146/78 01/27/22916 Temp 37 01/27/22916 Pulse 81 01/27/22916 Resp 14 01/27/22916 SpO2 98 01/27/22916 Anesthesia Post Evaluation Patient location during evaluation: PACU Patient participation: complete - patient participated Level of consciousness: awake and alert Pain management: satisfactory to patient Multimodal analgesia pain management approach Airway patency: patent Two or more strategies used to mitigate risk of obstructive sleep apnea Cardiovascular status: acceptable and hemodynamically stable Respiratory status: acceptable Hydration status: acceptable No notable events documented. MIPS #430 PONV Patient received an inhalational anesthetic (4554F) Patient exhibits three or more risk factors for PONV (4556F) Patient received at leaset 2 prophylactic Rx PONV anti-emtic agents of different classes preop and/or intraop (G9775) MIPS # 424 Perioperative Temperature Management Anesthesia time was 60 minutes or longer (4255F) Anesthesai administered was General (inhalational or TIVA) or Neuraxial block At least one body temperature greater than 95.8F/35.5C achieved within the 30 mins immediately prior to or the 15 minutes immediately following anesthesia end time MIPS #477 Multimodal Pain Management Not emergent case Patientw was administered multimodal pain management (two or more drugs and/or interventions excluding systemic opioids) in the periopeartive period occurring at some time between 6 hours prior to anesthesia start time until discharged from PACU (G2148) MIPS #404 Anesthesiology Smoking Abstinence MIPS 404 I completed my handoff to the receiving clinician during which we: 1. Identified the patient 2. Identified the responsible provider 3. Reviewed the pertinent medical history 4. Discussed the surgical course 5. Reviewed intra-op anesthesia management and issues during anesthesia 6. Set expectations for post-procedure period 7. Allowed opportunity for questions and acknowledgement of understanding. [facility] Clinical Note 01-27-2022 Note Date & Type Note Facility 01-27-2022 Note Patient: Tamie lozano Procedure Summary Date: 01/27/22 Room / Location: [place] [address] / [facility] OR Anesthesia Start: 814 Anesthesia Stop: 915 Procedures: SLING OPERATION FOR STRESS INCONTINENCE (Perineum) POSTERIOR COLPORRHAPHY REPAIR RECTOCELE (Perineum) CYSTOSCOPY (Urethra) Diagnosis: Stress incontinence (female) (male) (POSTERIOR REPAIR) (CYSTOSCOPY) (SLING) Surgeons: Jesica Lam MD Responsible Provider: No Anesthesiologist - Adrien/MD Melvin Anesthesia Type: general anesthesia ASA Status: 2 Anesthesia Type: general anesthesia Vitals Value Taken Time BP 146/68 01/27/22 0916 Temp 37 01/27/22 0916 Pulse 70 01/27/22 0916 Resp 14 01/27/22 0916 SpO2 99 01/27/22 0916 Anesthesia Post Evaluation Patient location during evaluation: PACU Patient participation: complete - patient participated Level of consciousness: awake and alert Pain management: satisfactory to patient Airway patency: patent Dental Injury: no Cardiovascular status: acceptable, blood pressure returned to baseline and hemodynamically stable Respiratory status: acceptable and spontaneous ventilation Hydration status: euvolemic Nausea/Vomiting: controlled No notable events documented. Patient can be discharged once all PACU criteria has been met. [facility] Clinical Note 01-27-2022 Note Date & Type Note Facility 01-27-2022 Note Airway Date/Time: 01/27/2022 8:12 AM Urgency: scheduled General Information and Staff Patient location during procedure: Procedural Resident/VENEER JOINTER OPERATOR: Dandy Arellano APRN - VENEER JOINTER OPERATOR Performed: VENEER JOINTER OPERATOR Indications and Patient Condition Sedation level: Asleep Patient position: sniffing Mask difficulty assessment: 1 - vent by mask Final Airway Details Final airway type: supraglottic airway Successful airway: Igel Size 4 ETT size (mm): 7.5 Number of attempts at approach: 1 [facility] Clinical Note 01-27-2022 Note Date & Type Note Facility 01-27-2022 Note Patient: Tamie lozano Procedure Information Date/Time: 01/27/22 0800 Procedures: SLING OPERATION FOR STRESS INCONTINENCE (Perineum) POSTERIOR COLPORRHAPHY REPAIR RECTOCELE (Perineum) CYSTOSCOPY (Urethra) Location: [facility] / [facility] OR Surgeons: Jesica Lam MD Relevant Problems No relevant active problems Past Medical History: Past Medical History: No date: GERD (gastroesophageal reflux disease) No date: Hypothyroidism No date: Melanoma (HCC) No date: Psoriatic arthritis (HCC) Past Surgical History: Past Surgical History: No date: BLADDER SURGERY Comment: Bladder lift No date: COLONOSCOPY 11/18/2021: COLONOSCOPY Comment: dr pulliam No date: EGD No date: HYSTERECTOMY No date: MANDIBLE FRACTURE SURGERY No date: MOUTH SURGERY No date: OTHER SURGICAL HISTORY Comment: melanoma No date: OVARIAN CYST REMOVAL Social History: TOBACCO: reports that she has never smoked. She has never used smokeless tobacco. ETOH: reports that she does not currently use alcohol. Social History Substance and Sexual Activity Drug Use Yes ? Types: Marijuana Family History: Family History Problem Relation Name Age of Onset ? Heart failure Mother ? Colon cancer Neg Hx ? Thyroid disease Mother ? Heart failure Father ? Hypertension Father ? Emphysema Father ? Hypertension Mother Screening: Hysterectomy Clinical information reviewed: Tobacco Allergies Meds Med Hx Surg Hx OB Status Fam Hx Soc Hx Physical Exam Airway Mallampati: II Cardiovascular - normal exam Dental Pulmonary - normal exam Abdominal - normal exam Anesthesia Plan ASA 2 general anesthesia The patient is not a current smoker. Patient was not previously instructed to abstain from smoking on day of procedure. Patient did not smoke on day of procedure. Education provided regarding risk of obstructive sleep apnea. Anesthetic plan and risks discussed with patient. Use of blood products discussed with who consented to blood products. patient is NPO KAVITHA Screening Labs: No results found for: WBC, HGB, HCT, MCV, PLT No results found for: NA, K, CL, CO2, BUN, CREATININE, GLUCOSE, CALCIUM, PROT, BILIRUBINFL, ALKPHOS, AST, ALT, EGFR, GLOB No components found for: LVEF, LVEFMODE No echocardiogram results found for the past 14 days No results found for this or any previous visit. [facility] Clinical Note 01-26-2022 Note Date & Type Note Facility 01-26-2022 Note 61 y.o. female Complaints started 1 year(s) ago. Getting worse now. Tried Kegel's with no results. Also feel as if something is falling out of the vagina; ball/bulge in the vagina. Getting worse during afternoon/evening. Pt does not manipulate to have BM. Bothers her a lot and significantly impacts her quality of life. Stress incontinence: Yes, severe. It bothers her a lot and significantly impacts her quality of life. Urgency: Yes, sometimes Urge incontinence: Yes Frequency: Yes, urinates every 1 hours during the day Nocturia: Yes, 1 x per night Enuresis: No Pad use: none Feels like she empties her bladder well. No recurrent UTI. No macroscopic hematuria. Sexual Activity: yes; Dyspareunia: yes Constipation: No Other bowel problems: None. Past Surgical History: Procedure Laterality Date BLADDER SURGERY Bladder lift COLONOSCOPY EGD HYSTERECTOMY (CERVIX STATUS UNKNOWN) MANDIBLE FRACTURE SURGERY MOUTH SURGERY OTHER SURGICAL HISTORY melanoma OVARIAN CYST REMOVAL TONSILLECTOMY Past Medical History: Diagnosis Date GERD (gastroesophageal reflux disease) Hypothyroidism Melanoma (HCC) Psoriatic arthritis (HCC) Current Outpatient Medications Medication Sig Dispense Refill Citalopram Hydrobromide (CELEXA PO) Take by mouth FOLIC ACID PO Take by mouth LEVOTHYROXINE SODIUM PO Take by mouth METHOTREXATE PO Take 2.5 mg by mouth every 7 days busPIRone (BUSPAR) 7.5 MG tablet esomeprazole Magnesium (NEXIUM) 20 MG PACK Take by mouth leucovorin calcium (WELLCOVORIN) 15 MG tablet TAKE 1 TABLET(S) ORAL ONCE A WEEK LORazepam (ATIVAN) 1 MG tablet TAKE 1/2 TO 1 TABLET BY MOUTH TWICE DAILY NEEDED FOR ANXIETY Apremilast 10 & 20 & 30 MG TBPK Take by mouth (Patient not taking: Reported on 11/05/2021) predniSONE (DELTASONE) 10 MG tablet 1 TABLET(S) ORAL EVERY DAY TAKE FOR 3-5 DAYS WITH A FLARE methocarbamol (ROBAXIN) 500 MG tablet TAKE 1 TABLET BY MOUTH THREE TIMES A DAY NEEDED No current facility-administered medications for this visit. OB History 2 Para Term AB Living SAB IAB Ectopic Molar Multiple Live Births 2 No Known Allergies BP 131/86 Pulse 61 Resp 16 Wt 172 lb (78 kg) BMI 27.35 kg/m? Physical Exam Vulva: atrophic Vagina: atrophic Cervix: surgicallyabsent Aa -2, Ba -2, C -5 gh 4, pb 3, tvl9 Ap +1, Bp +1, D n/a Levators: 2/5 Urethra: Hypermobility: Yes Incontinence: Supine: yes Bimanual: no adnexal masses felt Rectal: good tone Residual volume: 100 ml U/A negative Assessment: ICD-10-CM 1. RENA (stress urinary incontinence, female) N39.3 2. Rectocele N81.6 I spent a total time of 60 minutes caring for this patient today. The patient was seen and examined. I have also spent time communicating results to the patient, counseling/educating the patient, documenting in the medical record and ordering the necessary procedures. I discussed the diagnosis and importance of compliance with the treatment plan. Pt with symptomatic stage 2 posterior vaginal prolapse. Observation and different treatment options were discussed with the pt in detail. Pt would like to proceed with the surgical treatment at the same time with surgery for RENA. She is a candidate for posterior repair. She understands the risks, which include but are not limited to bleeding, infection, injury to adjacent organs (including the bladder, bowel, urethra, ureters, blood vessels and nerves), dyspareunia, and fistula formation. She is aware of the possibility of additional surgery and/or re-operation to address any complications. She is aware of the risks of anesthesia, blood clots, and possible need for transfusion of blood products. She is aware of the possibility of urinary retention and the need for intermittent self-catheterization post-operatively. She understands that no operation can provide a 100% guarantee, and that recurrence of her prolapse is possible in the future. She understands that this operation is designed to treat prolapse specifically, and does not address stress urinary incontinence, detrusor instability, urge incontinence or other symptoms of overactive bladder. The patient was made aware of conservative options for treatment and has either tried or declined them. The patient demonstrated her understanding of the above and asked appropriate questions. All her questions were answered and informed consent was obtained. Stress urinary incontinence. Different treatment options were discussed with the patient in detail. Patient was taught Kegels exercises. She tried Kegel's in the past, but failed to improve her symptoms. Referral to pelvic floor therapy for biofeedback/electrostimulation was offered, but patient declined. Also, pessary and surgical treatment were discussed. She declined pessary fitting and wanted to proceed with surgery . A suburethral sling is recommended. I discussed the (more content not included)... [facility] Discharge instructions 11-18-2021 Discharge Instructions Note Date & Type Note Facility 11-18-2021 Hospital Discharg e instructions Carmen Hernandez RN - 11/18/2021 10:22 AM EDT Colonoscopy: What to expect at home ACTIVITY: DO NOT DRIVE, OPERATE MACHINERY, OR DRINK ANY ALCOHOL TODAY. Avoid making critical decisions, signing legal documents, or performing any activity that requires alertness for the rest of the day. You may be bloated or have gas pains since air was introduced into the colon for the procedure. You may need to pass the gas throughout the day. You may experience a small amount of rectal bleeding; this can be normal after your colonoscopy. Notify your physician if the bleeding is enough to saturate your clothes. Rest the remainder of the day. You may resume normal activity tomorrow. You may return to work tomorrow. DIET: You may resume a normal diet unless notified or recommended by your physician. You may be eager to eat a large meal after fasting, but it is a good idea to start with light meals and ease into solid foods the first day. (*) If your stomach is upset, try clear liquids and bland, low-fat foods like plain toast or rice. Drink plenty of fluids for the first 24 hours (unless your physician states otherwise). MEDICATION: Resume your normal home medications unless notified or recommended by your physician. If you take blood thinners (such as Coumadin, Eliquis, Plavix, Aspirin, etc.) or anti-inflammatory medications (Advil, Motrin, Aleve, etc.), ask your physician when you may resume these medications. FOLLOW-UP APPOINTMENT: Follow up with or call your physician as needed. When to call for help: Call your doctor IMMEDIATELY or seek medical care if you experience: Severe pain or vomiting A large amount (filling the toilet) of maroon, bloody stools or tar-like stools Your belly is swollen and firm with severe pain A fever greater than 101 degrees Redness or swelling of arm from the IV site for more than 48 hours Sudden onset of chest pain or shortness of breath If you become extremely dizzy or pass out (lose consciousness) IF YOU ARE UNABLE TO REACH YOUR PHYSICIAN GO TO NEAREST EMERGENCY DEPARTMENT documented in this encounter JOY Carmichael Phone: Summary Purpose Family History No Family History Records FoundUnknown Family Member Name Dates Details Father Comments:high cholesterol, C OPD Status:Active Mother Comments:depression/anxiety, hypothyroid, high cholesterol Status:Active Advance Directives No Advanced Directives Records FoundLatest Code Status on File Code Status Date Activated Date Inactivated Comments Full Code 11/18/2021 9:46 AM Latest Code Status on File Code Status Date Activated Date Inactivated Comments Full Code 01/27/2022 6:57 AM 01/28/2022 2:41 AM Instructions Name Dates Details How to access health informa tion online Indication:Flu-like symptoms Start:23-Mar-2016 Instruction Type:Patient Edu cation How to access health informa tion online - Detail Indication:Flu-like symptoms Start:23-Mar-2016 Instruction Type:Patient Edu cation Patient Instructions Indication:Flu-like symptoms Start:23-Mar-2016 Instruction Type:Provider Instructions for Treatment Additional Source Comments INFORMATION SOURCE (unrecogn ized section and content) DATE CREATED AUTHOR AUTHOR'S ORGANIZ ATION 03/03/2020 [facility] ([place]) DATE CREATED AUTHOR AUTHOR'S ORGANIZ ATION [facility] DATE CREATED AUTHOR AUTHOR'S ORGANIZ ATION 06/04/2022 [facility] Care Teams (unrecognized sec tion and content) 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 This clinical summary was aggregated from multiple sources. Caution should be exercised in using it in the provision of clinical care. This summary normalizes information from multiple sources, and as a consequence, information in this document may materially change the coding, format and clinical context of patient data. In addition, data may be omitted in some cases. CLINICAL DECISIONS SHOULD BE BASED ON THE PRIMARY CLINICAL RECORDS. [facility]. provides no warranty or guarantee of the accuracy or completeness of information in this document.
[2023-03-10 12:41] LABS: Absolute Lymphocyte Count 1.63 X10^3/uL (0.83-4.51); Absolute Neutrophil Count 2.9 X10^3/uL (2.0-7.7); Basophil# 0.04 X10^3/uL; Basophil% 0.7 % (0-1); Eosinophil# 0.13 X10^3/uL; Eosinophils% 2.4 % (0-5); Hematocrit 45.1 % (37-47); Hemoglobin 15.1 g/dL (12.0-15.0); Lymphocyte # 1.63 X10^3/ul (0.83-4.51); Lymphocyte % 30.2 % (19-41); Mean Corp Hgb Conc 33.5 g/dL (32-36); Mean Corpuscular Hgb 31.3 pg (27.0-32.0); Mean Corpuscular Volume 93.4 fL (81-99); Mean Platelet Vol. 10.5 fl (6.2-12.0); Monocyte# 0.68 X10^3/uL; Monocyte% 12.6 % (0-10); NRBC Flagged by Analyzer 0 % (0-5); Neutrophil # 2.89 X10^3/uL (2.7-7.7); Neutrophil % 53.7 % (47-70); Platelet Count 327 K/mm3 (150-450); RBC Distribution Width CV 13.4 % (11.6-14.6); RBC Distribution Width SD 45.9 fl (35.1-43.9); Red Blood Count 4.83 M/mm3 (4.2-5.4); White Blood Count 5.4 K/mm3 (4.4-11.0)
[2023-03-10 13:29] LABS: ALB/GLOB Ratio 1.1 RATIO (0.9-2.4); AST(SGOT) 23 U/L (15-37); Alanine Aminotransfer ALT/SGPT 28 U/L (13-56); Albumin, Serum 3.7 g/dL (3.2-5.0); Alkaline Phosphatase 72 U/L (45-117); Anion Gap 2 (5-15); BUN 10 mg/dL (7-18); BUN/Creat Ratio 11.9 RATIO (10-20); Calcium,Total 9.3 mg/dL (8.5-10.1); Chloride 107 mmol/L (98-107); Creatinine, Serum 0.84 mg/dL (0.55-1.02); EST Glomerular Filtration Rate 73 mL/min (>60); Est Glom Filt Rate - Afr Amer 88 mL/min (>60); Globulin 3.3 g/dL (2.2-4.2); Glucose 88 mg/dL (74-106); Potassium 4.2 mmol/L (3.5-5.1); Sodium Level 136 mmol/L (136-145)
== END | disposition home or self-care (01) ==
LOC: MTLAB 10:57
PROVIDERS: PCP Family Medicine; Referring Provider Internal Medicine Rheumatology; Visit Provider Internal Medicine Rheumatology
DX: L40.59 Other psoriatic arthropathy (principal); Z79.899 Other long term (current) drug therapy
CPT/HCPCS: 36415; 80053; 85025

== ENCOUNTER → 2023-05-31 | Outpatient (CLI) | payer BC, SELFPAY ==
[2023-05-31 17:10] LABS: Absolute Lymphocyte Count 2.32 X10^3/uL (0.83-4.51); Absolute Neutrophil Count 2.7 X10^3/uL (2.0-7.7); Basophil# 0.06 X10^3/uL; Eosinophil# 0.24 X10^3/uL; Eosinophils% 3.9 % (0-5); Hemoglobin 15.8 g/dL (12.0-15.0); Lymphocyte # 2.32 X10^3/ul (0.83-4.51); Lymphocyte % 37.7 % (19-41); Mean Corp Hgb Conc 34.3 g/dL (32-36); Mean Corpuscular Hgb 31.8 pg (27.0-32.0); Mean Corpuscular Volume 92.6 fL (81-99); Mean Platelet Vol. 9.5 fl (6.2-12.0); Monocyte# 0.83 X10^3/uL; Monocyte% 13.5 % (0-10); NRBC Flagged by Analyzer 0 % (0-5); Neutrophil # 2.69 X10^3/uL (2.7-7.7); Neutrophil % 43.7 % (47-70); Platelet Count 358 K/mm3 (150-450); RBC Distribution Width CV 13.9 % (11.6-14.6); RBC Distribution Width SD 46.6 fl (35.1-43.9); Red Blood Count 4.97 M/mm3 (4.2-5.4); White Blood Count 6.2 K/mm3 (4.4-11.0)
== END | disposition home or self-care (01) ==
LOC: LAB 16:43
PROVIDERS: PCP Family Medicine; Referring Provider Internal Medicine Rheumatology; Visit Provider Internal Medicine Rheumatology
DX: L40.59 Other psoriatic arthropathy (principal); Z79.899 Other long term (current) drug therapy
CPT/HCPCS: 36415; 85025

== ENCOUNTER → 2023-08-05 | Outpatient (CLI) | payer BC, SELFPAY ==
[2023-08-05 10:39] LABS: Mucous, Urine 0 SEEN /hpf (<or=2+); Squamous Epithelial Cells - UA 0 SEEN /hpf (5-10)
[2023-08-05 10:50] LABS: Color, Urine Yellow (Yellow); Glucose, Dipstick Normal (Normal); Ketone-Dipstick Negative (Negative); Leukocyte Esterase-Dipstick 500 /ul (Negative); Nitrite-Dipstick Negative (Negative); Occult Blood-Urine 10 /ul (Negative); Protein-Dipstick Negative (Negative); Urine Bilirubin Dipstick Negative (Negative); Urine Clarity Sl. Cloudy (Clear); Urine Urobilinogen Normal (Normal)
[2023-08-05 10:58] LABS: Bacteria 1+ /hpf (None Seen); Red Blood Cells-Urine 0-5 SEEN /hpf (0-5); White Blood Cells 25-50 SEEN /hpf (0-5)
== END | disposition home or self-care (01) ==
LOC: LABSPEC 10:35
PROVIDERS: PCP Family Medicine; Referring Provider Physician Assistant; Visit Provider Physician Assistant
DX: R30.0 Dysuria (principal)
CPT/HCPCS: 81001; 87077; 87086; 87088; 87186

== ENCOUNTER → 2023-08-09 | Outpatient (CLI) | payer BC, SELFPAY ==
[2023-08-09 12:33] LABS: Absolute Lymphocyte Count 1.67 X10^3/uL (0.83-4.51); Basophil# 0.04 X10^3/uL; Basophil% 0.7 % (0-1); Eosinophil# 0.13 X10^3/uL; Eosinophils% 2.3 % (0-5); Hematocrit 43.4 % (37-47); Hemoglobin 14.7 g/dL (12.0-15.0); Lymphocyte # 1.67 X10^3/ul (0.83-4.51); Lymphocyte % 29.8 % (19-41); Mean Corp Hgb Conc 33.9 g/dL (32-36); Mean Corpuscular Hgb 31.3 pg (27.0-32.0); Mean Corpuscular Volume 92.3 fL (81-99); Mean Platelet Vol. 10.7 fl (6.2-12.0); Monocyte# 0.78 X10^3/uL; Monocyte% 13.9 % (0-10); NRBC Flagged by Analyzer 0 % (0-5); Neutrophil # 2.96 X10^3/uL (2.7-7.7); Neutrophil % 52.9 % (47-70); Platelet Count 311 K/mm3 (150-450); RBC Distribution Width CV 13.5 % (11.6-14.6); RBC Distribution Width SD 46.2 fl (35.1-43.9); White Blood Count 5.6 K/mm3 (4.4-11.0)
[2023-08-09 15:31] LABS: AST(SGOT) 19 U/L (15-37); Alanine Aminotransfer ALT/SGPT 22 U/L (13-56); Albumin, Serum 3.6 g/dL (3.2-5.0); Alkaline Phosphatase 88 U/L (45-117); Anion Gap 6 (5-15); BUN 9 mg/dL (7-18); BUN/Creat Ratio 11.6 RATIO (10-20); Calcium,Total 9.2 mg/dL (8.5-10.1); Chloride 107 mmol/L (98-107); Creatinine, Serum 0.78 mg/dL (0.55-1.02); EST Glomerular Filtration Rate 80 mL/min (>60); Est Glom Filt Rate - Afr Amer 96 mL/min (>60); Globulin 3.5 g/dL (2.2-4.2); Glucose 86 mg/dL (74-106); Protein, Total 7.1 g/dL (6.4-8.2); Sodium Level 136 mmol/L (136-145)
== END | disposition home or self-care (01) ==
LOC: MTLAB 10:58
PROVIDERS: PCP Family Medicine; Referring Provider Internal Medicine Rheumatology; Visit Provider Internal Medicine Rheumatology
DX: L40.59 Other psoriatic arthropathy (principal); L40.8 Other psoriasis; M35.00 Sjogren syndrome, unspecified; Z79.899 Other long term (current) drug therapy
CPT/HCPCS: 36415; 80053; 85025

== ENCOUNTER → 2023-10-31 | Outpatient (CLI) | payer BC, SELFPAY ==
[2023-10-31 15:04] LABS: Absolute Lymphocyte Count 1.77 X10^3/uL (0.83-4.51); Absolute Neutrophil Count 2.7 X10^3/uL (2.0-7.7); Basophil# 0.02 X10^3/uL; Basophil% 0.4 % (0-1); Eosinophil# 0.09 X10^3/uL; Eosinophils% 1.7 % (0-5); Hematocrit 42.9 % (37-47); Hemoglobin 14.2 g/dL (12.0-15.0); Lymphocyte # 1.77 X10^3/ul (0.83-4.51); Mean Corp Hgb Conc 33.1 g/dL (32-36); Mean Corpuscular Hgb 30.7 pg (27.0-32.0); Mean Corpuscular Volume 92.7 fL (81-99); Mean Platelet Vol. 10.5 fl (6.2-12.0); Monocyte# 0.58 X10^3/uL; Monocyte% 11.1 % (0-10); NRBC Flagged by Analyzer 0 % (0-5); Neutrophil # 2.74 X10^3/uL (2.7-7.7); Neutrophil % 52.6 % (47-70); Platelet Count 341 K/mm3 (150-450); RBC Distribution Width CV 13.6 % (11.6-14.6); RBC Distribution Width SD 45.5 fl (35.1-43.9); Red Blood Count 4.63 M/mm3 (4.2-5.4); White Blood Count 5.2 K/mm3 (4.4-11.0)
[2023-10-31 15:43] LABS: AST(SGOT) 18 U/L (15-37); Alanine Aminotransfer ALT/SGPT 17 U/L (13-56); Albumin, Serum 3.6 g/dL (3.2-5.0); Alkaline Phosphatase 89 U/L (45-117); Anion Gap 8 (5-15); BUN 10 mg/dL (7-18); BUN/Creat Ratio 13.6 RATIO (10-20); Calcium,Total 9.5 mg/dL (8.5-10.1); Chloride 104 mmol/L (98-107); Creatinine, Serum 0.74 mg/dL (0.55-1.02); EST Glomerular Filtration Rate 85 mL/min (>60); Est Glom Filt Rate - Afr Amer 102 mL/min (>60); Globulin 3.6 g/dL (2.2-4.2); Glucose 86 mg/dL (74-106); Potassium 3.8 mmol/L (3.5-5.1); Protein, Total 7.2 g/dL (6.4-8.2); Sodium Level 135 mmol/L (136-145)
== END | disposition home or self-care (01) ==
PROVIDERS: PCP Family Medicine; Referring Provider Internal Medicine Rheumatology; Visit Provider Internal Medicine Rheumatology
DX: L40.59 Other psoriatic arthropathy (principal); Z79.899 Other long term (current) drug therapy
CPT/HCPCS: 36415; 80053; 85025

== ENCOUNTER → 2024-01-19 | Outpatient (CLI) | payer BC, SELFPAY ==
[2024-01-19 15:22] LABS: Absolute Lymphocyte Count 1.71 X10^3/uL (0.83-4.51); Absolute Neutrophil Count 3.5 X10^3/uL (2.0-7.7); Basophil# 0.04 X10^3/uL; Basophil% 0.6 % (0-1); Eosinophil# 0.11 X10^3/uL; Eosinophils% 1.8 % (0-5); Hematocrit 42.9 % (37-47); Hemoglobin 14.6 g/dL (12.0-15.0); Lymphocyte # 1.71 X10^3/ul (0.83-4.51); Lymphocyte % 27.6 % (19-41); Mean Corpuscular Hgb 31.3 pg (27.0-32.0); Mean Corpuscular Volume 92.1 fL (81-99); Monocyte# 0.79 X10^3/uL; Monocyte% 12.8 % (0-10); NRBC Flagged by Analyzer 0 % (0-5); Neutrophil # 3.52 X10^3/uL (2.7-7.7); Neutrophil % 56.9 % (47-70); Platelet Count 342 K/mm3 (150-450); RBC Distribution Width CV 14.2 % (11.6-14.6); RBC Distribution Width SD 47.2 fl (35.1-43.9); Red Blood Count 4.66 M/mm3 (4.2-5.4); White Blood Count 6.2 K/mm3 (4.4-11.0)
[2024-01-19 15:57] LABS: ALB/GLOB Ratio 1.1 RATIO (0.9-2.4); AST(SGOT) 23 U/L (15-37); Alanine Aminotransfer ALT/SGPT 24 U/L (13-56); Albumin, Serum 3.8 g/dL (3.2-5.0); Alkaline Phosphatase 93 U/L (45-117); Anion Gap 9 (5-15); BUN 12 mg/dL (7-18); BUN/Creat Ratio 12.9 RATIO (10-20); Calcium,Total 9.2 mg/dL (8.5-10.1); Chloride 104 mmol/L (98-107); Creatinine, Serum 0.93 mg/dL (0.55-1.02); EST Glomerular Filtration Rate 65 mL/min (>60); Est Glom Filt Rate - Afr Amer 78 mL/min (>60); Globulin 3.5 g/dL (2.2-4.2); Glucose 120 mg/dL (74-106); Potassium 3.9 mmol/L (3.5-5.1); Protein, Total 7.3 g/dL (6.4-8.2); Sodium Level 134 mmol/L (136-145)
== END | disposition home or self-care (01) ==
LOC: MTLAB 13:45
PROVIDERS: PCP Family Medicine; Referring Provider Internal Medicine Rheumatology; Visit Provider Internal Medicine Rheumatology
DX: L40.59 Other psoriatic arthropathy (principal); Z79.899 Other long term (current) drug therapy
CPT/HCPCS: 36415; 80053; 85025

== ENCOUNTER → 2024-01-24 | Outpatient (CLI) | payer BC, SELFPAY ==
[2024-01-24 13:40] LABS: Cholesterol 191 mg/dL (200); High Density Lipoprotein 44 mg/dL; T4 Free Direct 1.19 ng/dL (0.76-1.46); Triglycerides 133 mg/dL; Very Low Density Lipoprotein 27 mg/dL (5-40)
== END | disposition home or self-care (01) ==
LOC: BFHLAB 09:23
PROVIDERS: PCP Family Medicine; Referring Provider Family Medicine; Visit Provider Family Medicine
DX: Z00.00 Encounter for general adult medical examination without abnormal findings (principal); E03.9 Hypothyroidism, unspecified
CPT/HCPCS: 36415; 80061; 84439; 84443

== ENCOUNTER → 2024-02-21 | Outpatient (CLI) | payer BC, SELFPAY ==
--- NOTE | 2024-02-21 09:33 | BI_ITS ---
MAMMOGRAPHY - BILATERAL SCREENING REASON FOR EXAM: Female, 63 years old. Routine annual screening examination. PERTINENT HISTORY: Non-contributory. Prior left excisional breast biopsy and left stereotactic breast biopsy. TECHNIQUE: Digital bilateral breast osiel (3D mammographic acquisition) in the CC and MLO projections. 2-D mediolateral oblique (MLO) and craniocaudad (CC) views of both breasts were obtained. CAD: Full Field Digital Mammography with Computer Added Detection was performed. COMPARISON: Comparison is made with prior study September 03, 2022 and August 26, 2021. FINDINGS: Breast Composition: There are scattered areas of fibroglandular density. There are no dominant masses or suspicious calcifications. Stable bilateral benign-appearing axillary lymph nodes. A tissue clip marker is seen in the deep central lateral aspect of the left breast. No other significant abnormalities are identified. There has been no significant change since the prior study. BI/SCRN MAMM (CAD)W/OSIEL BILAT IMPRESSION: Stable bilateral screening mammogram. Yearly follow-up mammogram recommended. (A) ASSESSMENT CATEGORY: BIRADS Category 2: Benign. A letter regarding these results will be sent to the patient by the facility within 30 days. Approximately 10% of breast cancers are not detected by mammography. A normal mammogram should not delay biopsy of a clinically suspicious abnormality. [id number] Electronically Signed: Raleigh Corrales MD at 11:15 EST ,
== END | disposition home or self-care (01) ==
PROVIDERS: PCP Family Medicine; Referring Provider Family Medicine; Visit Provider Family Medicine
DX: Z12.31 Encounter for screening mammogram for malignant neoplasm of breast (principal)
CPT/HCPCS: 77063; 77067

== ENCOUNTER → 2024-04-17 | Outpatient (CLI) | payer BC, SELFPAY ==
[2024-04-17 15:19] LABS: Absolute Lymphocyte Count 1.71 X10^3/uL (0.83-4.51); Absolute Neutrophil Count 2.7 X10^3/uL (2.0-7.7); Basophil# 0.03 X10^3/uL; Basophil% 0.6 % (0-1); Eosinophil# 0.12 X10^3/uL; Eosinophils% 2.3 % (0-5); Hematocrit 41.6 % (37-47); Lymphocyte # 1.71 X10^3/ul (0.83-4.51); Lymphocyte % 32.8 % (19-41); Mean Corp Hgb Conc 33.7 g/dL (32-36); Mean Corpuscular Hgb 31.1 pg (27.0-32.0); Mean Corpuscular Volume 92.4 fL (81-99); Monocyte# 0.62 X10^3/uL; Monocyte% 11.9 % (0-10); NRBC Flagged by Analyzer 0 % (0-5); Neutrophil # 2.73 X10^3/uL (2.7-7.7); Neutrophil % 52.2 % (47-70); Platelet Count 314 K/mm3 (150-450); RBC Distribution Width CV 13.8 % (11.6-14.6); RBC Distribution Width SD 46.2 fl (35.1-43.9); White Blood Count 5.2 K/mm3 (4.4-11.0)
[2024-04-17 21:37] LABS: ALB/GLOB Ratio 1.4 RATIO (0.9-2.4); AST(SGOT) 31 U/L (<=31); Alanine Aminotransfer ALT/SGPT 24 U/L (<=34); Albumin, Serum 4.2 g/dL (3.4-4.8); Alkaline Phosphatase 87 U/L (35-104); Anion Gap 15 (5-15); BUN 13 mg/dL (4-19); BUN/Creat Ratio 13.9 RATIO (10-20); Calcium,Total 9.5 mg/dL (7.6-11.0); Carbon Dioxide 20.8 mmol/L (21.0-32.0); Chloride 100 mmol/L (98-108); Creatinine, Serum 0.91 mg/dL (0.70-1.20); EST Glomerular Filtration Rate 71 (>60); Globulin 2.9 g/dL (2.2-4.2); Glucose 94 mg/dL (70-99); Potassium 4.7 mmol/L (3.3-5.1); Protein, Total 7.1 g/dL (5.9-8.4); Sodium Level 136 mmol/L (133-145); Total Bilirubin 0.45 mg/dL (0.00-1.30)
== END | disposition home or self-care (01) ==
LOC: MTLAB 11:44
PROVIDERS: PCP Family Medicine; Referring Provider Internal Medicine Rheumatology; Visit Provider Internal Medicine Rheumatology
DX: L40.59 Other psoriatic arthropathy (principal); Z79.899 Other long term (current) drug therapy
CPT/HCPCS: 36415; 80053; 85025

== ENCOUNTER → 2024-07-18 | Outpatient (CLI) | payer MEDICARE, SELFPAY ==
[2024-07-18 18:04] LABS: Absolute Lymphocyte Count 1.78 X10^3/uL (0.83-4.51); Basophil# 0.04 X10^3/uL; Basophil% 0.6 % (0-1); Eosinophil# 0.13 X10^3/uL; Hematocrit 42.1 % (37-47); Hemoglobin 14.4 g/dL (12.0-15.0); Lymphocyte # 1.78 X10^3/ul (0.83-4.51); Lymphocyte % 27.4 % (19-41); Mean Corp Hgb Conc 34.2 g/dL (32-36); Mean Corpuscular Hgb 31.7 pg (27.0-32.0); Mean Corpuscular Volume 92.7 fL (81-99); Mean Platelet Vol. 10.6 fl (6.2-12.0); Monocyte# 0.49 X10^3/uL; Monocyte% 7.6 % (0-10); NRBC Flagged by Analyzer 0 % (0-5); Neutrophil # 4.03 X10^3/uL (2.7-7.7); Neutrophil % 62.1 % (47-70); Platelet Count 324 K/mm3 (150-450); RBC Distribution Width CV 13.7 % (11.6-14.6); RBC Distribution Width SD 46.8 fl (35.1-43.9); Red Blood Count 4.54 M/mm3 (4.2-5.4); White Blood Count 6.5 K/mm3 (4.4-11.0)
[2024-07-18 18:22] LABS: ALB/GLOB Ratio 1.5 RATIO (0.9-2.4); AST(SGOT) 36 U/L (<=31); Alanine Aminotransfer ALT/SGPT 23 U/L (<=34); Albumin, Serum 4.3 g/dL (3.4-4.8); Alkaline Phosphatase 99 U/L (35-104); Anion Gap 14 (5-15); BUN 11 mg/dL (4-19); BUN/Creat Ratio 13.1 RATIO (10-20); Calcium,Total 9.4 mg/dL (7.6-11.0); Carbon Dioxide 20.1 mmol/L (21.0-32.0); Chloride 101 mmol/L (98-108); Creatinine, Serum 0.86 mg/dL (0.70-1.20); EST Glomerular Filtration Rate 76 (>60); Globulin 2.8 g/dL (2.2-4.2); Glucose 112 mg/dL (70-99); Potassium 3.6 mmol/L (3.3-5.1); Protein, Total 7.1 g/dL (5.9-8.4); Sodium Level 135 mmol/L (133-145); Total Bilirubin 0.47 mg/dL (0.00-1.30)
== END | disposition home or self-care (01) ==
LOC: MTLAB 14:21
PROVIDERS: PCP Family Medicine; Referring Provider Internal Medicine Rheumatology; Visit Provider Internal Medicine Rheumatology
DX: L40.59 Other psoriatic arthropathy (principal); Z79.899 Other long term (current) drug therapy; L40.8 Other psoriasis
CPT/HCPCS: 36415; 80053; 85025

== ENCOUNTER → 2024-07-25 | Outpatient (CLI) | payer MEDICARE, SELFPAY ==
--- NOTE | 2024-07-25 07:05 | US_ITS ---
PROCEDURE: LIVER 07/25/2024 REASON FOR EXAM: ELEVATED LIVER ENZYMES COMPARISON: None FINDINGS: Liver: Diffusely echogenic suggesting fatty infiltration. Liver measures 15.6 cm. Gallbladder: No stones, sludge, wall thickening or tenderness. Common bile duct: Normal measuring 4 mm. . Pancreas: Visualized portions are sonographically unremarkable. Other: Visualized portions of the right kidney are unremarkable. No right upper quadrant ascites. US/Liver IMPRESSION: Fatty infiltration of the liver. Reading Location: [place] [id number]
--- OUTSIDE RECORDS SUMMARY | 2024-07-25 07:19 | XMS RPT_ITS | CCD ---
Author Organization [facility] Care Team Providers Care Stroboscope Operator Name Role Phone Crystal Watson Unavailable Maile Brunner Unavailable Unavailable Unavailable Unavailable Dr. Dandy Childs Primary Care Provider Dr. Dandy Childs Referring Provider CATARINA Hunter Attending Provider Dandy Childs Primary Care Provider Shannan Mon Attending Unavailable Dandy Childs Primary Care Unavailable PROVIDER, UNKNOWN Referring Unavailable Dr. Dandy Childs Primary Care Provider Dr. Dandy Childs Referring Provider CATARINA Hunter Attending Provider Dandy Childs Primary Care Provider TYLER KELLEY Attending Unavailable DANDY CHILDS Primary Care Unavailable GILLES BRONSON Attending Unavailable DANDY CHILDS Primary Care Unavailable Dr. Dandy Childs DO Primary Care Provider Dr. Marybel Hidalgo MD Attending Provider Dr. Marybel Hidalgo MD Referring Provider Dr. Dadny Childs DO Attending Provider Dr. Dandy Childs DO Referring Provider Nik Lynch Attending Provider [phone] Dr. Dandy Childs DO Primary Care Provider Dr. Marybel Hidalgo MD Attending Provider Dr. Marybel Hidalgo MD Referring Provider Olegariolanvalentino, Marybel Referring Unavailable Naz, Dandy Primary Care Unavailable Vellanvalentino Marybel Attending Unavailable Vellanvalentino, Marybel Referring Unavailable VellanMarybel avelar Attending Unavailable NazDandy parks Primary Care Unavailable Naz, Dandy Primary Care Unavailable Vellanvalentino, Marybel Attending Unavailable Vellanvalentino, Marybel Referring Unavailable Naz, Dandy Primary Care Unavailable Homero Neil Referring Unavailable Nina ELMORE, Homero Attending Unavailable Naz, Dandy Primary Care Unavailable Vellanvalentino, Marybel Attending Unavailable Vellanvalentino, Marybel Referring Unavailable Naz, Dandy Primary Care Unavailable Naz, Dandy Referring Unavailable Naz, Dandy Attending Unavailable Naz, Dandy Primary Care Unavailable Vellanvalentino, Marybel Attending Unavailable Vellanvalentino, Marybel Referring Unavailable Naz, Dandy Referring Unavailable Naz, Dandy Primary Care Unavailable Nina ELMORE, Homero Attending Unavailable Naz, Dandy Primary Care Unavailable Naz, Dandy Referring Unavailable Nik Lynch Attending Unavailable Naz, Dandy Primary Care Unavailable Vellanki, Marybel Referring Unavailable Vellanvalentino, Marybel Attending Unavailable Naz, Dandy Primary Care Unavailable Naz, Dandy Referring Unavailable Naz, Dandy Attending Unavailable Medications Current Medications Medication Drug Class(es) Dates Sig (Normalized) Sig (Original) apremilast 30 mg oral tablet (17 sources) Start: 03-30-2019 take 1 tablet by mouth twice daily Apremilast 30 mg tablet Active 30 mg PO TWICE A DAY August 27, 2019 12:00am Apremilast 10 & 20 & 30 MG TBPK Take by mouth 0 Active citalopram 20 mg oral tablet (18 sources) Serotonin Reuptake Inhibitor Start: 10-02-2018 take 1 tablet by mouth once daily Citalopram 20 MG tablet Active 20 mg PO DAILY October 02, 2018 12:00am Start: 03-23-2016 take 1 tablet by katalina th once daily CeleXA 10 MG Oral Tablet 1 (one) Tablet daily for 0 days Quantity: 30 {Tablet} Refills: 0 Ordered: 23-Mar-2016 Crystal Watson CNP, CNP, Mary E Start : 23-Mar-2016 Active Citalopram [place] bromide (CELEXA PO) Take by mouth 0 Active esomeprazole 20 mg delayed release oral capsule (18 sources) Proton Pump Inhibitor Start: 02-25-2018 take 1 capsule by mouth once daily Esomeprazole Magnesium (Nexium) 20 mg capsule,delayed release(DR/EC) Active 20 mg PO DAILY February 25, 2018 1:00am Start: 03-23-2016 take 1 dose by mouth once sari y NexIUM 20 MG Oral Packet 1 (one) Packet daily for 0 days Quantity: 30 {Packet} Refills: 0 Ordered: 23-Mar-2016 Walter ALDANA Crystal Avendano Idaliagilbertangel ALDANA Crystal Avendano Start : 23-Mar-2016 Active Start: 02-16-2009 take 1 capsule by mo [facility] once daily esomeprazole (NexIUM) [address] capsule Take 40 mg by mouth daily. 0 02/16/2009 Active folic acid 0.8 mg oral capsule (18 sources) Start: 02-25-2018 take 1 capsule by mouth once daily Folic Acid 0.8 mg capsule Active 0.8 mg PO DAILY February 25, 2018 1:00am Start: 03-23-2016 take 1 capsule by [facility] once daily Folic Acid 5 MG Oral Capsule 1 (one) Capsule daily for 0 days Quantity: 30 {Capsule} Refills: 0 Ordered: 23-Mar-2016 Idaliagilbertangel ALDANA Linda Cigilbertangel ALDANA Crystal Avendano Start : 23-Mar-2016 Active folic acid (Folv ite) 1 MG tablet Take 2 mg by mouth in the morning. 0 Active FOLIC ACID PO Ta ke by mouth 0 Active ibuprofen 600 mg oral tablet (13 sources) Nonsteroidal Anti-inflammatory Drug Start: 11-01-2019 take 1 tablet by mouth four times daily as needed for pain Ibuprofen 600 MG tablet Active 600 mg PO 4 TIMES DAILY as needed for Pain Or Fever November 01, 2019 12:00am leucovorin 15 mg oral tablet (17 sources) Folate Analog Start: 10-02-2018 Leucovorin Calcium 15 tablet Active 1 {tbl} PO October 02, 2018 12:00am Start: 06-15-2018 leucovorin (We llcovorin) 15 MG tablet Take 15 mg by mouth every 7 days. 0 06/15/2018 Active LORazepam 1 mg oral tablet (17 sources) Benzodiazepine Start: 03-25-2019 take 0.5-1 tablets by mouth twice daily as needed for anxiety LORazepam (ATIVAN) 1 MG tablet TAKE 1/2 TO 1 TABLET BY MOUTH TWICE DAILY NEEDED FOR ANXIETY 0 03/25/2019 Active Start: 10-02-2018 Lorazepam 1 MG tablet Active 0.5 mg PO NEEDED as needed for Anxiety October 02, 2018 12:00am Start: 10-02-2018 Lorazepam Acti ve 0.5 MG PO NEEDED October 02, 2018 12:00am methocarbamol 500 mg oral tablet (1 source) Muscle Relaxant Start: 10-14-2021 take 1 tablet by mouth three times daily as needed methocarbamol (ROBAXIN) 500 MG tablet TAKE 1 TABLET BY MOUTH THREE TIMES A DAY NEEDED 0 10/14/2021 Active phenazopyridine hydrochloride 100 mg oral tablet (15 sources) Start: 08-05-2023 take 1 tablet by mouth three times daily as needed for pain Phenazopyridine (Pyridium) 100 mg tablet Active 100 mg PO THREE TIMES A DAY as needed for pain August 05, 2023 12:00am Start: 12-25-2020 End: 12-28-2020 take 1 tablet by mouth three times daily as needed for pain Phenazopyridine (Pyridium) 200 mg tablet Discontinued 200 mg PO THREE TIMES A DAY as needed for pain 10 3 December 25, 2020 1:00am December 27, 2020 1:00am December 28, 2020 1:01am predniSONE 10 mg oral tablet (1 source) Start: 10-14-2021 take 1 tablet by mouth once daily predniSONE (DELTASONE) 10 MG tablet 1 TABLET(S) ORAL EVERY DAY TAKE FOR 3-5 DAYS WITH A FLARE 0 10/14/2021 Active Completed/Discontinued Medications Medication Drug Class(es) Dates Sig (Normalized) Sig (Original) acetaminophen 325 mg / HYDROcodone bitartrate 5 mg oral tablet (13 sources) Opioid Agonist Start: 10-02-2018 End: 10-07-2018 Hydrocodone-Acetami nophen 1 TABLET tablet Discontinued 1 {tbl} PO EVERY 6 HOURS NEEDED as needed for Pain 12 October 02, 2018 October 04, 2018 12:00am October 07, 2018 12:08am Start: 10-02-2018 End: 10-07-2018 take 1 tablet by mouth every six hours as needed Hydrocodone-Acetaminophen Discontinued 1 TABLET PO EVERY 6 HOURS NEEDED 12 October 02, 2018 October 07, 2018 12:08am amoxicillin 875 mg / clavulanate 125 mg oral tablet (2 sources) Penicillin-class Antibacterial Start: 01-26-2024 End: 02-05-2024 Amoxicillin-Pot Clavulanate 875-125 mg tablet Discontinued 1 {tbl} PO Q12H 20 January 26, 2024 1:00am February 04, 2024 1:00am February 05, 2024 1:11am budesonide 0.032 mg/actuat metered dose nasal spray (1 source) Corticosteroid Start: 03-23-2016 Rhinocort Allergy 32 MCG/ACT Nasal Suspension 2 (two) Puff once daily for 0 days Quantity: 1 {Puff} Refills: 0 Ordered: 23-Mar-2016 Crystal Watson CNP, CNP, Mary E Start : 23-Mar-2016 Active busPIRone hydrochloride 7.5 mg oral tablet (15 sources) Start: 04-15-2019 End: 03-17-2022 take 1 tablet by mouth in the morning busPIRone (Buspar) 7.5 MG tablet Take 7.5 mg by mouth in the morning and 7.5 mg in the evening. 0 04/15/2019 03/17/2022 Discontinued (Therapy completed) Start: 10-02-2018 Buspirone 7.5 MG tablet Active 7.5 {tbl} PO TWICE A DAY October 02, 2018 12:00am cephalexin 500 mg oral capsule (15 sources) Cephalosporin Antibacterial Start: 08-08-2023 End: 08-13-2023 take 1 capsule by mouth every eight hours Cephalexin 500 mg capsule Discontinued 500 mg PO Q8H 15 August 08, 2023 12:00am August 12, 2023 12:00am August 13, 2023 12:12am Start: 12-25-2020 End: 05-11-2022 take 1 capsule by mouth three times daily Cephalexin 500 mg capsule Discontinued 500 mg PO THREE TIMES A DAY December 25, 2020 1:00am May 11, 2022 9:43am ciprofloxacin 500 mg oral tablet (15 sources) Quinolone Antimicrobial Start: 02-03-2022 End: 05-11-2022 take 1 tablet by mouth twice daily Ciprofloxacin Hcl 500 mg tablet Discontinued 500 mg PO TWICE A DAY February 25, 2022 1:00am May 11, 2022 9:43am clindamycin 300 mg oral capsule (13 sources) Lincosamide Antibacterial Start: 06-22-2018 End: 07-07-2018 take 1 capsule by mouth three times daily Clindamycin Hcl 300 mg capsule Discontinued 300 mg PO THREE TIMES A DAY June 22, 2018 12:00am July 07, 2018 5:37pm clotrimazole 10 mg oral lozenge (1 source) Azole Antifungal Start: 03-23-2016 End: 04-02-2016 Clotrimazole 10 MG Mouth/Throat Prachi 1 (one) Prachi 5 x daily for 10 days Quantity: 50 {Prachi} Refills: 0 Ordered: 23-Mar-2016 Crystal Watson CNP, CNP, Mary E Start : 23-Mar-2016 End : 02-Apr-2016 Inactive codeine phosphate 2 mg/ml / guaiFENesin 20 mg/ml oral solution (1 source) Opioid Agonist Start: 03-23-2016 take 1-2 [tsp_us] by mouth once daily at bedtime as needed Cheratussin AC 100-10 MG/5ML Oral Solution 1-2 Teaspoon qhs prn for 0 days Quantity: 6 {Ounce} Refills: 0 Ordered: 23-Mar-2016 Crystal Watson CNP, CNP, Mary E Start : 23-Mar-2016 Active diazePAM 5 mg oral tablet (13 sources) Benzodiazepine Start: 11-01-2019 End: 07-09-2023 take 1 tablet by mouth every eight hours as needed for muscle spasms Diazepam 5 MG tablet Discontinued 5 mg PO EVERY 8 HOURS as needed for Muscle Spasm November 01, 2019 12:00am July 09, 2023 12:56pm doxycycline monohydrate 100 mg oral capsule (20 sources) Tetracycline-class Drug Start: 07-09-2023 End: 07-14-2023 take 1 capsule by mouth twice daily Doxycycline Monohydrate 100 mg capsule Discontinued 100 mg PO TWICE A DAY 10 July 09, 2023 12:00am July 13, 2023 12:00am July 14, 2023 12:05am Start: 01-29-2021 End: 05-11-2022 take 1 capsule by mouth twice daily Doxycycline Monohydrate 100 mg capsule Discontinued 100 mg PO TWICE A DAY January 29, 2021 1:00am May 11, 2022 9:44am Start: 02-25-2018 End: 11-25-2018 take 1 tablet by mouth twice daily Doxycycline Hyclate 100 mg tablet Discontinued 100 mg PO TWICE A DAY February 25, 2018 1:00am November 25, 2018 10:14am Start: 02-10-2016 End: 02-25-2018 take 1 capsule by mouth twice daily Doxycycline Hyclate 100 MG capsule Discontinued 100 mg PO TWICE A DAY February 10, 2016 1:00am February 25, 2018 11:40am levothyroxine sodium 0.05 mg oral tablet (18 sources) l-Thyroxine Start: 03-23-2016 End: 04-22-2016 take 1 tablet by mouth once daily Synthroid 50 MCG Oral Tablet 1 (one) Tablet daily for 30 days Quantity: 30 {Tablet} Refills: 0 Ordered: 05-Dec-2017 Crystal Watson CNP, CNP, Mary E Start : 23-Mar-2016 End : 22-Apr-2016 Inactive Start: 02-10-2016 take 1 tablet by katalina th once daily Levothyroxine 75 MCG tablet Active 75 ug PO DAILY February 10, 2016 1:00am LEVOTHYROXINE SO DIUM PO Take by mouth 0 Active methotrexate 2.5 mg oral tablet (18 sources) Folate Analog Metabolic Inhibitor Start: 03-23-2016 take 1 tablet by mouth every week Methotrexate 2.5 MG Oral Tablet 1 (one) Tablet 6 pills weekly for 0 days Quantity: 6 {Tablet} Refills: 0 Ordered: 23-Mar-2016 Crystal Watson CNP, CNP, Mary E Start : 23-Mar-2016 Active Start: 02-10-2016 Methotrexate S odium 2.5 MG tablet Active 20 mg PO SA February 10, 2016 1:00am Start: 02-10-2016 Methotrexate S odium Active 20 MG PO SA February 10, 2016 1:00am METHOTREXATE PO Take 2.5 mg by mouth every 7 days 0 Active nitrofurantoin, macrocrystals 100 mg oral capsule (2 sources) Nitrofuran Antibacterial Start: 08-05-2023 End: 08-08-2023 take 1 capsule by mouth every twelve hours at mealtime Nitrofurantoin Macrocrystal 100 mg capsule Discontinued 100 mg PO Q12H August 05, 2023 12:00am August 08, 2023 6:01am must administer with a meal/food nitrofurantoin, macrocrystals 25 mg / nitrofurantoin, monohydrate 75 mg oral capsule (20 sources) Nitrofuran Antibacterial Start: 08-27-2019 End: 09-03-2019 take 1 capsule by mouth every twelve hours at mealtime Nitrofurantoin Monohyd/M-Cryst 100 mg capsule Discontinued 1 NMA PO Q12H 14 August 27, 2019 12:00am September 02, 2019 12:00am September 03, 2019 12:02am administer with a meal/food; swallow whole; do not open, crush, dissolve , or chew Start: 11-25-2018 End: 12-02-2018 take 1 capsule by mouth twice daily at mealtime Nitrofurantoin Monohyd/M-Cryst (Macrobid) 100 mg capsule Discontinued 100 mg PO TWICE A DAY 14 November 25, 2018 12:00am December 01, 2018 12:00am December 02, 2018 12:08am must administer with a meal/food traMADol hydrochloride 50 mg oral tablet (13 sources) Opioid Agonist Start: 11-01-2019 End: 07-09-2023 take 1 tablet by mouth three times daily as needed for pain Tramadol 50 MG tablet Discontinued 50 mg PO THREE TIMES A DAY as needed for Pain Or Fever November 01, 2019 12:00am July 09, 2023 12:56pm Problems Active Problems Problem Classification Problem Date Documented Date Episodic/Chronic Acute bronchitis (14 sources) Acute bronchitis; Translations: [Acute bronchitis, unspecified] Episodic Anxiety disorders (14 sources) Mixed anxiety and depressive disorder; Translations: [Anxiety] 03-23-2016 Chronic Cataract (1 source) Bilateral cataracts; Translations: [Cataracts, bilateral] 03-23-2016 Chronic Chronic obstructive pulmonary disease and bronchiectasis (13 sources) Bronchitis; Translations: [Bronchitis, not specified as acute or chronic] 10-02-2018 Episodic Diverticulosis and diverticulitis (2 sources) Diverticulosis of large intestine without perforation or abscess without bleeding; Translations: [Dvrtclos of lg int w/o perforation or abscess w/o bleeding] Onset: 11-18-2021 Chronic Esophageal disorders (15 sources) Gastroesophageal reflux disease; Translations: [Gastro-esophageal reflux disease without esophagitis] Onset: 11-18-2021 Chronic Genitourinary symptoms and ill-defined conditions (3 sources) Female stress incontinence; Translations: [Stress incontinence (female) (male)] Onset: 01-27-2022 01-27-2022 Chronic Immunizations and screening for infectious disease (18 sources) Patient encounter status; Translations: [Encounter for screening for COVID-19] Onset: 11-18-2021 Episodic Inflammation; infection of eye (except that caused by tuberculosis or sexually transmitteddisease) (13 sources) Seasonal allergic conjunctivitis; Translations: [Acute atopic conjunctivitis, unspecified eye] 07-07-2018 Episodic Melanomas of skin (2 sources) Malignant melanoma of skin; Translations: [Malignant melanoma] 03-23-2016 Chronic Comment on above: Leg--removed, nothin g since Mood disorders (13 sources) Depressive disorder; Translations: [Depression] 02-13-2019 Chronic Other aftercare (1 source) Other jail (current) drug therapy; Translations: [Other termite technician (current) drug therapy] Onset: 07-20-2024 Episodic Other and unspecified benign neoplasm (2 sources) Benign neoplasm of ascending colon; Translations: [Benign neoplasm of ascending colon] Onset: 11-18-2021 Episodic Other inflammatory condition of skin (14 sources) Psoriatic arthritis; Translations: [Arthropathic psoriasis, unspecified] 03-23-2016 Chronic Comment on above: off methotrexate Other inflammatory condition of skin (2 sources) Other psoriatic arthropathy; Translations: [Other psoriatic arthropathy] Onset: 07-20-2024 Chronic Other inflammatory condition of skin (1 source) Other psoriasis; Translations: [Other psoriasis] Onset: 07-20-2024 Chronic Other skin disorders (13 sources) H/O: arthritis; Translations: [Personal history of diseases of the skin and subcutaneous tissue] 02-26-2019 Episodic Other upper respiratory disease (2 sources) Allergic rhinitis; Translations: [Allergic rhinitis] 03-23-2016 Chronic Other upper respiratory infections (3 sources) Sinusitis; Translations: [Chronic sinusitis, unspecified] 07-09-2023 Chronic Otitis media and related conditions (13 sources) Dysfunction of eustachian tube; Translations: [Other specified disorders of Eustachian tube, left ear] 07-07-2018 Episodic Poisoning by other medications and drugs (13 sources) Poisoning by unspecified drugs, medicaments and biological substances, accidental (unintentional), initial encounter; Translations: [Accidental drug ingestion] 02-26-2019 Episodic Prolapse of female genital organs (5 sources) Rectocele; Translations: [Disorder of rectum] Onset: 11-18-2021 Chronic Residual codes; unclassified (2 sources) Family history of ischemic heart disease and other diseases of the circulatory system; Translations: [Family hx of ischem heart dis and oth dis of the circ sys] Onset: 11-18-2021 Episodic Skin and subcutaneous tissue infections (13 sources) Abscess of skin and/or subcutaneous tissue; Translations: [Cutaneous abscess, unspecified] 02-14-2019 Episodic Spondylosis; intervertebral disc disorders; other back problems (13 sources) Spasm of back muscles; Translations: [Muscle spasm of back] 11-02-2019 Episodic Sprains and strains (13 sources) Lower back injury; Translations: [Strain of muscle, fascia and tendon of lower back, initial encounter] 10-03-2018 Episodic Systemic lupus erythematosus and connective tissue disorders (1 source) Sicca syndrome, unspecified; Translations: [Sjogren syndrome, unspecified] Onset: 07-20-2024 Chronic Thyroid disorders (17 sources) Hypothyroidism; Translations: [Hypothyroidism, unspecified] Onset: 11-18-2021 03-23-2016 Chronic Unclassified (2 sources) Post-op Visit; Translations: [Post-op Visit] Onset: 03-17-2022 Urinary tract infections (20 sources) Urinary tract infectious disease; Translations: [Urinary tract infection, site not specified] Episodic Past or Other Problems Problem Classification Problem Date Documented Date Episodic/Chronic Cataract (1 source) Cataract Genitourinary symptoms and ill-defined conditions (1 source) Dysuria; Translations: [Dysuria] Onset: 08-10-2023 Episodic Mood disorders (1 source) Mood disorders Mycoses (1 source) Candidiasis of mouth; Translations: [Thrush] 03-23-2016 Episodic Other aftercare (1 source) Surgical follow-up; Translations: [Encounter for follow-up examination after completed treatment for conditions other than malignant neoplasm] Episodic Other complications of (1 source) Livebirth 03-23-2016 Episodic Comment on above: 2 Other nervous system disorders (2 sources) Other acute postprocedural pain; Translations: [Other acute postprocedural pain] Onset: 01-27-2022 Episodic Other screening for suspected conditions (not mental disorders or infectious disease) (3 sources) Encounter for screening for malignant neoplasm of colon; Translations: [Encounter for screening mammogram for malignant neoplasm of breast] Onset: 11-18-2021 Episodic Other upper respiratory infections (20 sources) Acute maxillary sinusitis; Translations: [Acute maxillary sinusitis, unspecified] Onset: 01-26-2024 10-02-2018 Episodic Residual codes; unclassified (1 source) Influenza-like symptoms; Translations: [Flu-like symptoms] 03-23-2016 Episodic Unclassified (1 source) Unclassified (1 source) Psoriatic arthritis Unclassified (1 source) Flu-like symptoms Unclassified (1 source) Thrush Unclassified (10 sources) HISTORY OF BLADDER LIFT 09-12-2021 Results Test Name Value Interpretation Reference Range Facility Absolute lymphocyte countOrd ered By: Marybel Hidalgo on 07-18-2024 Lymphocytes Auto (Unsp spec) [#/Vol] 1.78 10*3/uL 0.83-4.51 [facility] Absolute neutrophil countOrd ered By: Marybel Hidalgo on 07-18-2024 Neutrophils (Bld) [#/Vol] 4.0 10*3/uL 2.0-7.7 [facility] Anion gap in Serum or Plasma Ordered By: Marybel Hidalgo on 07-18-2024 Anion gap [Moles/Vol] 14 mmol/L 5-15 [facility] Automated lymphocyte count a s percentage of total leukocytesOrdered By: Marybel Hidalgo on 07-18-2024 Lymphocytes/100 WBC Auto (Unsp spec) 27.4 % 19-41 [facility] BUN/creatinine ratioOrdered By: Marybel Hidalgo on 07-18-2024 Urea nitrogen/Creatinine [Mass ratio] 13.1 mg/mg 10-20 [facility] Basophil percentageOrdered B y: Marybel Hidalgo on 07-18-2024 Basophils/100 WBC (Bld) 0.6 % 0-1 [facility] Bilirubin, totalOrdered By: Marybel Hidalgo on 07-18-2024 Bilirubin [Mass/Vol] 0.47 mg/dL 0.00-1.30 [facility] CBC W/Diff, Automatedon 06-0 4-2024 Absolute Lymph 1.78 X10 3/uL Normal 0.83-4.51 [facility] Comment on above: Performed By: #### L [id number], L100.0100 #### [facility] [address] [place], [address] Absolute Neut 4.0 X10 3/uL Normal 2.0-7.7 [facility] Comment on above: Performed By: #### L [id number], L100.0100 #### [facility] [address] [place], [address] Basophils/100 WBC (Bld) 0.6 % Normal 0-1 [facility] Comment on above: Performed By: #### L [id number], L100.0100 #### [facility] [address] [place], [address] Eosinophils/100 WBC (Bld) 2.0 % Normal 0-5 [facility] Comment on above: Performed By: #### L [id number], L100.0100 #### [facility] [address] [place], [address] Erythrocyte distribution width (RBC) [Ratio] 13.7 % Normal 11.6-14.6 [facility] Comment on above: Performed By: #### L [id number], L100.0100 #### [facility] [address] [place], [address] Hematocrit (Bld) [Volume fraction] 42.1 % Normal 37-47 [facility] Comment on above: Performed By: #### L [id number], L100.0100 #### [facility] [address] [place], [address] Hemoglobin (Bld) [Mass/Vol] 14.4 g/dL Normal 12.0-15.0 [facility] Comment on above: Performed By: #### L [id number], L100.0100 #### [facility] [address] [place], [address] IG% 0.300 Normal 0.0-0.9 [facility] Comment on above: Result Comment: IG% - Immature Granulocytes (promyelocytes, myelocytes and metamyelocytes) > 1% indicates that a LEFT SHIFT is Present. Performed By: #### L [id number], L100.0100 #### [facility] [address] [place], [address] Lymphocytes/100 WBC (Bld) 27.4 % Normal 19-41 [facility] Comment on above: Performed By: #### L [id number], L100.0100 #### [facility] [address] [place], [address] MCH (RBC) [Entitic mass] 31.7 pg Normal 27.0-32.0 [facility] Comment on above: Performed By: #### L [id number], L100.0100 #### [facility] [address] [place], [address] MCHC (RBC) [Mass/Vol] 34.2 g/dL Normal 32-36 [facility] Comment on above: Performed By: #### L [id number], L100.0100 #### [facility] [address] [place], [address] MCV (RBC) [Entitic vol] 92.7 fL Normal 81-99 [facility] Comment on above: Performed By: #### L [id number], L100.0100 #### [facility] [address] [place], [address] Monocytes/100 WBC (Bld) 7.6 % Normal 0-10 [facility] Comment on above: Performed By: #### L [id number], L100.0100 #### [facility] [address] [place], [address] Neutrophils/100 WBC (Bld) 62.1 % Normal 47-70 [facility] Comment on above: Performed By: #### L [id number], L100.0100 #### [facility] [address] [place], [address] Nucleated RBC (Bld) [#/Vol] 0 10*3/uL Normal 0-5 [facility] Comment on above: Performed By: #### L [id number], L100.0100 #### [facility] [address] [place], [address] Platelet mean volume (Bld) [Entitic vol] 10.6 fL Normal 6.2-12.0 [facility] Comment on above: Performed By: #### L 500.4050, L100.0100 #### [facility] [address] [place], [address] Platelets (Bld) [#/Vol] 324 10*3/uL Normal 150-450 [facility] Comment on above: Performed By: #### L 500.4050, L100.0100 #### [facility] [address] [place], [address] RBC (Bld) [#/Vol] 4.54 10*6/uL Normal 4.2-5.4 [facility] Comment on above: Performed By: #### L 500.4050, L100.0100 #### [facility] [address] [place], [address] RDW SD 46.8 fl High 35.1-43.9 [facility] Comment on above: Performed By: #### L 500.4050, L100.0100 #### [facility] [address] [place], [address] WBC (Bld) [#/Vol] 6.5 10*3/uL Normal 4.4-11.0 [facility] Comment on above: Performed By: #### L 500.4050, L100.0100 #### [facility] [address] [place], [address] Carbon dioxide, total [Moles /volume] in Central venous bloodOrdered By: Marybel Hidalgo on 07-18-2024 CO2 [Moles/Vol] 20.1 mmol/L Low 21.0-32.0 [facility] Chloride assayOrdered By: Catarina Hidalgo on 07-18-2024 Chloride [Moles/Vol] 101 mmol/L 98-108 [facility] Comprehensive Metabolic Prof ilon 07-18-2024 Albumin [Mass/Vol] 4.3 g/dL Normal 3.4-4.8 [facility] Comment on above: Performed By: #### L 500.4050, L100.0100 #### [facility] [address] [place], [address] Albumin/Globulin [Mass ratio] 1.5 {ratio} Normal 0.9-2.4 [facility] Comment on above: Performed By: #### L 500.4050, L100.0100 #### [facility] [address] [place], [address] ALK PHOS 99 U/L Normal 35-104 [facility] Comment on above: Performed By: #### L 500.4050, L100.0100 #### [facility] [address] [place], [address] ALT [Catalytic activity/Vol] 23 U/L Normal <=34 [facility] Comment on above: Performed By: #### L 500.4050, L100.0100 #### [facility] [address] [place], [address] AST [Catalytic activity/Vol] 36 U/L High <=31 [facility] Comment on above: Performed By: #### L 500.4050, L100.0100 #### [facility] [address] [place], [address] Bilirubin [Mass/Vol] 0.47 mg/dL Normal 0.00-1.30 [facility] Comment on above: Performed By: #### L 500.4050, L100.0100 #### [facility] [address] [place], [address] BUN/CRE 13.1 RATIO Normal 10-20 [facility] Comment on above: Performed By: #### L 500.4050, L100.0100 #### [facility] [address] [place], [address] Calcium [Mass/Vol] 9.4 mg/dL Normal 7.6-11.0 [facility] Comment on above: Performed By: #### L 500.4050, L100.0100 #### [facility] [address] [place], [address] Chloride [Moles/Vol] 101 mmol/L Normal 98-108 [facility] Comment on above: Performed By: #### L 500.4050, L100.0100 #### [facility] [address] [place], [address] CO2 [Moles/Vol] 20.1 mmol/L Low 21.0-32.0 [facility] Comment on above: Performed By: #### L 500.4050, L100.0100 #### [facility] [address] [place], [address] Creatinine [Mass/Vol] 0.86 mg/dL Normal 0.70-1.20 [facility] Comment on above: Performed By: #### L 500.4050, L100.0100 #### [facility] [address] [place], [address] GAP 14 Normal 5-15 [facility] Comment on above: Performed By: #### L 500.4050, L100.0100 #### [facility] [address] [place], [address] GFR/1.73 sq M.predicted among non-blacks MDRD (S/P/Bld) [Vol rate/Area] 76 mL/min/{1.73_m2} Normal >60 [facility] Comment on above: Result Comment: mL/m in/1.73m2 CKD-EPI Creatinine Equation (2020) Performed By: #### L 500.4050, L100.0100 #### [facility] [address] [place], [address] Globulin (S) [Mass/Vol] 2.8 g/dL Normal 2.2-4.2 [facility] Comment on above: Performed By: #### L 500.4050, L100.0100 #### [facility] [address] [place], [address] Glucose [Mass/Vol] 112 mg/dL High 70-99 [facility] Comment on above: Performed By: #### L 500.4050, L100.0100 #### [facility] [address] [place], [address] Potassium [Moles/Vol] 3.6 mmol/L Normal 3.3-5.1 [facility] Comment on above: Performed By: #### L 500.4050, L100.0100 #### [facility] [address] [place], [address] Sodium [Moles/Vol] 135 mmol/L Normal 133-145 [facility] Comment on above: Performed By: #### L 500.4050, L100.0100 #### [facility] [address] [place], [address] T PROT 7.1 g/dL Normal 5.9-8.4 [facility] Comment on above: Performed By: #### L 500.4050, L100.0100 #### [facility] [address] [place], [address] Urea nitrogen [Mass/Vol] 11 mg/dL Normal 4-19 [facility] Comment on above: Performed By: #### L 500.4050, L100.0100 #### [facility] [address] [place], [address] Eosinophil percentageOrdered By: Marybel Hidalgo on 07-18-2024 Eosinophils/100 WBC (Bld) 2.0 % 0-5 [facility] Erythrocyte distribution wid th ratioOrdered By: Marybel Hidalgo on 07-18-2024 Erythrocyte distribution width (RBC) [Ratio] 13.7 % 11.6-14.6 [facility] Erythrocyte distribution wid th standard deviationOrdered By: Marybel Hidalgo on 07-18-2024 Erythrocyte distribution width (RBC) [Ratio] 46.8 fl High 35.1-43.9 [facility] Glomerular filtration rate ( GFR) estimation/1.73 sq m using serum, plasma, or whole bOrdered By: Marybel Hidalgo on 07-18-2024 GFR/1.73 sq M.predicted among non-blacks MDRD (S/P/Bld) [Vol rate/Area] 76 mL/min/{1.73_m2} >60 [facility] Comment on above: mL/min/1.73m2 CKD-EP I Creatinine Equation (2020) Hematocrit Auto (Bld) [Volum e fraction]Ordered By: Marybel Hidalgo on 07-18-2024 Hematocrit (Bld) [Volume fraction] 42.1 % 37-47 [facility] Hemoglobin measurementOrdere d By: Marybel Hidalgo on 07-18-2024 Hemoglobin (Bld) [Mass/Vol] 14.4 g/dL 12.0-15.0 [facility] Immature granulocytes/100 WB C Auto (Bld)Ordered By: Marybel Hidalgo on 07-18-2024 Immature granulocytes/100 WBC (Bld) 0.300 % 0.0-0.9 [facility] Comment on above: IG% - Immature Granu locytes (promyelocytes, myelocytes and metamyelocytes) > 1% indicates that a LEFT SHIFT is Present. Laboratory - Chemistry and C hemistry - challengeOrdered By: Marybel Hidalgo on 07-18-2024 AST [Catalytic activity/Vol] 36 U/L High <32 [facility] MCV (mean corpuscular volume ) determinationOrdered By: Marybel Hidalgo on 07-18-2024 MCV (RBC) [Entitic vol] 92.7 fL 81-99 [facility] Mean corpuscular hemoglobin (MCH) determinationOrdered By: Marybel Hidalgo on 07-18-2024 MCH (RBC) [Entitic mass] 31.7 pg 27.0-32.0 [facility] Mean corpuscular hemoglobin concentration (MCHC) determinationOrdered By: Marybel Hidalgo on 07-18-2024 MCHC (RBC) [Mass/Vol] 34.2 g/dL 32-36 [facility] Mean platelet volume determi nationOrdered By: Marybel Hidalgo on 07-18-2024 Platelet mean volume (Bld) [Entitic vol] 10.6 fL 6.2-12.0 [facility] Monocyte percentageOrdered B y: Marybel Hidalgo on 07-18-2024 Monocytes/100 WBC (Bld) 7.6 % 0-10 [facility] Neutrophil percentageOrdered By: Marybel Hidalgo on 07-18-2024 Neutrophils/100 WBC (Bld) 62.1 % 47-70 [facility] Nucleated red blood cell per centageOrdered By: Marybel Hidalgo on 07-18-2024 Nucleated RBC/100 WBC (Bld) [Ratio] 0 % 0-5 [facility] Platelet countOrdered By: Catarina Hidalgo on 07-18-2024 Platelets (Bld) [#/Vol] 324 10*3/uL 150-450 [facility] Potassium measurement (mass/ volume)Ordered By: Marybel Hidalgo on 07-18-2024 Potassium (Unsp spec) [Mass/Vol] 3.6 mmol/L 3.3-5.1 [facility] RBC Auto (Bld) [#/Vol]Ordere d By: Marybel Hidalgo on 07-18-2024 RBC (Bld) [#/Vol] 4.54 10*6/uL 4.2-5.4 [facility] Serum creatinine measurement (mass/volume)Ordered By: Marybel Hidalgo on 07-18-2024 Creatinine [Mass/Vol] 0.86 mg/dL 0.70-1.20 [facility] Serum globulin measurementOr dered By: Marybel Hidalgo on 07-18-2024 Globulin (S) [Mass/Vol] 2.8 g/dL 2.2-4.2 [facility] Serum glucose measurement (m ass/volume)Ordered By: Marybel Hidalgo on 07-18-2024 Glucose [Mass/Vol] 112 mg/dL High 70-99 [facility] Serum or plasma alanine ferguson otransferase (ALT) measurementOrdered By: Marybel Hidalgo on 07-18-2024 ALT [Catalytic activity/Vol] 23 U/L <35 [facility] Serum or plasma albumin rosie urement (mass/volume)Ordered By: Marybel Hidalgo on 07-18-2024 Albumin [Mass/Vol] 4.3 g/dL 3.4-4.8 [facility] Serum or plasma albumin/glob ulin mass ratioOrdered By: Marybel Hidalgo on 07-18-2024 Albumin/Globulin [Mass ratio] 1.5 {ratio} 0.9-2.4 [facility] Serum or plasma alkaline carol sphatase measurementOrdered By: Marybel Hidalgo on 07-18-2024 ALP [Catalytic activity/Vol] 99 U/L 35-104 [facility] Serum or plasma calcium rosie urement (mass/volume)Ordered By: Marybel Hidalgo on 07-18-2024 Calcium [Mass/Vol] 9.4 mg/dL 7.6-11.0 [facility] Serum or plasma urea nitroge n measurement (mass/volume)Ordered By: Marybel Hidalgo on 07-18-2024 Urea nitrogen [Mass/Vol] 11 mg/dL 4-19 [facility] Sodium levelOrdered By: Mary Hidalgo on 07-18-2024 Sodium [Moles/Vol] 135 mmol/L 133-145 [facility] Total proteinOrdered By: Oumou Hidalgo on 07-18-2024 Protein [Mass/Vol] 7.1 g/dL 5.9-8.4 [facility] White blood cell (WBC) count Ordered By: Marybel Hidalgo on 07-18-2024 WBC (Bld) [#/Vol] 6.5 10*3/uL 4.4-11.0 [facility] Absolute lymphocyte countOrd ered By: Marybel Hidalgo on 04-17-2024 Lymphocytes Auto (Unsp spec) [#/Vol] 1.71 10*3/uL 0.83-4.51 [facility] Absolute neutrophil countOrd ered By: Marybelkendal Hidalgo on 04-17-2024 Neutrophils (Bld) [#/Vol] 2.7 10*3/uL 2.0-7.7 [facility] Anion gap in Serum or Plasma Ordered By: Marybel Hidalgo on 04-17-2024 Anion gap [Moles/Vol] 15 mmol/L 5-15 [facility] Automated lymphocyte count a s percentage of total leukocytesOrdered By: Marybel Hidalgo on 04-17-2024 Lymphocytes/100 WBC Auto (Unsp spec) 32.8 % 19-41 [facility] BUN/creatinine ratioOrdered By: Marybelkendal Hidalgo on 04-17-2024 Urea nitrogen/Creatinine [Mass ratio] 13.9 mg/mg 10-20 [facility] Basophil percentageOrdered B y: Marybel Hidalgo on 04-17-2024 Basophils/100 WBC (Bld) 0.6 % 0-1 [facility] Bilirubin, totalOrdered By: Marybel Hidalgo on 04-17-2024 Bilirubin [Mass/Vol] 0.45 mg/dL 0.00-1.30 [facility] CBC W/Diff, Automatedon Absolute Lymph 1.71 X10 3/uL Normal 0.83-4.51 [facility] Comment on above: Performed By: #### L 500.4050, L100.0100 #### [facility] [address] [place], [address] Absolute Neut 2.7 X10 3/uL Normal 2.0-7.7 [facility] Comment on above: Performed By: #### L 500.4050, L100.0100 #### [facility] [address] [place], [address] Basophils/100 WBC (Bld) 0.6 % Normal 0-1 [facility] Comment on above: Performed By: #### L 500.4050, L100.0100 #### [facility] [address] [place], [address] Eosinophils/100 WBC (Bld) 2.3 % Normal 0-5 [facility] Comment on above: Performed By: #### L 500.4050, L100.0100 #### [facility] [address] [place], [address] Erythrocyte distribution width (RBC) [Ratio] 13.8 % Normal 11.6-14.6 [facility] Comment on above: Performed By: #### L 500.4050, L100.0100 #### [facility] [address] [place], [address] Hematocrit (Bld) [Volume fraction] 41.6 % Normal 37-47 [facility] Comment on above: Performed By: #### L 500.4050, L100.0100 #### [facility] [address] [place], [address] Hemoglobin (Bld) [Mass/Vol] 14.0 g/dL Normal 12.0-15.0 [facility] Comment on above: Performed By: #### L 500.4050, L100.0100 #### [facility] [address] [place], [address] IG% 0.200 Normal 0.0-0.9 [facility] Comment on above: Result Comment: IG% - Immature Granulocytes (promyelocytes, myelocytes and metamyelocytes) > 1% indicates that a LEFT SHIFT is Present. Performed By: #### L 500.4050, L100.0100 #### [facility] [address] [place], [address] Lymphocytes/100 WBC (Bld) 32.8 % Normal 19-41 [facility] Comment on above: Performed By: #### L 500.4050, L100.0100 #### [facility] [address] [place], [address] MCH (RBC) [Entitic mass] 31.1 pg Normal 27.0-32.0 [facility] Comment on above: Performed By: #### L 500.4050, L100.0100 #### [facility] [address] [place], [address] MCHC (RBC) [Mass/Vol] 33.7 g/dL Normal 32-36 [facility] Comment on above: Performed By: #### L 500.4050, L100.0100 #### [facility] [address] [place], [address] MCV (RBC) [Entitic vol] 92.4 fL Normal 81-99 [facility] Comment on above: Performed By: #### L 500.4050, L100.0100 #### [facility] [address] [place], [address] Monocytes/100 WBC (Bld) 11.9 % High 0-10 [facility] Comment on above: Performed By: #### L 500.4050, L100.0100 #### [facility] [address] [place], [address] Neutrophils/100 WBC (Bld) 52.2 % Normal 47-70 [facility] Comment on above: Performed By: #### L 500.4050, L100.0100 #### [facility] [address] [place], [address] Nucleated RBC (Bld) [#/Vol] 0 10*3/uL Normal 0-5 [facility] Comment on above: Performed By: #### L 500.4050, L100.0100 #### [facility] [address] [place], [address] Platelet mean volume (Bld) [Entitic vol] 10.0 fL Normal 6.2-12.0 [facility] Comment on above: Performed By: #### L 500.4050, L100.0100 #### [facility] [address] [place], [address] Platelets (Bld) [#/Vol] 314 10*3/uL Normal 150-450 [facility] Comment on above: Performed By: #### L 500.4050, L100.0100 #### [facility] [address] [place], [address] RBC (Bld) [#/Vol] 4.50 10*6/uL Normal 4.2-5.4 [facility] Comment on above: Performed By: #### L 500.4050, L100.0100 #### [facility] [address] [place], [address] RDW SD 46.2 fl High 35.1-43.9 [facility] Comment on above: Performed By: #### L 500.4050, L100.0100 #### [facility] [address] [place], [address] WBC (Bld) [#/Vol] 5.2 10*3/uL Normal 4.4-11.0 [facility] Comment on above: Performed By: #### L 500.4050, L100.0100 #### [facility] [address] [place], [address] Carbon dioxide, total [Moles /volume] in Central venous bloodOrdered By: Marybel Hidalgo on 04-17-2024 CO2 [Moles/Vol] 20.8 mmol/L Low 21.0-32.0 [facility] Chloride assayOrdered By: Catarina Hidalgo on 04-17-2024 Chloride [Moles/Vol] 100 mmol/L 98-108 [facility] Comprehensive Metabolic Prof ilon 04-17-2024 Albumin [Mass/Vol] 4.2 g/dL Normal 3.4-4.8 [facility] Comment on above: Performed By: #### L 500.4050, L100.0100 #### [facility] [address] [place], [address] Albumin/Globulin [Mass ratio] 1.4 {ratio} Normal 0.9-2.4 [facility] Comment on above: Performed By: #### L 500.4050, L100.0100 #### [facility] [address] [place], [address] ALK PHOS 87 U/L Normal 35-104 [facility] Comment on above: Performed By: #### L 500.4050, L100.0100 #### [facility] [address] [place], [address] ALT [Catalytic activity/Vol] 24 U/L Normal <=34 [facility] Comment on above: Performed By: #### L 500.4050, L100.0100 #### [facility] [address] [place], [address] AST [Catalytic activity/Vol] 31 U/L Normal <=31 [facility] Comment on above: Performed By: #### L 500.4050, L100.0100 #### [facility] [address] [place], [address] Bilirubin [Mass/Vol] 0.45 mg/dL Normal 0.00-1.30 [facility] Comment on above: Performed By: #### L 500.4050, L100.0100 #### [facility] [address] [place], [address] BUN/CRE 13.9 RATIO Normal 10-20 [facility] Comment on above: Performed By: #### L 500.4050, L100.0100 #### [facility] [address] [place], [address] Calcium [Mass/Vol] 9.5 mg/dL Normal 7.6-11.0 [facility] Comment on above: Performed By: #### L 500.4050, L100.0100 #### [facility] [address] [place], [address] Chloride [Moles/Vol] 100 mmol/L Normal 98-108 [facility] Comment on above: Performed By: #### L 500.4050, L100.0100 #### [facility] [address] [place], [address] CO2 [Moles/Vol] 20.8 mmol/L Low 21.0-32.0 [facility] Comment on above: Performed By: #### L 500.4050, L100.0100 #### [facility] [address] [place], [address] Creatinine [Mass/Vol] 0.91 mg/dL Normal 0.70-1.20 [facility] Comment on above: Performed By: #### L 500.4050, L100.0100 #### [facility] [address] [place], [address] GAP 15 Normal 5-15 [facility] Comment on above: Performed By: #### L 500.4050, L100.0100 #### [facility] [address] [place], [address] GFR/1.73 sq M.predicted among non-blacks MDRD (S/P/Bld) [Vol rate/Area] 71 mL/min/{1.73_m2} Normal >60 [facility] Comment on above: Result Comment: mL/m in/1.73m2 CKD-EPI Creatinine Equation (2020) Performed By: #### L 500.4050, L100.0100 #### [facility] [address] [place], [address] Globulin (S) [Mass/Vol] 2.9 g/dL Normal 2.2-4.2 [facility] Comment on above: Performed By: #### L 500.4050, L100.0100 #### [facility] [address] [place], [address] Glucose [Mass/Vol] 94 mg/dL Normal 70-99 [facility] Comment on above: Performed By: #### L 500.4050, L100.0100 #### [facility] [address] [place], [address] Potassium [Moles/Vol] 4.7 mmol/L Normal 3.3-5.1 [facility] Comment on above: Performed By: #### L 500.4050, L100.0100 #### [facility] [address] [place], [address] Sodium [Moles/Vol] 136 mmol/L Normal 133-145 [facility] Comment on above: Performed By: #### L 500.4050, L100.0100 #### [facility] [address] [place], [address] T PROT 7.1 g/dL Normal 5.9-8.4 [facility] Comment on above: Performed By: #### L 500.4050, L100.0100 #### [facility] [address] [place], [address] Urea nitrogen [Mass/Vol] 13 mg/dL Normal 4-19 [facility] Comment on above: Performed By: #### L 500.4050, L100.0100 #### [facility] [address] [place], [address] Eosinophil percentageOrdered By: Marybelkendal Hidalgo on 04-17-2024 Eosinophils/100 WBC (Bld) 2.3 % 0-5 [facility] Erythrocyte distribution wid th ratioOrdered By: Marybel Hidalgo on 04-17-2024 Erythrocyte distribution width (RBC) [Ratio] 13.8 % 11.6-14.6 [facility] Erythrocyte distribution wid th standard deviationOrdered By: Marybel Hidalgo on 04-17-2024 Erythrocyte distribution width (RBC) [Entitic vol] 46.2 fL High 35.1-43.9 [facility] Erythrocyte distribution width (RBC) [Ratio] 46.2 fl High 35.1-43.9 [facility] GFR/1.73 sq M.predicted myla g non-blacks MDRD (S/P/Bld) [Vol rate/Area]Ordered By: Marybel Hidalgo on 04-17-2024 Estimated GFR (MDRD) Non-Af Amer 71 >60 [facility] Comment on above: mL/min/1.73m2 CKD-EP I Creatinine Equation (2020) Glomerular filtration rate ( GFR) estimation/1.73 sq m using serum, plasma, or whole bOrdered By: Marybel Hidalgo on 04-17-2024 GFR/1.73 sq M.predicted among non-blacks MDRD (S/P/Bld) [Vol rate/Area] 71 mL/min/{1.73_m2} >60 [facility] Comment on above: mL/min/1.73m2 CKD-EP I Creatinine Equation (2020) Hematocrit Auto (Bld) [Volum e fraction]Ordered By: Marybel Hidalgo on 04-17-2024 Hematocrit (Bld) [Volume fraction] 41.6 % 37-47 [facility] Hemoglobin measurementOrdere d By: Marybel Hidalgo on 04-17-2024 Hemoglobin (Bld) [Mass/Vol] 14.0 g/dL 12.0-15.0 [facility] Immature granulocytes/100 WB C Auto (Bld)Ordered By: Marybelkendal Hidalgo on 04-17-2024 Immature granulocytes/100 WBC (Bld) 0.200 % 0.0-0.9 [facility] Comment on above: IG% - Immature Granu locytes (promyelocytes, myelocytes and metamyelocytes) > 1% indicates that a LEFT SHIFT is Present. Laboratory - Chemistry and C hemistry - challengeOrdered By: Marybel Hidalgo on 04-17-2024 AST [Catalytic activity/Vol] 31 U/L <32 [facility] Lymphocytes Auto (Unsp spec) [#/Vol]Or[facility]-17-[facility]24 Lymphocytes (Bld) [#/Vol] 1.71 10*3/uL 0.83-4.51 [facility] Lymphocytes/100 WBC Auto (Un sp spec)Ordered By: Marybel Hidalgo on 04-17-2024 Lymphocytes/100 WBC (Bld) 32.8 % 19-41 [facility] MCV (mean corpuscular volume ) determinationOrdered By: Marybelkendal Hidalgo on 04-17-2024 MCV (RBC) [Entitic vol] 92.4 fL 81-99 [facility] Mean corpuscular hemoglobin (MCH) determinationOrdered By: Marybel Hidalgo on 04-17-2024 MCH (RBC) [Entitic mass] 31.1 pg 27.0-32.0 [facility] Mean corpuscular hemoglobin concentration (MCHC) determinationOrdered By: Marybel Hidalgo on 04-17-2024 MCHC (RBC) [Mass/Vol] 33.7 g/dL 32-36 [facility] Mean platelet volume determi nationOrdered By: [facility] [place] on 04-17-2024 Platelet mean volume (Bld) [Entitic vol] 10.0 fL 6.2-12.0 [facility] Monocyte percentageOrdered B y: Marybel Hidalgo on 04-17-2024 Monocytes/100 WBC (Bld) 11.9 % High 0-10 [facility] Neutrophil percentageOrdered By: Marybel Hidalgo on 04-17-2024 Neutrophils/100 WBC (Bld) 52.2 % 47-70 [facility] Nucleated red blood cell per centageOrdered By: Marybel Hidalgo on 04-17-2024 Nucleated RBC/100 WBC (Bld) [Ratio] 0 % 0-5 [facility] Platelet countOrdered By: Catarina Hidalgo on 04-17-2024 Platelets (Bld) [#/Vol] 314 10*3/uL 150-450 [facility] Potassium (Unsp spec) [Mass/ Vol]Ordered By: Marybel Hidalgo on 04-17-2024 Potassium [Moles/Vol] 4.7 mmol/L 3.3-5.1 [facility] Potassium measurement (mass/ volume)Ordered By: Marybel Hidalgo on 04-17-2024 Potassium (Unsp spec) [Mass/Vol] 4.7 mmol/L 3.3-5.1 [facility] RBC Auto (Bld) [#/Vol]Ordere d By: Marybel Hidalgo on 04-17-2024 RBC (Bld) [#/Vol] 4.50 10*6/uL 4.2-5.4 [facility] Serum creatinine measurement (mass/volume)Ordered By: Marybel Hidalgo on 04-17-2024 Creatinine [Mass/Vol] 0.91 mg/dL 0.70-1.20 [facility] Serum globulin measurementOr dered By: Marybel Hidalgo on 04-17-2024 Globulin (S) [Mass/Vol] 2.9 g/dL 2.2-4.2 [facility] Serum glucose measurement (m ass/volume)Ordered By: Marybel Hidalgo on 04-17-2024 Glucose [Mass/Vol] 94 mg/dL 70-99 [facility] Serum or plasma alanine ferguson otransferase (ALT) measurementOrdered By: Marybel Hidalgo on 04-17-2024 ALT [Catalytic activity/Vol] 24 U/L <35 [facility] Serum or plasma albumin rosie urement (mass/volume)Ordered By: Marybel Hidlago on 04-17-2024 Albumin [Mass/Vol] 4.2 g/dL 3.4-4.8 [facility] Serum or plasma albumin/glob ulin mass ratioOrdered By: Marybel Hidalgo on 04-17-2024 Albumin/Globulin [Mass ratio] 1.4 {ratio} 0.9-2.4 [facility] Serum or plasma alkaline carol sphatase measurementOrdered By: Marybel Hidalgo on 04-17-2024 ALP [Catalytic activity/Vol] 87 U/L 35-104 [facility] Serum or plasma calcium rosie urement (mass/volume)Ordered By: Marybel Hidalgo on 04-17-2024 Calcium [Mass/Vol] 9.5 mg/dL 7.6-11.0 [facility] Serum or plasma urea nitroge n measurement (mass/volume)Ordered By: Marybel Hidalgo on 04-17-2024 Urea nitrogen [Mass/Vol] 13 mg/dL 4-19 [facility] Sodium levelOrdered By: Mary Hidalgo on 04-17-2024 Sodium [Moles/Vol] 136 mmol/L 133-145 [facility] Total proteinOrdered By: Oumou Hidalgo on 04-17-2024 Protein [Mass/Vol] 7.1 g/dL 5.9-8.4 [facility] White blood cell (WBC) count Ordered By: Marybel Hidalgo on 04-17-2024 WBC (Bld) [#/Vol] 5.2 10*3/uL 4.4-11.0 [facility] SCRN MAMM (CAD)W/OSIEL BILATo n 02-21-2024 SCRN MAMM (CAD)W/OSIEL BILAT [facility] Imaging Services [address] [place] [id number] SCRN MAMM (CAD)W/OSIEL BILAT MR#: [id number] Acct: [id number] Name: CALDERON REID Rep #: [id number] : 1960 F 63 From: Raleigh kemp MD PCP: Dr. Dandy Childs DO Status: REG CLI Study: SCRN MAMM (CAD)W/OSIEL BILAT Date of Exam: 09/07 Exam# [id number] Ordering Dr: Dandy Childs DO [id number] MAMMOGRAPHY - BILATERAL SCREENING REASON FOR EXAM: Female, 63 years old. Routine annual screening examination. PERTINENT HISTORY: Non-contributory. Prior left excisional breast biopsy and left stereotactic breast biopsy. TECHNIQUE: Digital bilateral breast osiel (3D mammographic acquisition) in the CC and MLO projections. 2-D mediolateral oblique (MLO) and craniocaudad (CC) views of both breasts were obtained. CAD: Full Field Digital Mammography with Computer Added Detection was performed. COMPARISON: Comparison is made with prior study September 03, 2022 and August 26, 2021. FINDINGS: Breast Composition: There are scattered areas of fibroglandular density. There are no dominant masses or suspicious calcifications. Stable bilateral benign-appearing axillary lymph nodes. A tissue clip marker is seen in the deep central lateral aspect of the left breast. No other significant abnormalities are identified. There has been no significant change since the prior study. BI/SCRN MAMM (CAD)W/OSIEL BILAT IMPRESSION: Stable bilateral screening mammogram. Yearly follow-up mammogram recommended. (A) ASSESSMENT CATEGORY: BIRADS Category 2: Benign. A letter regarding these results will be sent to the patient by the facility within 30 days. Approximately 10% of breast cancers are not detected by mammography. A normal mammogram should not delay biopsy of a clinically suspicious abnormality. [id number] Electronically Signed: Raleigh Corrales MD at 11:15 EST , CC: Dr. Dandy Childs, [employer] Applier: Signed Normal [facility] Urgent Care Visit Reporton 1 03-28-2023 Urgent Care Visit Report [facility] [address], [address] [place] [address] OFFICE VISIT Date of Service: 01/26/24 MR#: [id number] Acct: [id number] Name: CALDERON REID Rep #: [id number] : 1960 Provider: CATARINA Dominguez Age/Sex: 63/F Location: [facility] Status: Signed Intake Vital Signs 08/05/23 09:07 Height 5 ft 6 in Intake Visit Reasons: CONCERN FOR SINUS INFECTION Chief Complaint: Sinus congestion Allergies No Known Allergies Allergy (Verified 01/26/24 09:44) Medications ???Medication ???Instructions ???Recorded ???Confirmed ???Type levothyroxine 75 mcg tablet 75 mcg PO DAILY 02/10/16 01/26/24 History methotrexate sodium 2.5 mg tablet 20 mg PO SA 02/10/16 01/26/24 History esomeprazole magnesium 20 mg 20 mg PO DAILY 02/25/18 01/26/24 History capsule,delayed release (Nexium) folic acid 0.8 mg capsule 0.8 mg PO DAILY 02/25/18 01/26/24 History buspirone 7.5 mg tablet 7.5 tab PO BID 10/02/18 01/26/24 History citalopram 20 mg tablet 20 mg PO DAILY 10/02/18 01/26/24 History leucovorin calcium 15 mg tablet 1 tab PO KIM 10/02/18 01/26/24 History lorazepam 1 mg tablet 0.5 mg PO PRN PRN Anxiety 10/02/18 01/26/24 History apremilast 30 mg tablet 30 mg PO BID 08/27/19 01/26/24 History ibuprofen 600 mg tablet 600 mg PO 4X/DAY PRN Pain Or Fever 11/01/19 01/26/24 Rx #20 tabs phenazopyridine 100 mg tablet 100 mg PO TID PRN pain 6 doses #6 08/05/23 01/26/24 Rx (Pyridium) tabs amoxicillin 875 mg-potassium 1 tab PO Q12H 10 days #20 tabs 01/26/24 01/26/24 Rx clavulanate 125 mg tablet Nurse's Note: Patient has sinus pressure,congestion, Pressure in ears. patient has teeth pain. this has been going on for 8 days. [facility] Medical History Acute pharyngitis, unspecified URI (upper respiratory infection) Urinary tract infection with hematuria Encounter for screening for COVID-19 Acute bronchitis, unspecified Thyroid disease Severe headache Fatigue Shoulder pain Shortness of breath History of cancer Arthritis Surgical History History of hysterectomy HISTORY OF BLADDER LIFT Family History Mother Heart disease Father Heart disease Social History Smoking Status: Former smoker alcohol intake: never HPI HPI Chief Complaint: Sinus congestion Details: CALDERON REID, is a 63 F who presents to the office today for complaint of sinus congestion/pressure and pain for the past week. Patient denies fever, chills, sweats. No hemoptysis, shortness of breath or difficulty breathing. No other associated symptoms or alleviating/aggravating factors. ROS Const Constitutional: Positive for other (ROS negative x6 except what was placed in HPI) Exam Const General: cooperative and healthy appearing HENMT Head: normal to inspection Ears: hearing grossly normal bilaterally, TM's normal bilaterally and EAC's normal Nose: nasal discharge purulent Face and sinus: sinus tenderness frontal and maxillary Mouth: oral mucosae normal Throat: abnormal tonsil bilaterally erythema and hypertrophy 1+ and postnasal drainage Resp Effort Inspection: normal respiratory effort Auscultation: Bilateral: Clear to Auscultation Cardio Palpation: normal PMI Rate: regular rate Rhythm: regular rhythm Neuro General: patient alert and CN's II-XI intact bilaterally Psych Appearance: grossly normal Mental Status: mental status grossly normal Coding Level of Care Code Off vis,est,level 3 Diagnoses Acute non-recurrent sinusitis, unspecified location J01.90 Sinusitis location: unspecified location Chronicity: acute Recurrence: non-recurrent Assessment and Plan Assessment and Plan (1) Sinus infection: Status: Acute Qualifiers: Sinusitis location: unspecified location Chronicity: acute Recurrence: non-recurrent Qualified Code(s): J01.90 - Acute sinusitis, unspecified Plan: Augmentin as prescribed today. Encouraged to get plenty of rest, drink lots of clear liquids, and use Tylenol or Ibuprofen (unless contraindicated) for fever and comfort. Patient also educated on other symptomatic management techniques. To be seen in 7-10 days if no improvement; sooner if worsening of symptoms. Patient advised of potential red flags and when appropriate to report to the ED. Patient verbalized understanding and agreement with all the above. Medications: New amoxicillin-pot clavulanate 875-125 mg 1 TAB PO Q12H 20 tabs 0RF 10 days J01.90 - Acute sinusitis, unspecified 01/26/24 0954 Date Nik Villeda Signature: Date ____ (more content not included)... Normal [facility] Direct serum free thyroxine (FT4) measurementOrdered By: Dandy Childs on 01-24-2024 Free T4 [Mass/Vol] 1.19 ng/dL 0.76-1.46 [facility] High density lipoprotein (HD L) measurementOrdered By: Dandy Childs on 01-24-2024 Cholesterol in HDL [Mass/Vol] 44 mg/dL >40 [facility] Comment on above: The drugs N-Acetylcy steine and Metamizole may falsely depress this assay. Reference Range HDL <40 mg/dL Low HDL Cholesterol HDL >or= 60 mg/dL High HDL Cholesterol Lipid Profileon 01-24-2024 Cholesterol [Mass/Vol] 191 mg/dL Normal 200 [facility] Comment on above: Result Comment: <200 mg/dL Desirable 200-240 mg/dL Borderline >240 mg/dL High Risk Performed By: #### L 506.0400, L500.4100, L501.9520 #### [facility] [address] [place], [address] Cholesterol in HDL [Mass/Vol] 44 mg/dL Normal [facility] Comment on above: Result Comment: The drugs N-Acetylcysteine and Metamizole may falsely depress this assay. Reference Range HDL <40 mg/dL Low HDL Cholesterol HDL >or= 60 mg/dL High HDL Cholesterol Performed By: #### L 506.0400, L500.4100, L501.9520 #### [facility] [address] [place], [address] Cholesterol in LDL [Mass/Vol] 120 mg/dL Normal 0-130 [facility] Comment on above: Performed By: #### L 506.0400, L500.4100, L501.9520 #### [facility] [address] [place], [address] Cholesterol in VLDL [Mass/Vol] 27 mg/dL Normal 5-40 [facility] Comment on above: Performed By: #### L 506.0400, L500.4100, L501.9520 #### [facility] [address] [place], [address] Triglyceride [Mass/Vol] 133 mg/dL Normal [facility] Comment on above: Result Comment: The drugs N-Acetylcysteine and Metamizole may falsely depress this assay. Serum Triglycerides Reference Interval Normal <150 mg/dL Borderline high 150 - 199 mg/dL High 200 - 499 mg/dL Very High > or = 500 mg/dL Performed By: #### L 506.0400, L500.4100, L501.9520 #### [facility] [address] [place], [address] Low density lipoprotein (LDL ) cholesterol measurementOrdered By: Dandy Childs on 01-24-2024 Cholesterol in LDL [Mass/Vol] 120 mg/dL 0-130 [facility] Serum or plasma cholesterol measurement (mass/volume)Ordered By: Dandy Childs on 01-24-2024 Cholesterol [Mass/Vol] 191 mg/dL <200 [facility] Comment on above: <200 mg/dL Desirable 200-240 mg/dL Borderline >240 mg/dL High Risk T4 Free Directon 01-24-2024 T4 FREE DIRECT 1.19 ng/dL Normal 0.76-1.46 [facility] Comment on above: Performed By: #### L 500.4050, L100.0100 #### [facility] [address] [place], [place], [address] TSH QnOrdered By: Dandy prather on 01-24-2024 Thyroid Stimulating Hormone (TSH) 1.630 uIU/mL 0.358-3.740 [facility] Thyroid Stim Hormone (TSH)on 01-24-2024 TSH 1.630 uIU/mL Normal 0.358-3.740 [facility] Comment on above: Performed By: #### L 500.4050, L100.0100 #### [facility] [address] [place], [place], [id number] Triglycerides measurementOrd ered By: Dandy Naz on 01-24-2024 Triglyceride [Mass/Vol] 133 mg/dL <199 [facility] Comment on above: The drugs N-Acetylcy steine and Metamizole may falsely depress this assay.Serum Triglycerides Reference Interval Normal <150 mg/dL Borderline high 150 - 199 mg/dL High 200 - 499 mg/dL Very High > or = 500 mg/dL Very low density lipoprotein (VLDL) cholesterol measurementOrdered By: Dandy Childs on 01-24-2024 VLDL Cholesterol 27 mg/dL 5-40 [facility] Absolute neutrophil countOrd ered By: Marybel Hidalgo on 01-19-2024 Neutrophils (Bld) [#/Vol] 3.5 10*3/uL 2.0-7.7 [facility] Albumin to globulin ratioOrd ered By: Marybel Hidalgo on 01-19-2024 Albumin/Globulin [Mass ratio] 1.1 {ratio} 0.9-2.4 [facility] Basophil percentageOrdered B y: Marybel Hidalgo on 01-19-2024 Basophils/100 WBC (Bld) 0.6 % 0-1 [facility] Bilirubin, totalOrdered By: Marybel Hidalgo on 01-19-2024 Bilirubin [Mass/Vol] 0.50 mg/dL 0.20-1.00 [facility] Comment on above: For patients on eltr ombopag therapy, use of Dimension [place] TBIL is not recommended. Blood urea nitrogen (BUN)/cr eatinine ratioOrdered By: Marybel Hidalgo on 01-19-2024 Urea nitrogen/Creatinine [Mass ratio] 12.9 mg/mg 10- [facility] CBC W/Diff, Automatedon Absolute Lymph 1.71 X10 3/uL Normal 0.83-4.51 [facility] Comment on above: Performed By: #### L 100.0100, L500.4050 #### [facility] [address] [place], [address] Absolute Neut 3.5 X10 3/uL Normal 2.0-7.7 [facility] Comment on above: Performed By: #### L 100.0100, L500.4050 #### [facility] [address] [place], [address] Basophils/100 WBC (Bld) 0.6 % Normal 0-1 [facility] Comment on above: Performed By: #### L 100.0100, L500.4050 #### [facility] [address] [place], [address] Eosinophils/100 WBC (Bld) 1.8 % Normal 0-5 [facility] Comment on above: Performed By: #### L 100.0100, L500.4050 #### [facility] [address] [place], [address] Erythrocyte distribution width (RBC) [Ratio] 14.2 % Normal 11.6-14.6 [facility] Comment on above: Performed By: #### L 100.0100, L500.4050 #### [facility] [address] [place], [address] Hematocrit (Bld) [Volume fraction] 42.9 % Normal 37-47 [facility] Comment on above: Performed By: #### L 100.0100, L500.4050 #### [facility] [address] [place], [address] Hemoglobin (Bld) [Mass/Vol] 14.6 g/dL Normal 12.0-15.0 [facility] Comment on above: Performed By: #### L 100.0100, L500.4050 #### [facility] [address] [place], [address] IG% 0.300 Normal 0.0-0.9 [facility] Comment on above: Result Comment: IG% - Immature Granulocytes (promyelocytes, myelocytes and metamyelocytes) > 1% indicates that a LEFT SHIFT is Present. Performed By: #### L 100.0100, L500.4050 #### [facility] [address] [place], [address] Lymphocytes/100 WBC (Bld) 27.6 % Normal 19-41 [facility] Comment on above: Performed By: #### L 100.0100, L500.4050 #### [facility] [address] [place], [address] MCH (RBC) [Entitic mass] 31.3 pg Normal 27.0-32.0 [facility] Comment on above: Performed By: #### L 100.0100, L500.4050 #### [facility] [address] [place], [address] MCHC (RBC) [Mass/Vol] 34.0 g/dL Normal 32-36 [facility] Comment on above: Performed By: #### L 100.0100, L500.4050 #### [facility] [address] [place], [address] MCV (RBC) [Entitic vol] 92.1 fL Normal 81-99 [facility] Comment on above: Performed By: #### L 100.0100, L500.4050 #### [facility] [address] [place], [address] Monocytes/100 WBC (Bld) 12.8 % High 0-10 [facility] Comment on above: Performed By: #### L 100.0100, L500.4050 #### [facility] [address] [place], [address] Neutrophils/100 WBC (Bld) 56.9 % Normal 47-70 [facility] Comment on above: Performed By: #### L 100.0100, L500.4050 #### [facility] [address] [place], [address] Nucleated RBC (Bld) [#/Vol] 0 10*3/uL Normal 0-5 [facility] Comment on above: Performed By: #### L 100.0100, L500.4050 #### [facility] [address] [place], [address] Platelet mean volume (Bld) [Entitic vol] 10.0 fL Normal 6.2-12.0 [facility] Comment on above: Performed By: #### L 100.0100, L500.4050 #### [facility] [address] [place], [address] Platelets (Bld) [#/Vol] 342 10*3/uL Normal 150-450 [facility] Comment on above: Performed By: #### L 100.0100, L500.4050 #### [facility] [address] [place], [address] RBC (Bld) [#/Vol] 4.66 10*6/uL Normal 4.2-5.4 [facility] Comment on above: Performed By: #### L 100.0100, L500.4050 #### [facility] [address] [place], [address] RDW SD 47.2 fl High 35.1-43.9 [facility] Comment on above: Performed By: #### L 100.0100, L500.4050 #### [facility] [address] [place], [address] WBC (Bld) [#/Vol] 6.2 10*3/uL Normal 4.4-11.0 [facility] Comment on above: Performed By: #### L 100.0100, L500.4050 #### [facility] [address] [place], [address] Carbon dioxide measurementOr dered By: Marybelkendal Hidalgo on 01-19-2024 CO2 [Moles/Vol] 21.0 mmol/L 21.0-32.0 [facility] Chloride measurementOrdered By: Marybelkendal Hidalgo on 01-19-2024 Chloride [Moles/Vol] 104 mmol/L 98-107 [facility] Comprehensive Metabolic Prof ilon 01-19-2024 Albumin [Mass/Vol] 3.8 g/dL Normal 3.2-5.0 [facility] Comment on above: Performed By: #### L 100.0100, L500.4050 #### [facility] [address] [place], [address] Albumin/Globulin [Mass ratio] 1.1 {ratio} Normal 0.9-2.4 [facility] Comment on above: Performed By: #### L 100.0100, L500.4050 #### [facility] [address] [place], [address] ALK P 93 U/L Normal 45-117 [facility] Comment on above: Performed By: #### L 100.0100, L500.4050 #### [facility] [address] [place], [address] ALT [Catalytic activity/Vol] 24 U/L Normal 13-56 [facility] Comment on above: Performed By: #### L 100.0100, L500.4050 #### [facility] [address] [place], [address] AST [Catalytic activity/Vol] 23 U/L Normal 15-37 [facility] Comment on above: Performed By: #### L 100.0100, L500.4050 #### [facility] [address] [place], [address] Bilirubin [Mass/Vol] 0.50 mg/dL Normal 0.20-1.00 [facility] Comment on above: Result Comment: For patients on eltrombopag therapy, use of Dimension [place] TBIL is not recommended. Performed By: #### L 100.0100, L500.4050 #### [facility] [address] [place], [address] BUN/CRE 12.9 RATIO Normal 10-20 [facility] Comment on above: Performed By: #### L 100.0100, L500.4050 #### [facility] [address] [place], [address] CA,Total 9.2 mg/dL Normal 8.5-10.1 [facility] Comment on above: Performed By: #### L 100.0100, L500.4050 #### [facility] [address] [place], [address] Chloride [Moles/Vol] 104 mmol/L Normal 98-107 [facility] Comment on above: Performed By: #### L 100.0100, L500.4050 #### [facility] [address] [place], [address] CO2 [Moles/Vol] 21.0 mmol/L Normal 21.0-32.0 [facility] Comment on above: Performed By: #### L 100.0100, L500.4050 #### [facility] [address] [place], [address] Creatinine [Mass/Vol] 0.93 mg/dL Normal 0.55-1.02 [facility] Comment on above: Result Comment: The validity of the calculated GFR GFRAA in patients over 70 years has not been determined. Clinical correlation is essential. Performed By: #### L 100.0100, L500.4050 #### [facility] [address] [place], [address] EST GFR - AA 78 mL/min Normal >60 [facility] Comment on above: Result Comment: Afri can Ni[place] GFR Calc Performed By: #### L 100.0100, L500.4050 #### [facility] [address] [place], [address] GAP 9 Normal 5-15 [facility] Comment on above: Performed By: #### L 100.0100, L500.4050 #### [facility] [address] [place], [address] GFR/1.73 sq M.predicted among non-blacks MDRD (S/P/Bld) [Vol rate/Area] 65 mL/min/{1.73_m2} Normal >60 [facility] Comment on above: Result Comment: Non- GFR Calc Performed By: #### L 100.0100, L500.4050 #### [facility] [address] [place], [address] Globulin (S) [Mass/Vol] 3.5 g/dL Normal 2.2-4.2 [facility] Comment on above: Performed By: #### L 100.0100, L500.4050 #### [facility] [address] [place], [address] Glucose [Mass/Vol] 120 mg/dL High 74-106 [facility] Comment on above: Result Comment: Fast ing Glucose result from 100 to 125 mg/dL suggests IMPAIRED HOMEOSTASIS per A.D.A. criteria. Performed By: #### L 100.0100, L500.4050 #### [facility] [address] [place], [address] Potassium [Moles/Vol] 3.9 mmol/L Normal 3.5-5.1 [facility] Comment on above: Performed By: #### L 100.0100, L500.4050 #### [facility] [address] [place], [address] Sodium [Moles/Vol] 134 mmol/L Low 136-145 [facility] Comment on above: Performed By: #### L 100.0100, L500.4050 #### [facility] [address] [place], [address] T PROT 7.3 g/dL Normal 6.4-8.2 [facility] Comment on above: Performed By: #### L 100.0100, L500.4050 #### [facility] [address] [place], [address] Urea nitrogen [Mass/Vol] 12 mg/dL Normal 7-18 [facility] Comment on above: Performed By: #### L 100.0100, L500.4050 #### [facility] [address] [place], [address] Eosinophil percentageOrdered By: Marybel Hidalgo on 01-19-2024 Eosinophils/100 WBC (Bld) 1.8 % 0-5 [facility] Erythrocyte distribution wid th ratioOrdered By: Marybel Hidalgo on 01-19-2024 Erythrocyte distribution width (RBC) [Ratio] 14.2 % 11.6-14.6 [facility] Erythrocyte distribution wid th standard deviationOrdered By: Marybel Hidalgo on 01-19-2024 Erythrocyte distribution width (RBC) [Entitic vol] 47.2 fL High 35.1-43.9 [facility] Estimated glomerular filtrat ion rate (GFR) AmericanOrdered By: Marybel Hidalgo on 01-19-2024 Estimated GFR (MDRD) Amer 78 mL/min >60 [facility] Comment on above: GFR Calc Glomerular filtration rate ( GFR) estimationOrdered By: Marybel Hidalgo on 01-19-2024 Estimated GFR (MDRD) Non-Af Amer 65 mL/min >60 [facility] Comment on above: Non- GFR Calc Glucose measurementOrdered B y: Marybel Hidalgo on 01-19-2024 Glucose [Mass/Vol] 120 mg/dL High 74-106 [facility] Comment on above: Fasting Glucose resu lt from 100 to 125 mg/dL suggests IMPAIRED HOMEOSTASIS per A.D.A. criteria. Hematocrit Auto (Bld) [Volum e fraction]Ordered By: Marybel Hidalgo on 01-19-2024 Hematocrit (Bld) [Volume fraction] 42.9 % 37-47 [facility] Hemoglobin measurementOrdere d By: Marybel Hidalgo on 01-19-2024 Hemoglobin (Bld) [Mass/Vol] 14.6 g/dL 12.0-15.0 [facility] Immature granulocytes/100 WB C Auto (Bld)Ordered By: Marybel Hidalgo on 01-19-2024 Immature granulocytes/100 WBC (Bld) 0.300 % 0.0-0.9 [facility] Comment on above: IG% - Immature Granu locytes (promyelocytes, myelocytes and metamyelocytes) > 1% indicates that a LEFT SHIFT is Present. Laboratory - Chemistry and C hemistry - challengeOrdered By: Marybel Hidalgo on 01-19-2024 AST [Catalytic activity/Vol] 23 U/L 15-37 [facility] Lymphocytes Auto (Unsp spec) [#/Vol]Ordered By: Marybel Hidalgo on 01-19-2024 Lymphocytes (Bld) [#/Vol] 1.71 10*3/uL 0.83-4.51 [facility] Lymphocytes/100 WBC Auto (Un sp spec)Ordered By: Marybel Hidalgo on 01-19-2024 Lymphocytes/100 WBC (Bld) 27.6 % 19-41 [facility] MCV (mean corpuscular volume ) determinationOrdered By: Marybel Hidalgo on 01-19-2024 MCV (RBC) [Entitic vol] 92.1 fL 81-99 [facility] Mean corpuscular hemoglobin (MCH) determinationOrdered By: Marybel Hidalgo on 01-19-2024 MCH (RBC) [Entitic mass] 31.3 pg 27.0-32.0 [facility] Mean corpuscular hemoglobin concentration (MCHC) determinationOrdered By: Marybel Hidalgo on 01-19-2024 MCHC (RBC) [Mass/Vol] 34.0 g/dL 32-36 [facility] Mean platelet volume determi nationOrdered By: Marybel Hidalgo on 01-19-2024 Platelet mean volume (Bld) [Entitic vol] 10.0 fL 6.2-12.0 [facility] Monocyte percentageOrdered B y: Marybel Hidalgo on 01-19-2024 Monocytes/100 WBC (Bld) 12.8 % High 0-10 [facility] Neutrophil percentageOrdered By: Marybel Hidalgo on 01-19-2024 Neutrophils/100 WBC (Bld) 56.9 % 47-70 [facility] Nucleated red blood cell per centageOrdered By: Marybel Hidalgo on 01-19-2024 Nucleated RBC/100 WBC (Bld) [Ratio] 0 % 0-5 [facility] Platelet countOrdered By: Catarina Hidalgo on 01-19-2024 Platelets (Bld) [#/Vol] 342 10*3/uL 150-450 [facility] Potassium measurementOrdered By: Marybel Hidalgo on 01-19-2024 Potassium [Moles/Vol] 3.9 mmol/L 3.5-5.1 [facility] RBC Auto (Bld) [#/Vol]Ordere d By: Marybel Hidalgo on 01-19-2024 RBC (Bld) [#/Vol] 4.66 10*6/uL 4.2-5.4 [facility] Serum anion gap measurementO rdered By: Marybel Hidalgo on 01-19-2024 Anion gap [Moles/Vol] 9 mmol/L 5-15 [facility] Serum globulin measurementOr dered By: Marybel Hidalgo on 01-19-2024 Globulin (S) [Mass/Vol] 3.5 g/dL 2.2-4.2 [facility] Serum or plasma alanine ferguson otransferase (ALT) measurementOrdered By: Marybel Hidalgo on 01-19-2024 ALT [Catalytic activity/Vol] 24 U/L 13-56 [facility] Serum or plasma albumin rosie urement (mass/volume)Ordered By: Marybel Hidalgo on 01-19-2024 Albumin [Mass/Vol] 3.8 g/dL 3.2-5.0 [facility] Serum or plasma alkaline carol sphatase measurementOrdered By: Marybel Hidalgo on 01-19-2024 ALP [Catalytic activity/Vol] 93 U/L 45-117 [facility] Serum or plasma calcium rosie urement (mass/volume)Ordered By: Marybel Hidalgo on 01-19-2024 Calcium [Mass/Vol] 9.2 mg/dL 8.5-10.1 [facility] Serum or plasma creatinine m easurement (mass/volume)Ordered By: Marybel Hidalgo on 01-19-2024 Creatinine [Mass/Vol] 0.93 mg/dL 0.55-1.02 [facility] Comment on above: The validity of the calculated GFR & GFRAA in patients over 70 years has not been determined. Clinical correlation is essential. Serum or plasma urea nitroge n measurement (mass/volume)Ordered By: Marybel Hidalgo on 01-19-2024 Urea nitrogen [Mass/Vol] 12 mg/dL 7-18 [facility] Sodium levelOrdered By: Mary Hidalgo on 01-19-2024 Sodium [Moles/Vol] 134 mmol/L Low 136-145 [facility] Total proteinOrdered By: Oumou Hidalgo on 01-19-2024 Protein [Mass/Vol] 7.3 g/dL 6.4-8.2 [facility] White blood cell (WBC) count Ordered By: Marybel Hidalgo on 01-19-2024 WBC (Bld) [#/Vol] 6.2 10*3/uL 4.4-11.0 [facility] CBC W/Diff, Automatedon 10-15 Absolute Lymph 1.77 X10 3/uL Normal 0.83-4.51 [facility] Comment on above: Performed By: #### L 500.4050, L100.0100 #### [facility] [address] [place], [address] Absolute Neut 2.7 X10 3/uL Normal 2.0-7.7 [facility] Comment on above: Performed By: #### L 500.4050, L100.0100 #### [facility] [address] [place], [address] Basophils/100 WBC (Bld) 0.4 % Normal 0-1 [facility] Comment on above: Performed By: #### L 500.4050, L100.0100 #### [facility] [address] [place], [address] Eosinophils/100 WBC (Bld) 1.7 % Normal 0-5 [facility] Comment on above: Performed By: #### L 500.4050, L100.0100 #### [facility] [address] [place], [address] Erythrocyte distribution width (RBC) [Ratio] 13.6 % Normal 11.6-14.6 [facility] Comment on above: Performed By: #### L 500.4050, L100.0100 #### [facility] [address] [place], [address] Hematocrit (Bld) [Volume fraction] 42.9 % Normal 37-47 [facility] Comment on above: Performed By: #### L 500.4050, L100.0100 #### [facility] [address] [place], [address] Hemoglobin (Bld) [Mass/Vol] 14.2 g/dL Normal 12.0-15.0 [facility] Comment on above: Performed By: #### L 500.4050, L100.0100 #### [facility] [address] [place], [address] IG% 0.200 Normal 0.0-0.9 [facility] Comment on above: Result Comment: IG% - Immature Granulocytes (promyelocytes, myelocytes and metamyelocytes) > 1% indicates that a LEFT SHIFT is Present. Performed By: #### L 500.4050, L100.0100 #### [facility] [address] [place], [address] Lymphocytes/100 WBC (Bld) 34.0 % Normal 19-41 [facility] Comment on above: Performed By: #### L 500.4050, L100.0100 #### [facility] [address] [place], [address] MCH (RBC) [Entitic mass] 30.7 pg Normal 27.0-32.0 [facility] Comment on above: Performed By: #### L 500.4050, L100.0100 #### [facility] [address] [place], [address] MCHC (RBC) [Mass/Vol] 33.1 g/dL Normal 32-36 [facility] Comment on above: Performed By: #### L 500.4050, L100.0100 #### [facility] [address] [place], [address] MCV (RBC) [Entitic vol] 92.7 fL Normal 81-99 [facility] Comment on above: Performed By: #### L 500.4050, L100.0100 #### [facility] [address] [place], [address] Monocytes/100 WBC (Bld) 11.1 % High 0-10 [facility] Comment on above: Performed By: #### L 500.4050, L100.0100 #### [facility] [address] [place], [address] Neutrophils/100 WBC (Bld) 52.6 % Normal 47-70 [facility] Comment on above: Performed By: #### L 500.4050, L100.0100 #### [facility] [address] [place], [address] Nucleated RBC (Bld) [#/Vol] 0 10*3/uL Normal 0-5 [facility] Comment on above: Performed By: #### L 500.4050, L100.0100 #### [facility] [address] [place], [address] Platelet mean volume (Bld) [Entitic vol] 10.5 fL Normal 6.2-12.0 [facility] Comment on above: Performed By: #### L 500.4050, L100.0100 #### [facility] [address] [place], [address] Platelets (Bld) [#/Vol] 341 10*3/uL Normal 150-450 [facility] Comment on above: Performed By: #### L 500.4050, L100.0100 #### [facility] [address] [place], [address] RBC (Bld) [#/Vol] 4.63 10*6/uL Normal 4.2-5.4 [facility] Comment on above: Performed By: #### L 500.4050, L100.0100 #### [facility] [address] [place], [address] RDW SD 45.5 fl High 35.1-43.9 [facility] Comment on above: Performed By: #### L 500.4050, L100.0100 #### [facility] [address] [place], [address] WBC (Bld) [#/Vol] 5.2 10*3/uL Normal 4.4-11.0 [facility] Comment on above: Performed By: #### L 500.4050, L100.0100 #### [facility] [address] [place], [address] Comprehensive Metabolic Prof ilon 10-31-2023 Albumin [Mass/Vol] 3.6 g/dL Normal 3.2-5.0 [facility] Comment on above: Performed By: #### L 500.4050, L100.0100 #### [facility] [address] [place], [address] Albumin/Globulin [Mass ratio] 1.0 {ratio} Normal 0.9-2.4 [facility] Comment on above: Performed By: #### L 500.4050, L100.0100 #### [facility] [address] [place], [address] ALK P 89 U/L Normal 45-117 [facility] Comment on above: Performed By: #### L 500.4050, L100.0100 #### [facility] [address] [place], [address] ALT [Catalytic activity/Vol] 17 U/L Normal 13-56 [facility] Comment on above: Performed By: #### L 500.4050, L100.0100 #### [facility] [address] [place], [address] AST [Catalytic activity/Vol] 18 U/L Normal 15-37 [facility] Comment on above: Performed By: #### L 500.4050, L100.0100 #### [facility] [address] [place], [address] Bilirubin [Mass/Vol] 0.40 mg/dL Normal 0.20-1.00 [facility] Comment on above: Result Comment: For patients on eltrombopag therapy, use of Dimension [place] TBIL is not recommended. Performed By: #### L 500.4050, L100.0100 #### [facility] [address] [place], [address] BUN/CRE 13.6 RATIO Normal 10-20 [facility] Comment on above: Performed By: #### L 500.4050, L100.0100 #### [facility] [address] [place], [address] CA,Total 9.5 mg/dL Normal 8.5-10.1 [facility] Comment on above: Performed By: #### L 500.4050, L100.0100 #### [facility] [address] [place], [address] Chloride [Moles/Vol] 104 mmol/L Normal 98-107 [facility] Comment on above: Performed By: #### L 500.4050, L100.0100 #### [facility] [address] [place], [address] CO2 [Moles/Vol] 23.0 mmol/L Normal 21.0-32.0 [facility] Comment on above: Performed By: #### L 500.4050, L100.0100 #### [facility] [address] [place], [address] Creatinine [Mass/Vol] 0.74 mg/dL Normal 0.55-1.02 [facility] Comment on above: Result Comment: The validity of the calculated GFR GFRAA in patients over 70 years has not been determined. Clinical correlation is essential. Performed By: #### L 500.4050, L100.0100 #### [facility] [address] [place], [address] EST GFR - AA 102 mL/min Normal >60 [facility] Comment on above: Result Comment: Afri can Niuean GFR Calc Performed By: #### L 500.4050, L100.0100 #### [facility] [address] [place], [address] GAP 8 Normal 5-15 [facility] Comment on above: Performed By: #### L 500.4050, L100.0100 #### [facility] [address] [place], [address] GFR/1.73 sq M.predicted among non-blacks MDRD (S/P/Bld) [Vol rate/Area] 85 mL/min/{1.73_m2} Normal >60 [facility] Comment on above: Result Comment: Non- GFR Calc Performed By: #### L 500.4050, L100.0100 #### [facility] [address] [place], [address] Globulin (S) [Mass/Vol] 3.6 g/dL Normal 2.2-4.2 [facility] Comment on above: Performed By: #### L 500.4050, L100.0100 #### [facility] [address] [place], [address] Glucose [Mass/Vol] 86 mg/dL Normal 74-106 [facility] Comment on above: Performed By: #### L 500.4050, L100.0100 #### [facility] [address] [place], [address] Potassium [Moles/Vol] 3.8 mmol/L Normal 3.5-5.1 [facility] Comment on above: Performed By: #### L 500.4050, L100.0100 #### [facility] [address] [place], [address] Sodium [Moles/Vol] 135 mmol/L Low 136-145 [facility] Comment on above: Performed By: #### L 500.4050, L100.0100 #### [facility] [address] [place], [address] T PROT 7.2 g/dL Normal 6.4-8.2 [facility] Comment on above: Performed By: #### L 500.4050, L100.0100 #### [facility] [address] [place], [address] Urea nitrogen [Mass/Vol] 10 mg/dL Normal 7-18 [facility] Comment on above: Performed By: #### L 500.4050, L100.0100 #### [facility] [address] [place], [address] CBC W/Diff, Automatedon 06-2 -2023 Absolute Lymph 1.67 X10 3/uL Normal 0.83-4.51 [facility] Comment on above: Performed By: #### L 100.0100, L500.4050 #### [facility] [address] [place], [address] Absolute Neut 3.0 X10 3/uL Normal 2.0-7.7 [facility] Comment on above: Performed By: #### L 100.0100, L500.4050 #### [facility] [address] [place], [address] Basophils/100 WBC (Bld) 0.7 % Normal 0-1 [facility] Comment on above: Performed By: #### L 100.0100, L500.4050 #### [facility] [address] [place], [address] Eosinophils/100 WBC (Bld) 2.3 % Normal 0-5 [facility] Comment on above: Performed By: #### L 100.0100, L500.4050 #### [facility] [address] [place], [address] Erythrocyte distribution width (RBC) [Ratio] 13.5 % Normal 11.6-14.6 [facility] Comment on above: Performed By: #### L 100.0100, L500.4050 #### [facility] [address] [place], [address] Hematocrit (Bld) [Volume fraction] 43.4 % Normal 37-47 [facility] Comment on above: Performed By: #### L 100.0100, L500.4050 #### [facility] [address] [place], [address] Hemoglobin (Bld) [Mass/Vol] 14.7 g/dL Normal 12.0-15.0 [facility] Comment on above: Performed By: #### L 100.0100, L500.4050 #### [facility] [address] [place], [address] IG% 0.400 Normal 0.0-0.9 [facility] Comment on above: Result Comment: IG% - Immature Granulocytes (promyelocytes, myelocytes and metamyelocytes) > 1% indicates that a LEFT SHIFT is Present. Performed By: #### L 100.0100, L500.4050 #### [facility] [address] [place], [address] Lymphocytes/100 WBC (Bld) 29.8 % Normal 19-41 [facility] Comment on above: Performed By: #### L 100.0100, L500.4050 #### [facility] [address] [place], [address] MCH (RBC) [Entitic mass] 31.3 pg Normal 27.0-32.0 [facility] Comment on above: Performed By: #### L 100.0100, L500.4050 #### [facility] [address] [place], [address] MCHC (RBC) [Mass/Vol] 33.9 g/dL Normal 32-36 [facility] Comment on above: Performed By: #### L 100.0100, L500.4050 #### [facility] [address] [place], [address] MCV (RBC) [Entitic vol] 92.3 fL Normal 81-99 [facility] Comment on above: Performed By: #### L 100.0100, L500.4050 #### [facility] [address] [place], [address] Monocytes/100 WBC (Bld) 13.9 % High 0-10 [facility] Comment on above: Performed By: #### L 100.0100, L500.4050 #### [facility] [address] [place], [address] Neutrophils/100 WBC (Bld) 52.9 % Normal 47-70 [facility] Comment on above: Performed By: #### L 100.0100, L500.4050 #### [facility] [address] [place], [address] Nucleated RBC (Bld) [#/Vol] 0 10*3/uL Normal 0-5 [facility] Comment on above: Performed By: #### L 100.0100, L500.4050 #### [facility] [address] [place], [address] Platelet mean volume (Bld) [Entitic vol] 10.7 fL Normal 6.2-12.0 [facility] Comment on above: Performed By: #### L 100.0100, L500.4050 #### [facility] [address] [place], [address] Platelets (Bld) [#/Vol] 311 10*3/uL Normal 150-450 [facility] Comment on above: Performed By: #### L 100.0100, L500.4050 #### [facility] [address] [place], [address] RBC (Bld) [#/Vol] 4.70 10*6/uL Normal 4.2-5.4 [facility] Comment on above: Performed By: #### L 100.0100, L500.4050 #### [facility] [address] [place], [address] RDW SD 46.2 fl High 35.1-43.9 [facility] Comment on above: Performed By: #### L 100.0100, L500.4050 #### [facility] [address] [place], [address] WBC (Bld) [#/Vol] 5.6 10*3/uL Normal 4.4-11.0 [facility] Comment on above: Performed By: #### L 100.0100, L500.4050 #### [facility] [address] [place], [address] Comprehensive Metabolic Prof [facility] 08-09-2023 Albumin [Mass/Vol] 3.6 g/dL Normal 3.2-5.0 [facility] Comment on above: Performed By: #### L 100.0100, L500.4050 #### [facility] [address] [place], [address] Albumin/Globulin [Mass ratio] 1.0 {ratio} Normal 0.9-2.4 [facility] Comment on above: Performed By: #### L 100.0100, L500.4050 #### [facility] [address] [place], [address] ALK P 88 U/L Normal 45-117 [facility] Comment on above: Performed By: #### L 100.0100, L500.4050 #### [facility] [address] [place], [address] ALT [Catalytic activity/Vol] 22 U/L Normal 13-56 [facility] Comment on above: Performed By: #### L 100.0100, L500.4050 #### [facility] [address] [place], [address] AST [Catalytic activity/Vol] 19 U/L Normal 15-37 [facility] Comment on above: Performed By: #### L 100.0100, L500.4050 #### [facility] [address] [place], [address] Bilirubin [Mass/Vol] 0.40 mg/dL Normal 0.20-1.00 [facility] Comment on above: Result Comment: For patients on eltrombopag therapy, use of Dimension [place] TBIL is not recommended. Performed By: #### L 100.0100, L500.4050 #### [facility] [address] [place], [address] BUN/CRE 11.6 RATIO Normal 10-20 [facility] Comment on above: Performed By: #### L 100.0100, L500.4050 #### [facility] [address] [place], [address] CA,Total 9.2 mg/dL Normal 8.5-10.1 [facility] Comment on above: Performed By: #### L 100.0100, L500.4050 #### [facility] [address] [place], [address] Chloride [Moles/Vol] 107 mmol/L Normal 98-107 [facility] Comment on above: Performed By: #### L 100.0100, L500.4050 #### [facility] [address] [place], [address] CO2 [Moles/Vol] 23.0 mmol/L Normal 21.0-32.0 [facility] Comment on above: Performed By: #### L 100.0100, L500.4050 #### [facility] [address] [place], [address] Creatinine [Mass/Vol] 0.78 mg/dL Normal 0.55-1.02 [facility] Comment on above: Result Comment: The validity of the calculated GFR GFRAA in patients over 70 years has not been determined. Clinical correlation is essential. Performed By: #### L 100.0100, L500.4050 #### [facility] [address] [place], [address] EST GFR - AA 96 mL/min Normal >60 [facility] Comment on above: Result Comment: Afri can [place] GFR Calc Performed By: #### L 100.0100, L500.4050 #### [facility] [address] [place], [address] GAP 6 Normal 5-15 [facility] Comment on above: Performed By: #### L 100.0100, L500.4050 #### [facility] [address] [place], [address] GFR/1.73 sq M.predicted among non-blacks MDRD (S/P/Bld) [Vol rate/Area] 80 mL/min/{1.73_m2} Normal >60 [facility] Comment on above: Result Comment: Non- GFR Calc Performed By: #### L 100.0100, L500.4050 #### [facility] [address] [place], [address] Globulin (S) [Mass/Vol] 3.5 g/dL Normal 2.2-4.2 [facility] Comment on above: Performed By: #### L 100.0100, L500.4050 #### [facility] [address] [place], [address] Glucose [Mass/Vol] 86 mg/dL Normal 74-106 [facility] Comment on above: Performed By: #### L 100.0100, L500.4050 #### [facility] [address] [place], [address] Potassium [Moles/Vol] 4.0 mmol/L Normal 3.5-5.1 [facility] Comment on above: Performed By: #### L 100.0100, L500.4050 #### [facility] [address] [place], [address] Sodium [Moles/Vol] 136 mmol/L Normal 136-145 [facility] Comment on above: Performed By: #### L 100.0100, L500.4050 #### [facility] [address] [place], [address] T PROT 7.1 g/dL Normal 6.4-8.2 [facility] Comment on above: Performed By: #### L 100.0100, L500.4050 #### [facility] [address] [place], [address] Urea nitrogen [Mass/Vol] 9 mg/dL Normal 7-18 [facility] Comment on above: Performed By: #### L 100.0100, L500.4050 #### [facility] [address] [place], [address] Urine Cultureon 08-07-2023 [facility] Klebsiella pneumonia e sp pneum [place] Count 25,000-50,000 Escherichia coli [place] Count 25,000-50,000 Klebsiella pneumoniae sp pneum: REACTION Ampicillin Islt MOIRA >=32 R Ampicillin+Sulbac Islt MOIRA 4 S ceFAZolin Islt MOIRA <=4 S Cefepime Islt MOIRA <=0.12 S cefTRIAXone Islt MOIRA <=0.25 S Ciprofloxacin Islt MOIRA <=0.25 S Ertapenem Islt MOIRA <=0.12 S B-Lactamase Extended Susc Islt NEG Gentamicin Islt MOIRA <=1 S Imipenem Islt MOIRA <=0.25 S levoFLOXacin Islt MOIRA <=0.12 S Nitrofurantoin Islt MOIRA 64 I Pip+Tazo Islt MOIRA <=4 S Tobramycin Islt MOIRA <=1 S TMP SMX Islt MOIRA <=20 S Escherichia coli: REACTION Ampicillin Islt MOIRA >=32 R Ampicillin+Sulbac Islt MOIRA 16 I ceFAZolin Islt MOIRA <=4 S Cefepime Islt MOIRA <=0.12 S cefTRIAXone Islt MOIRA <=0.25 S Ciprofloxacin Islt MOIRA <=0.25 S Ertapenem Islt MOIRA <=0.12 S B-Lactamase Extended Susc Islt NEG Gentamicin Islt MOIRA <=1 S Imipenem Islt MOIRA <=0.25 S levoFLOXacin Islt MOIRA <=0.12 S Nitrofurantoin Islt MOIRA <=16 S Pip+Tazo Islt MOIRA <=4 S Tobramycin Islt MOIRA <=1 S TMP SMX Islt MOIRA <=20 S Normal [facility] Comment on above: Performed By: #### L 500.4050, L100.0100 #### [facility] [address] [place], [address] Office Visit Reporton 2023 Office Visit Report [facility] [address] [place] [address] OFFICE VISIT Date of Service: 08/05/23 MR#: [id number] Acct: [id number] Patient: CALDERON REID Rep #: [id number] : 1960 Provider: CATARINA Turner Age/Sex: 63/F Location: [facility] [place] Status: Signed with Addenda ADDENDUM by CATARINA Turner on 08/08/23 at 0601 HPI Details: CALDERON REID, is a 63 F who presents to the office today for Assessment and Plan Assessment and Plan (1) UTI (urinary tract infection): Status: Acute Plan: exam on DOS: Gen: AT NC, NAD CV: RRR Resp: CTA Abd: No cva tenderness Addendum to plan: UrCx with intermediate resistance to nitrofurantoin, change to keflex. Orders: Orders Urinalysis, Complete 08/05/23 R30.0 - Dysuria Culture, Urine 08/05/23 R30.0 - Dysuria POC Urinalysis Dip (Clinic) 08/05/23 R30.0 - Dysuria Medications: New nitrofurantoin macrocrystal must administer with a meal/food 100 mg PO Q12H 10 caps 0RF phenazopyridine (Pyridium) 100 mg PO TID PRN 6 tabs 0RF pain 08/08/23 0601 Date Homero Wood cc: * Signed Intake Vital Signs 07/09/23 12:27 08/05/23 09:07 Height 1.68 m 1.68 m Weight: 83.007 kg 81.647 kg BMI 29.5 29.0 BP 100/50 L 122/86 H Blood Pressure Location Lt brachial Lt brachial Position Standing Sitting Respiration 16 Pulse 50 L 78 Pulse Source Monitor Monitor Temp 98.0 F 98.2 F Temp Source Temporal Pulse Oximetry (%) 96 98 Oxygen Delivery Method room air room air Intake Visit Reasons: Urinary tract infection Chief Complaint: dysuria 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 Accompanied by: Self Is patient in pain?: No Allergies No Known Allergies Allergy (Verified 08/05/23 09:08) Medications ???Medication ???Instructions ???Recorded ???Confirmed ???Type levothyroxine 75 mcg tablet 75 mcg PO DAILY 02/10/16 08/05/23 History methotrexate sodium 2.5 mg tablet 20 mg PO SA 02/10/16 08/05/23 History esomeprazole magnesium 20 mg 20 mg PO DAILY 02/25/18 08/05/23 History capsule,delayed release (Nexium) folic acid 0.8 mg capsule 0.8 mg PO DAILY 02/25/18 08/05/23 History buspirone 7.5 mg tablet 7.5 tab PO BID 10/02/18 08/05/23 History citalopram 20 mg tablet 20 mg PO DAILY 10/02/18 08/05/23 History leucovorin calcium 15 mg tablet 1 tab PO KIM 10/02/18 08/05/23 History lorazepam 1 mg tablet 0.5 mg PO PRN PRN Anxiety 10/02/18 08/05/23 History apremilast 30 mg tablet 30 mg PO BID 08/27/19 08/05/23 History ibuprofen 600 mg tablet 600 mg PO 4X/DAY PRN Pain Or Fever 11/01/19 08/05/23 Rx #20 tabs nitrofurantoin macrocrystal 100 mg 100 mg PO Q12H #10 caps 08/05/23 08/05/23 Rx capsule phenazopyridine 100 mg tablet 100 mg PO TID PRN pain 6 doses #6 08/05/23 08/05/23 Rx (Pyridium) tabs PFSH Medical History Acute pharyngitis, unspecified URI (upper respiratory infection) Urinary tract infection with hematuria Encounter for screening for COVID-19 Acute bronchitis, unspecified Thyroid disease Severe headache Fatigue Shoulder pain Shortness of breath History of cancer Arthritis Surgical History History of hysterectomy HISTORY OF BLADDER LIFT Family History Mother Heart disease Father Heart disease Social History Smoking Status: Former smoker alcohol intake: never HPI HPI Chief Complaint: dysuria Details: CALDERON REID, is a 63 F who presents to the office today for dysuria. This started this AM. She notes she did not feel quite right for a couple days but had no specific symptoms. Today she has intense burning with urination, increased frequency, and difficulty going when she feels she needs to go. No breanna hematuria. No CVA pain. Some abdominal cramping. No fevers/chlils/nausea. ROS Const Constitutional: No chills, fatigue or fever(s) Gastro GI: No nausea/dyspepsia or vomiting Genitourinary-Female: Positive for difficulty urinating, burning urination, urinary frequency and urinary urgency; No blood in urine Endo Endocrine: No fatigue Results POC Urinalysis Dip (Clinic) Office Urine Color STRAW Last Edit by Khushbu Gil MA on 08/05/23 09:13 Office Urine Clarity Cloudy Last Edit by Khushbu Gil MA on 08/05/23 09:13 Office Urine Glucose Last Edit by Khushbu Gil MA on 08/05/23 09:13 Office Urine Ketones Last Edit by Khushbu Gil MA on 08/05/23 09:13 Off Ur Spec Chuckey 1.015 Last Edit by Khushbu Gil MA on 08/05/23 09:13 Office Urine pH 6.0 Last Edit by Khushbu Gil MA on 08/05/23 09:13 Office Urine Bilirubin Negative Last (more content not included)... Normal [facility] Urinalysis, Completeon 08-04 BACTERIA 1+ /hpf Normal None Seen [facility] Comment on above: Order Comment: THOMPSON CTOR TO SPECIFY Performed By: #### L 500.4050, L100.0100 #### [facility] [address] [place], [address] RBC 0-5 SEEN Normal 0-5 [facility] Comment on above: Order Comment: THOMPSON CTOR TO SPECIFY Performed By: #### L 500.4050, L100.0100 #### [facility] [address] [place], [address] WBC 25-50 SEEN Normal 0-5 [facility] Comment on above: Order Comment: THOMPSON CTOR TO SPECIFY Performed By: #### L 500.4050, L100.0100 #### [facility] [address] [place], [address] EPI,SQUAMOUS 0 SEEN Normal 5-10 [facility] Comment on above: Order Comment: THOMPSON CTOR TO SPECIFY Performed By: #### L 500.4050, L100.0100 #### [facility] [address] [place], [address] Mucus Ql (Urine sed) 0 SEEN Normal [facility] Comment on above: Order Comment: THOMPSON CTOR TO SPECIFY Performed By: #### L 500.4050, L100.0100 #### [facility] [address] [place], [address] Absolute lymphocyte countOrd ered By: Marybel Hidalgo on 05-31-2023 Lymphocytes Auto (Unsp spec) [#/Vol] 2.32 10*3/uL 0.83-4.51 [facility] Automated lymphocyte count a s percentage of total leukocytesOrdered By: Marybel Hidalgo on 05-31-2023 Lymphocytes/100 WBC Auto (Unsp spec) 37.7 % 19-41 [facility] Basophil percentageOrdered B y: Marybel Hidalgo on 05-31-2023 Basophils/100 WBC (Bld) 1.0 % 0-1 [facility] Eosinophils/100 WBC (Bld) 3.9 % 0-5 [facility] Hemoglobin (Bld) [Mass/Vol] 15.8 g/dL 12.0-15.0 [facility] Monocytes/100 WBC (Bld) 13.5 % 0-10 [facility] Neutrophils (Bld) [#/Vol] 2.7 10*3/uL 2.0-7.7 [facility] Neutrophils/100 WBC (Bld) 43.7 % 47-70 [facility] WBC (Bld) [#/Vol] 6.2 10*3/uL 4.4-11.0 [facility] Determination of erythrocyte mean corpuscular volume (MCV)Ordered By: Marybel Hidalgo on 05-31-2023 MCV (RBC) [Entitic vol] 92.6 fL 81-99 [facility] Erythrocyte distribution wid th ratioOrdered By: Marybel Hidalgo on 05-31-2023 Erythrocyte distribution width (RBC) [Ratio] 13.9 % 11.6-14.6 [facility] Erythrocyte distribution wid th standard deviationOrdered By: Marybel Rocky on 05-31-2023 Erythrocyte distribution width (RBC) [Entitic vol] 46.6 fL 35.1-43.9 [facility] Hematocrit Auto (Bld) [Volum e fraction]Ordered By: Marybel Hidalgo on 05-31-2023 Hematocrit (Bld) [Volume fraction] 46.0 % 37-47 [facility] Immature granulocytes/100 WB C Auto (Bld)Ordered By: Marybel Hidalgo on 05-31-2023 Immature granulocytes/100 WBC (Bld) 0.200 % 0.0-0.9 [facility] Comment on above: IG% - Immature Granu locytes (promyelocytes, myelocytes and metamyelocytes) > 1% indicates that a LEFT SHIFT is Present. Laboratory - Hematology and Cell countsOrdered By: Marybel Hidalgo on 05-31-2023 MCH (RBC) [Entitic mass] 31.8 pg 27.0-32.0 [facility] MCHC (RBC) [Mass/Vol] 34.3 g/dL 32-36 [facility] Nucle[facility] RBC/100 WBC (Bld) [Ratio] 0 % 0-5 [facility] Platelet mean volume (Bld) [Entitic vol] 9.5 fL 6.2-12.0 [facility] Platelets (Bld) [#/Vol] 358 10*3/uL 150-450 [facility] RBC Auto (Bld) [#/Vol]Ordere d By: Marybel Hidalgo on 05-31-2023 RBC (Bld) [#/Vol] 4.97 10*6/uL 4.2-5.4 [facility] Absolute lymphocyte countOrd ered By: [facility] Rocky on 03-10-2023 Lymphocytes Auto (Unsp spec) [#/Vol] 1.63 10*3/uL 0.83-4.51 [facility] Automated lymphocyte count a s percentage of total leukocytesOrdered By: Marybel Hidalgo on 03-10-2023 Lymphocytes/100 WBC Auto (Unsp spec) 30.2 % 19-41 [facility] Basophil percentageOrdered B y: Marybel Hidalgo on 03-10-2023 Basophils/100 WBC (Bld) 0.7 % 0-1 [facility] Bilirubin [Mass/Vol] 0.60 mg/dL 0.20-1.00 [facility] Comment on above: For patients on eltr ombopag therapy, use of Dimension [place] TBIL is not recommended. Chloride [Moles/Vol] 107 mmol/L 98-107 [facility] Eosinophils/100 WBC (Bld) 2.4 % 0-5 [facility] Glucose [Mass/Vol] 88 mg/dL 74-106 [facility] Hemoglobin (Bld) [Mass/Vol] 15.1 g/dL 12.0-15.0 [facility] Monocytes/100 WBC (Bld) 12.6 % 0-10 [facility] Neutrophils (Bld) [#/Vol] 2.9 10*3/uL 2.0-7.7 [facility] Neutrophils/100 WBC (Bld) 53.7 % 47-70 [facility] Potassium [Moles/Vol] 4.2 mmol/L 3.5-5.1 [facility] Protein [Mass/Vol] 7.0 g/dL 6.4-8.2 [facility] Sodium [Moles/Vol] 136 mmol/L 136-145 [facility] WBC (Bld) [#/Vol] 5.4 10*3/uL 4.4-11.0 [facility] Determination of erythrocyte mean corpuscular volume (MCV)Ordered By: Marybel Hidalgo on 03-10-2023 MCV (RBC) [Entitic vol] 93.4 fL 81-99 [facility] Erythrocyte distribution wid th ratioOrdered By: Marybel Hidalgo on 03-10-2023 Erythrocyte distribution width (RBC) [Ratio] 13.4 % 11.6-14.6 [facility] Erythrocyte distribution wid th standard deviationOrdered By: Marybel Hidalgo on 03-10-2023 Erythrocyte distribution width (RBC) [Entitic vol] 45.9 fL 35.1-43.9 [facility] Hematocrit Auto (Bld) [Volum e fraction]Ordered By: Marybel Hidalgo on 03-10-2023 Hematocrit (Bld) [Volume fraction] 45.1 % 37-47 [facility] Immature granulocytes/100 WB C Auto (Bld)Ordered By: Marybel Hidalgo on 03-10-2023 Immature granulocytes/100 WBC (Bld) 0.400 % 0.0-0.9 [facility] Comment on above: IG% - Immature Granu locytes (promyelocytes, myelocytes and metamyelocytes) > 1% indicates that a LEFT SHIFT is Present. Laboratory - Chemistry and C hemistry - challengeOrdered By: Marybel Hidalgo on 03-10-2023 Albumin/Globulin [Mass ratio] 1.1 {ratio} 0.9-2.4 [facility] ALP [Catalytic activity/Vol] 72 U/L 45-117 [facility] ALT [Catalytic activity/Vol] 28 U/L 13-56 [facility] CO2 [Moles/Vol] 27.0 mmol/L 21.0-32.0 [facility] Globulin (S) [Mass/Vol] 3.3 g/dL 2.2-4.2 [facility] Urea nitrogen/Creatinine [Mass ratio] 11.9 mg/mg 10-20 [facility] Laboratory - Hematology and Cell countsOrdered By: Marybel Hidalgo on 03-10-2023 MCH (RBC) [Entitic mass] 31.3 pg 27.0-32.0 [facility] MCHC (RBC) [Mass/Vol] 33.5 g/dL 32-36 [facility] Nucleated RBC/100 WBC (Bld) [Ratio] 0 % 0-5 [facility] Platelets (Bld) [#/Vol] 327 10*3/uL 150-450 [facility] No Panel InformationOrdered By: Marybel Hidalgo on 03-10-2023 Estimated GFR (MDRD) Amer 88 mL/min >60 [facility] Comment on above: GFR Calc Estimated GFR (MDRD) Non-Af Amer 73 mL/min >60 [facility] Comment on above: Non- GFR Calc Platelet mean volume Harley-Ec ker (Bld) [Entitic vol]Ordered By: Marybel Hidalgo on 03-10-2023 Platelet mean volume (Bld) [Entitic vol] 10.5 fL 6.2-12.0 [facility] RBC Auto (Bld) [#/Vol]Ordere d By: Marybel Hidalgo on 03-10-2023 RBC (Bld) [#/Vol] 4.83 10*6/uL 4.2-5.4 [facility] Serum or plasma calcium rosie urement (mass/volume)Ordered By: Marybel Hidalgo on 03-10-2023 Calcium [Mass/Vol] 9.3 mg/dL 8.5-10.1 [facility] Serum or plasma creatinine m easurement (mass/volume)Ordered By: Marybel Hidalgo on 03-10-2023 Creatinine [Mass/Vol] 0.84 mg/dL 0.55-1.02 [facility] Comment on above: The validity of the calculated GFR & GFRAA in patients over 70 years has not been determined. Clinical correlation is essential. Serum or plasma urea nitroge n measurement (mass/volume)Ordered By: Marybel Hidalgo on 03-10-2023 Urea nitrogen [Mass/Vol] 10 mg/dL 7-18 [facility] Thin prep Papanicolaou smear with manual screeningOrdered By: Marybel Hidalgo on 03-10-2023 Thin prep Papanicolaou smear with manual screening 3.7 g/dL 3.2-5.0 [facility] Thin prep Papanicolaou smear with manual screening 23 U/L 15-37 [facility] Thin prep Papanicolaou smear with manual screening 2 5-15 [facility] Absolute lymphocyte countOrd ered By: Marybel Hidalgo on 12-21-2022 Lymphocytes Auto (Unsp spec) [#/Vol] 0.85 10*3/uL 0.83-4.51 [facility] Basophil percentageOrdered B y: Marybel Hidalgo on 12-21-2022 Basophils/100 WBC (Bld) 0.7 % 0-1 [facility] Bilirubin [Mass/Vol] 0.50 mg/dL 0.20-1.00 [facility] Comment on above: For patients on eltr ombopag therapy, use of Dimension [place] TBIL is not recommended. Chloride [Moles/Vol] 105 mmol/L 98-107 [facility] Eosinophils/100 WBC (Bld) 0.9 % 0-5 [facility] Glucose [Mass/Vol] 92 mg/dL 74-106 [facility] Neutrophils (Bld) [#/Vol] 5.0 10*3/uL 2.0-7.7 [facility] Neutrophils/100 WBC (Bld) 70.9 % 47-70 [facility] Potassium [Moles/Vol] 3.6 mmol/L 3.5-5.1 [facility] Protein [Mass/Vol] 7.2 g/dL 6.4-8.2 [facility] Sodium [Moles/Vol] 136 mmol/L 136-145 [facility] WBC (Bld) [#/Vol] 7.0 10*3/uL 4.4-11.0 [facility] Blood erythrocytes count (nu mber/volume)Ordered By: Marybel Hidalgo on 12-21-2022 RBC (Bld) [#/Vol] 4.65 10*6/uL 4.2-5.4 [facility] Blood hemoglobin measurement (mass/volume)Ordered By: Marybel Hidalgo on 12-21-2022 Hemoglobin (Bld) [Mass/Vol] 14.5 g/dL 12.0-15.0 [facility] Blood lymphocytes/100 leukoc ytesOrdered By: Marybel Hidalgo on 12-21-2022 Lymphocytes/100 WBC (Bld) 12.1 % 19-41 [facility] Blood monocytes/100 leukocyt esOrdered By: Marybel Hidalgo on 12-21-2022 Monocytes/100 WBC (Bld) 15.1 % 0-10 [facility] Blood platelet mean volumeOr dered By: Marybel Hidalgo on 12-21-2022 Platelet mean volume (Bld) [Entitic vol] 9.8 fL 6.2-12.0 [facility] Determination of erythrocyte mean corpuscular volume (MCV)Ordered By: Marybel Hidalgo on 12-21-2022 MCV (RBC) [Entitic vol] 93.1 fL 81-99 [facility] Hematocrit Auto (Bld) [Volum e fraction]Ordered By: Marybel Rocky on 12-21-2022 Hematocrit (Bld) [Volume fraction] 43.3 % 37-47 [facility] Laboratory - Chemistry and C hemistry - challengeOrdered By: [facility] Rocky on 12-21-2022 ALP [Catalytic activity/Vol] 84 U/L 45-117 [facility] ALT [Catalytic activity/Vol] 24 U/L 13-56 [facility] CO2 [Moles/Vol] 24.0 mmol/L 21.0-32.0 [facility] Globulin (S) [Mass/Vol] 3.7 g/dL 2.2-4.2 [facility] Urea nitrogen/Creatinine [Mass ratio] 11.6 mg/mg 10-20 [facility] - Hematology and Cell countsOrdered By: Marybel Hidalgo on 12-21-2022 Erythrocyte distribution width (RBC) [Entitic vol] 48.2 fL 35.1-43.9 [facility] Erythrocyte distribution width (RBC) [Ratio] 14.2 % 11.6-14.6 [facility] Immature granulocytes/100 WBC (Bld) 0.300 % 0.0-0.9 [facility] Comment on above: IG% - Immature Granu locytes (promyelocytes, myelocytes and metamyelocytes) > 1% indicates that a LEFT SHIFT is Present. MCH (RBC) [Entitic mass] 31.2 pg 27.0-32.0 [facility] Nucleated RBC/100 WBC (Bld) [Ratio] 0 % 0-5 [facility] MCHC Auto (RBC) [Mass/Vol]Or dered By: Marybel Hidalgo on 12-21-2022 MCHC (RBC) [Mass/Vol] 33.5 g/dL 32-36 [facility] No Panel InformationOrdered By: Marybel Hidalgo on 12-21-2022 Estimated GFR (MDRD) Amer 86 mL/min >60 [facility] Comment on above: GFR Calc Estimated GFR (MDRD) Non-Af Amer 71 mL/min >60 [facility] Comment on above: Non- GFR Calc Platelets bldOrdered By: Oumou Hidalgo on 12-21-2022 Platelets (Bld) [#/Vol] 297 10*3/uL 150-450 [facility] Serum or plasma albumin rosie urement (mass/volume)Ordered By: Marybel Hidalgo on 12-21-2022 Albumin [Mass/Vol] 3.5 g/dL 3.2-5.0 [facility] Serum or plasma albumin/glob ulin mass ratioOrdered By: Marybel Hidalgo on 12-21-2022 Albumin/Globulin [Mass ratio] 0.9 {ratio} 0.9-2.4 [facility] Serum or plasma calcium rosie urement (mass/volume)Ordered By: Marybel Hidalgo on 12-21-2022 Calcium [Mass/Vol] 8.8 mg/dL 8.5-10.1 [facility] Serum or plasma creatinine m easurement (mass/volume)Ordered By: Marybel Hidalgo on 12-21-2022 Creatinine [Mass/Vol] 0.86 mg/dL 0.55-1.02 [facility] Comment on above: The validity of the calculated GFR & GFRAA in patients over 70 years has not been determined. Clinical correlation is essential. Serum or plasma urea nitroge n measurement (mass/volume)Ordered By: Marybel Hidalgo on 12-21-2022 Urea nitrogen [Mass/Vol] 10 mg/dL 7-18 [facility] Thin prep Papanicolaou smear with manual screeningOrdered By: Marybel Hidalgo on 12-21-2022 Thin prep Papanicolaou smear with manual screening 20 U/L 15-37 [facility] Thin prep Papanicolaou smear with manual screening 7 5-15 [facility] Absolute lymphocyte countOrd ered By: Marybel Hidalgo on 09-17-2022 Lymphocytes Auto (Unsp spec) [#/Vol] 1.99 10*3/uL 0.83-4.51 [facility] Basophil percentageOrdered B y: Marybel Hidalgo on 09-17-2022 Basophils/100 WBC (Bld) 0.7 % 0-1 [facility] Bilirubin [Mass/Vol] 0.50 mg/dL 0.20-1.00 [facility] Comment on above: For patients on eltr ombopag therapy, use of Dimension [place] TBIL is not recommended. Chloride [Moles/Vol] 104 mmol/L 98-107 [facility] Eosinophils/100 WBC (Bld) 1.4 % 0-5 [facility] Glucose [Mass/Vol] 123 mg/dL 74-106 [facility] Comment on above: Fasting Glucose resu lt from 100 to 125 mg/dL suggests IMPAIRED HOMEOSTASIS per A.D.A. criteria. Neutrophils (Bld) [#/Vol] 3.0 10*3/uL 2.0-7.7 [facility] Neutrophils/100 WBC (Bld) 52.5 % 47-70 [facility] Potassium [Moles/Vol] 3.9 mmol/L 3.5-5.1 [facility] Protein [Mass/Vol] 6.9 g/dL 6.4-8.2 [facility] Sodium [Moles/Vol] 134 mmol/L 136-145 [facility] WBC (Bld) [#/Vol] 5.8 10*3/uL 4.4-11.0 [facility] Blood erythrocytes count (nu mber/volume)Ordered By: Marybel Hidalgo on 09-17-2022 RBC (Bld) [#/Vol] 4.69 10*6/uL 4.2-5.4 [facility] Blood hemoglobin measurement (mass/volume)Ordered By: Marybel Hidalgo on 09-17-2022 Hemoglobin (Bld) [Mass/Vol] 14.7 g/dL 12.0-15.0 [facility] Blood lymphocytes/100 leukoc ytesOrdered By: Marybel Hidalgo on 09-17-2022 Lymphocytes/100 WBC (Bld) 34.5 % 19-41 [facility] Blood monocytes/100 leukocyt esOrdered By: Marybel Hidalgo on 09-17-2022 Monocytes/100 WBC (Bld) 10.7 % 0-10 [facility] Blood platelet mean volumeOr dered By: Marybel Hidalgo on 09-17-2022 Platelet mean volume (Bld) [Entitic vol] 10.0 fL 6.2-12.0 [facility] Determination of erythrocyte mean corpuscular volume (MCV)Ordered By: Marybel Hidalgo on 09-17-2022 MCV (RBC) [Entitic vol] 90.8 fL 81-99 [facility] Hematocrit Auto (Bld) [Volum e fraction]Ordered By: Marybel Hidalgo on 09-17-2022 Hematocrit (Bld) [Volume fraction] 42.6 % 37-47 [facility] - Chemistry and C hemistry - challengeOrdered By: Marybel Rocky on 09-17-2022 ALP [Catalytic activity/Vol] 83 U/L 45-117 [facility] ALT [Catalytic activity/Vol] 23 U/L 13-56 [facility] CO2 [Moles/Vol] 24.0 mmol/L 21.0-32.0 [facility] Globulin (S) [Mass/Vol] 3.4 g/dL 2.2-4.2 [facility] Urea nitrogen/Creatinine [Mass ratio] 10.9 mg/mg 10-20 [facility] - Hematology and Cell countsOrdered By: Marybel Hidalgo on 09-17-2022 Erythrocyte distribution width (RBC) [Entitic vol] 44.5 fL 35.1-43.9 [facility] Erythrocyte distribution width (RBC) [Ratio] 13.4 % 11.6-14.6 [facility] Immature granulocytes/100 WBC (Bld) 0.200 % 0.0-0.9 [facility] Comment on above: IG% - Immature Granu locytes (promyelocytes, myelocytes and metamyelocytes) > 1% indicates that a LEFT SHIFT is Present. MCH (RBC) [Entitic mass] 31.3 pg 27.0-32.0 [facility] Nucleated RBC/100 WBC (Bld) [Ratio] 0 % 0-5 [facility] MCHC Auto (RBC) [Mass/Vol]Or dered By: Marybel Hidalgo on 09-17-2022 MCHC (RBC) [Mass/Vol] 34.5 g/dL 32-36 [facility] No Panel InformationOrdered By: Marybel Hidalgo on 09-17-2022 Estimated GFR (MDRD) Amer 103 mL/min >60 [facility] Comment on above: GFR Calc Estimated GFR (MDRD) Non-Af Amer 85 mL/min >60 [facility] Comment on above: Non- GFR Calc Platelets bldOrdered By: Oumou Hidalgo on 09-17-2022 Platelets (Bld) [#/Vol] 352 10*3/uL 150-450 [facility] Serum or plasma albumin rosie urement (mass/volume)Ordered By: Marybel Hidalgo on 09-17-2022 Albumin [Mass/Vol] 3.5 g/dL 3.2-5.0 [facility] Serum or plasma albumin/glob ulin mass ratioOrdered By: Marybel Hidalgo on 09-17-2022 Albumin/Globulin [Mass ratio] 1.0 {ratio} 0.9-2.4 [facility] Serum or plasma calcium rosie urement (mass/volume)Ordered By: Marybel Hidalgo on 09-17-2022 Calcium [Mass/Vol] 9.0 mg/dL 8.5-10.1 [facility] Serum or plasma creatinine m easurement (mass/volume)Ordered By: Marybel Hidalgo on 09-17-2022 Creatinine [Mass/Vol] 0.73 mg/dL 0.55-1.02 [facility] Comment on above: The validity of the calculated GFR & GFRAA in patients over 70 years has not been determined. Clinical correlation is essential. Serum or plasma urea nitroge n measurement (mass/volume)Ordered By: Marybel Hidalgo on 09-17-2022 Urea nitrogen [Mass/Vol] 8 mg/dL 7-18 [facility] Thin prep Papanicolaou smear with manual screeningOrdered By: Marybel Hidalgo on 09-17-2022 Thin prep Papanicolaou smear with manual screening 22 U/L 15-37 [facility] Thin prep Papanicolaou smear with manual screening 6 5-15 [facility] Office Visiton 06-04-2022 Follow-up visit [id number] Araceli Reid 1960 F Date Provider Department Center 06/04/2022 [id number] None Family History Problem Relation Age of Onset Heart failure Mother Colon cancer Neg Hx Thyroid disease Mother Heart failure Father Hypertension Father Emphysema Father Hypertension Mother Family Status - Relation Status Age at Mother Alive Neg Hx Father Son Alive Daughter Alive Sister Alive Level of Service:[id number] [place] OFFICE/OUTPATIENT ESTABLISHED LOW MDM 20-29 MIN Reason for Visit and Comments: Follow-up [841543] - Painful intercourse after sling Normal [facility] Progress Noteon 06-04-2022 Progress Note Painful [place] Last Visit: 03/17/2022 HPI: Pt underwent posterior repair and mid urethral sling in 01/2022. She reports sling is working well and she is doing well overall. Pt does report pain and scant bleeding with intercourse. States pain is on entrance Past Medical History: Diagnosis Date GERD (gastroesophageal reflux disease) Hypothyroidism Melanoma (HCC) Psoriatic arthritis (HCC) Past Surgical History: Procedure Laterality Date BLADDER SURGERY Bladder lift COLONOSCOPY COLONOSCOPY 11/18/2021 dr mon EGD HYSTERECTOMY MANDIBLE FRACTURE SURGERY MOUTH SURGERY OTHER SURGICAL HISTORY melanoma OVARIAN CYST REMOVAL TONSILLECTOMY (HISTORICAL) Physical Exam Constitutional: General: She is not in acute distress. Appearance: Normal appearance. She is well-developed, well-groomed and normal weight. She is not ill-appearing or toxic-appearing. Genitourinary: Bladder and urethral meatus normal. Genitourinary Comments: Mild erythema and thinning with scant blood at introitus. No mesh exposure No urethral tenderness present. Levator ani not tender, obturator internus not tender and no pelvic spasms present. Neurological: Mental Status: She is alert. Psychiatric: Behavior: Behavior is cooperative. Vitals reviewed. 1. Vaginal atrophy - estradiol (Estrace) 0.1 MG/GM vaginal cream; Insert 0.5 g into the vagina Twice a Week. Dispense: 42.5 g; Refill: [address] [facility] 05-21-2022 36 Pt scheduled appt. Thanks [facility] 05-18-2022 36 Reason for Dispositi on Caller has NON-URGENT question and triager unable [...] If Yes, ask: How much? and Where? [place] discharge with intercourse mostly. 10. OTHER SYMPTOMS: Do you have any other symptoms? (e.g., drainage from wound, painful urination, constipation) Protocols used: Post-Op Symptoms and [id number] S: Patient spoke with [facility] nurse regarding painful intercourse since [...] call back with new or worsening symptoms. [facility] Absolute lymphocyte countOrd ered By: Dr. Hidalgo on 04-02-2022 Lymphocytes Auto (Unsp spec) [#/Vol] 1.58 10*3/uL 0.83-4.51 [facility] Basophil percentageOrdered B y: Dr. Hidalgo on 04-02-2022 Basophils/100 WBC (Bld) 0.9 % 0-1 [facility] Bilirubin [Mass/Vol] 0.70 mg/dL 0.20-1.00 [facility] Comment on above: For patients on eltr ombopag therapy, use of Dimension [place] TBIL is not recommended. Chloride [Moles/Vol] 109 mmol/L 98-107 [facility] Eosinophils/100 WBC (Bld) 1.7 % 0-5 [facility] Glucose [Mass/Vol] 115 mg/dL 74-106 [facility] Comment on above: Fasting Glucose resu lt from 100 to 125 mg/dL suggests IMPAIRED HOMEOSTASIS per A.D.A. criteria. Neutrophils (Bld) [#/Vol] 2.4 10*3/uL 2.0-7.7 [facility] Neutrophils/100 WBC (Bld) 51.2 % 47-70 [facility] Potassium [Moles/Vol] 4.0 mmol/L 3.5-5.1 [facility] Comment on above: Slight Hemolysis, Re sult may be falsely increased. Protein [Mass/Vol] 7.2 g/dL 6.4-8.2 [facility] Sodium [Moles/Vol] 138 mmol/L 136-145 [facility] WBC (Bld) [#/Vol] 4.6 10*3/uL 4.4-11.0 [facility] Blood erythrocytes count (nu mber/volume)Ordered By: Dr. Hidalgo on 04-02-2022 RBC (Bld) [#/Vol] 4.67 10*6/uL 4.2-5.4 [facility] Blood hemoglobin measurement (mass/volume)Ordered By: Dr. Hidalgo on 04-02-2022 Hemoglobin (Bld) [Mass/Vol] 14.8 g/dL 12.0-15.0 [facility] Blood lymphocytes/100 leukoc ytesOrdered By: Dr. Hidalgo on 04-02-2022 Lymphocytes/100 WBC (Bld) 34.3 % 19-41 [facility] Blood monocytes/100 leukocyt esOrdered By: Dr. Hidalgo on 04-02-2022 Monocytes/100 WBC (Bld) 11.7 % 0-10 [facility] Blood platelet mean volumeOr dered By: Dr. Hidalgo on 04-02-2022 Platelet mean volume (Bld) [Entitic vol] 10.3 fL 6.2-12.0 [facility] Determination of erythrocyte mean corpuscular volume (MCV)Ordered By: Dr. Hidalgo on 04-02-2022 MCV (RBC) [Entitic vol] 96.1 fL 81-99 [facility] Hematocrit Auto (Bld) [Volum e fraction]Ordered By: Dr. Hidalgo on 04-02-2022 Hematocrit (Bld) [Volume fraction] 44.9 % 37-47 [facility] Laboratory - Chemistry and C hemistry - challengeOrdered By: Dr. Hidalgo on 04-02-2022 ALP [Catalytic activity/Vol] 80 U/L 45-117 [facility] ALT [Catalytic activity/Vol] 24 U/L 13-56 [facility] CO2 [Moles/Vol] 20.0 mmol/L 21.0-32.0 [facility] Globulin (S) [Mass/Vol] 3.4 g/dL 2.2-4.2 [facility] Urea nitrogen/Creatinine [Mass ratio] 7.9 mg/mg 10-20 [facility] Laboratory - Hematology and Cell countsOrdered By: Dr. Hidalgo on 04-02-2022 Erythrocyte distribution width (RBC) [Entitic vol] 48.5 fL 35.1-43.9 [facility] Erythrocyte distribution width (RBC) [Ratio] 13.8 % 11.6-14.6 [facility] Immature granulocytes/100 WBC (Bld) 0.200 % 0.0-0.9 [facility] Comment on above: IG% - Immature Granu locytes (promyelocytes, myelocytes and metamyelocytes) > 1% indicates that a LEFT SHIFT is Present. MCH (RBC) [Entitic mass] 31.7 pg 27.0-32.0 [facility] Nucleated RBC/100 WBC (Bld) [Ratio] 0 % 0-5 [facility] MCHC Auto (RBC) [Mass/Vol]Or dered By: Dr. Hidalgo on 04-02-2022 MCHC (RBC) [Mass/Vol] 33.0 g/dL 32-36 [facility] No Panel InformationOrdered By: Dr. Hidalgo on 04-02-2022 Estimated GFR (MDRD) Amer 83 mL/min >60 [facility] Comment on above: GFR Calc Estimated GFR (MDRD) Non-Af Amer 69 mL/min >60 [facility] Comment on above: Non- GFR Calc Platelets bldOrdered By: Dr. Hidalgo on 04-02-2022 Platelets (Bld) [#/Vol] 355 10*3/uL 150-450 [facility] Serum or plasma albumin rosie urement (mass/volume)Ordered By: Dr. Hidalgo on 04-02-2022 Albumin [Mass/Vol] 3.8 g/dL 3.2-5.0 [facility] Serum or plasma albumin/glob ulin mass ratioOrdered By: Dr. Hidalgo on 04-02-2022 Albumin/Globulin [Mass ratio] 1.1 {ratio} 0.9-2.4 [facility] Serum or plasma calcium rosie urement (mass/volume)Ordered By: Dr. Hidalgo on 04-02-2022 Calcium [Mass/Vol] 9.3 mg/dL 8.5-10.1 [facility] Serum or plasma creatinine m easurement (mass/volume)Ordered By: Dr. Hidalgo on 04-02-2022 Creatinine [Mass/Vol] 0.88 mg/dL 0.55-1.02 [facility] Comment on above: The validity of the calculated GFR & GFRAA in patients over 70 years has not been determined. Clinical correlation is essential. Serum or plasma urea nitroge n measurement (mass/volume)Ordered By: Dr. Hidalgo on 04-02-2022 Urea nitrogen [Mass/Vol] 7 mg/dL 7- [facility] Thin prep Papanicolaou smear with manual screeningOrdered By: Dr. Hidalgo on 04-02-2022 Thin prep Papanicolaou smear with manual screening 24 U/L 15- [facility] Comment on above: Slight Hemolysis, Re sult may be falsely increased. Thin prep Papanicolaou smear with manual screening 9 5-15 [facility] Office Visiton 03-17-2022 Follow-up visit [id number] Araceli Reid 1960 F Date Provider Department Center 03/17/2022 [id number] None Family History Problem Relation Age of Onset Heart failure Mother Colon cancer Neg Hx Thyroid disease Mother Heart failure Father Hypertension Father Emphysema Father Hypertension Mother Family Status - Relation Status Age at Mother Alive Neg Hx Father Son Alive Daughter Alive Sister Alive Level of Service:07609 RI POSTOP FOLLOW UP VISIT RELATED TO ORIGINAL PX Reason for Visit and Comments: Post-op Visit [559] - 6 week post op [facility] Progress Noteon 03-17-2022 Progress Note 6 weeks after Synthetic midurethral sling Posterior repair Cystoscopy Doing well, no c/o. Urinates well, denies RENA. No vaginal bleeding/discharge. No pain Eats well, ambulates well, no N/V. PE: Suprapubic incisions healing well. No vaginal bleeding, min physiological vaginal discharge. Vaginal incisions healing well. No mesh erosion/exposure. No pain on palpation. Plan: Continue her home medications as prescribed. Plan discussed with the patient in detail. All questions were aswered. [facility] Culture, urineOrdered By: St eric Mendoza on 02-27-2022 Bacteria identified Cx Nom (U) GPC Poss Enterococcus sp [facility] Basophil percentageOrdered B y: Prieto Mendoza on 02-25-2022 Basophil percentage 5-10 SEEN /hpf 0-5 [facility] Bilirubin Test strip Ql (U)O rdered By: Prieto Mendoza on 02-25-2022 Bilirubin Ql (U) Negative Negative [facility] Ketones Test strip Ql (U)Ord ered By: Prieto Mendoza on 02-25-2022 Ketones Ql (U) Negative Negative [facility] Laboratory - Chemistry and C hemistry - challengeon 02-25-2022 Bilirubin Ql (U) Negative [facility] Glucose Ql (U) Negative [facility] Ketones Ql (U) Negative [facility] pH (U) 6.5 [pH] [facility] Specific gravity (U) [Rel density] 1.005 [facility] Urobilinogen (U) [Mass/Vol] 0.8101468 mg/dL [facility] Laboratory - Hematology and Cell countson 02-25-2022 Hemoglobin Ql (U) Trace [facility] Laboratory - Specimen inform ationon 02-25-2022 Clarity (U) Clear [facility] Color (U) YELLOW [facility] Laboratory - Urinalysison Nitrite Ql (U) Negative [facility] Protein Ql (U) Negative [facility] Mucus LM Ql (Urine sed)Order ed By: Prieto Mendoza on 02-25-2022 Mucus Ql (Urine sed) 0 SEEN /hpf [facility] Nitrite Test strip Ql (U)Ord ered By: Prieto Mendoza on 02-25-2022 Nitrite Ql (U) Negative Negative [facility] No Panel Informationon 02-25 Urine Leukocytes Positive [facility] Urine Non-Hemolyzed Blood Non-Hemolyzed [facility] Protein Test strip Ql (U)Ord ered By: Prieto Mendoza on 02-25-2022 Protein Ql (U) Negative Negative [facility] Squamous epithelial cells de tection in urine sediment by light microscopyOrdered By: Prieto Mendoza on 02-25-2022 Epithelial cells.squamous LM Ql (Urine sed) 0-5 SEEN /hpf 5-10 [facility] Urine blood detectionOrdered By: Prieto Mendoza on 02-25-2022 RBC Ql (U) 10 /ul Negative [facility] RBC Ql (U) 0 SEEN /hpf 0-5 [facility] Urine clarityOrdered By: Smith Mendoza on 02-25-2022 Clarity (U) Clear Clear [facility] Urine color determinationOrd ered By: Prieto Mendoza on 02-25-2022 Color (U) Yellow Yellow [facility] Urine glucose detectionOrder ed By: Prieto Mendoza on 02-25-2022 Glucose Ql (U) Normal mg/dl Normal [facility] Urine leukocyte esterase det ection by dipstickOrdered By: Prieto Mendoza on 02-25-2022 Leukocyte esterase Test strip Ql (U) 500 /ul Negative [facility] Urine pHOrdered By: Prieto corona on 02-25-2022 pH (U) 7.0 [pH] 5.0 - 8.0 [facility] Urine sediment bacteria coun t by microscopy (number/high power field)Ordered By: Prieto Mendoza on 02-25-2022 Bacteria LM.HPF (Urine sed) [#/Area] RARE /hpf None Seen [facility] Urine specific gravity measu rementOrdered By: Prieto Mendoza on 02-25-2022 Specific gravity (U) [Rel density] 1.010 1.002-1.030 [facility] Urobilinogen Auto test strip Ql (U)Ordered By: Prieto Mendoza on 02-25-2022 Urobilinogen Ql (U) Normal mg/dl Normal [facility] Culture, urineOrdered By: St eric Mendoza on 02-05-2022 Bacteria identified Cx Nom (U) Presumptive E. coli [facility] 36on 02-03-2022 36 S: The patient is calling the [facility] About dysuria B: She had surgery with intubation and catheter last Tuesday A: Initially she thought the burning was secondary the catheter but it is not improving. She has frequency and today she has chills. She was tested at They prescribed Cipro for her. R: She is waiting for culture results but started the Cipro as indicated. She will call back if this does not completely alleviate her symptoms. Reason for Disposition Caller has medicine question, adult has minor symptoms, caller declines triage, and triager answers question Protocols used: Medication Question [id number] [facility] 36 Patient cancelled appointment 02/03/2022 @ 7:31 am. Per the comments on the cancellation, patient states she is feeling better. Franchesca Richardson MA [facility] Basophil percentageOrdered B y: Prieto Mendoza on 02-03-2022 Basophil percentage >100 SEEN /hpf 0-5 [facility] Bilirubin Test strip Ql (U)O rdered By: Prieto Mendoza on 02-03-2022 Bilirubin Ql (U) Negative Negative [facility] Ketones Test strip Ql (U)Ord ered By: Prieto Mendoza on 02-03-2022 Ketones Ql (U) Negative Negative [facility] Laboratory - Chemistry and C hemistry - challengeon 02-03-2022 Bilirubin Ql (U) Negative [facility] Glucose Ql (U) Negative [facility] Ketones Ql (U) Negative [facility] pH (U) 5.0 [pH] [facility] Specific gravity (U) [Rel density] 1.005 [facility] Urobilinogen (U) [Mass/Vol] Negative [facility] Laboratory - Hematology and Cell countson 02-03-2022 Hemoglobin Ql (U) Hemolyzed [facility] Laboratory - Specimen inform ationon 02-03-2022 Clarity (U) Cloudy [facility] Color (U) YELLOW [facility] Laboratory - Urinalysison Nitrite Ql (U) Negative [facility] Protein Ql (U) Negative [facility] Mucus LM Ql (Urine sed)Order ed By: Prieto Mendoza on 02-03-2022 Mucus Ql (Urine sed) 0 SEEN /hpf [facility] Nitrite Test strip Ql (U)Ord ered By: Prieto Mendoza on 02-03-2022 Nitrite Ql (U) Negative Negative [facility] No Panel Informationon 02-03 Urine Leukocytes Positive [facility] Urine Non-Hemolyzed Blood Large [facility] Protein Test strip Ql (U)Ord ered By: Prieto Mendoza on 02-03-2022 Protein Ql (U) 15 mg/dl Negative [facility] Squamous epithelial cells de tection in urine sediment by light microscopyOrdered By: Prieto Mendoza on 02-03-2022 Epithelial cells.squamous LM Ql (Urine sed) 0-5 SEEN /hpf 5-10 [facility] Urine blood detectionOrdered By: Prieto Mendoza on 02-03-2022 RBC Ql (U) 50 /ul Negative [facility] RBC Ql (U) 5-10 SEEN /hpf 0-5 [facility] Urine clarityOrdered By: Smith Mendoza on 02-03-2022 Clarity (U) Sl. Cloudy Clear [facility] Urine color determinationOrd ered By: Prieto Mendoza on 02-03-2022 Color (U) Straw Yellow [facility] Urine glucose detectionOrder ed By: Prieto Mendoza on 02-03-2022 Glucose Ql (U) Normal mg/dl Normal [facility] Urine leukocyte esterase det ection by dipstickOrdered By: Prieto Mendoza on 02-03-2022 Leukocyte esterase Test strip Ql (U) 500 /ul Negative [facility] Urine pHOrdered By: Prieto corona on 02-03-2022 pH (U) 7.0 [pH] 5.0 - 8.0 [facility] Urine sediment bacteria coun t by microscopy (number/high power field)Ordered By: Prieto Mendoza on 02-03-2022 Bacteria LM.HPF (Urine sed) [#/Area] 1 /[HPF] None Seen [facility] Urine specific gravity measu rementOrdered By: Prieto Mendoza on 02-03-2022 Specific gravity (U) [Rel density] 1.005 1.002-1.030 [facility] Urobilinogen Auto test strip Ql (U)Ordered By: Prieto Mendoza on 02-03-2022 Urobilinogen Ql (U) Normal mg/dl Normal [facility] 36on 02-02-2022 36 S: Patient spoke wit [facility] nurse regarding urinary symptoms B: Onset of symptoms/concern recently A: Pt states had a bladder sling done on 01/27/22. Pt states now feels like she's getting a bladder infection. Pt reports urinary frequency, dysuria (rate at 3/10), and some left lower back/ flank pain (rates at 3/10). Pt unsure if any hematuria, states she is still spotting a little bit from the procedure. Pt denies any fever or abdominal pain. R: Pt scheduled at the [place] office for 9 am with Martin Kelley. Pt provided with office address and location. Pt instructed to arrive 15 minutes early, bring photo ID, insurance card, any current medications and to wear a mask. Patient understands care advice. No further needs at this time. Patient instructed to call back with new or worsening symptoms. Reason for Disposition Urinating more frequently than usual (i.e., frequency) Side (flank) or lower back pain present Additional Information Commented on: [1] Can't control passage of urine (i.e., urinary incontinence) AND [2] new-onset (< 2 weeks) or worsening Maybe a little, Protocols used: Urinary [id number] [facility] 36on 01-29-2022 36 Pt called to advise office of new symptoms. Pt was advised the office was closed for lunch. States she will call the office back after lunch [facility] 36 Patient informed and verbalized understanding Wilman Song [facility] 36on 01-28-2022 36 S: Patient spoke wit h [facility] nurse regarding antibiotic post op. B: Onset of symptoms/concern: 01/27/22 s/p Synthetic midurethral sling, Posterior repair, Cystoscopy. A: Pt states she thought they would order an antibiotic after her surgery, but none was ordered. Does she need an antibiotic? R: Checked Epic, no antibiotic ordered. Advised message will be sent to the office. No further needs at this time. Patient instructed to call back with any further question or concerns. Reason for Disposition Caller has NON-URGENT question and triager unable to answer question Protocols used: Post-Op Symptoms and [id number] [facility] Nursing Noteon 01-27-2022 Nursing Note Espinoza output 200ml Urine output post bladder trial 200ml [facility] Op Noteon 01-27-2022 Op Note PREOPERATIVE DIAGNOS ES: Stress urinary incontinence Symptomatic posterior vaginal wall prolapse POSTOPERATIVE DIAGNOSES: Stress urinary incontinence Symptomatic posterior vaginal wall prolapse PROCEDURE: Synthetic midurethral sling Posterior repair Cystoscopy SURGEON: Dr. Gilles Bronson DOCUMENTUM CONSULTANT SURGEONS: ANESTHESIA: General SPECIMENS: None. ESTIMATED BLOOD LOSS: mL IV FLUIDS: 10 mL DRAINS: Espinoza catheter FINDINGS: Stage 3 posterior vaginal wall prolapse. Normal cystoscopy with good ureteral spill of urine bilaterally and good sling placement. No bladder injuries. COMPLICATIONS: None. STATUS AT THE END OF THE SURGERY: Stable. DESCRIPTION OF PROCEDURE: After informed consent was obtained, the patient was taken back to the operating room. General anesthesia was administered. The legs were placed in the Yellofin stirrups being careful not to hyperflex nor hyper abduct her legs. She was then prepped and draped in the usual sterile fashion and the surgeons scrubbed. Examination under anesthesia revealed the above-mentioned findings. A Espinoza catheter was inserted. The mid urethra was grasped with two Allis clamps and injected on both sides with 1% lidocaine with epinephrine. An incision was then made approximately 2 cm over the mid urethra. Then, the periurethral spaces were dissected sharply with the Metzenbaum scissors up to the level of the bony pelvis. The trocar was then inserted following through the tract that had been made in the periurethral area. This was performed on each side. After trocars trochars insertion, cystoscopy was performed and no injuries to the bladder were observed. There was good ureteral spill of urine from both ureteral orifices. The sling was then adjusted with a #8 Hegar dilator between the tape and the urethra. The plastic was then removed and excess sling material was cut at the level of the skin. The incision was then closed with 2-0 Vicryl in a running fashion. Then, the Espinoza catheter was replaced. The skin was closed with Dermabond. There was good hemostasis at the end of the procedure. Then, my attention turned to the posterior repair part of our procedure. First, a Washburn retractor was inserted for better visualization. The apex of the rectocele was grasped with an Allis clamp. Allis clamps were then placed laterally on the hymenal ring and also inferiorly at the level of the perineal defect. 1% lidocaine with epinephrine was injected in the vaginal epithelium. An incision was made cranial to caudal beginning at the apex of the rectocele just on the superficial epithelium and then out towards the Allis on the hymenal ring and down towards the Allis that was previously placed at the base of the perineal defect. A section of vaginal epithelium and perineal skin in a carisa shape was removed. The perirectal fascia was then dissected off the overlying vaginal epithelium using both blunt and sharp dissection with the Metzenbaum scissors. Then, using 2-0 Vicryl, the perirectal fascia was reapproximated in a sequential fashion, moving distally, closing the posterior defect without creating a shelf. The perineal muscles were then approximated in the midline with few interrupted 2-0 Vicryl stitches. The vaginal epithelial edges were thentrimmed and reapproximated with 2-0 Vicryl in a running fashion to the level of the hymenal ring. Minimal trimming was performed to prevent postoperative dyspareunia. The perineal area skin was closed with 2-0 Vicryl in a running fashion. A rectal examination was performed at the end of the procedure and the rectum was found to be intact. The patient tolerated the procedure very well. She was taken to the recovery room awake and in stable condition. [address] 01-26-2022 36 Spoke with patient regarding post operative instructions [facility] 36 Name of caller: Araceli Reid Contact phone number: [phone] Relationship to Patient: patient Provider: Gilles Bronson Practice: [facility] [place], [place] Urogynecology Chief Complaint/Reason for Call: Patient has questions about after her surgery and what she should expect. Would like to speak to a nurse. Please advise. Best time of day caller can be reached: Any Patient advised that office/PCP has 24-48 business hours to return their call: Yes [facility] Absolute lymphocyte countOrd ered By: Dr. Hidalgo on 01-11-2022 Lymphocytes Auto (Unsp spec) [#/Vol] 1.28 10*3/uL 0.83-4.51 [facility] Basophil percentageOrdered B y: Dr. Hidalgo on 01-11-2022 Basophils/100 WBC (Bld) 0.8 % 0-1 [facility] Bilirubin [Mass/Vol] 0.50 mg/dL 0.20-1.00 [facility] Comment on above: For patients on eltr ombopag therapy, use of Dimension [place] TBIL is not recommended. Chloride [Moles/Vol] 105 mmol/L 98-107 [facility] Eosinophils/100 WBC (Bld) 1.7 % 0-5 [facility] Glucose [Mass/Vol] 91 mg/dL 74-106 [facility] Neutrophils (Bld) [#/Vol] 2.8 10*3/uL 2.0-7.7 [facility] Neutrophils/100 WBC (Bld) 59.0 % 47-70 [facility] Potassium [Moles/Vol] 4.1 mmol/L 3.5-5.1 [facility] Protein [Mass/Vol] 7.1 g/dL 6.4-8.2 [facility] Sodium [Moles/Vol] 137 mmol/L 136-145 [facility] WBC (Bld) [#/Vol] 4.8 10*3/uL 4.4-11.0 [facility] Blood erythrocytes count (nu mber/volume)Ordered By: Dr. Hidalgo on 01-11-2022 RBC (Bld) [#/Vol] 4.68 10*6/uL 4.2-5.4 [facility] Blood hemoglobin measurement (mass/volume)Ordered By: Dr. Hidalgo on 01-11-2022 Hemoglobin (Bld) [Mass/Vol] 14.7 g/dL 12.0-15.0 [facility] Blood lymphocytes/100 leukoc ytesOrdered By: Dr. Hidalgo on 01-11-2022 Lymphocytes/100 WBC (Bld) 26.8 % 19-41 [facility] Blood monocytes/100 leukocyt esOrdered By: Dr. Hidalgo on 01-11-2022 Monocytes/100 WBC (Bld) 11.5 % 0-10 [facility] Blood platelet mean volumeOr dered By: Dr. Hidalgo on 01-11-2022 Platelet mean volume (Bld) [Entitic vol] 9.7 fL 6.2-12.0 [facility] Determination of erythrocyte mean corpuscular volume (MCV)Ordered By: Dr. Hidalgo on 01-11-2022 MCV (RBC) [Entitic vol] 93.4 fL 81-99 [facility] Hematocrit Auto (Bld) [Volum e fraction]Ordered By: Dr. Hidalgo on 01-11-2022 Hematocrit (Bld) [Volume fraction] 43.7 % 37-47 [facility] Laboratory - Chemistry and C hemistry - challengeOrdered By: Dr. Hidalgo on 01-11-2022 ALP [Catalytic activity/Vol] 86 U/L 45-117 [facility] ALT [Catalytic activity/Vol] 25 U/L 13-56 [facility] CO2 [Moles/Vol] 26.0 mmol/L 21.0-32.0 [facility] Globulin (S) [Mass/Vol] 3.3 g/dL 2.2-4.2 [facility] Urea nitrogen/Creatinine [Mass ratio] 13.5 mg/mg 10-20 [facility] - Hematology and Cell countsOrdered By: Dr. Hidalgo on 01-11-2022 Erythrocyte distribution width (RBC) [Entitic vol] 46.5 fL 35.1-43.9 [facility] Erythrocyte distribution width (RBC) [Ratio] 13.7 % 11.6-14.6 [facility] Immature granulocytes/100 WBC (Bld) 0.200 % 0.0-0.9 [facility] Comment on above: IG% - Immature Granu locytes (promyelocytes, myelocytes and metamyelocytes) > 1% indicates that a LEFT SHIFT is Present. MCH (RBC) [Entitic mass] 31.4 pg 27.0-32.0 [facility] Nucleated RBC/100 WBC (Bld) [Ratio] 0 % 0-5 [facility] [facility] MCHC Auto (RBC) [Mass/Vol]Or dered By: Dr. Hidalgo on 01-11-2022 MCHC (RBC) [Mass/Vol] 33.6 g/dL 32-36 [facility] No Panel InformationOrdered By: Dr. Hidalgo on 01-11-2022 Estimated GFR (MDRD) Amer 91 mL/min >60 [facility] Comment on above: GFR Calc Estimated GFR (MDRD) Non-Af Amer 75 mL/min >60 [facility] Comment on above: Non- GFR Calc Platelets bldOrdered By: Dr. Hidalgo on 01-11-2022 Platelets (Bld) [#/Vol] 373 10*3/uL 150-450 [facility] Serum or plasma albumin rosie urement (mass/volume)Ordered By: Dr. Hidalgo on 01-11-2022 Albumin [Mass/Vol] 3.8 g/dL 3.2-5.0 [facility] Serum or plasma albumin/glob ulin mass ratioOrdered By: Dr. Hidalgo on 01-11-2022 Albumin/Globulin [Mass ratio] 1.2 {ratio} 0.9-2.4 [facility] Serum or plasma calcium rosie urement (mass/volume)Ordered By: Dr. Hidalgo on 01-11-2022 Calcium [Mass/Vol] 9.7 mg/dL 8.5-10.1 [facility] Serum or plasma creatinine m easurement (mass/volume)Ordered By: Dr. Hidalgo on 01-11-2022 Creatinine [Mass/Vol] 0.82 mg/dL 0.55-1.02 [facility] Comment on above: The validity of the calculated GFR & GFRAA in patients over 70 years has not been determined. Clinical correlation is essential. Serum or plasma urea nitroge n measurement (mass/volume)Ordered By: Dr. Hidalgo on 01-11-2022 Urea nitrogen [Mass/Vol] 11 mg/dL 7-18 [facility] Thin prep Papanicolaou smear with manual screeningOrdered By: Dr. Hidalgo on 01-11-2022 Thin prep Papanicolaou smear with manual screening 21 U/L 15-37 [facility] Thin prep Papanicolaou smear with manual screening 6 5-15 [facility] HM COLONOSCOPYon 11-18-2021 Ordered by an unspecified provider. [facility] Surgical Pathologyon 022 Surgical Pathology [id number] [facility] PATHOLOGY AND LABORATORY MEDICINE [address] [place] [address] FINAL SURGICAL PATHOLOGY REPORT NAME: CALDERON REID : [id number] 61 [facility] NO[facility] [id number] LOCATION: 1XEO PROCEDURE 11/18/2021 DATE: SURGEON: SHANNAN MON M.D. RECEIVED 11/18/2021 DATE: ATTENDING: SHANNAN MON M.D. 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 CLINICAL INFORMATION: Rectocele SPECIMEN: COLON POLYP, BIOPSY GROSS DESCRIPTION: Received in formalin labeled ascending polyp x2 are multiple irregular-shaped fragments of pink-alva soft and polypoid tissue measuring 0.7 x 0.5 x 0.2 cm. Submitted in one cassette. BSC/JAF Disclaimer: The following statement applies to all immunohistochemistry, in situ hybridization, molecular studies, and immunofluorescence testing. The use of one or more reagents in the above tests is regulated as an analyte specific reagent (ASR). These tests were developed and their performance characteristics determined by the clinical laboratories of [facility]. They have not been cleared by the US Food and Drug Administration (FDA). The FDA has determined that such clearance or approval is not necessary. All the above immunostains were performed on paraffin embedded tissue. Appropriate positive and negative controls (where applicable) were run in parallel with the patient's specimen; these controls showed expected staining pattern, with acceptable intensity of staining. Immunohistochemical assays have not been validated on decalcified tissues. Results should be interpreted with caution given the raised possibility of false negativity on decalcified specimens. Professional Performing Location: [address] [address]. DEPARTMENT OF PATHOLOGY AND LABORATORY MEDICINE [place], [place] [address] [email or web address] Normal [facility] Absolute lymphocyte counton 10-08-2021 Lymphocytes Auto (Unsp spec) [#/Vol] 1.41 10*3/uL 0.83-4.51 [facility] Work Phone: Basophil percentageon 2021 Basophils/100 WBC (Bld) 0.4 % 0-1 [facility] Work Phone: Bilirubin [Mass/Vol] 0.70 mg/dL 0.20-1.00 [facility] Work Phone: Comment on above: For patients on eltr ombopag therapy, use of Dimension [place] TBIL is not recommended. Chloride [Moles/Vol] 102 mmol/L 98-107 [facility] Work Phone: Eosinophils/100 WBC (Bld) 1.4 % 0-5 [facility] Work Phone: [phone] Glucose [Mass/Vol] 105 mg/dL 74-106 [facility] Work Phone: Comment on above: Fasting Glucose resu lt from 100 to 125 mg/dL suggests IMPAIRED HOMEOSTASIS per A.D.A. criteria. Neutrophils (Bld) [#/Vol] 5.2 10*3/uL 2.0-7.7 [facility] Work Phone: Neutrophils/100 WBC (Bld) 72.8 % 47-70 [facility] Work Phone: [phone] Potassium [Moles/Vol] 4.0 mmol/L 3.5-5.1 [facility] Work Phone: [phone] Protein [Mass/Vol] 7.4 g/dL 6.4-8.2 [facility] Work Phone: [phone] Sodium [Moles/Vol] 136 mmol/L 136-145 [facility] Work Phone: [phone] WBC (Bld) [#/Vol] 7.1 10*3/uL 4.4-11.0 [facility] Work Phone: [phone] Blood erythrocytes count (nu mber/volume)on 10-08-2021 RBC (Bld) [#/Vol] 4.82 10*6/uL 4.2-5.4 [facility] Work Phone: [phone] Blood hemoglobin measurement (mass/volume)on 10-08-2021 Hemoglobin (Bld) [Mass/Vol] 15.3 g/dL 12.0-15.0 [facility] Work Phone: Blood lymphocytes/100 leukoc yteson 10-08-2021 Lymphocytes/100 WBC (Bld) 19.9 % 19-41 [facility] Work Phone: [phone] Blood monocytes/100 leukocyt eson 10-08-2021 Monocytes/100 WBC (Bld) 5.2 % 0-10 [facility] Work Phone: [phone] Blood platelet mean volumeon 10-08-2021 Platelet mean volume (Bld) [Entitic vol] 10.1 fL 6.2-12.0 [facility] Work Phone: [phone] Determination of erythrocyte mean corpuscular volume (MCV)on 10-08-2021 MCV (RBC) [Entitic vol] 93.2 fL 81-99 [facility] Work Phone: [phone] Hematocrit Auto (Bld) [Volum e fraction]on 10-08-2021 Hematocrit (Bld) [Volume fraction] 44.9 % 37-47 [facility] Work Phone: Laboratory - Chemistry and C hemistry - challengeon 10-08-2021 ALP [Catalytic activity/Vol] 83 U/L 45-117 [facility] Work Phone: ALT [Catalytic activity/Vol] 27 U/L 13-56 [facility] Work Phone: [phone] CO2 [Moles/Vol] 26.0 mmol/L 21.0-32.0 [facility] Work Phone: Globulin (S) [Mass/Vol] 3.5 g/dL 2.2-4.2 [facility] Work Phone: [phone] Urea nitrogen/Creatinine [Mass ratio] 11.2 mg/mg 10-20 [facility] Work Phone: Laboratory - Hematology and Cell countson 10-08-2021 Erythrocyte distribution width (RBC) [Entitic vol] 45.8 fL 35.1-43.9 [facility] Work Phone: [phone] Erythrocyte distribution width (RBC) [Ratio] 13.6 % 11.6-14.6 [facility] Work Phone: [phone] Immature granulocytes/100 WBC (Bld) 0.300 % 0.0-0.9 [facility] Work Phone: [phone] Comment on above: IG% - Immature Granu locytes (promyelocytes, myelocytes and metamyelocytes) > 1% indicates that a LEFT SHIFT is Present. MCH (RBC) [Entitic mass] 31.7 pg 27.0-32.0 [facility] Work Phone: [phone] Nucleated RBC/100 WBC (Bld) [Ratio] 0 % 0-5 [facility] Work Phone: [phone] MCHC Auto (RBC) [Mass/Vol]on 10-08-2021 MCHC (RBC) [Mass/Vol] 34.1 g/dL 32-36 [facility] Work Phone: [phone] No Panel Informationon 10-08 Estimated GFR (MDRD) Amer 93 mL/min >60 [facility] Work Phone: [phone] Comment on above: GFR Calc Estimated GFR (MDRD) Non-Af Amer 77 mL/min >60 [facility] Work Phone: [phone] Comment on above: Non- GFR Calc Platelets bldon 10-08-2021 Platelets (Bld) [#/Vol] 356 10*3/uL 150-450 [facility] Work Phone: [phone] Serum or plasma albumin rosie urement (mass/volume)on 10-08-2021 Albumin [Mass/Vol] 3.9 g/dL 3.2-5.0 [facility] Work Phone: [phone] Serum or plasma albumin/glob ulin mass ratioon 10-08-2021 Albumin/Globulin [Mass ratio] 1.1 {ratio} 0.9-2.4 [facility] Work Phone: [phone] Serum or plasma calcium rosie urement (mass/volume)on 10-08-2021 Calcium [Mass/Vol] 9.5 mg/dL 8.5-10.1 [facility] Work Phone: Serum or plasma creatinine m easurement (mass/volume)on 10-08-2021 Creatinine [Mass/Vol] 0.80 mg/dL 0.55-1.02 [facility] Work Phone: Comment on above: The validity of the calculated GFR & GFRAA in patients over 70 years has not been determined. Clinical correlation is essential. Serum or plasma urea nitroge n measurement (mass/volume)on 10-08-2021 Urea nitrogen [Mass/Vol] 9 mg/dL 7-18 [facility] Work Phone: Thin prep Papanicolaou smear with manual screeningon 10-08-2021 Thin prep Papanicolaou smear with manual screening 24 U/L 15-37 [facility] Work Phone: Thin prep Papanicolaou smear with manual screening 8 5-15 [facility] Work Phone: Absolute lymphocyte counton 07-22-2021 Lymphocytes Auto (Unsp spec) [#/Vol] 1.29 10*3/uL 0.83-4.51 [facility] Work Phone: Basophil percentageon 2021 Basophils/100 WBC (Bld) 0.9 % 0-1 [facility] Work Phone: Bilirubin [Mass/Vol] 0.50 mg/dL 0.20-1.00 [facility] Work Phone: Comment on above: For patients on eltr ombopag therapy, use of Dimension [place] TBIL is not recommended. Chloride [Moles/Vol] 104 mmol/L 98-107 [facility] Work Phone: Eosinophils/100 WBC (Bld) 2.0 % 0-5 [facility] Work Phone: Glucose [Mass/Vol] 96 mg/dL 74-106 [facility] Work Phone: Neutrophils (Bld) [#/Vol] 2.5 10*3/uL 2.0-7.7 [facility] Work Phone: Neutrophils/100 WBC (Bld) 56.6 % 47-70 [facility] Work Phone: Potassium [Moles/Vol] 3.9 mmol/L 3.5-5.1 [facility] Work Phone: Protein [Mass/Vol] 7.0 g/dL 6.4-8.2 [facility] Work Phone: Sodium [Moles/Vol] 137 mmol/L 136-145 [facility] Work Phone: WBC (Bld) [#/Vol] 4.5 10*3/uL 4.4-11.0 [facility] Work Phone: Blood erythrocytes count (nu mber/volume)on 07-22-2021 RBC (Bld) [#/Vol] 4.54 10*6/uL 4.2-5.4 [facility]: Blood hemoglobin measurement (mass/volume)on 07-22-2021 Hemoglobin (Bld) [Mass/Vol] 14.5 g/dL 12.0-15.0 [facility] Work Phone: Blood lymphocytes/100 leukoc yteson 07-22-2021 Lymphocytes/100 WBC (Bld) 28.7 % 19-41 [facility] Work Phone: Blood monocytes/100 leukocyt eson 07-22-2021 Monocytes/100 WBC (Bld) 11.6 % 0-10 [facility] Work Phone: Blood platelet mean volumeon 07-22-2021 Platelet mean volume (Bld) [Entitic vol] 10.1 fL 6.2-12.0 [facility] Work Phone: Determination of erythrocyte mean corpuscular volume (MCV)on 07-22-2021 MCV (RBC) [Entitic vol] 93.0 fL 81-99 [facility] Work Phone: Hematocrit Auto (Bld) [Volum e fraction]on 07-22-2021 Hematocrit (Bld) [Volume fraction] 42.2 % 37-47 [facility] Work Phone: [phone] Laboratory - Chemistry and C hemistry - challengeon 07-22-2021 ALP [Catalytic activity/Vol] 77 U/L 45-117 [facility] Work Phone: [phone] ALT [Catalytic activity/Vol] 23 U/L 13-56 [facility] Work Phone: [phone] CO2 [Moles/Vol] 26.0 mmol/L 21.0-32.0 [facility] Work Phone: [phone] Globulin (S) [Mass/Vol] 3.2 g/dL 2.2-4.2 [facility] Work Phone: [phone] Urea nitrogen/Creatinine [Mass ratio] 9.9 mg/mg 10-20 [facility] Work Phone: [phone] Laboratory - Hematology and Cell countson 07-22-2021 Erythrocyte distribution width (RBC) [Entitic vol] 46.6 fL 35.1-43.9 [facility] Work Phone: [phone] Erythrocyte distribution width (RBC) [Ratio] 13.9 % 11.6-14.6 [facility] Work Phone: [phone] Immature granulocytes/100 WBC (Bld) 0.200 % 0.0-0.9 [facility] Work Phone: [phone] Comment on above: IG% - Immature Granu locytes (promyelocytes, myelocytes and metamyelocytes) > 1% indicates that a LEFT SHIFT is Present. MCH (RBC) [Entitic mass] 31.9 pg 27.0-32.0 [facility] Work Phone: [phone] Nucleated RBC/100 WBC (Bld) [Ratio] 0 % 0-5 [facility] Work Phone: [phone] MCHC Auto (RBC) [Mass/Vol]on 07-22-2021 MCHC (RBC) [Mass/Vol] 34.4 g/dL 32-36 [facility]: [phone] Panel Informationon 07-22 Estimated GFR (MDRD) Amer 93 mL/min >60 [facility] Work Phone: Comment on above: GFR Calc Estimated GFR (MDRD) Non-Af Amer 77 mL/min >60 [facility] Work Phone: Comment on above: Non- GFR Calc Platelets bldon 07-22-2021 Platelets (Bld) [#/Vol] 345 10*3/uL 150-450 [facility] Work Phone: Serum or plasma albumin rosie urement (mass/volume)on 07-22-2021 Albumin [Mass/Vol] 3.8 g/dL 3.2-5.0 [facility] Work Phone: [phone] Serum or plasma albumin/glob ulin mass ratioon 07-22-2021 Albumin/Globulin [Mass ratio] 1.2 {ratio} 0.9-2.4 [facility] Work Phone: [phone] Serum or plasma calcium rosie urement (mass/volume)on 07-22-2021 Calcium [Mass/Vol] 9.3 mg/dL 8.5-10.1 [facility] Work Phone: Serum or plasma creatinine m easurement (mass/volume)on 07-22-2021 Creatinine [Mass/Vol] 0.81 mg/dL 0.55-1.02 [facility] Work Phone: Comment on above: The validity of the calculated GFR & GFRAA in patients over 70 years has not been determined. Clinical correlation is essential. Serum or plasma urea nitroge n measurement (mass/volume)on 07-22-2021 Urea nitrogen [Mass/Vol] 8 mg/dL 7-18 [facility] Work Phone: [phone] Thin prep Papanicolaou smear with manual screeningon 07-22-2021 Thin prep Papanicolaou smear with manual screening 18 U/L 15-37 [facility] Work Phone: [phone] Thin prep Papanicolaou smear with manual screening 7 5-15 [facility] Work Phone: Absolute lymphocyte counton 04-30-2021 Lymphocytes Auto (Unsp spec) [#/Vol] 1.46 10*3/uL 0.83-4.51 [facility] Work Phone: Basophil percentageon 2021 Basophils/100 WBC (Bld) 0.6 % 0-1 [facility] Work Phone: Bilirubin [Mass/Vol] 0.70 mg/dL 0.20-1.00 [facility] Work Phone: Comment on above: For patients on eltr ombopag therapy, use of Dimension [place] TBIL is not recommended. Chloride [Moles/Vol] 106 mmol/L 98-107 [facility] Work Phone: Eosinophils/100 WBC (Bld) 1.7 % 0-5 [facility] Work Phone: Glucose [Mass/Vol] 116 mg/dL 74-106 [facility] Work Phone: Comment on above: Fasting Glucose resu lt from 100 to 125 mg/dL suggests IMPAIRED HOMEOSTASIS per A.D.A. criteria. Neutrophils (Bld) [#/Vol] 3.1 10*3/uL 2.0-7.7 [facility] Work Phone: Neutrophils/100 WBC (Bld) 59.6 % 47-70 [facility] Work Phone: Potassium [Moles/Vol] 3.6 mmol/L 3.5-5.1 [facility] Work Phone: Comment on above: Slight Hemolysis, Re sult may be falsely increased. Protein [Mass/Vol] 7.3 g/dL 6.4-8.2 [facility] Work Phone: Sodium [Moles/Vol] 136 mmol/L 136-145 [facility] Work Phone: WBC (Bld) [#/Vol] 5.2 10*3/uL 4.4-11.0 [facility] Work Phone: Blood erythrocytes count (nu mber/volume)on 04-30-2021 RBC (Bld) [#/Vol] 4.60 10*6/uL 4.2-5.4 [facility] Work Phone: Blood hemoglobin measurement (mass/volume)on 04-30-2021 Hemoglobin (Bld) [Mass/Vol] 14.7 g/dL 12.0-15.0 [facility] Work Phone: Blood lymphocytes/100 leukoc yteson 04-30-2021 Lymphocytes/100 WBC (Bld) 28.2 % 19-41 [facility] Work Phone: [phone] Blood monocytes/100 leukocyt eson 04-30-2021 Monocytes/100 WBC (Bld) 9.7 % 0-10 [facility] Work Phone: [phone] Blood platelet mean volumeon 04-30-2021 Platelet mean volume (Bld) [Entitic vol] 10.2 fL 6.2-12.0 [facility] Work Phone: Determination of erythrocyte mean corpuscular volume (MCV)on 04-30-2021 MCV (RBC) [Entitic vol] 92.0 fL 81-99 [facility] Work Phone: Hematocrit Auto (Bld) [Volum e fraction]on 04-30-2021 Hematocrit (Bld) [Volume fraction] 42.3 % 37-47 [facility] Work Phone: Laboratory - Chemistry and C hemistry - challengeon 04-30-2021 ALP [Catalytic activity/Vol] 76 U/L 45-117 [facility] Work Phone: ALT [Catalytic activity/Vol] 24 U/L 13-56 [facility] Work Phone: [phone] CO2 [Moles/Vol] 22.0 mmol/L 21.0-32.0 [facility] Work Phone: Globulin (S) [Mass/Vol] 3.4 g/dL 2.2-4.2 [facility] Work Phone: Urea nitrogen/Creatinine [Mass ratio] 11.0 mg/mg 10-20 [facility] Work Phone: [phone] Laboratory - Hematology and Cell countson 04-30-2021 Erythrocyte distribution width (RBC) [Entitic vol] 46.0 fL 35.1-43.9 [facility] Work Phone: [phone] Erythrocyte distribution width (RBC) [Ratio] 13.7 % 11.6-14.6 [facility] Work Phone: [phone] Immature granulocytes/100 WBC (Bld) 0.200 % 0.0-0.9 [facility] Work Phone: [phone] Comment on above: IG% - Immature Granu locytes (promyelocytes, myelocytes and metamyelocytes) > 1% indicates that a LEFT SHIFT is Present. MCH (RBC) [Entitic mass] 32.0 pg 27.0-32.0 [facility] Work Phone: [phone] Nucleated RBC/100 WBC (Bld) [Ratio] 0 % 0-5 [facility] Work Phone: [phone] MCHC Auto (RBC) [Mass/Vol]on 04-30-2021 MCHC (RBC) [Mass/Vol] 34.8 g/dL 32-36 [facility] Work Phone: [phone] No Panel Informationon 04-30 Estimated GFR (MDRD) Amer 91 mL/min >60 [facility] Work Phone: [phone] Comment on above: GFR Calc Estimated GFR (MDRD) Non-Af Amer 75 mL/min >60 [facility] Work Phone: [phone] Comment on above: Non- GFR Calc Platelets bldon 04-30-2021 Platelets (Bld) [#/Vol] 335 10*3/uL 150-450 [facility] Work Phone: [phone] Serum or plasma albumin rosie urement (mass/volume)on 04-30-2021 Albumin [Mass/Vol] 3.9 g/dL 3.2-5.0 [facility] Work Phone: [phone] Serum or plasma albumin/glob ulin mass ratioon 04-30-2021 Albumin/Globulin [Mass ratio] 1.1 {ratio} 0.9-2.4 [facility] Work Phone: [phone] Serum or plasma calcium rosie urement (mass/volume)on 04-30-2021 Calcium [Mass/Vol] 9.2 mg/dL 8.5-10.1 [facility] Work Phone: [phone] Serum or plasma creatinine m easurement (mass/volume)on 04-30-2021 Creatinine [Mass/Vol] 0.82 mg/dL 0.55-1.02 [facility] Work Phone: [phone] Comment on above: The validity of the calculated GFR & GFRAA in patients over 70 years has not been determined. Clinical correlation is essential. Serum or plasma urea nitroge n measurement (mass/volume)on 04-30-2021 Urea nitrogen [Mass/Vol] 9 mg/dL 7-18 [facility] Work Phone: [phone] Thin prep Papanicolaou smear with manual screeningon 04-30-2021 Thin prep Papanicolaou smear with manual screening 23 U/L 15-37 [facility] Work Phone: [phone] Comment on above: Slight Hemolysis, Re sult may be falsely increased. Thin prep Papanicolaou smear with manual screening 8 5-15 [facility] Work Phone: [phone] Absolute lymphocyte counton 02-03-2021 Lymphocytes Auto (Unsp spec) [#/Vol] 2.54 10*3/uL 0.83-4.51 [facility] Work Phone: [phone] Basophil percentageon 2020 Bilirubin [Mass/Vol] 0.30 mg/dL 0.20-1.00 [facility] Work Phone: [phone] Comment on above: For patients on eltr ombopag therapy, use of Dimension [place] TBIL is not recommended. Chloride [Moles/Vol] 103 mmol/L 98-107 [facility] Work Phone: [phone] Eosinophils/100 WBC (Bld) 2.2 % 0-5 [facility] Work Phone: Glucose [Mass/Vol] 89 mg/dL 74-106 [facility] Work Phone: Comment on above: Please note revised GLUCOSE reference range effective 2017. Neutrophils (Bld) [#/Vol] 3.0 10*3/uL 2.0-7.7 [facility] Work Phone: Potassium [Moles/Vol] 3.8 mmol/L 3.5-5.1 [facility] Work Phone: Protein [Mass/Vol] 7.5 g/dL 6.4-8.2 [facility] Work Phone: Sodium [Moles/Vol] 136 mmol/L 136-145 [facility] Work Phone: WBC (Bld) [#/Vol] 6.5 10*3/uL 4.4-11.0 [facility] Work Phone: [phone] Blood erythrocytes count (nu mber/volume)on 02-03-2021 RBC (Bld) [#/Vol] 4.66 10*6/uL 4.2-5.4 [facility]: Blood hemoglobin measurement (mass/volume)on 02-03-2021 Hemoglobin (Bld) [Mass/Vol] 14.5 g/dL 12.0-15.0 [facility] Work Phone: Blood lymphocytes/100 leukoc yteson 02-03-2021 Lymphocytes/100 WBC (Bld) 39.2 % 19-41 [facility] Work Phone: Blood monocytes/100 leukocyt eson 02-03-2021 Monocytes/100 WBC (Bld) 11.4 % 0-10 [facility] Work Phone: Blood platelet mean volumeon 02-03-2021 Platelet mean volume (Bld) [Entitic vol] 9.3 fL 6.2-12.0 [facility] Work Phone: [phone] Determination of erythrocyte mean corpuscular volume (MCV)on 02-03-2021 MCV (RBC) [Entitic vol] 93.6 fL 81-99 [facility] Work Phone: Hematocrit Auto (Bld) [Volum e fraction]on 02-03-2021 Hematocrit (Bld) [Volume fraction] 43.6 % 37-47 [facility] Work Phone: Laboratory - Chemistry and C hemistry - challengeon 02-03-2021 ALP [Catalytic activity/Vol] 102 U/L 45-117 [facility] Work Phone: ALT [Catalytic activity/Vol] 22 U/L 13-56 [facility] Work Phone: [phone] CO2 [Moles/Vol] 26.0 mmol/L 21.0-32.0 [facility] Work Phone: Globulin (S) [Mass/Vol] 3.7 g/dL 2.2-4.2 [facility] Work Phone: [phone] Urea nitrogen/Creatinine [Mass ratio] 12.0 mg/mg 10-20 [facility] Work Phone: Laboratory - Hematology and Cell countson 02-03-2021 Basophils/100 WBC (Unsp spec) 0.6 % 0-1 [facility] Work Phone: Erythrocyte distribution width (RBC) [Entitic vol] 45.2 fL 35.1-43.9 [facility] Work Phone: Erythrocyte distribution width (RBC) [Ratio] 13.2 % 11.6-14.6 [facility] Work Phone: Immature granulocytes/100 WBC (Bld) 0.600 % 0.0-0.9 [facility] Work Phone: Comment on above: IG% - Immature Granu locytes (promyelocytes, myelocytes and metamyelocytes) > 1% indicates that a LEFT SHIFT is Present. MCH (RBC) [Entitic mass] 31.1 pg 27.0-32.0 [facility] Work Phone: Neutrophils/100 WBC (Bld) 46.0 % 47-70 [facility] Work Phone: Nucleated RBC/100 WBC (Bld) [Ratio] 0 % 0-5 [facility] Work Phone: MCHC Auto (RBC) [Mass/Vol]on 02-03-2021 MCHC (RBC) [Mass/Vol] 33.3 g/dL 32-36 [facility] Work Phone: No Panel Informationon 02-03 Estimated GFR (MDRD) Amer 89 mL/min >60 [facility] Work Phone: Comment on above: GFR Calc Estimated GFR (MDRD) Non-Af Amer 74 mL/min >60 [facility] Work Phone: Comment on above: Non- GFR Calc Platelets bldon 02-03-2021 Platelets (Bld) [#/Vol] 421 10*3/uL 150-450 [facility] Work Phone: [phone] Serum or plasma albumin rosie urement (mass/volume)on 02-03-2021 Albumin [Mass/Vol] 3.8 g/dL 3.2-5.0 [facility] Work Phone: Serum or plasma albumin/glob ulin mass ratioon 02-03-2021 Albumin/Globulin [Mass ratio] 1.0 {ratio} 0.9-2.4 [facility] Work Phone: Serum or plasma calcium rosie urement (mass/volume)on 02-03-2021 Calcium [Mass/Vol] 9.2 mg/dL 8.5-10.1 [facility] Work Phone: [phone] Serum or plasma creatinine m easurement (mass/volume)on 02-03-2021 Creatinine [Mass/Vol] 0.84 mg/dL 0.55-1.02 [facility] Work Phone: Comment on above: The validity of the calculated GFR & GFRAA in patients over 70 years has not been determined. Clinical correlation is essential. Serum or plasma urea nitroge n measurement (mass/volume)on 02-03-2021 Urea nitrogen [Mass/Vol] 10 mg/dL 7-18 [facility] Work Phone: Thin prep Papanicolaou smear with manual screeningon 02-03-2021 Thin prep Papanicolaou smear with manual screening 15 U/L 15-37 [facility] Work Phone: [phone] Thin prep Papanicolaou smear with manual screening 7 5-15 [facility] Work Phone: [phone] Laboratory - Microbiology an d Antimicrobial susceptibilityon 01-29-2021 SARS-CoV-2 (COVID-19) RNA SHANA+probe Ql (Unsp spec) Not detected [facility] Work Phone: [phone] No Panel Informationon 01-29 POC Nasal Swab Influenza A,B Not detected [facility] Work Phone: [phone] POC Nasal Swab RSV Not detected [facility] Work Phone: [phone] [id number] 02-06-2020 COVID-19 Int Normal [facility] ([place]) Comment on above: Result Comment: Nega tive results do not preclude SARS-CoV-2 infection and should not be used as the sole basis for patient management decisions. Negative results must be combined with clinical observations, patient history, and epidemiological information. There is a risk of false negative values resulting from improperly collected, transported, or handled specimens. There is a risk of false negative values due to the presence of sequence variants in the pathogen targets of the assay, procedural errors, amplification inhibitors in specimens, or inadequate numbers of organisms for amplification. KEISHA SARS-CoV-2 Assay is a Real-Time reverse-transcriptase polymerase chain reaction (RT-PCR) based qualitative in vitro diagnostic test intended for the qualitative detection of nucleic acid from the SARS-CoV-2 in nasopharyngeal swab specimens collected from individuals suspected of COVID-19 by their healthcare provider. Testing is limited to laboratories certified under the Clinical Laboratory Improvement Amendments of 1988 (CLIA), 42 U.S.C. ?263a, to perform moderate and high complexity tests. COVID-19 Int Performed By: #### C OVD19 #### [facility] [address] [place] [address] COVID-19 Result Negative Normal Negative [facility] ([place]) Comment on above: Performed By: #### C OVD19 #### [place] [address] Date of Onset [id number] [facility] ([place]) Comment on above: Performed By: #### C OVD19 #### [place] [address] Employed in Healthcare No [facility] ([place]) Comment on above: Performed By: #### C OVD19 #### [place] [address] First Test Yes [facility] ([place] Comment on above: Performed By: #### C OVD19 #### [place] [address] Hospitalized No [facility] ([place] Comment on above: Performed By: #### C OVD19 #### [place] [address] ICU No [facility] ([place] Comment on above: Performed By: #### C OVD19 #### [place] [address] Not [facility] [place] Comment on above: Performed By: #### C OVD19 #### [place] [address] Resides in Congregate Care Setting No [facility] ([place] Comment on above: Performed By: #### C OVD19 #### [place] [address] Symptomatic as Defined by CDC Yes [facility] ([place] Comment on above: Performed By: #### C OVD19 #### [place] [address] CNOVon 05-02-2019 CNOV Office Visit (WOOB) -------- CALDERON REID ([id number]) 1960 F Date Time Provider Department 05/02/19 9:20 AM DANIELLA GIRON During your visit today, we recorded the following information about you: Blood pressure Weight 118/70 85.7 kg Daniella Giron MD 05/02/2019 12:33 PM Signed Calderon Reid is a 58 year old female who presents for problem visit for PMB x 1 week. Happened after intercourse. Was somewhat bright red but a small amount. A little bit on her clothing, and a small amount when she wiped. She did not see anything bleeding from the vulvar area. She did not have any pain but maybe a little irritation. She denies vaginal dryness as being an issue. She not have any change in sexual partners. She does not have any dyspareunia. She has a history of a hysterectomy a Cara 20 years ago for pelvic prolapse and benign disease, and a bladder tuck. However she has some occasional urgency of urination and pressure in her vaginal area. This is not new. She denies any dysuria or hematuria. She denies any constipation. She denies any trauma to the area that would've caused bleeding. When she placed a small amount of toilet paper up into the vagina the blood was deathly coming from the vagina and not the urethra or the anus. PAST MEDICAL HISTORY Diagnosis Date - Adjustment disorder with depressed mood anxiety - Esophageal reflux - Hypothyroidism - Psoriatic arthritis (HCC) PAST SURGICAL HISTORY Procedure Laterality Date - LIGATE FALLOPIAN TUBE - OPEN RX NOSE/JAW FRACT+WIRES - PAST SURGICAL HISTORY OF bladder lift - PAST SURGICAL HISTORY OF ovary lift - PAST SURGICAL HISTORY OF ovary resection - PAST SURGICAL HISTORY OF fallopian tube reconstruction - REMOVAL OF TONSILS,<12 Y/O - TOTAL ABDOM HYSTERECTOMY FAMILY HISTORY Problem Relation Age of Onset - Hypertension Mother - Stroke Mother - Dementia Mother - other (Kidney) Mother - other (brain tumor) Mother - Hypertension Father - Heart Father Social History Tobacco Use - Smoking status: Former Smoker - Smokeless tobacco: Never Used Substance Use Topics - Alcohol use: Not Currently - Drug use: No Current Outpatient Medications Medication Sig - OTEZLA 30 mg tablet - busPIRone (BUSPAR) 7.5 mg tablet - carboxymethylcellulose (THERATEARS) 1 % ophthalmic solution Use in eyes. - LORazepam (ATIVAN) 1 mg tablet TAKE 1/2 TO 1 TABLET BY MOUTH TWICE DAILY NEEDED FOR ANXIETY - methotrexate 2.5 mg tablet Take 2.5 mg by mouth one time only. takes 6 a week - FOLIC ACID ORAL Take by mouth. - leucovorin (LEUCOVORIN) 5 mg tablet - CITALOPRAM HYDROBROMIDE (CELEXA ORAL) Take by mouth. - LEVOTHYROXINE SODIUM (SYNTHROID ORAL) Take by mouth. - esomeprazole mag trihydrate(NEXIUM 40 MG CAP) Take one(1) capsule daily. No current facility-administered medications for this visit. Allergies As of Date: 05/02/2019 (No Known Allergies) Fully Assessed 05/02/2019 REVIEW OF SYSTEMS Abdomen: No bloating, early satiety, indigestion, or increased flatulence. No abdominal pain, nausea, vomiting, diarrhea, or constipation. Bladder: No dysuria, gross hematuria, urinary frequency, some urgency, no significant incontinence. Expanded ROS: N/A Allergies and current medication updated:Yes EXAM: There were no vitals taken for this visit. GENERAL: pleasant, female in no apparent distress ABDOMEN: soft, non-tender and no masses PELVIC: Normal external genitalia, normal labia, normal hair distribution pattern, somewhat widened introitus. Attenuated but normal-appearing perineal area. Normal perianal area. No lesions or ulcerations noted. No hyperpigmentation. Some atrophy, otherwise normal hair distribution pattern. Vagina has atrophic rugated that her flattened. She has lateral wall defects as well as cystocele and rectocele. Good apical cuff support. Cuff is intact. Cervix is absent. There is no blood in the vault. There are no ulcerations or lesions noted. BIMANUAL: no adnexal masses, non-tender and uterus surgically absent ASSESSMENT AND PLAN: Postmenopausal bleeding after intercourse, atrophic vaginitis, cystocele rectocele along with lateral wall vaginal defects. Discussed with her at this point that I do not see any areas that would've caused bleeding. Likely was just a small fissure in the vagina that bled acutely after intercourse. If recurs, she should call us and try to be seen day of the bleeding. Overall, doesn't have significant symptoms of genitourinary syndrome of menopause, so will not prescribe vaginal estrogen at this time. Recommend follow up for annual exams or as needed. Primary care physician orders other healthcare screening including mammogram. No Pap smear is indicated. Daniella Giron MD Referring Provider: SELF [[id number]] Allergies As of Date: 05/02/2019 (No Known Allergies) Date Reviewed: 05/02/2019 Reviewed by: Daniella Giron - Fully Assessed Reason for Visit: bleeding with intercorse [Other] Primary Visit Diagnosis:Postmenopausal atrophic vaginitis [N95.2] Other Visit Diagnoses:Cystocele, midline [N81.11] Rectocele [N81.6] Postcoital bleeding [N93.0] Prescriptions as of 05/02/2019 Sig: OTEZLA 30 MG TABLET BUSPIRONE 7.5 MG TABLET THERATEARS 1 % GEL IN A DROPP* Use in eyes. LORAZEPAM 1 MG TABLET TAKE 1/2 TO 1 TABLET BY MOUTH* METHOTREXATE SODIUM 2.5 MG TA* Take 2.5 mg by mouth one time* FOLIC ACID ORAL Take by mouth. LEUCOVORIN CALCIUM 5 MG TABLET CELEXA ORAL Take by mouth. SYNTHROID ORAL Take by mouth. * NEXIUM 40 MG CAPSULE,DELAYED * Take one(1) capsule daily. Problem List As Of Date 05/02/2019 Noted Resolved ADJUSTMENT DISORDER WITH DEPRESSED MOOD [F43.21]03/15/2008 ESOPHAGEAL REFLUX [K21.9] 03/15/2008 Encounter Status:Closed by DANIELLA GIRON MD on 05/02/19 Normal [facility] PROGRESSon 05-02-2019 PROGRESS HNO ID: [id number] Author: Daniella Giron Service: ? Author Type: Physician Type: Progress Notes Filed: 05/02/2019 12:33 PM Note Text: Calderon Reid is a 58 year old female who presents for problem visit for PMB x 1 week. Happened after intercourse. Was somewhat bright red but a small amount. A little bit on her clothing, and a small amount when she wiped. She did not see anything bleeding from the vulvar area. She did not have any pain but maybe a little irritation. She denies vaginal dryness as being an issue. She not have any change in sexual partners. She does not have any dyspareunia. She has a history of a hysterectomy a Cara 20 years ago for pelvic prolapse and benign disease, and a bladder tuck. However she has some occasional urgency of urination and pressure in her vaginal area. This is not new. She denies any dysuria or hematuria. She denies any constipation. She denies any trauma to the area that would've caused bleeding. When she placed a small amount of toilet paper up into the vagina the blood was deathly coming from the vagina and not the urethra or the anus. PAST MEDICAL HISTORY Diagnosis Date - Adjustment disorder with depressed mood anxiety - Esophageal reflux - Hypothyroidism - Psoriatic arthritis (HCC) PAST SURGICAL HISTORY Procedure Laterality Date - LIGATE FALLOPIAN TUBE - OPEN RX NOSE/JAW FRACT+WIRES - PAST SURGICAL HISTORY OF bladder lift - PAST SURGICAL HISTORY OF ovary lift - PAST SURGICAL HISTORY OF ovary resection - PAST SURGICAL HISTORY OF fallopian tube reconstruction - REMOVAL OF TONSILS,<12 Y/O - TOTAL ABDOM HYSTERECTOMY FAMILY HISTORY Problem Relation Age of Onset - Hypertension Mother - Stroke Mother - Dementia Mother - other (Kidney) Mother - other (brain tumor) Mother - Hypertension Father - Heart Father Social History Tobacco Use - Smoking status: Former Smoker - Smokeless tobacco: Never Used Substance Use Topics - Alcohol use: Not Currently - Drug use: No Current Outpatient Medications Medication Sig - OTEZLA 30 mg tablet - busPIRone (BUSPAR) 7.5 mg tablet - carboxymethylcellulose (THERATEARS) 1 % ophthalmic solution Use in eyes. - LORazepam (ATIVAN) 1 mg tablet TAKE 1/2 TO 1 TABLET BY MOUTH TWICE DAILY NEEDED FOR ANXIETY - methotrexate 2.5 mg tablet Take 2.5 mg by mouth one time only. takes 6 a week - FOLIC ACID ORAL Take by mouth. - leucovorin (LEUCOVORIN) 5 mg tablet - CITALOPRAM HYDROBROMIDE (CELEXA ORAL) Take by mouth. - LEVOTHYROXINE SODIUM (SYNTHROID ORAL) Take by mouth. - esomeprazole mag trihydrate(NEXIUM 40 MG CAP) Take one(1) capsule daily. No current facility-administered medications for this visit. Allergies As of Date: 05/02/2019 (No Known Allergies) Fully Assessed 05/02/2019 REVIEW OF SYSTEMS Abdomen: No bloating, early satiety, indigestion, or increased flatulence. No abdominal pain, nausea, vomiting, diarrhea, or constipation. Bladder: No dysuria, gross hematuria, urinary frequency, some urgency, no significant incontinence. Expanded ROS: N/A Allergies and current medication updated:Yes EXAM: There were no vitals taken for this visit. GENERAL: pleasant, female in no apparent distress ABDOMEN: soft, non-tender and no masses PELVIC: Normal external genitalia, normal labia, normal hair distribution pattern, somewhat widened introitus. Attenuated but normal-appearing perineal area. Normal perianal area. No lesions or ulcerations noted. No hyperpigmentation. Some atrophy, otherwise normal hair distribution pattern. Vagina has atrophic rugated that her flattened. She has lateral wall defects as well as cystocele and rectocele. Good apical cuff support. Cuff is intact. Cervix is absent. There is no blood in the vault. There are no ulcerations or lesions noted. BIMANUAL: no adnexal masses, non-tender and uterus surgically absent ASSESSMENT AND PLAN: Postmenopausal bleeding after intercourse, atrophic vaginitis, cystocele rectocele along with lateral wall vaginal defects. Discussed with her at this point that I do not see any areas that would've caused bleeding. Likely was just a small fissure in the vagina that bled acutely after intercourse. If recurs, she should call us and try to be seen day of the bleeding. Overall, doesn't have significant symptoms of genitourinary syndrome of menopause, so will not prescribe vaginal estrogen at this time. Recommend follow up for annual exams or as needed. Primary care physician orders other healthcare screening including mammogram. No Pap smear is indicated. Daniella Giron MD Normal [facility] Culture, urine Bacteria identified Cx Nom (U) Presumptive E. coli [facility] Work Phone: Vital Signs Date Time Vital Sign Value Performing Clinician Facility 03-17-2022 15:24-0500 Body mass index (BMI) [Ratio] 28.17 kg/m2 Gilles Bronson MD Work Phone: [facility] 03-17-2022 15:24-0500 Body temperature 97.11 [degF] Gliles Bronson MD Work Phone: [facility] 03-17-2022 15:24-0500 Body weight 80.38 kg Gilles Bronson MD Work Phone: [facility] 03-17-2022 15:24-0500 Diastolic blood pressure 78 mm[Hg] Gilles Bronson MD Work Phone: [facility] 03-17-2022 15:24-0500 Systolic blood pressure 120 mm[Hg] Gilles Bronson MD Work Phone: [facility] 02-25-2022 13:36-0500 Body temperature 97.9 [degF] Dr. Dandy Childs Work Phone: [facility] 02-25-2022 13:36-0500 Diastolic blood pressure 82 mm[Hg] Dr. Dandy Childs Work Phone: [facility] 02-25-2022 13:36-0500 Heart rate 70 /min Dr. Dandy Childs Work Phone: [facility] 02-25-2022 13:36-0500 Respiratory rate 20 /min Dr. Dandy Childs Work Phone: [facility] 02-25-2022 13:36-0500 SaO2% (BldA) [Mass fraction] 97 % Dr. Dandy Childs Work Phone: [facility] 02-25-2022 13:36-0500 Systolic blood pressure 118 mm[Hg] Dr. Dandy Childs Work Phone: [facility] 02-03-2022 12:05-0500 Body temperature 97.8 [degF] Dr. Dandy Childs Work Phone: [facility] 02-03-2022 12:05-0500 Diastolic blood pressure 74 mm[Hg] Dr. Dandy Childs Work Phone: [facility] 02-03-2022 12:05-0500 Heart rate 73 /min Dr. Dandy Childs Work Phone: [facility] 02-03-2022 12:05-0500 Respiratory rate 14 /min Dr. Dandy Childs Work Phone: [facility] 02-03-2022 12:05-0500 SaO2% (BldA) [Mass fraction] 99 % Dr. Dandy Childs Work Phone: [facility] 02-03-2022 12:05-0500 Systolic blood pressure 134 mm[Hg] Dr. Dandy Childs Work Phone: [facility] 11-18-2021 10:39-0400 Diastolic blood pressure 79 mm[Hg] Shannan Mon MD Work Phone: [facility] 11-18-2021 10:39-0400 Heart rate 60 /min Shannan Mon MD Work Phone: [facility] 11-18-2021 10:39-0400 Respiratory rate 18 /min Shannan Mon MD Work Phone: [facility] 11-18-2021 10:39-0400 SaO2% (BldA) [Mass fraction] 99 % Shannan Mon MD Work Phone: [facility] 11-18-2021 10:39-0400 Systolic blood pressure 124 mm[Hg] Shannna Mon MD Work Phone: [facility] 11-18-2021 08:59-0400 Body height 168.9 cm Shannan Mon MD Work Phone: [facility] 11-18-2021 08:59-0400 Body mass index (BMI) [Ratio] 27.03 kg/m2 Shannan Mon MD Work Phone: [facility] 11-18-2021 08:59-0400 Body temperature 97 [degF] Shannan Mon MD Work Phone: [facility] 11-18-2021 08:59-0400 Body weight 77.11 kg Shannan Mon MD Work Phone: [facility] 01-29-2021 09:04-0500 Body temperature 96.8 [degF] Dr. Dandy Childs Work Phone: [facility] Work Phone: 01-29-2021 09:04-0500 Diastolic blood pressure 60 mm[Hg] Dr. Dandy Childs Work Phone: [facility] Work Phone: 01-29-2021 09:04-0500 Heart rate 83 /min Dr. Dandy Childs Work Phone: [facility] Work Phone: 01-29-2021 09:04-0500 Respiratory rate 17 /min Dr. Dandy Childs Work Phone: [facility] Work Phone: 01-29-2021 09:04-0500 SaO2% (BldA) [Mass fraction] 98 % Dr. Dandy Childs Work Phone: [facility] Work Phone: 01-29-2021 09:04-0500 Systolic blood pressure 90 mm[Hg] Dr. Dandy Childs Work Phone: [facility] Work Phone: Encounters Encounter Date Encounter Type Care Provider Facility Start: 07-25-2024 ambulatory Dandy Childs Facility: [facility] Start: 07-18-2024 End: 07-18-[address] Dandy Childs DO Work Phone: [facility] Work Phone: Start: 07-18-2024 End: 07-18-[address] Marybel Hidalgo MD -Laboratory [facility] Work Phone: Start: 07-18-2024 End: 07-18-2024 ambulatory Dandy Childs Facility:[facility] Start: 04-17-2024 End: 04-17-[address] Dandy Childs DO Work Phone: [facility] Work Phone: Start: 04-17-2024 End: 04-17-[address] Marybel Hidalgo MD -Laboratory, [facility] Work Phone: Start: 04-17-2024 End: 04-17-2024 ambulatory Dandy Childs Facility:[facility] Start: 02-24-2024 Encounter for genera l adult medical examination without abnormal findings Dandy Childs [facility] Start: 02-21-2024 End: 02-21-[address] Dandy Childs DO -Outpatient Breast Imaging Work Phone: Start: 02-21-2024 End: 02-21-2024 ambulatory Dandy Childs Facility:[facility] Start: 01-26-2024 End: 01-26-2024 Patient encounter procedure Nik Denton [facility] Work Phone: Start: 01-26-2024 End: 01-26-2024 ambulatory Dandy Childs Facility:[facility] Start: 01-24-2024 End: 01-24-[address] [facility] Start: 01-24-2024 End: 01-24-2024 ambulatory Dandy Childs Facility:[facility] Start: 01-19-2024 End: 01-19-[address] Marybel Hidalgo MD -Laboratory, [facility] Work Phone: Start: 01-19-2024 End: 01-19-2024 ambulatory Dandy Childs Facility:[facility] Start: 10-31-2023 End: 10-31-2023 ambulatory Marybel Rocky Facility:[facility] Start: 08-09-2023 End: 08-09-2023 ambulatory [facility] [place] Facility:[facility] Start: 08-05-2023 End: 08-05-2023 ambulatory Dandy Childs Facility:[facility] Start: 08-05-2023 End: 08-05-2023 ambulatory Dandy [facility] Facility:[facility] Start: 05-31-2023 End: 05-31-2023 ambulatory [facility] Work Phone: Start: 05-31-2023 End: 05-31-2023 Patient encounter procedure [facility] Work Phone: Start: 03-10-2023 End: 03-10-2023 ambulatory [facility] Work Phone: Start: 03-10-2023 End: 03-10-2023 Patient encounter procedure [facility] Work Phone: Start: 12-21-2022 End: 12-21-2022 ambulatory [facility] Work Phone: Start: 12-21-2022 End: 12-21-2022 Patient encounter procedure [place] Work Phone: Start: 09-17-2022 End: 09-17-2022 Patient encounter procedure [place] Work Phone: Start: 09-03-2022 End: 09-03-2022 [facility] Start: 06-04-2022 End: 06-04-2022 ambulatory [facility] Start: 05-18-2022 ambulatory Remi Moser RN [facility] Clinical Communication Start: 05-18-2022 Patient encounter procedure Remi Moser RN [facility] Clinical Communication Start: 04-02-2022 End: 04-02-[address] Dandy Childs Work Phone: [facility] Work Phone: Start: 04-02-2022 End: 04-02-[address] Dandy Childs Work Phone: [place] Start: 03-17-2022 End: 03-17-2022 ambulatory GILLES BRONSON [facility] Start: 03-17-2022 End: 03-17-2022 Postop follow up visit related to original px Gilles Bronson MD Work Phone: [facility] [place] Comment on above: Postop check (Primar y Dx) Start: 02-25-2022 End: 02-25-[address] Dandy Childs Work Phone: [facility] Work Phone: Start: 02-25-2022 End: 02-25-[address] [facility] Start: 02-25-2022 End: 02-25-[address] [facility] Start: 02-03-2022 End: 02-03-[address] [facility] Child[facility] Start: 02-03-2022 End: 02-03-[address] Dandy Childs Work Phone: [facility] Work Phone: Start: 02-03-2022 End: 02-03-[address] Dandy Childs Work Phone: [facility] Start: 01-27-2022 End: 01-28-2022 ambulatory [facility] Start: 01-11-2022 End: 01-11-2022 ambulatory [facility] Work Phone: Start: 01-11-2022 End: 01-11-2022 Patient encounter procedure [place] Start: 11-18-2021 End: 11-18-2021 ambulatory [facility] Start: 11-18-2021 End: 11-18-2021 Subsequent hospital visit by physician Shannan Mon MD Work Phone: [facility] Comment on above: Arrived Start: 10-08-2021 End: 10-08-2021 ambulatory [facility] Work Phone: Start: 10-08-2021 End: 10-08-2021 Patient encounter procedure [place] Start: 08-26-2021 End: 08-26-2021 Patient encounter procedure [facility] Start: 07-22-2021 End: 07-22-2021 Patient encounter procedure [place] Start: 04-30-2021 End: 04-30-[address] Dandy Childs Work Phone: [place] Start: 02-03-[address] Dandy Childs Work Phone: [place] Start: 01-29-2021 End: 01-29-[address] Dandy Childs Work Phone: [facility] Start: 03-23-2016 End: 03-23-2016 Office outpatient new 20 minutes [facility] Internal Medicine Procedures Date Procedure Procedure Detail Performing Clinician Start: 02-21-2024 Screening mammography Tiffany Childs DO Work Phone: Start: 09-03-2022 Screening mammography Start: 06-04-2022 Follow-up visit Follow-up JUANI KELLEY Start: 11-18-2021 End: 11-18-2021 Colonoscopy Physician Generic Start: 08-26-2021 End: 08-26-2021 Screening mammography Breast biops Maile Slarb Comment on above: Biopsy; left Hysterectomy Maile Slarb Ligation of fallopian tube A ngela Slarb Tonsillectomy Maile Slarb Urine culture Dr. Dandy prather Work Phone: Urine culture Dr. Dandy prather Work Phone: Urine culture Dr. Dandy prather Work Phone: Plan of Treatment Date Care Activity Detail Author Start: 11-19-2031 Screening for malignant neoplasm of colon [facility] Start: 10-15-2022 Influenza vaccination Influenza Vaccine (Season Ended) [facility] Start: 08-26-2022 Screening for malignant neoplasm of breast Mammogram [facility] Start: 06-04-2022 End: 06-04-2022 Patient encounter procedure 06/04/2022 Office Visit Urogynecology Tyler Kelley, CHADD - [employer] RESEARCHER [address] [facility] [address] [place] [address] [facility] Start: 09-01-2022 Influenza vaccination Influenza Vaccine (#1) [facility] Start: 09-29-2021 DTaP/Tdap/Td vaccine (2 - Td or Tdap) DTaP/Tdap/Td vaccine (2 - Td or Tdap) [facility] Start: 09-29-2021 DTaP/Tdap/Td Vaccines (2 - Td or Tdap) DTaP/Tdap/Td Vaccines (2 - Td or Tdap) [facility] Start: 09-14-2021 Influenza vaccination Flu vaccine (#1) [facility] Start: 03-23-2016 Iaadiadoo influenza Rapid Flu (94412 x 2) [facility] Work Phone: Start: 03-23-2016 Procedure Education Eprescribed prescriptions (G8553) [facility] Work Phone: Start: 07-30-2009 Screening for malignant neoplasm of breast Breast cancer screen [facility] Start: 07-30-2009 Shingles vaccine (1 of 2) Shingles vaccine (1 of 2) [facility] Start: 07-30-2009 Zoster Vaccines (1 of 2) Zoster Vaccines (1 of 2) [facility] Start: 07-30-2004 Screening for malignant neoplasm of colon [facility] Start: 1999 Lipid panel Lipids [facility] Start: 1999 Screening for malignant neoplasm of breast Mammogram [facility] Start: 07-30-1994 Diabetes screen Diabetes screen [facility] Start: 07-30-1989 Screening for malignant neoplasm of cervix [facility] Start: 07-30-1980 Screening for malignant neoplasm of cervix Pap smear [facility] Start: 07-30-1977 Diabetes mellitus screening Diabetes Screening [facility] Start: 07-30-1977 Hepatitis C screening [facility] Start: 07-30-1974 HIV screening HIV screen [facility] Start: 1971 Depression Screen Depression Screen [facility] Start: 07-30-1960 MMR Vaccines (1 of 1 - Standard series) MMR Vaccines (1 of 1 - Standard series) [facility] Start: 01-30-1960 COVID-19 Vaccine (#1) COVID-19 Vaccine (#1) [facility] Start: 1959 Hepatitis B Vaccines (1 of 3 - 3-dose series) Hepatitis B Vaccines (1 of 3 - 3-dose series) [facility] Start: 1959 HIV screening HIV Screening [facility] Start: 1959 Screening for malignant neoplasm of colon [facility] Start: 1959 Thyroid stimulating hormone measurement TSH Level [facility] Immunizations Immunization Date Immunization Notes Care Provider Elif vladimir 11-01-2016 influenza virus vacc ine, unspecified formulation Gilles Bronson MD Work Phone: [facility] Payers Date Payer Category Payer Private Health Insurance [id number] 2023 Self-pay [id number] 2020 Unknown 2016 Unknown [id number] 1959 Unknown [id number] 2.16. [id number] Unknown [id number] 2.16.8 [id number] Unknown [id number] 2.16.8 [id number] Unknown [id number] 2.16.8 [id number] Unknown [id number] 2.16.8 [id number] Unknown [id number] 2.16.8 [id number] Unknown [id number] 2.16.8 [id number] Unknown [id number] 2.16.8 [id number] Unknown [id number] 2.16.8 [id number] Unknown [id number] 2.16.8 [id number] Unknown [id number] 2.16.8 [id number] Unknown [id number] 2.16.8 [id number] Social History Date Type Detail Facility Alcohol use: Alcohol use: [facility] Work Phone: Tobacco use: Tobacco use: [facility] Work Phone: Start: 01-29-2021 End: 05-11-2022 Tobacco smoking status NHIS Unknown if ever smoked [facility] Start: 02-13-2019 Non-smoker [facility] Start: 1960 Sex Assigned At Female [facility] Start: 11-05-2021 Tobacco smoking status NHIS Never smoked tobacco [facility] Start: 11-05-2021 Tobacco use and exposure Smokeless tobacco non-user [facility] Work Phone: Start: 11-18-2021 End: 02-02-2022 Alcohol intake Ex-drinker (finding) [facility] Work Phone: Start: 10-21-2021 History SDOH Alcohol Comment rare [facility] Work Phone: Start: 1960 Sex Assigned At Not on file S [facility] Work Phone: Start: 11-08-2021 End: 03-17-2022 Exposure to SARS-CoV-2 (event) Not sure [facility] Work Phone: Start: 05-11-2022 Tobacco smoking status NHIS Ex-smoker (finding) [facility] Start: 04-27-2024 Sex Female (finding) [facility] Medical Equipment Procedure Code Equipment Code Equipment Origin al Text Equipment Identifier Dates System Sling Transvaginal Midurethral Advantage Fit Blue Polypropylene 2.7 Mm Dilator Pusher Center Tab Delivery Device Handle Curve Needle Tip Steril - [id number] Start: 01-27-2022 Clinical Notes 11-18-2021 to 01-26-2024 Note Date & Type Note Facility 01-26-2024 Evaluation note Diagnosis Onset Date Resolution Sinus infection acute January 26, 2024 9:39am [facility] Work Phone: [phone]) 221-904104-07-2023 Telephone encounter Note* Telephone Encounter - Jesica Dorado MA - 05/21/2022 8:38 AM EDT Pt scheduled appt. Thanks [place] [id number] Miscellaneous Notes* Telephone Encounter - Jesica Dorado MA - 05/21/2022 8:38 AM EDT Pt scheduled appt. Thanks * Telephone Encounter - Remi Moser RN - 05/18/2022 1:26 PM EDT Reason for Disposition Caller has NON-URGENT question [...] If Yes, ask: How much? and Where? [place] discharge with intercourse mostly. 10. OTHER SYMPTOMS: Do you have any other symptoms? (e.g., drainage from wound, painful urination, constipation) Protocols used: Post-Op Symptoms and [id number] S: Patient spoke with [facility] nurse regarding painful intercourse since surgery 02/04. [...] she will be contacted for further plan ofcare. No further needs at this time. Patient instructed to call back with new or worsening symptoms. documented in this [place] [address]-04-2023 Telephone encounter Note* Telephone Encounter - Remi Moser RN - 05/18/2022 1:26 PM EDT Reason for Disposition Caller has NON-URGENT question [...] If Yes, ask: How much? and Where? [place] discharge with intercourse mostly. 10. OTHER SYMPTOMS: Do you have any other symptoms? (e.g., drainage from wound, painful urination, constipation) Protocols used: Post-Op Symptoms and [id number] S: Patient spoke with [facility] nurse regarding painful intercourse since [...] she will be contacted for further plan ofcare. No further needs at this time. Patient instructed to call back with new or worsening symptoms. [id number] History of Present illness Narrative* Gilles Bronson MD - 03/17/2022 3:15 PM EST 6 weeks after Synthetic midurethral sling Posterior repair Cystoscopy Doing well, no c/o. Urinates well, denies RENA. No vaginal bleeding/discharge. No pain Eats well, ambulates well, no N/V. PE: Suprapubic incisions healing well. No vaginal bleeding, min physiological vaginal discharge. Vaginal incisions healing well. No mesh erosion/exposure. No pain on palpation. Plan: Continue her home medications as prescribed. Plan discussed with the patient in detail. All questions were aswered. documented in this encounterSLouis Stokes Cleveland VA Medical [id number] Telephone encounter Note* Telephone Encounter - Cassidy Galan RN - 02/03/2022 1:19 PM EST S: The patient is calling the [facility] About dysuria B: She had surgery with intubation and catheter last Tuesday A: Initially she thought the burning was secondary the catheter but it is not improving. She has frequency and today she has chills. She was tested at They prescribed Cipro for her. R: She is waiting for culture results but started the Cipro as indicated. She will call back if this does not completely alleviate her symptoms. Reason for Disposition Caller has medicine question, adult has minor symptoms, caller declines triage, and triager answersquestion Protocols used: Medication Question [id number] [facility] [id number] Miscellaneous Notes* Telephone Encounter - Cassidy Pride RN - 02/03/2022 1:19 PM EST S: The patient is calling the [facility] About dysuria B: She had surgery with intubation and catheter last Tuesday A: Initially she thought the burning was secondary the catheter but it is not improving. She has frequency and today she has chills. She was tested at They prescribed Cipro for her. R: She is waiting for culture results but started the Cipro as indicated. She will call back if this does not completely alleviate her symptoms. Reason for Disposition Caller has medicine question, adult has minor symptoms, caller declines triage, and triager answersquestion Protocols used: Medication Question [id number] documented in this [facility]12-14-2022 [facility] - Patient Pre-procedure Instructions Sleep Apnea: If yes, please bring CPAP machine May shower/brush teeth. Leave valuables/jewelry at home. No makeup, lotion, powder, deodorant or body sprays. No contact lenses No makeup, contact lenses, piercings, or dark nail syriac No solid food after midnight before procedure. [...] to your arrival time. Please Bring your [employer]'s license/photo ID, insurance card, eye drops/sunglasses, inhalers if applicable If you have a Medical Power of Rooms Director, living will, or an advanced directive, please bring a copy with you. We are required to resuscitate and transfer you to the hospital along with your directive.[facility]12-14-2022 Note Patient: Calderon Reid Procedure Summary Date: 01/27/22 Room / Location: [facility] 2 / [facility] OR Anesthesia Start: 814 Anesthesia Stop: 915 Procedures: SLING OPERATION FOR STRESS INCONTINENCE (Perineum) POSTERIOR COLPORRHAPHY REPAIR RECTOCELE (Perineum) CYSTOSCOPY (Urethra) Diagnosis: Stress incontinence (female) (male) (POSTERIOR REPAIR) (CYSTOSCOPY) (SLING) Surgeons: Gilles Bronson MD Responsible Provider: No Anesthesiologist - Adrien/MD [...] Allowed opportunity for questions and acknowledgement of understanding.[facility]12-14-2022 NotePatient: Calderon Reid Procedure Summary Date: 01/27/22 Room / Location: [facility] 2 / [facility] OR Anesthesia Start: 814 Anesthesia Stop: 16 Procedures: SLING OPERATION FOR STRESS INCONTINENCE (Perineum) POSTERIOR COLPORRHAPHY REPAIR RECTOCELE (Perineum) CYSTOSCOPY (Urethra) Diagnosis: Stress incontinence (female) (male) (POSTERIOR REPAIR) (CYSTOSCOPY) (SLING) Surgeons: Gilles Bronson MD Responsible Provider: No Anesthesiologist - Anderson/MD Melvin Anesthesia Type: general anesthesia ASA Status: 2 Anesthesia Type: general anesthesia Vitals Value Taken Time BP 146/68 01/27/22 0916 Temp 37 01/27/22 0916 Pulse 70 01/27/22 0916 Resp 14 01/27/22 0916 SpO2 99 01/27/22 09 Anesthesia Post Evaluation Patient location during evaluation: [...] discharged once all PACU criteria has been met.[facility]12-14-2022 NoteAirway Date/Time: 01/27/2022 8:12 AM Urgency: scheduled General Information and Staff Patient location during procedure: Procedural Resident/HEEL REDUCER: Dandy Arellano APRN - HEEL REDUCER Performed: HEEL REDUCER Indications and Patient Condition Sedation level: Asleep Patient position: sniffing Mask difficulty assessment: 1 - vent by mask Final Airway Details Final airway type: supraglottic airway Successful airway: Igel Size 4 ETT size (mm): 7.5 Number of attempts at approach: [address] [place], [place] [address]12-14-2022 NotePatient: Calderon Reid Procedure Information Date/Time: 01/27/22 0800 Procedures: SLING OPERATION FOR STRESS INCONTINENCE (Perineum) POSTERIOR COLPORRHAPHY REPAIR RECTOCELE (Perineum) CYSTOSCOPY (Urethra) Location: [facility] 2 / [facility] OR Surgeons: Gilles Bronson MD Relevant Problems No relevant active problems Past Medical History: Past Medical History: No date: GERD (gastroesophageal reflux disease) No date: Hypothyroidism No date: Melanoma (HCC) No date: Psoriatic arthritis (HCC) Past Surgical History: Past Surgical History: No date: BLADDER SURGERY Comment: Bladder lift No date: COLONOSCOPY 11/18/2021: COLONOSCOPY Comment: dr mon No date: EGD No date: HYSTERECTOMY No [...] results found for this or any previous visit.[facility] 01-26-2022 Note61 y.o. female Complaints started 1 year(s) ago. [...] recommended. I discussed the (more content not included)...[facility]10-05-2022 Hospital Discharge instructions* Discharge Instructions* Carmen Henrandez RN - 11/18/2021 10:22 AM EDT Colonoscopy: What to expect at home ACTIVITY: DO NOT DRIVE, OPERATE MACHINERY, OR DRINK ANY ALCOHOL TODAY. Avoid making critical decisions, signing legal documents, or performing any activity that requires alertness for the rest of the day. You may be bloated or have gas pains since air was introduced into the colon for the procedure. Youmay need to pass the gas throughout the [...] a good idea to start with light mealsand ease into solid foods the first day. [...] TO NEAREST EMERGENCY DEPARTMENT documented in this [facility] Work Phone: Evaluation note* Diagnosis Onset Date Resolution Status Acute bronchitis, unspecified acute Encounter for screening for COVID-19 [facility] Work Phone: Evaluation noteNo assessment information available [facility] Work Phone: Evaluation note* Diagnosis Onset Date Resolution Status Urinary tract infection with hematuria acute [facility] Work Phone: Evaluation note* Diagnosis Postop check- Primary Follow-up examination, following unspecified surgery documented in this encounter [facility]Reason for referral (narrative)No reason for referral information availableWOhioHealth [facility] Work Phone: Summary Purpose Family History No Family History Records FoundUnknown Family Member Name Dates Details Father Comments:high cholesterol, C OPD Status:Active Mother Comments:depression/anxiety, hypothyroid, high cholesterol Status:Active Relationship Condition Age at Onset Recorded Date/T tayo mother Cardiac disease Unknown father Cardiac disease Unknown Advance Directives No Advanced Directives Records Found Advance Directive Response Recorded Date/ Time Advance Directives No January 11:20am Living Will No November 01, 2019 4:20pm Power of Rooms Director No October 4:20pm Latest Code Status on File Code Status Date Activated Date Inactivated Comments Full Code 11/18/2021 9:46 AM Advance Directive Response Recorded Date/ Time Advance Directives No January 10:20am Living Will No November 01, 2019 3:20pm Power of Rooms Director No October 3:20pm Latest Code Status on File Code Status Date Activated Date Inactivated Comments Full Code 01/27/2022 6:57 AM 01/28/2022 2:41 AM Advance Directive Response Recorded Date/ Time Advance Directives No January 11:20am Instructions Name Dates Details How to access health informa tion online Indication:Flu-like symptoms Start:23-Mar-2016 Instruction Type:Patient Edu cation How to access health informa tion online - Detail Indication:Flu-like symptoms Start:23-Mar-2016 Instruction Type:Patient Edu cation Patient Instructions Indication:Flu-like symptoms Start:23-Mar-2016 Instruction Type:Provider Instructions for Treatment Chief Complaint and Reason for Visit Chief Complaint CONGESTION/COUGH/FEV ER ARTHRITIS/PAIN- COPY PCP S/O- ARTHRITIS/PAIN- COPY PCP Reason for Visit Acute bronchitis, un specified Encounter for screening for COVID-19 Chief Complaint S/O- ARTHRITIS/PAIN- COPY PCP Chief Complaint S/O- ARTHRITIS/PAIN- COPY PCP SCREENING Chief Complaint SCREENING S/O- PAIN- COPY PCP Chief Complaint S/O- PAIN- COPY PCP STANDING ORDER Chief Complaint S/O- PAIN- COPY PCP STANDING ORDER CONCERN FOR UTI Reason for Visit Urinary tract infect ion with hematuria Chief Complaint STANDING ORDER CONCERN FOR UTI UTI/2ND VISIT Reason for Visit Urinary tract infect ion with hematuria Chief Complaint STANDING ORDER CONCERN FOR UTI UTI/2ND VISIT S/O- PAIN- COPY PCP Reason for Visit Urinary tract infect ion with hematuria Chief Complaint SCREENING S/O- PAIN- COPY PCP S/O- PAIN- COPY PCP Chief Complaint S/O- PAIN- COPY PCP S/O- PAIN- COPY PCP Chief Complaint S/O- PAIN- COPY PCP Chief Complaint Admit Date STANDING ORDER - COPY PCP January 19, 2024 1:43pm CONCERN FOR SINUS INFECTION January 9:39am SCREENING February 21, 2024 9: 31am S/O- PAIN- COPY PCP April 17, 2024 11:4 3am Reason for Visit Admit Date Sinus infection January 26, 2024 9:39am Chief Complaint Admit Date S/O- PAIN- COPY PCP April 17, 2024 11:4 3am S/O- PAIN- COPY PCP July 18, 2024 2:19p m Additional Source Comments INFORMATION SOURCE (unrecogn ized section and content) DATE CREATED AUTHOR 05/02/2019 [facility] DATE CREATED AUTHOR AUTHOR'S ORGANIZ ATION 03/03/2020 [facility] ([place]) DATE CREATED AUTHOR AUTHOR'S ORGANIZ ATION 11/20/2021 [facility] DATE CREATED AUTHOR AUTHOR'S ORGANIZ ATION 06/04/2022 [facility] [facility] DATE CREATED AUTHOR AUTHOR'S ORGANIZ ATION 07/21/2024 [facility] Goals (unrecognized section and content) Goals may be documented in a n alternate sectionGoals may be documented in an alternate sectionGoals may be documented in an alternate sectionGoals may be documented in an alternate sectionGoals may be documented in an alternate sectionGoals may be documented in an alternate sectionGoals may be documented in an alternate sectionGoals may be documented in an alternate sectionGoals may be documented in an alternate sectionGoals may be documented in an alternate sectionGoals may be documented in an alternate sectionGoals may be documented in an alternate sectionGoals may be documented in an alternate section Care Teams (unrecognized sec tion and content) Stroboscope Operator Relationship Specialty Start Date End Date Dandy Childs Angel [address] [place] [id number] PCP - General Family Medicine 08/13/21 Team Status: Active Member Role Status Dates Dr. Dandy Childs , DO Family Provider Active Dr. Dandy Childs , DO Primary Care Provider Active Team Status: Inactive Member Role Status Dates Dr. Dandy Childs , DO Primary Care Provider, Referrin g Provider Active Prieto ELMORE PA Attending Provider Active Team Status: Inactive Member Role Status Dates Dr. Dandy Childs , DO Primary Care Provider Active Dr. Marybel Hidalgo MD Attending Provider, Referring Provider Active Team Status: Inactive Member Role Status Dates Dr. Dandy Childs DO Primary Care Provider Active Prieto ELMORE PA Attending Provider Active Stroboscope Operator Relationship Specialty Start Date End Date Dandy Childs [address] [place] [phone] PCP - General 08/13/21 Team Status: Inactive Member Role Status Dates Dr. Dandy Childs DO Primary Care Prov ider, Attending Provider, Referring Provider Active Stroboscope Operator Relationship Specialty Start Date End Date Dandy Childs [address] [place] [phone] PCP - General 08/13/21 Stroboscope Operator Relationship Specialty Start Date End Date Naz Dandy Ortiz [address] [place] [address] PCP - General 08/13/21 Team Status: Inactive Member Role Status Dates Dr. Dandy Childs DO Primary Care Provider Active Start: January 19, 2024 End: January 19, 2024 Dr. Marybel Hidalgo MD Attending Provider Active Start: January 19, 2024 End: January 19, 2024 Dr. Marybel Hidalgo MD Referring Provider Active Start: January 19, 2024 End: January 19, 2024 Team Status: Inactive Member Role Status Dates Dr. Dandy Childs DO Primary Care Provider Active Start: January 24, 2024 End: January 24, 2024 Dr. Dandy Childs DO Attending Provider Active Start: January 24, 2024 End: January 24, 2024 Dr. Dandy Childs DO Referring Provider Active Start: January 24, 2024 End: January 24, 2024 Team Status: Inactive Member Role Status Dates Dr. Dandy Childs DO Primary Care Provider Active Start: January 26, 2024 End: January 26, 2024 Dr. Dandy Childs DO Referring Provider Active Start: January 26, 2024 End: January 26, 2024 CATARINA Galarza Attending Provider Active Sta rt: January 26, 2024 End: January 26, 2024 Team Status: Inactive Member Role Status Dates Dr. Dandy Childs DO Primary Care Provider Active Start: February 21, 2024 End: February 21, 2024 Dr. Dandy Childs DO Attending Provider Active Start: February 21, 2024 End: February 21, 2024 Dr. Dandy Childs DO Referring Provider Active Start: February 21, 2024 End: February 21, 2024 Team Status: Inactive Member Role Status Dates Dr. Dandy Childs DO Primary Care Provider Active Start: April 17, 2024 End: April 17, 2024 Dr. Marybel Hidalgo MD Attending Provider Active Start: April 17, 2024 End: April 17, 2024 Dr. Mraybel Hidalgo MD Referring Provider Active Start: April 17, 2024 End: April 17, 2024 Team Status: Active Member Role Status Dates Dr. Dandy Childs DO Primary Care Provider Active Team Status: Inactive Member Role Status Dates Dr. Dandy Childs DO Primary Care Provider Active Start: July 18, 2024 End: July 18, 2024 Dr. Marybel Hidalgo MD Attending Provider Active Start: July 18, 2024 End: July 18, 2024 Dr. Marybel Hidalgo MD Referring Provider Active Start: July 18, 2024 End: July 18, 2024 Reason for Visit (unrecogniz ed section and content) Reason Onset Date Comments Post-op Problem 05/18/2022 Reason Comments Post-op Visit 6 week post op Reason Onset Date Comments Medication Problem 02/03/2022 FOR RECORDS PERTAINING TO PATIENTS WHO ARE [...] BE BASED ON THE PRIMARY CLINICAL RECORDS. [employer] [facility]. provides no warranty or guarantee of the accuracy or completeness of information in this document.
== END | disposition home or self-care (01) ==
PROVIDERS: PCP Family Medicine; Referring Provider Internal Medicine Rheumatology; Visit Provider Internal Medicine Rheumatology
DX: L40.59 Other psoriatic arthropathy (principal); Z79.899 Other long term (current) drug therapy; L40.8 Other psoriasis; M35.00 Sjogren syndrome, unspecified; M65.332 Trigger finger, left middle finger
CPT/HCPCS: 76705

== ENCOUNTER → 2024-08-27 | Outpatient (CLI) | payer MEDICARE, SELFPAY ==
[2024-08-27 19:08] LABS: AST(SGOT) 24 U/L (<=31); Alanine Aminotransfer ALT/SGPT 17 U/L (<=34); Albumin, Serum 4.1 g/dL (3.4-4.8); Alkaline Phosphatase 92 U/L (35-104); Anion Gap 14 (5-15); BUN 9 mg/dL (4-19); BUN/Creat Ratio 11.4 RATIO (10-20); Calcium,Total 9.5 mg/dL (7.6-11.0); Carbon Dioxide 18.9 mmol/L (21.0-32.0); Chloride 102 mmol/L (98-108); Globulin 2.9 g/dL (2.2-4.2); Glucose 103 mg/dL (70-99); Potassium 3.9 mmol/L (3.3-5.1)
--- OUTSIDE RECORDS SUMMARY | 2024-08-27 22:50 | XMS RPT_ITS | CCD ---
Author Organization [facility] Care Team Providers Care Director Process Engineering Name Role Phone Crystal Watson Unavailable Maile [...] Dr. Marybel Hidalgo MD Referring Provider Dr. Dandy Childs DO Attending Provider Dr. aDndy Childs DO Referring Provider Nik Lynch Attending Provider [phone] Dr. Dandy Childs DO Primary Care Provider Dr. Marybel Hidalgo MD Attending Provider Vellanki MD, Dr. Marybel Referring Provider Marybel Hidalgo Attending Unavailable Rocky, Marybel Referring Unavailable NazDandy parks Primary Care Unavailable Marybel Hidalgo Attending Unavailable Rocky, Marybel Referring Unavailable NazDandy parks Primary Care Unavailable Vellanvalentino, Marybel Attending Unavailable Vellanvalentino, Marybel Referring Unavailable Naz, Dandy Primary Care Unavailable NazDandy parks Attending Unavailable Naz, Dandy Referring Unavailable Naz, Dandy Primary Care Unavailable Olegariolanvalentino, Marybel Attending Unavailable Vellanvalentino, Marybel Referring Unavailable Naz, Dandy Primary Care Unavailable Homero Neil Attending Unavailable Nina ELMORE, Homero Referring Unavailable Naz, Dandy Primary Care Unavailable Vellanvalentino, Marybel Attending Unavailable Rocky, Marybel Referring Unavailable Naz, Dandy Primary Care Unavailable Homero Neil Attending Unavailable NazDandy parks Referring Unavailable Naz, Dandy Primary Care Unavailable Nik Lynch Attending Unavailable Naz, Dandy Referring Unavailable Naz, Dandy Primary Care Unavailable Olegariolanvalentino, Marybel Attending Unavailable Rocky, Marybel Referring Unavailable Naz, Dandy Primary Care Unavailable NazDandy parks Attending Unavailable Naz, Dandy Primary Care Unavailable Naz, Dandy Referring Unavailable Medications Current Medications Medication Drug Class(es) Dates Sig (Normalized) Sig (Original) apremilast 30 mg oral tablet (18 sources) Start: 03-30-2019 take 1 tablet by mouth twice daily Apremilast 30 mg tablet Active 30 mg PO TWICE A DAY August 27, 2019 12:00am Apremilast 10 & 20 & 30 MG TBPK Take by mouth 0 Active citalopram 20 mg oral tablet (19 sources) Serotonin Reuptake Inhibitor Start: 10-02-2018 take 1 tablet by mouth once daily Citalopram 20 MG tablet Active 20 mg PO DAILY October 02, 2018 12:00am Start: 03-23-2016 take 1 tablet by once daily CeleXA 10 MG Oral Tablet 1 (one) Tablet daily for 0 days Quantity: 30 {Tablet} Refills: 0 Ordered: 23-Mar-2016 Crystal Watson CNP, CNP, Mary E Start : 23-Mar-2016 Active Citalopram [place] bromide (CELEXA PO) Take by mouth 0 Active esomeprazole 20 mg delayed release oral capsule (19 sources) Proton Pump Inhibitor Start: 02-25-2018 take 1 capsule by mouth once daily Esomeprazole Magnesium (Nexium) 20 mg capsule,delayed release(DR/EC) Active 20 mg PO DAILY February 25, 2018 1:00am Start: 03-23-2016 take 1 dose by mouth once sari y NexIUM 20 MG Oral Packet 1 (one) Packet daily for 0 days Quantity: 30 {Packet} Refills: 0 Ordered: 23-Mar-2016 Walter KATYA Crystal Avendano Idaliagilbertvikas ALDANA Crystal Avendano Start : 23-Mar-2016 Active Start: 02-16-[address] [facility] once daily esomeprazole (NexIUM) [address] capsule Take 40 mg by mouth daily. 0 02/16/2009 Active folic acid 0.8 mg oral capsule (19 sources) Start: 02-25-2018 take 1 capsule by mouth once daily Folic Acid 0.8 mg capsule Active 0.8 mg PO DAILY February 25, 2018 1:00am Start: 03-23-2016 take [address] [facility] once daily Folic Acid 5 MG Oral Capsule 1 (one) Capsule daily for 0 days Quantity: 30 {Capsule} Refills: 0 Ordered: 23-Mar-2016 Walter KATYA Crystal Watson CNP Crystal Avendano Start : 23-Mar-2016 Active folic acid (Folv ite) 1 MG tablet Take 2 mg by mouth in the morning. 0 Active FOLIC ACID PO Ta ke by mouth 0 Active ibuprofen 600 mg oral tablet (14 sources) Nonsteroidal Anti-inflammatory Drug Start: 11-01-2019 take 1 tablet by mouth four times daily as needed for pain Ibuprofen 600 MG tablet Active 600 mg PO 4 TIMES DAILY as needed for Pain Or Fever November 01, 2019 12:00am leucovorin 15 mg oral tablet (18 sources) Folate Analog Start: 10-02-2018 Leucovorin Calcium 15 tablet Active 1 {tbl} PO October 02, 2018 12:00am Start: 06-15-2018 leucovorin (We llcovorin) 15 MG tablet Take 15 mg by mouth every 7 days. 0 06/15/2018 Active LORazepam 1 mg oral tablet (18 sources) Benzodiazepine Start: 03-25-2019 take 0.5-1 tablets [...] Active phenazopyridine hydrochloride 100 mg oral tablet (17 sources) Start: 08-05-2023 take 1 tablet by [...] / HYDROcodone bitartrate 5 mg oral tablet (14 sources) Opioid Agonist Start: 10-02-2018 End: 10-07-2018 [...] mg / clavulanate 125 mg oral tablet (3 sources) Penicillin-class Antibacterial Start: 01-26-2024 End: 02-05-2024 [...] Active busPIRone hydrochloride 7.5 mg oral tablet (16 sources) Start: 04-15-2019 End: 03-17-2022 take 1 tablet by mouth in the morning busPIRone (Buspar) 7.5 MG tablet Take 7.5 mg by mouth in the morning and 7.5 mg in the evening. 0 04/15/2019 03/17/2022 Discontinued (Therapy completed) Start: 10-02-2018 Buspirone 7.5 MG tablet Active 7.5 {tbl} PO TWICE A DAY October 02, 2018 12:00am cephalexin 500 mg oral capsule (17 sources) Cephalosporin Antibacterial Start: 08-08-2023 End: 08-13-2023 take 1 capsule by mouth every eight hours Cephalexin 500 mg capsule Discontinued 500 mg PO Q8H 15 5 August 08, 2023 12:00am August 12, 2023 12:00am August 13, 2023 12:12am Start: 12-25-2020 End: 05-11-2022 take 1 capsule by mouth three times daily Cephalexin 500 mg capsule Discontinued 500 mg PO THREE TIMES A DAY December 25, 2020 1:00am May 11, 2022 9:43am ciprofloxacin 500 mg oral tablet (17 sources) Quinolone Antimicrobial Start: 02-03-2022 End: 05-11-2022 take 1 tablet by mouth twice daily Ciprofloxacin Hcl 500 mg tablet Discontinued 500 mg PO TWICE A DAY February 25, 2022 1:00am May 11, 2022 9:43am clindamycin 300 mg oral capsule (14 sources) Lincosamide Antibacterial Start: 06-22-2018 End: 07-07-2018 [...] 23-Mar-2016 Active diazePAM 5 mg oral tablet (14 sources) Benzodiazepine Start: 11-01-2019 End: 07-09-2023 take [...] Discontinued 100 mg PO TWICE A DAY 11 18July 09, 2023 12:00am July 13, 2023 12:00am [...] 11:40am levothyroxine sodium 0.05 mg oral tablet (19 sources) l-Thyroxine Start: 03-23-2016 End: 04-22-2016 take [...] 0 Active methotrexate 2.5 mg oral tablet (19 sources) Folate Analog Metabolic Inhibitor Start: 03-23-2016 take 1 tablet by mouth every week Methotrexate 2.5 MG Oral Tablet 1 (one) Tablet 6 pills weekly for 0 days Quantity: 6 {Tablet} Refills: 0 Ordered: 23-Mar-2016 Crystal Watson CNP, CNP, Mary E Start : 23-Mar-2016 Active Start: 02-10-2016 Methotrexate S odium 2.5 MG tablet Active 20 mg PO February 10, 2016 1:00am Start: 02-10-2016 Methotrexate S odium Active 20 MG PO February 10, 2016 1:00am METHOTREXATE PO Take 2.5 mg by mouth every 7 days 0 Active nitrofurantoin, macrocrystals 100 mg oral capsule (3 sources) Nitrofuran Antibacterial Start: 08-05-2023 End: 08-08-2023 [...] meal/food traMADol hydrochloride 50 mg oral tablet (14 sources) Opioid Agonist Start: 11-01-2019 End: 07-09-2023 take 1 tablet by mouth three times daily as needed for pain Tramadol 50 MG tablet Discontinued 50 mg PO THREE TIMES A DAY as needed for Pain Or Fever November 01, 2019 12:00am July 09, 2023 12:56pm Problems Active Problems Problem Classification Problem Date Documented Date Episodic/Chronic Acute bronchitis (15 sources) Acute bronchitis; Translations: [Acute bronchitis, unspecified] Episodic Anxiety disorders (15 sources) Mixed anxiety and depressive disorder; Translations: [Anxiety] 03-23-2016 Chronic Cataract (1 source) Bilateral cataracts; Translations: [Cataracts, bilateral] 03-23-2016 Chronic Chronic obstructive pulmonary disease and bronchiectasis (14 sources) Bronchitis; Translations: [Bronchitis, not specified as acute or chronic] 10-02-2018 Episodic Diverticulosis and diverticulitis (2 sources) Diverticulosis of large intestine without perforation or abscess without bleeding; Translations: [Dvrtclos of lg int w/o perforation or abscess w/o bleeding] Onset: 11-18-2021 Chronic Esophageal disorders (16 sources) Gastroesophageal reflux disease; Translations: [Gastro-esophageal reflux disease without esophagitis] Onset: 11-18-2021 Chronic Genitourinary symptoms and ill-defined conditions (3 sources) Female stress incontinence; Translations: [Stress incontinence (female) (male)] Onset: 01-27-2022 01-27-2022 Chronic Immunizations and screening for infectious disease (19 sources) Patient encounter status; Translations: [Encounter for screening for COVID-19] Onset: 11-18-2021 Episodic Inflammation; infection of eye (except that caused by tuberculosis or sexually transmitteddisease) (14 sources) Seasonal allergic conjunctivitis; Translations: [Acute atopic conjunctivitis, unspecified eye] 07-07-2018 Episodic Melanomas of skin (2 sources) Malignant melanoma of skin; Translations: [Malignant melanoma] 03-23-2016 Chronic Comment on above: Leg--removed, nothin g since Mood disorders (14 sources) Depressive disorder; Translations: [Depression] 02-13-2019 Chronic Other and unspecified benign neoplasm (2 sources) Benign neoplasm of ascending colon; Translations: [Benign neoplasm of ascending colon] Onset: 11-18-2021 Episodic Other inflammatory condition of skin (15 sources) Psoriatic arthritis; Translations: [Arthropathic psoriasis, unspecified] 03-23-2016 Chronic Comment on above: off methotrexate Other inflammatory condition of skin (1 source) Other psoriatic arthropathy; Translations: [Other psoriatic arthropathy] Onset: 07-27-2024 Chronic Other skin disorders (14 sources) H/O: arthritis; Translations: [Personal history of diseases of the skin and subcutaneous tissue] 02-26-2019 Episodic Other upper respiratory disease (2 sources) Allergic rhinitis; Translations: [Allergic rhinitis] 03-23-2016 Chronic Other upper respiratory infections (4 sources) Sinusitis; Translations: [Chronic sinusitis, unspecified] 07-09-2023 Chronic Otitis media and related conditions (14 sources) Dysfunction of eustachian tube; Translations: [Other specified disorders of Eustachian tube, left ear] 07-07-2018 Episodic Poisoning by other medications and drugs (14 sources) Poisoning by unspecified drugs, medicaments and [...] 11-18-2021 Episodic Skin and subcutaneous tissue infections (14 sources) Abscess of skin and/or subcutaneous tissue; Translations: [Cutaneous abscess, unspecified] 02-14-2019 Episodic Spondylosis; intervertebral disc disorders; other back problems (14 sources) Spasm of back muscles; Translations: [Muscle spasm of back] 11-02-2019 Episodic Sprains and strains (14 sources) Lower back injury; Translations: [Strain of muscle, fascia and tendon of lower back, initial encounter] 10-03-2018 Episodic Thyroid disorders (18 sources) Hypothyroidism; Translations: [Hypothyroidism, unspecified] Onset: 11-18-2021 [...] Flu-like symptoms Unclassified (1 source) Thrush Unclassified (11 sources) HISTORY OF BLADDER LIFT 09-12-2021 Results Test Name Value Interpretation Reference Range Facility Liveron 07-25-2024 Liver [facility] [address] [place] [address] Liver MR#: [id number] Acct: [id number] Name: CALDERON REID Rep #: [id number] : 1960 F [id number] From: [place] kemp MD PCP: Dr. Dandy Childs DO Status: REG CLI Study: Liver Date of Exam: 07/25/24 Exam# [id number] Ordering Dr: Marybel Hidalgo MD PROCEDURE: LIVER 07/25/2024 REASON FOR EXAM: ELEVATED LIVER ENZYMES COMPARISON: None FINDINGS: Liver: Diffusely echogenic suggesting fatty infiltration. Liver measures 15.6 cm. Gallbladder: No stones, sludge, wall thickening or tenderness. Common bile duct: Normal measuring 4 mm. . Pancreas: Visualized portions are sonographically unremarkable. Other: Visualized portions of the right kidney are unremarkable. No right upper quadrant ascites. US/Liver IMPRESSION: Fatty infiltration of the liver. Reading Location: [facility] CC: Dr. Dandy Childs DO; Dr. Marybel Hidalgo MD Malted Milk Mixer: Signed Normal [facility] Absolute lymphocyte countOrd ered By: Marybel Hidalgo on 07-18-2024 Lymphocytes Auto (Unsp spec) [#/Vol] 1.78 10*3/uL 0.83-4.51 [facility] Absolute neutrophil countOrd ered By: Marybel Hidalgo on 07-18-2024 Neutrophils (Bld) [#/Vol] 4.0 10*3/uL 2.0-7.7 [facility] Anion gap in Serum or Plasma Ordered By: Marybel Hidalgo on 07-18-2024 Anion gap [Moles/Vol] 14 mmol/L 5-15 [facility] Automated lymphocyte count a s percentage of total leukocytesOrdered By: Marybel Hidalgo on 07-18-2024 Lymphocytes/100 WBC Auto (Unsp spec) 27.4 % 19-41 [facility] BUN/creatinine ratioOrdered By: Marybel Hidalgo on 07-18-2024 Urea nitrogen/Creatinine [Mass ratio] 13.1 mg/mg 10-20 [facility] Basophil percentageOrdered B y: Marybel Hidalgo on 07-18-2024 Basophils/100 WBC (Bld) 0.6 % 0-1 [facility] Bilirubin, totalOrdered By: Marybel Hidalgo on 07-18-2024 Bilirubin [Mass/Vol] 0.47 mg/dL 0.00-1.30 [facility] CBC W/Diff, Automatedon Absolute Lymph 1.78 X10 3/uL Normal 0.83-4.51 [facility] Comment on above: Performed By: #### L 500.4050, L100.0100 #### [facility] [address] [place], [address] Absolute Neut 4.0 X10 3/uL Normal 2.0-7.7 [facility] Comment on above: Performed By: #### L 500.4050, L100.0100 #### [facility] [address] [place], [address] Basophils/100 WBC (Bld) 0.6 % Normal 0-1 [facility] Comment on above: Performed By: #### L 500.4050, L100.0100 #### [facility] [address] [place], [address] Eosinophils/100 WBC (Bld) 2.0 % Normal 0-5 [facility] Comment on above: Performed By: #### L 500.4050, L100.0100 #### [facility] [address] [place], [address] Erythrocyte distribution width (RBC) [Ratio] 13.7 % Normal 11.6-14.6 [facility] Comment on above: Performed By: #### L 500.4050, L100.0100 #### [facility] [address] [place], [address] Hematocrit (Bld) [Volume fraction] 42.1 % Normal 37-47 [facility] Comment on above: Performed By: #### L 500.4050, L100.0100 #### [facility] [address] [place], [address] Hemoglobin (Bld) [Mass/Vol] 14.4 g/dL Normal 12.0-15.0 [facility] Comment on above: Performed By: #### L 500.4050, L100.0100 #### [facility] [address] [place], [address] IG% 0.300 Normal 0.0-0.9 [facility] Comment on above: Result Comment: IG% - Immature Granulocytes (promyelocytes, myelocytes and metamyelocytes) > 1% indicates that a LEFT SHIFT is Present. Performed By: #### L 500.4050, L100.0100 #### [facility] [address] [place], [address] Lymphocytes/100 WBC (Bld) 27.4 % Normal 19-41 [facility] Comment on above: Performed By: #### L 500.4050, L100.0100 #### [facility] [address] [place], [address] MCH (RBC) [Entitic mass] 31.7 pg Normal 27.0-32.0 [facility] Comment on above: Performed By: #### L 500.4050, L100.0100 #### [facility] [address] [place], [address] MCHC (RBC) [Mass/Vol] 34.2 g/dL Normal 32-36 [facility] Comment on above: Performed By: #### L 500.4050, L100.0100 #### [facility] [address] [place], [address] MCV (RBC) [Entitic vol] 92.7 fL Normal 81-99 [facility] Comment on above: Performed By: #### L 500.4050, L100.0100 #### [facility] [address] [place], [address] Monocytes/100 WBC (Bld) 7.6 % Normal 0-10 [facility] Comment on above: Performed By: #### L 500.4050, L100.0100 #### [facility] [address] [place], [address] Neutrophils/100 WBC (Bld) 62.1 % Normal 47-70 [facility] Comment on above: Performed By: #### L 500.4050, L100.0100 #### [facility] [address] [place], [address] Nucleated RBC (Bld) [#/Vol] 0 10*3/uL Normal 0-5 [facility] Comment on above: Performed By: #### L 500.4050, L100.0100 #### [facility] [address] [place], [address] Platelet mean volume (Bld) [Entitic vol] 10.6 fL Normal 6.2-12.0 [facility] Comment on above: Performed By: #### L 500.4050, L100.0100 #### [facility] [address] [place], [address] Platelets (Bld) [#/Vol] 324 10*3/uL Normal 150-450 [facility] Comment on above: Performed By: #### L 500.4050, L100.0100 #### [facility] [address] [place], [address] RBC (Bld) [#/Vol] 4.54 10*6/uL Normal 4.2-5.4 [facility] Comment on above: Performed By: #### L 500.4050, L100.0100 #### [facility] [address] [place], [address] RDW SD 46.8 fl High 35.1-43.9 [facility] Comment on above: Performed By: #### L 500.4050, L100.0100 #### [facility] [address] [place], [address] WBC (Bld) [#/Vol] 6.5 10*3/uL Normal 4.4-11.0 [facility] Comment on above: Performed By: #### L 500.4050, L100.0100 #### [facility] [address] [place], [address] Carbon dioxide, total [Moles /volume] in Central venous bloodOrdered By: Marybel Hidalgo on 07-18-2024 CO2 [Moles/Vol] 20.1 mmol/L Low 21.0-32.0 [facility] Chloride assayOrdered By: Catarina Hidalgo on 07-18-2024 Chloride [Moles/Vol] 101 mmol/L 98-108 [facility] Comprehensive Metabolic Prof ilon 07-18-2024 Albumin [Mass/Vol] 4.3 g/dL Normal 3.4-4.8 [facility] Comment on above: Performed By: #### L 500.4050, L100.0100 #### [facility] [address] [place], [address] Albumin/Globulin [Mass ratio] 1.5 {ratio} Normal 0.9-2.4 [facility] Comment on above: Performed By: #### L 500.4050, L100.0100 #### [facility] [address] [place], [address] ALK PHOS 99 U/L Normal 35-104 [facility] Comment on above: Performed By: #### L 500.4050, L100.0100 #### [facility] [address] [place], [address] ALT [Catalytic activity/Vol] 23 U/L Normal <=34 [facility] Comment on above: Performed By: #### L 500.4050, L100.0100 #### [facility] [address] [place], [address] AST [Catalytic activity/Vol] 36 U/L High <=31 [facility] Comment on above: Performed By: #### L 500.4050, L100.0100 #### [facility] [address] [place], [address] Bilirubin [Mass/Vol] 0.47 mg/dL Normal 0.00-1.30 [facility] Comment on above: Performed By: #### L 500.4050, L100.0100 #### [facility] [address] [place], [address] BUN/CRE 13.1 RATIO Normal 10-20 [facility] Comment on above: Performed By: #### L 500.4050, L100.0100 #### [facility] [address] [place], [address] Calcium [Mass/Vol] 9.4 mg/dL Normal 7.6-11.0 [facility] Comment on above: Performed By: #### L 500.4050, L100.0100 #### [facility] [address] [place], [address] Chloride [Moles/Vol] 101 mmol/L Normal 98-108 [facility] Comment on above: Performed By: #### L 500.4050, L100.0100 #### [facility] [address] [place], [address] CO2 [Moles/Vol] 20.1 mmol/L Low 21.0-32.0 [facility] Comment on above: Performed By: #### L 500.4050, L100.0100 #### [facility] [address] [place], [address] Creatinine [Mass/Vol] 0.86 mg/dL Normal 0.70-1.20 [facility] Comment on above: Performed By: #### L 500.4050, L100.0100 #### [facility] [address] [place], [address] GAP 14 Normal 5-15 [facility] Comment on above: Performed By: #### L 500.4050, L100.0100 #### [facility] [address] [place], [address] GFR/1.73 sq M.predicted among non-blacks MDRD (S/P/Bld) [Vol rate/Area] 76 mL/min/{1.73_m2} Normal >60 [facility] Comment on above: Result Comment: mL/m in/1.73m2 CKD-EPI Creatinine Equation (2020) Performed By: #### L 500.4050, L100.0100 #### [facility] [address] [place], [address] Globulin (S) [Mass/Vol] 2.8 g/dL Normal 2.2-4.2 [facility] Comment on above: Performed By: #### L 500.4050, L100.0100 #### [facility] [address] [place], [address] Glucose [Mass/Vol] 112 mg/dL High 70-99 [facility] Comment on above: Performed By: #### L 500.4050, L100.0100 #### [facility] [address] [place], [address] Potassium [Moles/Vol] 3.6 mmol/L Normal 3.3-5.1 [facility] Comment on above: Performed By: #### L 500.4050, L100.0100 #### [facility] [address] [place], [address] Sodium [Moles/Vol] 135 mmol/L Normal 133-145 [facility] Comment on above: Performed By: #### L 500.4050, L100.0100 #### [facility] [address] [place], [address] T PROT 7.1 g/dL Normal 5.9-8.4 [facility] Comment on above: Performed By: #### L 500.4050, L100.0100 #### [facility] [address] [place], [address] Urea nitrogen [Mass/Vol] 11 mg/dL Normal 4-19 [facility] Comment on above: Performed By: #### L 500.4050, L100.0100 #### [facility] [address] [place], [address] Eosinophil percentageOrdered By: Marybel Hidalgo on 07-18-2024 Eosinophils/100 WBC (Bld) 2.0 % 0-5 [facility] Erythrocyte distribution wid th ratioOrdered By: Marybel Hidalgo on 07-18-2024 Erythrocyte distribution width (RBC) [Ratio] 13.7 % 11.6-14.6 [facility] Erythrocyte distribution wid th standard deviationOrdered By: Marybel Hidalgo on 07-18-2024 Erythrocyte distribution width (RBC) [Ratio] 46.8 fl High 35.1-43.9 [facility] Glomerular filtration rate ( GFR) estimation/1.73 sq m using serum, plasma, or whole bOrdered By: Marybel Hidalgo on 07-18-2024 GFR/1.73 sq M.predicted among non-blacks MDRD (S/P/Bld) [Vol rate/Area] 76 mL/min/{1.73_m2} >60 [facility] Comment on above: mL/min/1.73m2 CKD-EP I Creatinine Equation (2020) Hematocrit Auto (Bld) [Volum e fraction]Ordered By: Marybel Hidalgo on 07-18-2024 Hematocrit (Bld) [Volume fraction] 42.1 % 37-47 [facility] Hemoglobin measurementOrdere d By: Marybel Hidalgo on 07-18-2024 Hemoglobin (Bld) [Mass/Vol] 14.4 g/dL 12.0-15.0 [facility] Immature granulocytes/100 WB C Auto (Bld)Ordered By: Marybel Hidalgo on 07-18-2024 Immature granulocytes/100 WBC (Bld) 0.300 % 0.0-0.9 [facility] Comment on above: IG% - Immature Granu locytes (promyelocytes, myelocytes and metamyelocytes) > 1% indicates that a LEFT SHIFT is Present. Laboratory - Chemistry and C hemistry - challengeOrdered By: Marybel Hidalgo on 07-18-2024 AST [Catalytic activity/Vol] 36 U/L High <32 [facility] MCV (mean corpuscular volume ) determinationOrdered By: Marybel Hidalgo on 07-18-2024 MCV (RBC) [Entitic vol] 92.7 fL 81-99 [facility] Mean corpuscular hemoglobin (MCH) determinationOrdered By: Marybel Hidalgo on 07-18-2024 MCH (RBC) [Entitic mass] 31.7 pg 27.0-32.0 [facility] Mean corpuscular hemoglobin concentration (MCHC) determinationOrdered By: Marybel Hidalgo on 07-18-2024 MCHC (RBC) [Mass/Vol] 34.2 g/dL 32-36 [facility] Mean platelet volume determi nationOrdered By: Marybel Hidalgo on 07-18-2024 Platelet mean volume (Bld) [Entitic vol] 10.6 fL 6.2-12.0 [facility] Monocyte percentageOrdered B y: Marybel Hidalgo on 07-18-2024 Monocytes/100 WBC (Bld) 7.6 % 0-10 [facility] Neutrophil percentageOrdered By: Marybel Hidalgo on 07-18-2024 Neutrophils/100 WBC (Bld) 62.1 % 47-70 [facility] Nucleated red blood cell per centageOrdered By: Marybel Hidalgo on 07-18-2024 Nucleated RBC/100 WBC (Bld) [Ratio] 0 % 0-5 [facility] Platelet countOrdered By: Catarina Hidalgo on 07-18-2024 Platelets (Bld) [#/Vol] 324 10*3/uL 150-450 [facility] Potassium measurement (mass/ volume)Ordered By: Marybel Hidalgo on 07-18-2024 Potassium (Unsp spec) [Mass/Vol] 3.6 mmol/L 3.3-5.1 [facility] RBC Auto (Bld) [#/Vol]Ordere d By: Marybel Hidalgo on 07-18-2024 RBC (Bld) [#/Vol] 4.54 10*6/uL 4.2-5.4 [facility] Serum creatinine measurement (mass/volume)Ordered By: Marybel Hidalgo on 07-18-2024 Creatinine [Mass/Vol] 0.86 mg/dL 0.70-1.20 [facility] Serum globulin measurementOr dered By: Marybel Hidalgo on 07-18-2024 Globulin (S) [Mass/Vol] 2.8 g/dL 2.2-4.2 [facility] Serum glucose measurement (m ass/volume)Ordered By: Marybel Hidalgo on 07-18-2024 Glucose [Mass/Vol] 112 mg/dL High 70-99 [facility] Serum or plasma alanine ferguson otransferase (ALT) measurementOrdered By: Marybel Hidalgo on 07-18-2024 ALT [Catalytic activity/Vol] 23 U/L <35 [facility] Serum or plasma albumin rosie urement (mass/volume)Ordered By: Marybel Hidalgo on 07-18-2024 Albumin [Mass/Vol] 4.3 g/dL 3.4-4.8 [facility] Serum or plasma albumin/glob ulin mass ratioOrdered By: Marybel Hidalgo on 07-18-2024 Albumin/Globulin [Mass ratio] 1.5 {ratio} 0.9-2.4 [facility] Serum or plasma alkaline carol sphatase measurementOrdered By: Marybel Hidalgo on 07-18-2024 ALP [Catalytic activity/Vol] 99 U/L 35-104 [facility] Serum or plasma calcium rosie urement (mass/volume)Ordered By: Marybel Hidalgo on 07-18-2024 Calcium [Mass/Vol] 9.4 mg/dL 7.6-11.0 [facility] Serum or plasma urea nitroge n measurement (mass/volume)Ordered By: Marybel Hidalgo on 07-18-2024 Urea nitrogen [Mass/Vol] 11 mg/dL 4-19 [facility] Sodium levelOrdered By: Mary Hidalgo on 07-18-2024 Sodium [Moles/Vol] 135 mmol/L 133-145 [facility] Total proteinOrdered By: Oumou Hidalgo on 07-18-2024 Protein [Mass/Vol] 7.1 g/dL 5.9-8.4 [facility] White blood cell (WBC) count Ordered By: Marybel Hidalgo on 07-18-2024 WBC (Bld) [#/Vol] 6.5 10*3/uL 4.4-11.0 [facility] Absolute lymphocyte countOrd ered By: Marybel Hidalgo on 04-17-2024 Lymphocytes Auto (Unsp spec) [#/Vol] 1.71 10*3/uL 0.83-4.51 [facility] Absolute neutrophil countOrd ered By: Marybel Hidalgo on 04-17-2024 Neutrophils (Bld) [#/Vol] 2.7 10*3/uL 2.0-7.7 [facility] Anion gap in Serum or Plasma Ordered By: Marybel Hidalgo on 04-17-2024 Anion gap [Moles/Vol] 15 mmol/L 5-15 [facility] Automated lymphocyte count a s percentage of total leukocytesOrdered By: Marybel Hidalgo on 04-17-2024 Lymphocytes/100 WBC Auto (Unsp spec) 32.8 % 19-41 [facility] BUN/creatinine ratioOrdered By: Marybelkendal Hidalgo on 04-17-2024 Urea nitrogen/Creatinine [Mass ratio] 13.9 mg/mg 10-20 [facility] Basophil percentageOrdered B y: Marybel Hidalgo on 04-17-2024 Basophils/100 WBC (Bld) 0.6 % 0-1 [facility] Bilirubin, totalOrdered By: [facility] [place] on 04-17-2024 Bilirubin [Mass/Vol] 0.45 mg/dL 0.00-1.30 [facility] CBC W/Diff, Automatedon Absolute Lymph 1.71 X10 3/uL Normal 0.83-4.51 [facility] Comment on above: Performed By: #### L 500.4050, L100.0100 #### [facility] [address] [place], [address] Absolute Neut 2.7 X10 3/uL Normal 2.0-7.7 [facility] Comment on above: Performed By: #### L 500.4050, L100.0100 #### [facility] [address] [place], [address] Basophils/100 WBC (Bld) 0.6 % Normal 0-1 [facility] Comment on above: Performed By: #### L 500.4050, L100.0100 #### [facility] [address] [place], [address] Eosinophils/100 WBC (Bld) 2.3 % Normal 0-5 [facility] Comment on above: Performed By: #### L 500.4050, L100.0100 #### [facility] [address] [place], [address] Erythrocyte distribution width (RBC) [Ratio] 13.8 % Normal 11.6-14.6 [facility] Comment on above: Performed By: #### L 500.4050, L100.0100 #### [facility] [address] [place], [address] Hematocrit (Bld) [Volume fraction] 41.6 % Normal 37-47 [facility] Comment on above: Performed By: #### L 500.4050, L100.0100 #### [facility] [address] [place], [address] Hemoglobin (Bld) [Mass/Vol] 14.0 g/dL Normal 12.0-15.0 [facility] Comment on above: Performed By: #### L 500.4050, L100.0100 #### [facility] [address] [place], [address] IG% 0.200 Normal 0.0-0.9 [facility] Comment on above: Result Comment: IG% - Immature Granulocytes (promyelocytes, myelocytes and metamyelocytes) > 1% indicates that a LEFT SHIFT is Present. Performed By: #### L 500.4050, L100.0100 #### [facility] [address] [place], [address] Lymphocytes/100 WBC (Bld) 32.8 % Normal 19-41 [facility] Comment on above: Performed By: #### L 500.4050, L100.0100 #### [facility] [address] [place], [address] MCH (RBC) [Entitic mass] 31.1 pg Normal 27.0-32.0 [facility] Comment on above: Performed By: #### L 500.4050, L100.0100 #### [facility] [address] [place], [address] MCHC (RBC) [Mass/Vol] 33.7 g/dL Normal 32-36 [facility] Comment on above: Performed By: #### L 500.4050, L100.0100 #### [facility] [address] [place], [address] MCV (RBC) [Entitic vol] 92.4 fL Normal 81-99 [facility] Comment on above: Performed By: #### L 500.4050, L100.0100 #### [facility] [address] [place], [address] Monocytes/100 WBC (Bld) 11.9 % High 0-10 [facility] Comment on above: Performed By: #### L 500.4050, L100.0100 #### [facility] [address] [place], [address] Neutrophils/100 WBC (Bld) 52.2 % Normal 47-70 [facility] Comment on above: Performed By: #### L 500.4050, L100.0100 #### [facility] [address] [place], [address] Nucleated RBC (Bld) [#/Vol] 0 10*3/uL Normal 0-5 [facility] Comment on above: Performed By: #### L 500.4050, L100.0100 #### [facility] [address] [place], [address] Platelet mean volume (Bld) [Entitic vol] 10.0 fL Normal 6.2-12.0 [facility] Comment on above: Performed By: #### L 500.4050, L100.0100 #### [facility] [address] [place], [address] Platelets (Bld) [#/Vol] 314 10*3/uL Normal 150-450 [facility] Comment on above: Performed By: #### L 500.4050, L100.0100 #### [facility] [address] [place], [address] RBC (Bld) [#/Vol] 4.50 10*6/uL Normal 4.2-5.4 [facility] Comment on above: Performed By: #### L 500.4050, L100.0100 #### [facility] [address] [place], [address] RDW SD 46.2 fl High 35.1-43.9 [facility] Comment on above: Performed By: #### L 500.4050, L100.0100 #### [facility] [address] [place], [address] WBC (Bld) [#/Vol] 5.2 10*3/uL Normal 4.4-11.0 [facility] Comment on above: Performed By: #### L 500.4050, L100.0100 #### [facility] [address] [place], [address] Carbon dioxide, total [Moles /volume] in Central venous bloodOrdered By: Marybel Hidalgo on 04-17-2024 CO2 [Moles/Vol] 20.8 mmol/L Low 21.0-32.0 [facility] Chloride assayOrdered By: Catarina Hidalgo on 04-17-2024 Chloride [Moles/Vol] 100 mmol/L 98-108 [facility] Comprehensive Metabolic Prof ilon 04-17-2024 Albumin [Mass/Vol] 4.2 g/dL Normal 3.4-4.8 [facility] Comment on above: Performed By: #### L 500.4050, L100.0100 #### [facility] [address] [place], [address] Albumin/Globulin [Mass ratio] 1.4 {ratio} Normal 0.9-2.4 [facility] Comment on above: Performed By: #### L 500.4050, L100.0100 #### [facility] [address] [place], [address] ALK PHOS 87 U/L Normal 35-104 [facility] Comment on above: Performed By: #### L 500.4050, L100.0100 #### [facility] [address] [place], [address] ALT [Catalytic activity/Vol] 24 U/L Normal <=34 [facility] Comment on above: Performed By: #### L 500.4050, L100.0100 #### [facility] [address] [place], [address] AST [Catalytic activity/Vol] 31 U/L Normal <=31 [facility] Comment on above: Performed By: #### L 500.4050, L100.0100 #### [facility] [address] [place], [address] Bilirubin [Mass/Vol] 0.45 mg/dL Normal 0.00-1.30 [facility] Comment on above: Performed By: #### L 500.4050, L100.0100 #### [facility] [address] [place], [address] BUN/CRE 13.9 RATIO Normal 10-20 [facility] Comment on above: Performed By: #### L 500.4050, L100.0100 #### [facility] [address] [place], [address] Calcium [Mass/Vol] 9.5 mg/dL Normal 7.6-11.0 [facility] Comment on above: Performed By: #### L 500.4050, L100.0100 #### [facility] [address] [place], [address] Chloride [Moles/Vol] 100 mmol/L Normal 98-108 [facility] Comment on above: Performed By: #### L 500.4050, L100.0100 #### [facility] [address] [place], [address] CO2 [Moles/Vol] 20.8 mmol/L Low 21.0-32.0 [facility] Comment on above: Performed By: #### L 500.4050, L100.0100 #### [facility] [address] [place], [address] Creatinine [Mass/Vol] 0.91 mg/dL Normal 0.70-1.20 [facility] Comment on above: Performed By: #### L 500.4050, L100.0100 #### [facility] [address] [place], [address] GAP 15 Normal 5-15 [facility] Comment on above: Performed By: #### L 500.4050, L100.0100 #### [facility] [address] [place], [address] GFR/1.73 sq M.predicted among non-blacks MDRD (S/P/Bld) [Vol rate/Area] 71 mL/min/{1.73_m2} Normal >60 [facility] Comment on above: Result Comment: mL/m in/1.73m2 CKD-EPI Creatinine Equation (2020) Performed By: #### L 500.4050, L100.0100 #### [facility] [address] [place], [address] Globulin (S) [Mass/Vol] 2.9 g/dL Normal 2.2-4.2 [facility] Comment on above: Performed By: #### L 500.4050, L100.0100 #### [facility] [address] [place], [address] Glucose [Mass/Vol] 94 mg/dL Normal 70-99 [facility] Comment on above: Performed By: #### L 500.4050, L100.0100 #### [facility] [address] [place], [address] Potassium [Moles/Vol] 4.7 mmol/L Normal 3.3-5.1 [facility] Comment on above: Performed By: #### L 500.4050, L100.0100 #### [facility] [address] [place], [address] Sodium [Moles/Vol] 136 mmol/L Normal 133-145 [facility] Comment on above: Performed By: #### L 500.4050, L100.0100 #### [facility] [address] [place], [address] T PROT 7.1 g/dL Normal 5.9-8.4 [facility] Comment on above: Performed By: #### L 500.4050, L100.0100 #### [facility] [address] [place], [address] Urea nitrogen [Mass/Vol] 13 mg/dL Normal 4-19 [facility] Comment on above: Performed By: #### L 500.4050, L100.0100 #### [facility] [address] [place], [address] Eosinophil percentageOrdered By: Marybel Hidalgo on 04-17-2024 Eosinophils/100 WBC (Bld) 2.3 % 0-5 [facility] Erythrocyte distribution wid th ratioOrdered By: Marybel Hidalgo on 04-17-2024 Erythrocyte distribution width (RBC) [Ratio] 13.8 % 11.6-14.6 [facility] Erythrocyte distribution wid th standard deviationOrdered By: Marybel Hidalgo on 04-17-2024 Erythrocyte distribution width (RBC) [Entitic vol] 46.2 fL High 35.1-43.9 [facility] Erythrocyte distribution width (RBC) [Ratio] 46.2 fl High 35.1-43.9 [facility] GFR/1.73 sq M.predicted myla g non-blacks MDRD (S/P/Bld) [Vol rate/Area]Ordered By: Marybel Hidalgo on 04-17-2024 Estimated GFR (MDRD) Non-Af Amer 71 >60 [facility] Comment on above: mL/min/1.73m2 CKD-EP I Creatinine Equation (2020) Glomerular filtration rate ( GFR) estimation/1.73 sq m using serum, plasma, or whole bOrdered By: Marybel Hidalgo on 04-17-2024 GFR/1.73 sq M.predicted among non-blacks MDRD (S/P/Bld) [Vol rate/Area] 71 mL/min/{1.73_m2} >60 [facility] Comment on above: mL/min/1.73m2 CKD-EP I Creatinine Equation (2020) Hematocrit Auto (Bld) [Volum e fraction]Ordered By: Marybel Hidalgo on 04-17-2024 Hematocrit (Bld) [Volume fraction] 41.6 % 37-47 [facility] Hemoglobin measurementOrdere d By: Marybel Hidalgo on 04-17-2024 Hemoglobin (Bld) [Mass/Vol] 14.0 g/dL 12.0-15.0 [facility] Immature granulocytes/100 WB C Auto (Bld)Ordered By: Marybel Hidalgo on 04-17-2024 Immature granulocytes/100 WBC (Bld) 0.200 % 0.0-0.9 [facility] Comment on above: IG% - Immature Granu locytes (promyelocytes, myelocytes and metamyelocytes) > 1% indicates that a LEFT SHIFT is Present. Laboratory - Chemistry and C hemistry - challengeOrdered By: Marybel Hidalgo on 04-17-2024 AST [Catalytic activity/Vol] 31 U/L <32 [facility] Lymphocytes Auto (Unsp spec) [#/Vol]Ordered By: Marybel Hidalgo on 04-17-2024 Lymphocytes (Bld) [#/Vol] 1.71 10*3/uL 0.83-4.51 [facility] Lymphocytes/100 WBC Auto (Un sp spec)Ordered By: Marybel Hidalgo on 04-17-2024 Lymphocytes/100 WBC (Bld) 32.8 % 19-41 [facility] MCV (mean corpuscular volume ) determinationOrdered By: Marybel Hidalgo on 04-17-2024 MCV (RBC) [Entitic vol] 92.4 fL 81-99 [facility] Mean corpuscular hemoglobin (MCH) determinationOrdered By: Marybel Hidalgo on 04-17-2024 MCH (RBC) [Entitic mass] 31.1 pg 27.0-32.0 [facility] Mean corpuscular hemoglobin concentration (MCHC) determinationOrdered By: Marybel Hidalgo on 04-17-2024 MCHC (RBC) [Mass/Vol] 33.7 g/dL 32-36 [facility] Mean platelet volume determi nationOrdered By: Marybel Hidalgo on 04-17-2024 Platelet mean volume (Bld) [Entitic vol] 10.0 fL 6.2-12.0 [facility] Monocyte percentageOrdered B y: Marybel Hidalgo on 04-17-2024 Monocytes/100 WBC (Bld) 11.9 % High 0-10 [facility] Neutrophil percentageOrdered By: Marybel Hidalgo on 04-17-2024 Neutrophils/100 WBC (Bld) 52.2 % 47-70 [facility] Nucleated red blood cell per centageOrdered By: Marybel Hidalgo on 04-17-2024 Nucleated RBC/100 WBC (Bld) [Ratio] 0 % 0-5 [facility] Platelet countOrdered By: Catarina Hidalgo on 04-17-2024 Platelets (Bld) [#/Vol] 314 10*3/uL 150-450 [facility] Potassium (Unsp spec) [Mass/ Vol]Ordered By: Marybel Hidalgo on 04-17-2024 Potassium [Moles/Vol] 4.7 mmol/L 3.3-5.1 [facility] Potassium measurement (mass/ volume)Ordered By: Marybel Hidalgo on 04-17-2024 Potassium (Unsp spec) [Mass/Vol] 4.7 mmol/L 3.3-5.1 [facility] RBC Auto (Bld) [#/Vol]Ordere d By: Marybel Hidalgo on 04-17-2024 RBC (Bld) [#/Vol] 4.50 10*6/uL 4.2-5.4 [facility] Serum creatinine measurement (mass/volume)Ordered By: Marybel Hidalgo on 04-17-2024 Creatinine [Mass/Vol] 0.91 mg/dL 0.70-1.20 [facility] Serum globulin measurementOr dered By: Marybel Hidalgo on 04-17-2024 Globulin (S) [Mass/Vol] 2.9 g/dL 2.2-4.2 [facility] Serum glucose measurement (m ass/volume)Ordered By: Marybel Hidalgo on 04-17-2024 Glucose [Mass/Vol] 94 mg/dL 70-99 [facility] Serum or plasma alanine ferguson otransferase (ALT) measurementOrdered By: Marybel Hidalgo on 04-17-2024 ALT [Catalytic activity/Vol] 24 U/L <35 [facility] Serum or plasma albumin rosie urement (mass/volume)Ordered By: Marybel Hidalgo on 04-17-2024 Albumin [Mass/Vol] 4.2 g/dL 3.4-4.8 [facility] Serum or plasma albumin/glob ulin mass ratioOrdered By: Marybel Hidalgo on 04-17-2024 Albumin/Globulin [Mass ratio] 1.4 {ratio} 0.9-2.4 [facility] Serum or plasma alkaline carol sphatase measurementOrdered By: Marybel Hidalgo on 04-17-2024 ALP [Catalytic activity/Vol] 87 U/L 35-104 [facility] Serum or plasma calcium rosie urement (mass/volume)Ordered By: Marybel Hidalgo on 04-17-2024 Calcium [Mass/Vol] 9.5 mg/dL 7.6-11.0 [facility] Serum or plasma urea nitroge n measurement (mass/volume)Ordered By: Marybel Hidalgo on 04-17-2024 Urea nitrogen [Mass/Vol] 13 mg/dL 4-19 [facility] Sodium levelOrdered By: Mary Hidalgo on 04-17-2024 Sodium [Moles/Vol] 136 mmol/L 133-145 [facility] Total proteinOrdered By: Oumou Hidalgo on 04-17-2024 Protein [Mass/Vol] 7.1 g/dL 5.9-8.4 [facility] White blood cell (WBC) count Ordered By: Marybel Hidalgo on 04-17-2024 WBC (Bld) [#/Vol] 5.2 10*3/uL 4.4-11.0 [facility] SCRN MAMM (CAD)W/OSIEL BILATo n 02-21-2024 SCRN MAMM (CAD)W/OSIEL BILAT [facility] [address] [place], [place] [address] SCRN MAMM (CAD)W/OSIEL BILAT MR#: [id number] Acct: [id number] Name: CALDERON REID Rep #: [id number] : 1960 F 63 From: [place] kemp MD PCP: Dr. Dandy Childs DO Status: REG CL Study: SCRN MAMM (CAD)W/OSIEL BILAT Date of Exam: 09/07 Exam# [id number] Ordering Dr: Dandy Childs DO [id number] MAMMOGRAPHY - BILATERAL SCREENING REASON FOR EXAM: [...] delay biopsy of a clinically suspicious abnormality. [id number] Electronically Signed: Raleigh Corrales MD at 11:15 EST , CC: Dr. Dandy Childs, Malted Milk Mixer: Signed Normal [facility] Urgent Care Visit Reporton 1 03-28-2023 Urgent Care Visit Report [facility] [address], [address] [place] [address] OFFICE VISIT Date of Service: 01/26/24 MR#: [id number] Acct: [id number] Name: CALDERON REID Rep #: [id number] : 1960 Provider: CATARINA Dominguez Age/Sex: 63/F Location[place] [facility] Status: Signed Intake Vital Signs [...] has been going on for 8 days. [facility] Medical History Acute pharyngitis, unspecified URI (upper [...] Exam Const General: cooperative and healthy appearing HENID Head: normal to inspection Ears: hearing grossly [...] Date ____ (more content not included)... Normal [facility] Direct serum free thyroxine (FT4) measurementOrdered By: Dandy Childs on 01-24-2024 Free T4 [Mass/Vol] 1.19 ng/dL 0.76-1.46 [facility] High density lipoprotein (HD L) measurementOrdered By: Dandy Childs on 01-24-2024 Cholesterol in HDL [Mass/Vol] 44 mg/dL >40 [facility] Comment on above: The drugs N-Acetylcy steine and Metamizole may falsely depress this assay. Reference Range HDL <40 mg/dL Low HDL Cholesterol HDL >or= 60 mg/dL High HDL Cholesterol Lipid Profileon 01-24-2024 Cholesterol [Mass/Vol] 191 mg/dL Normal 200 [facility] Comment on above: Result Comment: <200 mg/dL Desirable 200-240 mg/dL Borderline >240 mg/dL High Risk Performed By: #### L 500.4050, L100.0100 #### [facility] [address] [place], [address] Cholesterol in HDL [Mass/Vol] 44 mg/dL Normal [facility] Comment on above: Result Comment: The drugs N-Acetylcysteine and Metamizole may falsely depress this assay. Reference Range HDL <40 mg/dL Low HDL Cholesterol HDL >or= 60 mg/dL High HDL Cholesterol Performed By: #### L 500.4050, L100.0100 #### [facility] [address] [place], [address] Cholesterol in LDL [Mass/Vol] 120 mg/dL Normal 0-130 [facility] Comment on above: Performed By: #### L 500.4050, L100.0100 #### [facility] [address] [place], [address] Cholesterol in VLDL [Mass/Vol] 27 mg/dL Normal 5-40 [facility] Comment on above: Performed By: #### L 500.4050, L100.0100 #### [facility] [address] [place], [address] Triglyceride [Mass/Vol] 133 mg/dL Normal [facility] Comment on above: Result Comment: The drugs N-Acetylcysteine and Metamizole may falsely depress this assay. Serum Triglycerides Reference Interval Normal <150 mg/dL Borderline high 150 - 199 mg/dL High 200 - 499 mg/dL Very High > or = 500 mg/dL Performed By: #### L 500.4050, L100.0100 #### [facility] [address] [place], [place], [address] Low density lipoprotein (LDL ) cholesterol measurementOrdered By: Dandy Childs on 01-24-2024 Cholesterol in LDL [Mass/Vol] 120 mg/dL 0-130 [facility] Serum or plasma cholesterol measurement (mass/volume)Ordered By: Dandy Childs on 01-24-2024 Cholesterol [Mass/Vol] 191 mg/dL <200 [facility] Comment on above: <200 mg/dL Desirable 200-240 mg/dL Borderline >240 mg/dL High Risk T4 Free Directon 01-24-2024 T4 FREE DIRECT 1.19 ng/dL Normal 0.76-1.46 [facility] Comment on above: Performed By: #### L 500.4050, L100.0100 #### [facility] [address] [place], [place], [address] TSH QnOrdered By: Dandy Adan yamilka on 01-24-2024 Thyroid Stimulating Hormone (TSH) 1.630 uIU/mL 0.358-3.740 [facility] Thyroid Stim Hormone (TSH)on 01-24-2024 TSH 1.630 uIU/mL Normal 0.358-3.740 [facility] Comment on above: Performed By: #### L 500.4050, L100.0100 #### [facility] [address] [place], [place], [address] Triglycerides measurementOrd ered By: Dandy Naz on 01-24-2024 Triglyceride [Mass/Vol] 133 mg/dL <199 [facility] Comment on above: The drugs N-Acetylcy steine and Metamizole may falsely depress this assay.Serum Triglycerides Reference Interval Normal <150 mg/dL Borderline high 150 - 199 mg/dL High 200 - 499 mg/dL Very High > or = 500 mg/dL Very low density lipoprotein (VLDL) cholesterol measurementOrdered By: Dandy Naz on 01-24-2024 VLDL Cholesterol 27 mg/dL 5-40 [facility] Absolute neutrophil countOrd ered By: Marybel Hidalgo on 01-19-2024 Neutrophils (Bld) [#/Vol] 3.5 10*3/uL 2.0-7.7 [facility] Albumin to globulin ratioOrd ered By: Marybel Hidalgo on 01-19-2024 Albumin/Globulin [Mass ratio] 1.1 {ratio} 0.9-2.4 [facility] Basophil percentageOrdered B y: Marybel Hidalgo on 01-19-2024 Basophils/100 WBC (Bld) 0.6 % 0-1 [facility] Bilirubin, totalOrdered By: Marybel Hidalgo on 01-19-2024 Bilirubin [Mass/Vol] 0.50 mg/dL 0.20-1.00 [facility] Comment on above: For patients on eltr ombopag therapy, use of Dimension [place] TBIL is not recommended. Blood urea nitrogen (BUN)/cr eatinine ratioOrdered By: Marybel Hidalgo on 01-19-2024 Urea nitrogen/Creatinine [Mass ratio] 12.9 mg/mg 10-20 [facility] CBC W/Diff, Automatedon Absolute Lymph 1.71 X10 3/uL Normal 0.83-4.51 [facility] Comment on above: Performed By: #### L 100.0100, L500.4050 #### [facility] [address] [place], [address] Absolute Neut 3.5 X10 3/uL Normal 2.0-7.7 [facility] Comment on above: Performed By: #### L 100.0100, L500.4050 #### [facility] [address] [place], [address] Basophils/100 WBC (Bld) 0.6 % Normal 0-1 [facility] Comment on above: Performed By: #### L 100.0100, L500.4050 #### [facility] [address] [place], [address] Eosinophils/100 WBC (Bld) 1.8 % Normal 0-5 [facility] Comment on above: Performed By: #### L 100.0100, L500.4050 #### [facility] [address] [place], [address] Erythrocyte distribution width (RBC) [Ratio] 14.2 % Normal 11.6-14.6 [facility] Comment on above: Performed By: #### L 100.0100, L500.4050 #### [facility] [address] [place], [address] Hematocrit (Bld) [Volume fraction] 42.9 % Normal 37-47 [facility] Comment on above: Performed By: #### L 100.0100, L500.4050 #### [facility] [address] [place], [address] Hemoglobin (Bld) [Mass/Vol] 14.6 g/dL Normal 12.0-15.0 [facility] Comment on above: Performed By: #### L 100.0100, L500.4050 #### [facility] [address] [place], [address] IG% 0.300 Normal 0.0-0.9 [facility] Comment on above: Result Comment: IG% - Immature Granulocytes (promyelocytes, myelocytes and metamyelocytes) > 1% indicates that a LEFT SHIFT is Present. Performed By: #### L 100.0100, L500.4050 #### [facility] [address] [place], [address] Lymphocytes/100 WBC (Bld) 27.6 % Normal 19-41 [facility] Comment on above: Performed By: #### L 100.0100, L500.4050 #### [facility] [address] [place], [address] MCH (RBC) [Entitic mass] 31.3 pg Normal 27.0-32.0 [facility] Comment on above: Performed By: #### L 100.0100, L500.4050 #### [facility] [address] [place], [address] MCHC (RBC) [Mass/Vol] 34.0 g/dL Normal 32-36 [facility] Comment on above: Performed By: #### L 100.0100, L500.4050 #### [facility] [address] [place], [address] MCV (RBC) [Entitic vol] 92.1 fL Normal 81-99 [facility] Comment on above: Performed By: #### L 100.0100, L500.4050 #### [facility] [address] [place], [address] Monocytes/100 WBC (Bld) 12.8 % High 0-10 [facility] Comment on above: Performed By: #### L 100.0100, L500.4050 #### [facility] [address] [place], [address] Neutrophils/100 WBC (Bld) 56.9 % Normal 47-70 [facility] Comment on above: Performed By: #### L 100.0100, L500.4050 #### [facility] [address] [place], [address] Nucleated RBC (Bld) [#/Vol] 0 10*3/uL Normal 0-5 [facility] Comment on above: Performed By: #### L 100.0100, L500.4050 #### [facility] [address] [place], [address] Platelet mean volume (Bld) [Entitic vol] 10.0 fL Normal 6.2-12.0 [facility] Comment on above: Performed By: #### L 100.0100, L500.4050 #### [facility] [address] [place], [address] Platelets (Bld) [#/Vol] 342 10*3/uL Normal 150-450 [facility] Comment on above: Performed By: #### L 100.0100, L500.4050 #### [facility] [address] [place], [address] RBC (Bld) [#/Vol] 4.66 10*6/uL Normal 4.2-5.4 [facility] Comment on above: Performed By: #### L 100.0100, L500.4050 #### [facility] [address] [place], [address] RDW SD 47.2 fl High 35.1-43.9 [facility] Comment on above: Performed By: #### L 100.0100, L500.4050 #### [facility] [address] [place], [address] WBC (Bld) [#/Vol] 6.2 10*3/uL Normal 4.4-11.0 [facility] Comment on above: Performed By: #### L 100.0100, L500.4050 #### [facility] [address] [place], [address] Carbon dioxide measurementOr dered By: Marybel Hidalgo on 01-19-2024 CO2 [Moles/Vol] 21.0 mmol/L 21.0-32.0 [facility] Chloride measurementOrdered By: Marybel Hidalgo on 01-19-2024 Chloride [Moles/Vol] 104 mmol/L 98-107 [facility] Comprehensive Metabolic Prof ilon 01-19-2024 Albumin [Mass/Vol] 3.8 g/dL Normal 3.2-5.0 [facility] Comment on above: Performed By: #### L 100.0100, L500.4050 #### [facility] [address] [place], [address] Albumin/Globulin [Mass ratio] 1.1 {ratio} Normal 0.9-2.4 [facility] Comment on above: Performed By: #### L 100.0100, L500.4050 #### [facility] [address] [place], [address] ALK P 93 U/L Normal 45-117 [facility] Comment on above: Performed By: #### L 100.0100, L500.4050 #### [facility] [address] [place], [address] ALT [Catalytic activity/Vol] 24 U/L Normal 13-56 [facility] Comment on above: Performed By: #### L 100.0100, L500.4050 #### [facility] [address] [place], [address] AST [Catalytic activity/Vol] 23 U/L Normal 15-37 [facility] Comment on above: Performed By: #### L 100.0100, L500.4050 #### [facility] [address] [place], [address] Bilirubin [Mass/Vol] 0.50 mg/dL Normal 0.20-1.00 [facility] Comment on above: Result Comment: For patients on eltrombopag therapy, use of Dimension [place] TBIL is not recommended. Performed By: #### L 100.0100, L500.4050 #### [facility] [address] [place], [address] BUN/CRE 12.9 RATIO Normal 10-20 [facility] Comment on above: Performed By: #### L 100.0100, L500.4050 #### [facility] [address] [place], [address] CA,Total 9.2 mg/dL Normal 8.5-10.1 [facility] Comment on above: Performed By: #### L 100.0100, L500.4050 #### [facility] [address] [place], [address] Chloride [Moles/Vol] 104 mmol/L Normal 98-107 [facility] Comment on above: Performed By: #### L 100.0100, L500.4050 #### [facility] [address] [place], [address] CO2 [Moles/Vol] 21.0 mmol/L Normal 21.0-32.0 [facility] Comment on above: Performed By: #### L 100.0100, L500.4050 #### [facility] [address] [place], [address] Creatinine [Mass/Vol] 0.93 mg/dL Normal 0.55-1.02 [facility] Comment on above: Result Comment: The validity of the calculated GFR GFRAA in patients over 70 years has not been determined. Clinical correlation is essential. Performed By: #### L 100.0100, L500.4050 #### [facility] [address] [place], [address] EST GFR - AA 78 mL/min Normal >60 [facility] Comment on above: Result Comment: Afri can Lebanese GFR Calc Performed By: #### L 100.0100, L500.4050 #### [facility] [address] [place], [address] GAP 9 Normal 5-15 [facility] Comment on above: Performed By: #### L 100.0100, L500.4050 #### [facility] [address] [place], [address] GFR/1.73 sq M.predicted among non-blacks MDRD (S/P/Bld) [Vol rate/Area] 65 mL/min/{1.73_m2} Normal >60 [facility] Comment on above: Result Comment: Non- GFR Calc Performed By: #### L 100.0100, L500.4050 #### [facility] [address] [place], [address] Globulin (S) [Mass/Vol] 3.5 g/dL Normal 2.2-4.2 [facility] Comment on above: Performed By: #### L 100.0100, L500.4050 #### [facility] [address] [place], [address] Glucose [Mass/Vol] 120 mg/dL High 74-106 [facility] Comment on above: Result Comment: Fast ing Glucose result from 100 to 125 mg/dL suggests IMPAIRED HOMEOSTASIS per A.D.A. criteria. Performed By: #### L 100.0100, L500.4050 #### [facility] [address] [place], [address] Potassium [Moles/Vol] 3.9 mmol/L Normal 3.5-5.1 [facility] Comment on above: Performed By: #### L 100.0100, L500.4050 #### [facility] [address] [place], [address] Sodium [Moles/Vol] 134 mmol/L Low 136-145 [facility] Comment on above: Performed By: #### L 100.0100, L500.4050 #### [facility] [address] [place], [address] T PROT 7.3 g/dL Normal 6.4-8.2 [facility] Comment on above: Performed By: #### L 100.0100, L500.4050 #### [facility] [address] [place], [address] Urea nitrogen [Mass/Vol] 12 mg/dL Normal 7-18 [facility] Comment on above: Performed By: #### L 100.0100, L500.4050 #### [facility] [address] [place], [address] Eosinophil percentageOrdered By: Marybel Hidalgo on 01-19-2024 Eosinophils/100 WBC (Bld) 1.8 % 0-5 [facility] Erythrocyte distribution wid th ratioOrdered By: Marybel Hidalgo on 01-19-2024 Erythrocyte distribution width (RBC) [Ratio] 14.2 % 11.6-14.6 [facility] Erythrocyte distribution wid th standard deviationOrdered By: Marybel Hidalgo on 01-19-2024 Erythrocyte distribution width (RBC) [Entitic vol] 47.2 fL High 35.1-43.9 [facility] Estimated glomerular filtrat ion rate (GFR) AmericanOrdered By: Marybel Hidalgo on 01-19-2024 Estimated GFR (MDRD) Amer 78 mL/min >60 [facility] Comment on above: GFR Calc Glomerular filtration rate ( GFR) estimationOrdered By: Marybel Hidalgo on 01-19-2024 Estimated GFR (MDRD) Non-Af Amer 65 mL/min >60 [facility] Comment on above: Non- GFR Calc Glucose measurementOrdered B y: Marybel Hidalgo on 01-19-2024 Glucose [Mass/Vol] 120 mg/dL High 74-106 [facility] Comment on above: Fasting Glucose resu lt from 100 to 125 mg/dL suggests IMPAIRED HOMEOSTASIS per A.D.A. criteria. Hematocrit Auto (Bld) [Volum e fraction]Ordered By: Marybel Hidalgo on 01-19-2024 Hematocrit (Bld) [Volume fraction] 42.9 % 37-47 [facility] Hemoglobin measurementOrdere d By: Marybel Hidalgo on 01-19-2024 Hemoglobin (Bld) [Mass/Vol] 14.6 g/dL 12.0-15.0 [facility] Immature granulocytes/100 WB C Auto (Bld)Ordered By: Marybel Hidalgo on 01-19-2024 Immature granulocytes/100 WBC (Bld) 0.300 % 0.0-0.9 [facility] Comment on above: IG% - Immature Granu locytes (promyelocytes, myelocytes and metamyelocytes) > 1% indicates that a LEFT SHIFT is Present. Laboratory - Chemistry and C hemistry - challengeOrdered By: Marybel Hidalgo on 01-19-2024 AST [Catalytic activity/Vol] 23 U/L 15-37 [facility] Lymphocytes Auto (Unsp spec) [#/Vol]Ordered By: Marybel Hidalgo on 01-19-2024 Lymphocytes (Bld) [#/Vol] 1.71 10*3/uL 0.83-4.51 [facility] Lymphocytes/100 WBC Auto (Un sp spec)Ordered By: Marybel Hidalgo on 01-19-2024 Lymphocytes/100 WBC (Bld) 27.6 % 19-41 [facility] MCV (mean corpuscular volume ) determinationOrdered By: Marybel Hidalgo on 01-19-2024 MCV (RBC) [Entitic vol] 92.1 fL 81-99 [facility] Mean corpuscular hemoglobin (MCH) determinationOrdered By: Marybel Hidalgo on 01-19-2024 MCH (RBC) [Entitic mass] 31.3 pg 27.0-32.0 [facility] Mean corpuscular hemoglobin concentration (MCHC) determinationOrdered By: Marybel Hidalgo on 01-19-2024 MCHC (RBC) [Mass/Vol] 34.0 g/dL 32-36 [facility] Mean platelet volume determi nationOrdered By: Marybel Hidalgo on 01-19-2024 Platelet mean volume (Bld) [Entitic vol] 10.0 fL 6.2-12.0 [facility] Monocyte percentageOrdered B y: Marybel Hidalgo on 01-19-2024 Monocytes/100 WBC (Bld) 12.8 % High 0-10 [facility] Neutrophil percentageOrdered By: Marybel Hidalgo on 01-19-2024 Neutrophils/100 WBC (Bld) 56.9 % 47-70 [facility] Nucleated red blood cell per centageOrdered By: Marybel Hidalgo on 01-19-2024 Nucleated RBC/100 WBC (Bld) [Ratio] 0 % 0-5 [facility] Platelet countOrdered By: Catarina Hidalgo on 01-19-2024 Platelets (Bld) [#/Vol] 342 10*3/uL 150-450 [facility] Potassium measurementOrdered By: Marybel Hidalgo on 01-19-2024 Potassium [Moles/Vol] 3.9 mmol/L 3.5-5.1 [facility] RBC Auto (Bld) [#/Vol]Ordere d By: Marybel Hidalgo on 01-19-2024 RBC (Bld) [#/Vol] 4.66 10*6/uL 4.2-5.4 [facility] Serum anion gap measurementO rdered By: Marybel Hidalgo on 01-19-2024 Anion gap [Moles/Vol] 9 mmol/L 5-15 [facility] Serum globulin measurementOr dered By: Marybel Hidalgo on 01-19-2024 Globulin (S) [Mass/Vol] 3.5 g/dL 2.2-4.2 [facility] Serum or plasma alanine ferguson otransferase (ALT) measurementOrdered By: Marybel Hidalgo on 01-19-2024 ALT [Catalytic activity/Vol] 24 U/L 13-56 [facility] Serum or plasma albumin rosie urement (mass/volume)Ordered By: Marybel Hidalgo on 01-19-2024 Albumin [Mass/Vol] 3.8 g/dL 3.2-5.0 [facility] Serum or plasma alkaline carol sphatase measurementOrdered By: Marybel Hidalgo on 01-19-2024 ALP [Catalytic activity/Vol] 93 U/L 45-117 [facility] Serum or plasma calcium rosie urement (mass/volume)Ordered By: Marybel Hidalgo on 01-19-2024 Calcium [Mass/Vol] 9.2 mg/dL 8.5-10.1 [facility] Serum or plasma creatinine m easurement (mass/volume)Ordered By: Marybel Hidalgo on 01-19-2024 Creatinine [Mass/Vol] 0.93 mg/dL 0.55-1.02 [facility] Comment on above: The validity of the calculated GFR & GFRAA in patients over 70 years has not been determined. Clinical correlation is essential. Serum or plasma urea nitroge n measurement (mass/volume)Ordered By: Marybel Hidalgo on 01-19-2024 Urea nitrogen [Mass/Vol] 12 mg/dL 7-18 [facility] Sodium levelOrdered By: Mary Hidalgo on 01-19-2024 Sodium [Moles/Vol] 134 mmol/L Low 136-145 [facility] Total proteinOrdered By: Oumou Hidalgo on 01-19-2024 Protein [Mass/Vol] 7.3 g/dL 6.4-8.2 [facility] White blood cell (WBC) count Ordered By: Marbyel Hidalgo on 01-19-2024 WBC (Bld) [#/Vol] 6.2 10*3/uL 4.4-11.0 [facility] CBC W/Diff, Automatedon - Absolute Lymph 1.77 X10 3/uL Normal 0.83-4.51 [facility] Comment on above: Performed By: #### L 500.4050, L100.0100 #### [facility] [address] [place], [address] Absolute Neut 2.7 X10 3/uL Normal 2.0-7.7 [facility] Comment on above: Performed By: #### L 500.4050, L100.0100 #### [facility] [address] [place], [address] Basophils/100 WBC (Bld) 0.4 % Normal 0-1 [facility] Comment on above: Performed By: #### L 500.4050, L100.0100 #### [facility] [address] [place], [address] Eosinophils/100 WBC (Bld) 1.7 % Normal 0-5 [facility] Comment on above: Performed By: #### L 500.4050, L100.0100 #### [facility] [address] [place], [address] Erythrocyte distribution width (RBC) [Ratio] 13.6 % Normal 11.6-14.6 [facility] Comment on above: Performed By: #### L 500.4050, L100.0100 #### [facility] [address] [place], [address] Hematocrit (Bld) [Volume fraction] 42.9 % Normal 37-47 [facility] Comment on above: Performed By: #### L 500.4050, L100.0100 #### [facility] [address] [place], [address] Hemoglobin (Bld) [Mass/Vol] 14.2 g/dL Normal 12.0-15.0 [facility] Comment on above: Performed By: #### L 500.4050, L100.0100 #### [facility] [address] [place], [address] IG% 0.200 Normal 0.0-0.9 [facility] Comment on above: Result Comment: IG% - Immature Granulocytes (promyelocytes, myelocytes and metamyelocytes) > 1% indicates that a LEFT SHIFT is Present. Performed By: #### L 500.4050, L100.0100 #### [facility] [address] [place], [address] Lymphocytes/100 WBC (Bld) 34.0 % Normal 19-41 [facility] Comment on above: Performed By: #### L 500.4050, L100.0100 #### [facility] [address] [place], [address] MCH (RBC) [Entitic mass] 30.7 pg Normal 27.0-32.0 [facility] Comment on above: Performed By: #### L 500.4050, L100.0100 #### [facility] [address] [place], [address] MCHC (RBC) [Mass/Vol] 33.1 g/dL Normal 32-36 [facility] Comment on above: Performed By: #### L 500.4050, L100.0100 #### [facility] [address] [place], [address] MCV (RBC) [Entitic vol] 92.7 fL Normal 81-99 [facility] Comment on above: Performed By: #### L 500.4050, L100.0100 #### [facility] [address] [place], [address] Monocytes/100 WBC (Bld) 11.1 % High 0-10 [facility] Comment on above: Performed By: #### L 500.4050, L100.0100 #### [facility] [address] [place], [address] Neutrophils/100 WBC (Bld) 52.6 % Normal 47-70 [facility] Comment on above: Performed By: #### L 500.4050, L100.0100 #### [facility] [address] [place], [address] Nucleated RBC (Bld) [#/Vol] 0 10*3/uL Normal 0-5 [facility] Comment on above: Performed By: #### L 500.4050, L100.0100 #### [facility] [address] [place], [address] Platelet mean volume (Bld) [Entitic vol] 10.5 fL Normal 6.2-12.0 [facility] Comment on above: Performed By: #### L 500.4050, L100.0100 #### [facility] [address] [place], [address] Platelets (Bld) [#/Vol] 341 10*3/uL Normal 150-450 [facility] Comment on above: Performed By: #### L 500.4050, L100.0100 #### [facility] [address] [place], [address] RBC (Bld) [#/Vol] 4.63 10*6/uL Normal 4.2-5.4 [facility] Comment on above: Performed By: #### L 500.4050, L100.0100 #### [facility] [address] [place], [address] RDW SD 45.5 fl High 35.1-43.9 [facility] Comment on above: Performed By: #### L 500.4050, L100.0100 #### [facility] [address] [place], [address] WBC (Bld) [#/Vol] 5.2 10*3/uL Normal 4.4-11.0 [facility] Comment on above: Performed By: #### L 500.4050, L100.0100 #### [facility] [address] [place], [address] Comprehensive Metabolic Prof [facility] 10-31-2023 Albumin [Mass/Vol] 3.6 g/dL Normal 3.2-5.0 [facility] Comment on above: Performed By: #### L 500.4050, L100.0100 #### [facility] [address] [place], [address] Albumin/Globulin [Mass ratio] 1.0 {ratio} Normal 0.9-2.4 [facility] Comment on above: Performed By: #### L 500.4050, L100.0100 #### [facility] [address] [place], [address] ALK P 89 U/L Normal 45-117 [facility] Comment on above: Performed By: #### L 500.4050, L100.0100 #### [facility] [address] [place], [address] ALT [Catalytic activity/Vol] 17 U/L Normal 13-56 [facility] Comment on above: Performed By: #### L 500.4050, L100.0100 #### [facility] [address] [place], [address] AST [Catalytic activity/Vol] 18 U/L Normal 15-37 [facility] Comment on above: Performed By: #### L 500.4050, L100.0100 #### [facility] [address] [place], [address] Bilirubin [Mass/Vol] 0.40 mg/dL Normal 0.20-1.00 [facility] Comment on above: Result Comment: For patients on eltrombopag therapy, use of Dimension [place] TBIL is not recommended. Performed By: #### L 500.4050, L100.0100 #### [facility] [address] [place], [address] BUN/CRE 13.6 RATIO Normal 10-20 [facility] Comment on above: Performed By: #### L 500.4050, L100.0100 #### [facility] [address] [place], [address] CA,Total 9.5 mg/dL Normal 8.5-10.1 [facility] Comment on above: Performed By: #### L 500.4050, L100.0100 #### [facility] [address] [place], [address] Chloride [Moles/Vol] 104 mmol/L Normal 98-107 [facility] Comment on above: Performed By: #### L 500.4050, L100.0100 #### [facility] [address] [place], [address] CO2 [Moles/Vol] 23.0 mmol/L Normal 21.0-32.0 [facility] Comment on above: Performed By: #### L 500.4050, L100.0100 #### [facility] [address] [place], [address] Creatinine [Mass/Vol] 0.74 mg/dL Normal 0.55-1.02 [facility] Comment on above: Result Comment: The validity of the calculated GFR GFRAA in patients over 70 years has not been determined. Clinical correlation is essential. Performed By: #### L 500.4050, L100.0100 #### [facility] [address] [place], [address] EST GFR - AA 102 mL/min Normal >60 [facility] Comment on above: Result Comment: Afri can Lebanese GFR Calc Performed By: #### L 500.4050, L100.0100 #### [facility] [address] [place], [address] GAP 8 Normal 5-15 [facility] Comment on above: Performed By: #### L 500.4050, L100.0100 #### [facility] [address] [place], [address] GFR/1.73 sq M.predicted among non-blacks MDRD (S/P/Bld) [Vol rate/Area] 85 mL/min/{1.73_m2} Normal >60 [facility] Comment on above: Result Comment: Non- GFR Calc Performed By: #### L 500.4050, L100.0100 #### [facility] [address] [place], [address] Globulin (S) [Mass/Vol] 3.6 g/dL Normal 2.2-4.2 [facility] Comment on above: Performed By: #### L 500.4050, L100.0100 #### [facility] [address] [place], [address] Glucose [Mass/Vol] 86 mg/dL Normal 74-106 [facility] Comment on above: Performed By: #### L 500.4050, L100.0100 #### [facility] [address] [place], [address] Potassium [Moles/Vol] 3.8 mmol/L Normal 3.5-5.1 [facility] Comment on above: Performed By: #### L 500.4050, L100.0100 #### [facility] [address] [place], [address] Sodium [Moles/Vol] 135 mmol/L Low 136-145 [facility] Comment on above: Performed By: #### L 500.4050, L100.0100 #### [facility] [address] [place], [address] T PROT 7.2 g/dL Normal 6.4-8.2 [facility] Comment on above: Performed By: #### L 500.4050, L100.0100 #### [facility] [address] [place], [address] Urea nitrogen [Mass/Vol] 10 mg/dL Normal 7-18 [facility] Comment on above: Performed By: #### L 500.4050, L100.0100 #### [facility] [address] [place], [address] CBC W/Diff, Automatedon 06-2 5-2023 Absolute Lymph 1.67 X10 3/uL Normal 0.83-4.51 [facility] Comment on above: Performed By: #### L 100.0100, L500.4050 #### [facility] [address] [place], [address] Absolute Neut 3.0 X10 3/uL Normal 2.0-7.7 [facility] Comment on above: Performed By: #### L 100.0100, L500.4050 #### [facility] [address] [place], [address] Basophils/100 WBC (Bld) 0.7 % Normal 0-1 [facility] Comment on above: Performed By: #### L 100.0100, L500.4050 #### [facility] [address] [place], [address] Eosinophils/100 WBC (Bld) 2.3 % Normal 0-5 [facility] Comment on above: Performed By: #### L 100.0100, L500.4050 #### [facility] [address] [place], [address] Erythrocyte distribution width (RBC) [Ratio] 13.5 % Normal 11.6-14.6 [facility] Comment on above: Performed By: #### L 100.0100, L500.4050 #### [facility] [address] [place], [address] Hematocrit (Bld) [Volume fraction] 43.4 % Normal 37-47 [facility] Comment on above: Performed By: #### L 100.0100, L500.4050 #### [facility] [address] [place], [address] Hemoglobin (Bld) [Mass/Vol] 14.7 g/dL Normal 12.0-15.0 [facility] Comment on above: Performed By: #### L 100.0100, L500.4050 #### [facility] [address] [place], [address] IG% 0.400 Normal 0.0-0.9 [facility] Comment on above: Result Comment: IG% - Immature Granulocytes (promyelocytes, myelocytes and metamyelocytes) > 1% indicates that a LEFT SHIFT is Present. Performed By: #### L 100.0100, L500.4050 #### [facility] [address] [place], [address] Lymphocytes/100 WBC (Bld) 29.8 % Normal 19-41 [facility] Comment on above: Performed By: #### L 100.0100, L500.4050 #### [facility] [address] [place], [address] MCH (RBC) [Entitic mass] 31.3 pg Normal 27.0-32.0 [facility] Comment on above: Performed By: #### L 100.0100, L500.4050 #### [facility] [address] [place], [address] MCHC (RBC) [Mass/Vol] 33.9 g/dL Normal 32-36 [facility] Comment on above: Performed By: #### L 100.0100, L500.4050 #### [facility] [address] [place], [address] MCV (RBC) [Entitic vol] 92.3 fL Normal 81-99 [facility] Comment on above: Performed By: #### L 100.0100, L500.4050 #### [facility] [address] [place], [address] Monocytes/100 WBC (Bld) 13.9 % High 0-10 [facility] Comment on above: Performed By: #### L 100.0100, L500.4050 #### [facility] [address] [place], [address] Neutrophils/100 WBC (Bld) 52.9 % Normal 47-70 [facility] Comment on above: Performed By: #### L 100.0100, L500.4050 #### [facility] [address] [place], [address] Nucleated RBC (Bld) [#/Vol] 0 10*3/uL Normal 0-5 [facility] Comment on above: Performed By: #### L 100.0100, L500.4050 #### [facility] [address] [place], [address] Platelet mean volume (Bld) [Entitic vol] 10.7 fL Normal 6.2-12.0 [facility] Comment on above: Performed By: #### L 100.0100, L500.4050 #### [facility] [address] [place], [address] Platelets (Bld) [#/Vol] 311 10*3/uL Normal 150-450 [facility] Comment on above: Performed By: #### L 100.0100, L500.4050 #### [facility] [address] [place], [address] RBC (Bld) [#/Vol] 4.70 10*6/uL Normal 4.2-5.4 [facility] Comment on above: Performed By: #### L 100.0100, L500.4050 #### [facility] [address] [place], [address] RDW SD 46.2 fl High 35.1-43.9 [facility] Comment on above: Performed By: #### L 100.0100, L500.4050 #### [facility] [address] [place], [address] WBC (Bld) [#/Vol] 5.6 10*3/uL Normal 4.4-11.0 [facility] Comment on above: Performed By: #### L 100.0100, L500.4050 #### [facility] [address] [place], [address] Comprehensive Metabolic Prof [facility] 08-09-2023 Albumin [Mass/Vol] 3.6 g/dL Normal 3.2-5.0 [facility] Comment on above: Performed By: #### L 100.0100, L500.4050 #### [facility] [address] [place], [address] Albumin/Globulin [Mass ratio] 1.0 {ratio} Normal 0.9-2.4 [facility] Comment on above: Performed By: #### L 100.0100, L500.4050 #### [facility] [address] [place], [address] ALK P 88 U/L Normal 45-117 [facility] Comment on above: Performed By: #### L 100.0100, L500.4050 #### [facility] [address] [place], [address] ALT [Catalytic activity/Vol] 22 U/L Normal 13-56 [facility] Comment on above: Performed By: #### L 100.0100, L500.4050 #### [facility] [address] [place], [address] AST [Catalytic activity/Vol] 19 U/L Normal 15-37 [facility] Comment on above: Performed By: #### L 100.0100, L500.4050 #### [facility] [address] [place], [address] Bilirubin [Mass/Vol] 0.40 mg/dL Normal 0.20-1.00 [facility] Comment on above: Result Comment: For patients on eltrombopag therapy, use of Dimension [place] TBIL is not recommended. Performed By: #### L 100.0100, L500.4050 #### [facility] [address] [place], [address] BUN/CRE 11.6 RATIO Normal 10-20 [facility] Comment on above: Performed By: #### L 100.0100, L500.4050 #### [facility] [address] [place], [address] CA,Total 9.2 mg/dL Normal 8.5-10.1 [facility] Comment on above: Performed By: #### L 100.0100, L500.4050 #### [facility] [address] [place], [address] Chloride [Moles/Vol] 107 mmol/L Normal 98-107 [facility] Comment on above: Performed By: #### L 100.0100, L500.4050 #### [facility] [address] [place], [address] CO2 [Moles/Vol] 23.0 mmol/L Normal 21.0-32.0 [facility] Comment on above: Performed By: #### L 100.0100, L500.4050 #### [facility] [address] [place], [address] Creatinine [Mass/Vol] 0.78 mg/dL Normal 0.55-1.02 [facility] Comment on above: Result Comment: The validity of the calculated GFR GFRAA in patients over 70 years has not been determined. Clinical correlation is essential. Performed By: #### L 100.0100, L500.4050 #### [facility] [address] [place], [address] EST GFR - AA 96 mL/min Normal >60 [facility] Comment on above: Result Comment: Afri can Lebanese GFR Calc Performed By: #### L 100.0100, L500.4050 #### [facility] [address] [place], [address] GAP 6 Normal 5-15 [facility] Comment on above: Performed By: #### L 100.0100, L500.4050 #### [facility] [address] [place], [address] GFR/1.73 sq M.predicted among non-blacks MDRD (S/P/Bld) [Vol rate/Area] 80 mL/min/{1.73_m2} Normal >60 [facility] Comment on above: Result Comment: Non- GFR Calc Performed By: #### L 100.0100, L500.4050 #### [facility] [address] [place], [address] Globulin (S) [Mass/Vol] 3.5 g/dL Normal 2.2-4.2 [facility] Comment on above: Performed By: #### L 100.0100, L500.4050 #### [facility] [address] [place], [address] Glucose [Mass/Vol] 86 mg/dL Normal 74-106 [facility] Comment on above: Performed By: #### L 100.0100, L500.4050 #### [facility] [address] [place], [address] Potassium [Moles/Vol] 4.0 mmol/L Normal 3.5-5.1 [facility] Comment on above: Performed By: #### L 100.0100, L500.4050 #### [facility] [address] [place], [address] Sodium [Moles/Vol] 136 mmol/L Normal 136-145 [facility] Comment on above: Performed By: #### L 100.0100, L500.4050 #### [facility] [address] [place], [address] T PROT 7.1 g/dL Normal 6.4-8.2 [facility] Comment on above: Performed By: #### L 100.0100, L500.4050 #### [facility] [address] [place], [address] Urea nitrogen [Mass/Vol] 9 mg/dL Normal 7-18 [facility] Comment on above: Performed By: #### L 100.0100, L500.4050 #### [facility] [address] [place], [address] Urine Cultureon 08-07-2023 URC Klebsiella pneumonia e sp pneum [place] Count 25,000-50,000 Escherichia coli [place] Count 25,000-50,000 Klebsiella pneumoniae sp pneum: REACTION [...] TMP SMX Islt MOIRA <=20 S Normal [facility] Comment on above: Performed By: #### L 500.4050, L100.0100 #### [facility] [address] 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 Normal [facility] Urinalysis, Completeon 08-04 BACTERIA 1+ /hpf Normal None Seen [facility] Comment on above: Order Comment: THOMPSON CTOR TO SPECIFY Performed By: #### L 500.4050, L100.0100 #### [facility] [address] [place], [address] RBC 0-5 SEEN Normal 0-5 [facility] Comment on above: Order Comment: THOMPSON CTOR TO SPECIFY Performed By: #### L 500.4050, L100.0100 #### [facility] [address] [place], [address] WBC 25-50 SEEN Normal 0-5 [facility] Comment on above: Order Comment: THOMPSON CTOR TO SPECIFY Performed By: #### L 500.4050, L100.0100 #### [facility] [address] [place], [address] EPI,SQUAMOUS 0 SEEN Normal 5-10 [facility] Comment on above: Order Comment: THOMPSON CTOR TO SPECIFY Performed By: #### L 500.4050, L100.0100 #### [facility] [address] [place], [address] Mucus Ql (Urine sed) 0 SEEN Normal [facility] Comment on above: Order Comment: THOMPSON CTOR TO SPECIFY Performed By: #### L 500.4050, L100.0100 #### [facility] [place], [address] Absolute lymphocyte countOrd ered By: Marybel Hidalgo on 05-31-2023 Lymphocytes Auto (Unsp spec) [#/Vol] 2.32 10*3/uL 0.83-4.51 [facility] Automated lymphocyte count a s percentage of total leukocytesOrdered By: Marybel Hidalgo on 05-31-2023 Lymphocytes/100 WBC Auto (Unsp spec) 37.7 % 19-41 [facility] Basophil percentageOrdered B y: Marybel Hidalgo on 05-31-2023 Basophils/100 WBC (Bld) 1.0 % 0-1 [facility] Eosinophils/100 WBC (Bld) 3.9 % 0-5 [facility] Hemoglobin (Bld) [Mass/Vol] 15.8 g/dL 12.0-15.0 [facility] Monocytes/100 WBC (Bld) 13.5 % 0-10 [facility] Neutrophils (Bld) [#/Vol] 2.7 10*3/uL 2.0-7.7 [facility] Neutrophils/100 WBC (Bld) 43.7 % 47-70 [facility] WBC (Bld) [#/Vol] 6.2 10*3/uL 4.4-11.0 [facility] Determination of erythrocyte mean corpuscular volume (MCV)Ordered By: Marybel Hidalgo on 05-31-2023 MCV (RBC) [Entitic vol] 92.6 fL 81-99 [facility] Erythrocyte distribution wid th ratioOrdered By: Marybel Hidalgo on 05-31-2023 Erythrocyte distribution width (RBC) [Ratio] 13.9 % 11.6-14.6 [facility] Erythrocyte distribution wid th standard deviationOrdered By: Marybel Hidalgo on 05-31-2023 Erythrocyte distribution width (RBC) [Entitic vol] 46.6 fL 35.1-43.9 [facility] Hematocrit Auto (Bld) [Volum e fraction]Ordered By: Marybel Hidalgo on 05-31-2023 Hematocrit (Bld) [Volume fraction] 46.0 % 37-47 [facility] Immature granulocytes/100 WB C Auto (Bld)Ordered By: Marybel Hidalgo on 05-31-2023 Immature granulocytes/100 WBC (Bld) 0.200 % 0.0-0.9 [facility] Comment on above: IG% - Immature Granu locytes (promyelocytes, myelocytes and metamyelocytes) > 1% indicates that a LEFT SHIFT is Present. Laboratory - Hematology and Cell countsOrdered By: Marybel Hidalgo on 05-31-2023 MCH (RBC) [Entitic mass] 31.8 pg 27.0-32.0 [facility] MCHC (RBC) [Mass/Vol] 34.3 g/dL 32-36 [facility] Nucleated RBC/100 WBC (Bld) [Ratio] 0 % 0-5 [facility] Platelet mean volume (Bld) [Entitic vol] 9.5 fL 6.2-12.0 [facility] Platelets (Bld) [#/Vol] 358 10*3/uL 150-450 [facility] RBC Auto (Bld) [#/Vol]Ordere d By: Marybel Hidalgo on 05-31-2023 RBC (Bld) [#/Vol] 4.97 10*6/uL 4.2-5.4 [facility] Absolute lymphocyte countOrd ered By: Marybel Hidalgo on 03-10-2023 Lymphocytes Auto (Unsp spec) [#/Vol] 1.63 10*3/uL 0.83-4.51 [facility] Automated lymphocyte count a s percentage of total leukocytesOrdered By: Marybel Hidalgo on 03-10-2023 Lymphocytes/100 WBC Auto (Unsp spec) 30.2 % 19-41 [facility] Basophil percentageOrdered B y: Marybel Hidalgo on 03-10-2023 Basophils/100 WBC (Bld) 0.7 % 0-1 [facility] Bilirubin [Mass/Vol] 0.60 mg/dL 0.20-1.00 [facility] Comment on above: For patients on eltr ombopag therapy, use of Dimension [place] TBIL is not recommended. Chloride [Moles/Vol] 107 mmol/L 98-107 [facility] Eosinophils/100 WBC (Bld) 2.4 % 0-5 [facility] Glucose [Mass/Vol] 88 mg/dL 74-106 [facility] Hemoglobin (Bld) [Mass/Vol] 15.1 g/dL 12.0-15.0 [facility] Monocytes/100 WBC (Bld) 12.6 % 0-10 [facility] Neutrophils (Bld) [#/Vol] 2.9 10*3/uL 2.0-7.7 [facility] Neutrophils/100 WBC (Bld) 53.7 % 47-70 [facility] Potassium [Moles/Vol] 4.2 mmol/L 3.5-5.1 [facility] Protein [Mass/Vol] 7.0 g/dL 6.4-8.2 [facility] Sodium [Moles/Vol] 136 mmol/L 136-145 [facility] WBC (Bld) [#/Vol] 5.4 10*3/uL 4.4-11.0 [facility] Determination of erythrocyte mean corpuscular volume (MCV)Ordered By: Marybel Hidalgo on 03-10-2023 MCV (RBC) [Entitic vol] 93.4 fL 81-99 [facility] Erythrocyte distribution wid th ratioOrdered By: Marybel Hidalgo on 03-10-2023 Erythrocyte distribution width (RBC) [Ratio] 13.4 % 11.6-14.6 [facility] Erythrocyte distribution wid th standard deviationOrdered By: Marybel Hidalgo on 03-10-2023 Erythrocyte distribution width (RBC) [Entitic vol] 45.9 fL 35.1-43.9 [facility] Hematocrit Auto (Bld) [Volum e fraction]Ordered By: Marybel Hidalgo on 03-10-2023 Hematocrit (Bld) [Volume fraction] 45.1 % 37-47 [facility] Immature granulocytes/100 WB C Auto (Bld)Ordered By: Marybel Hidalgo on 03-10-2023 Immature granulocytes/100 WBC (Bld) 0.400 % 0.0-0.9 [facility] Comment on above: IG% - Immature Granu locytes (promyelocytes, myelocytes and metamyelocytes) > 1% indicates that a LEFT SHIFT is Present. Laboratory - Chemistry and C hemistry - challengeOrdered By: Marybel Hidalgo on 03-10-2023 Albumin/Globulin [Mass ratio] 1.1 {ratio} 0.9-2.4 [facility] ALP [Catalytic activity/Vol] 72 U/L 45-117 [facility] ALT [Catalytic activity/Vol] 28 U/L 13-56 [facility] CO2 [Moles/Vol] 27.0 mmol/L 21.0-32.0 [facility] Globulin (S) [Mass/Vol] 3.3 g/dL 2.2-4.2 [facility] Urea nitrogen/Creatinine [Mass ratio] 11.9 mg/mg 10-20 [facility] - Hematology and Cell countsOrdered By: Marybel Hidalgo on 03-10-2023 MCH (RBC) [Entitic mass] 31.3 pg 27.0-32.0 [facility] MCHC (RBC) [Mass/Vol] 33.5 g/dL 32-36 [facility] Nucleated RBC/100 WBC (Bld) [Ratio] 0 % 0-5 [facility] Platelets (Bld) [#/Vol] 327 10*3/uL 150-450 [facility] No Panel InformationOrdered By: Marybel Hidalgo on 03-10-2023 Estimated GFR (MDRD) Amer 88 mL/min >60 [facility] Comment on above: GFR Calc Estimated GFR (MDRD) Non-Af Amer 73 mL/min >60 [facility] Comment on above: Non- GFR Calc Platelet mean volume Harley-Ec ker (Bld) [Entitic vol]Ordered By: Marybel Hidaglo on 03-10-2023 Platelet mean volume (Bld) [Entitic vol] 10.5 fL 6.2-12.0 [facility] RBC Auto (Bld) [#/Vol]Ordere d By: Marybel Hidalgo on 03-10-2023 RBC (Bld) [#/Vol] 4.83 10*6/uL 4.2-5.4 [facility] Serum or plasma calcium rosie urement (mass/volume)Ordered By: Marybel Hidalgo on 03-10-2023 Calcium [Mass/Vol] 9.3 mg/dL 8.5-10.1 [facility] Serum or plasma creatinine m easurement (mass/volume)Ordered By: Marybel Hidalgo on 03-10-2023 Creatinine [Mass/Vol] 0.84 mg/dL 0.55-1.02 [facility] Comment on above: The validity of the calculated GFR & GFRAA in patients over 70 years has not been determined. Clinical correlation is essential. Serum or plasma urea nitroge n measurement (mass/volume)Ordered By: Marybel Hidalgo on 03-10-2023 Urea nitrogen [Mass/Vol] 10 mg/dL 7-18 [facility] Thin prep Papanicolaou smear with manual screeningOrdered By: Marybelkendal Hidalgo on 03-10-2023 Thin prep Papanicolaou smear with manual screening 3.7 g/dL 3.2-5.0 [facility] Thin prep Papanicolaou smear with manual screening 23 U/L 15-37 [facility] Thin prep Papanicolaou smear with manual screening 2 5-15 [facility] Absolute lymphocyte countOrd ered By: Marybel Hidalgo on 12-21-2022 Lymphocytes Auto (Unsp spec) [#/Vol] 0.85 10*3/uL 0.83-4.51 [facility] Basophil percentageOrdered B y: Marybel Hidalgo on 12-21-2022 Basophils/100 WBC (Bld) 0.7 % 0-1 [facility] Bilirubin [Mass/Vol] 0.50 mg/dL 0.20-1.00 [facility] Comment on above: For patients on eltr ombopag therapy, use of Dimension [place] TBIL is not recommended. Chloride [Moles/Vol] 105 mmol/L 98-107 [facility] Eosinophils/100 WBC (Bld) 0.9 % 0-5 [facility] Glucose [Mass/Vol] 92 mg/dL 74-106 [facility] Neutrophils (Bld) [#/Vol] 5.0 10*3/uL 2.0-7.7 [facility] Neutrophils/100 WBC (Bld) 70.9 % 47-70 [facility] Potassium [Moles/Vol] 3.6 mmol/L 3.5-5.1 [facility] Protein [Mass/Vol] 7.2 g/dL 6.4-8.2 [facility] Sodium [Moles/Vol] 136 mmol/L 136-145 [facility] WBC (Bld) [#/Vol] 7.0 10*3/uL 4.4-11.0 [facility] Blood erythrocytes count (nu mber/volume)Ordered By: Marybel Hidalgo on 12-21-2022 RBC (Bld) [#/Vol] 4.65 10*6/uL 4.2-5.4 [facility] Blood hemoglobin measurement (mass/volume)Ordered By: Marybel Hidalgo on 12-21-2022 Hemoglobin (Bld) [Mass/Vol] 14.5 g/dL 12.0-15.0 [facility] Blood lymphocytes/100 leukoc ytesOrdered By: Marybel Hidalgo on 12-21-2022 Lymphocytes/100 WBC (Bld) 12.1 % 19-41 [facility] Blood monocytes/100 leukocyt esOrdered By: Marybel Hidalgo on 12-21-2022 Monocytes/100 WBC (Bld) 15.1 % 0-10 [facility] Blood platelet mean volumeOr dered By: Marybel Hidalgo on 12-21-2022 Platelet mean volume (Bld) [Entitic vol] 9.8 fL 6.2-12.0 [facility] Determination of erythrocyte mean corpuscular volume (MCV)Ordered By: Marybel Hidalgo on 12-21-2022 MCV (RBC) [Entitic vol] 93.1 fL 81-99 [facility] Hematocrit Auto (Bld) [Volum e fraction]Ordered By: Marybel Hidalgo on 12-21-2022 Hematocrit (Bld) [Volume fraction] 43.3 % 37-47 [facility] - Chemistry and C hemistry - challengeOrdered By: Marybel Hidalgo on 12-21-2022 ALP [Catalytic activity/Vol] 84 U/L 45-117 [facility] ALT [Catalytic activity/Vol] 24 U/L 13-56 [facility] CO2 [Moles/Vol] 24.0 mmol/L 21.0-32.0 [facility] Globulin (S) [Mass/Vol] 3.7 g/dL 2.2-4.2 [facility] Urea nitrogen/Creatinine [Mass ratio] 11.6 mg/mg 10-20 [facility] - Hematology and Cell countsOrdered By: Marybel Hidalgo on 12-21-2022 Erythrocyte distribution width (RBC) [Entitic vol] 48.2 fL 35.1-43.9 [facility] Erythrocyte distribution width (RBC) [Ratio] 14.2 % 11.6-14.6 [facility] Immature granulocytes/100 WBC (Bld) 0.300 % 0.0-0.9 [facility] Comment on above: IG% - Immature Granu locytes (promyelocytes, myelocytes and metamyelocytes) > 1% indicates that a LEFT SHIFT is Present. MCH (RBC) [Entitic mass] 31.2 pg 27.0-32.0 [facility] Nucleated RBC/100 WBC (Bld) [Ratio] 0 % 0-5 [facility] MCHC Auto (RBC) [Mass/Vol]Or dered By: Marybel Hidalgo on 12-21-2022 MCHC (RBC) [Mass/Vol] 33.5 g/dL 32-36 [facility] No Panel InformationOrdered By: Marybel Hidalgo on 12-21-2022 Estimated GFR (MDRD) Amer 86 mL/min >60 [facility] Comment on above: GFR Calc Estimated GFR (MDRD) Non-Af Amer 71 mL/min >60 [facility] Comment on above: Non- GFR Calc Platelets bldOrdered By: Oumou Hidalgo on 12-21-2022 Platelets (Bld) [#/Vol] 297 10*3/uL 150-450 [facility] Serum or plasma albumin rosie urement (mass/volume)Ordered By: Marybel Hidalgo on 12-21-2022 Albumin [Mass/Vol] 3.5 g/dL 3.2-5.0 [facility] [place] Serum or plasma albumin/glob ulin mass ratioOrdered By: Marybel Hidalgo on 12-21-2022 Albumin/Globulin [Mass ratio] 0.9 {ratio} 0.9-2.4 [facility] Serum or plasma calcium rosie urement (mass/volume)Ordered By: Marybel Hidalgo on 12-21-2022 Calcium [Mass/Vol] 8.8 mg/dL 8.5-10.1 [facility] [place] Serum or plasma creatinine m easurement (mass/volume)Ordered By: Marybel Hidalgo on 12-21-2022 Creatinine [Mass/Vol] 0.86 mg/dL 0.55-1.02 [facility] Comment on above: The validity of the calculated GFR & GFRAA in patients over 70 years has not been determined. Clinical correlation is essential. Serum or plasma urea nitroge n measurement (mass/volume)Ordered By: Marybel Hidalgo on 12-21-2022 Urea nitrogen [Mass/Vol] 10 mg/dL 7-18 [facility] Thin prep Papanicolaou smear with manual screeningOrdered By: Marybel Hidalgo on 12-21-2022 Thin prep Papanicolaou smear with manual screening 20 U/L 15-37 [facility] Thin prep Papanicolaou smear with manual screening 7 5-15 [facility] Absolute lymphocyte countOrd ered By: Marybel Hidalgo on 09-17-2022 Lymphocytes Auto (Unsp spec) [#/Vol] 1.99 10*3/uL 0.83-4.51 [facility] Basophil percentageOrdered B y: Marybel Hidalgo on 09-17-2022 Basophils/100 WBC (Bld) 0.7 % 0-1 [facility] Bilirubin [Mass/Vol] 0.50 mg/dL 0.20-1.00 [facility] Comment on above: For patients on eltr ombopag therapy, use of Dimension [place] TBIL is not recommended. Chloride [Moles/Vol] 104 mmol/L 98-107 [facility] Eosinophils/100 WBC (Bld) 1.4 % 0-5 [facility] Glucose [Mass/Vol] 123 mg/dL 74-106 [facility] [place] Comment on above: Fasting Glucose resu lt from 100 to 125 mg/dL suggests IMPAIRED HOMEOSTASIS per A.D.A. criteria. Neutrophils (Bld) [#/Vol] 3.0 10*3/uL 2.0-7.7 [facility] Neutrophils/100 WBC (Bld) 52.5 % 47-70 [facility] Potassium [Moles/Vol] 3.9 mmol/L 3.5-5.1 [facility] Protein [Mass/Vol] 6.9 g/dL 6.4-8.2 [facility] [place] Sodium [Moles/Vol] 134 mmol/L 136-145 [facility] [place] WBC (Bld) [#/Vol] 5.8 10*3/uL 4.4-11.0 [facility] [place] Blood erythrocytes count (nu mber/volume)Ordered By: Marybel Hidalgo on 09-17-2022 RBC (Bld) [#/Vol] 4.69 10*6/uL 4.2-5.4 [facility] Blood hemoglobin measurement (mass/volume)Ordered By: Marybel Hidalgo on 09-17-2022 Hemoglobin (Bld) [Mass/Vol] 14.7 g/dL 12.0-15.0 [facility] Blood lymphocytes/100 leukoc ytesOrdered By: Marybel Hidalgo on 09-17-2022 Lymphocytes/100 WBC (Bld) 34.5 % 19-41 [facility] Blood monocytes/100 leukocyt esOrdered By: Marybel Hidalgo on 09-17-2022 Monocytes/100 WBC (Bld) 10.7 % 0-10 [facility] Blood platelet mean volumeOr dered By: Marybel Hidalgo on 09-17-2022 Platelet mean volume (Bld) [Entitic vol] 10.0 fL 6.2-12.0 [facility] Determination of erythrocyte mean corpuscular volume (MCV)Ordered By: Marybel Hidalgo on 09-17-2022 MCV (RBC) [Entitic vol] 90.8 fL 81-99 [facility] Hematocrit Auto (Bld) [Volum e fraction]Ordered By: Marybel Hidalgo on 09-17-2022 Hematocrit (Bld) [Volume fraction] 42.6 % 37-47 [facility] Laboratory - Chemistry and C hemistry - challengeOrdered By: Marybel Hidalgo on 09-17-2022 ALP [Catalytic activity/Vol] 83 U/L 45-117 [facility] ALT [Catalytic activity/Vol] 23 U/L 13-56 [facility] CO2 [Moles/Vol] 24.0 mmol/L 21.0-32.0 [facility] Globulin (S) [Mass/Vol] 3.4 g/dL 2.2-4.2 [facility] Urea nitrogen/Creatinine [Mass ratio] 10.9 mg/mg 10-20 [facility] Laboratory - Hematology and Cell countsOrdered By: Marybel Hidalgo on 09-17-2022 Erythrocyte distribution width (RBC) [Entitic vol] 44.5 fL 35.1-43.9 [facility] Erythrocyte distribution width (RBC) [Ratio] 13.4 % 11.6-14.6 [facility] Immature granulocytes/100 WBC (Bld) 0.200 % 0.0-0.9 [facility] Comment on above: IG% - Immature Granu locytes (promyelocytes, myelocytes and metamyelocytes) > 1% indicates that a LEFT SHIFT is Present. MCH (RBC) [Entitic mass] 31.3 pg 27.0-32.0 [facility] Nucleated RBC/100 WBC (Bld) [Ratio] 0 % 0-5 [facility] MCHC Auto (RBC) [Mass/Vol]Or dered By: Marybel Hidalgo on 09-17-2022 MCHC (RBC) [Mass/Vol] 34.5 g/dL 32-36 [facility] No Panel InformationOrdered By: Marybel Hidalgo on 09-17-2022 Estimated GFR (MDRD) Amer 103 mL/min >60 [facility] Comment on above: GFR Calc Estimated GFR (MDRD) Non-Af Amer 85 mL/min >60 [facility] Comment on above: Non- GFR Calc Platelets bldOrdered By: Oumou Hidalgo on 09-17-2022 Platelets (Bld) [#/Vol] 352 10*3/uL 150-450 [facility] Serum or plasma albumin rosie urement (mass/volume)Ordered By: Marybel Hidalgo on 09-17-2022 Albumin [Mass/Vol] 3.5 g/dL 3.2-5.0 [facility] [place] Serum or plasma albumin/glob ulin mass ratioOrdered By: Marybel Hidalgo on 09-17-2022 Albumin/Globulin [Mass ratio] 1.0 {ratio} 0.9-2.4 [facility] Serum or plasma calcium rosie urement (mass/volume)Ordered By: Marybel Hidalgo on 09-17-2022 Calcium [Mass/Vol] 9.0 mg/dL 8.5-10.1 [facility] [place] Serum or plasma creatinine m easurement (mass/volume)Ordered By: Marybel Hidalgo on 09-17-2022 Creatinine [Mass/Vol] 0.73 mg/dL 0.55-1.02 [facility] Comment on above: The validity of the calculated GFR & GFRAA in patients over 70 years has not been determined. Clinical correlation is essential. Serum or plasma urea nitroge n measurement (mass/volume)Ordered By: [facility] on 09-17-2022 Urea nitrogen [Mass/Vol] 8 mg/dL 7-18 [facility] Thin prep Papanicolaou smear with manual screeningOrdered By: [facility] [place] on 09-17-2022 Thin prep Papanicolaou smear with manual screening 22 U/L 15-37 [facility] Thin prep Papanicolaou smear with manual screening 6 5-15 [facility] Office Visiton 06-04-2022 Follow-up visit [id number] Araceli Reid 1960 F Date Provider Department Center 06/04/2022 [id number] KELLEY SH UROGYN None Family History Problem Relation Age of Onset Heart failure Mother Colon cancer Neg Hx Thyroid disease Mother Heart failure Father Hypertension Father Emphysema Father Hypertension Mother Family Status - Relation Status Age at Mother Alive Neg Hx Father Son Alive Daughter Alive Sister Alive Level of Service:18681 CO OFFICE/OUTPATIENT ESTABLISHED LOW MDM 20-29 MIN Reason for Visit and Comments: Follow-up [790716] - Painful intercourse after sling Normal [facility] Progress Noteon 06-04-2022 Progress Note Painful Opp Last Visit: 03/17/2022 HPI: Pt underwent posterior [...] Week. Dispense: 42.5 g; Refill: 5 [facility] 05-21-2022 36 Pt scheduled appt. Thanks [facility] 05-18-2022 36 Reason for Dispositi on Caller [...] If Yes, ask: How much? and Where? [place] discharge with intercourse mostly. 10. OTHER SYMPTOMS: Do you have any other symptoms? (e.g., drainage from wound, painful urination, constipation) Protocols used: Post-Op Symptoms and [id number] S: Patient spoke with CAC nurse regarding [...] call back with new or worsening symptoms. Normal [facility] Absolute lymphocyte countOrd ered By: Dr. Hidalgo on 04-02-2022 Lymphocytes Auto (Unsp spec) [#/Vol] 1.58 10*3/uL 0.83-4.51 [facility] Basophil percentageOrdered B y: Dr. Hidalgo on 04-02-2022 Basophils/100 WBC (Bld) 0.9 % 0-1 [facility] Bilirubin [Mass/Vol] 0.70 mg/dL 0.20-1.00 [facility] Comment on above: For patients on eltr ombopag therapy, use of Dimension [place] TBIL is not recommended. Chloride [Moles/Vol] 109 mmol/L 98-107 [facility] Eosinophils/100 WBC (Bld) 1.7 % 0-5 [facility] Glucose [Mass/Vol] 115 mg/dL 74-106 [facility] [place] Comment on above: Fasting Glucose resu lt from 100 to 125 mg/dL suggests IMPAIRED HOMEOSTASIS per A.D.A. criteria. Neutrophils (Bld) [#/Vol] 2.4 10*3/uL 2.0-7.7 [facility] Neutrophils/100 WBC (Bld) 51.2 % 47-70 [facility] Potassium [Moles/Vol] 4.0 mmol/L 3.5-5.1 [facility] Comment on above: Slight Hemolysis, Re sult may be falsely increased. Protein [Mass/Vol] 7.2 g/dL 6.4-8.2 [facility] Sodium [Moles/Vol] 138 mmol/L 136-145 [facility] [place] WBC (Bld) [#/Vol] 4.6 10*3/uL 4.4-11.0 [facility] Blood erythrocytes count (nu mber/volume)Ordered By: Dr. Hidalgo on 04-02-2022 RBC (Bld) [#/Vol] 4.67 10*6/uL 4.2-5.4 [facility] Blood hemoglobin measurement (mass/volume)Ordered By: Dr. Hidalgo on 04-02-2022 Hemoglobin (Bld) [Mass/Vol] 14.8 g/dL 12.0-15.0 [facility] Blood lymphocytes/100 leukoc ytesOrdered By: Dr. Hidalgo on 04-02-2022 Lymphocytes/100 WBC (Bld) 34.3 % 19-41 [facility] Blood monocytes/100 leukocyt esOrdered By: Dr. Hidalgo on 04-02-2022 Monocytes/100 WBC (Bld) 11.7 % 0-10 [facility] Blood platelet mean volumeOr dered By: Dr. Hidalgo on 04-02-2022 Platelet mean volume (Bld) [Entitic vol] 10.3 fL 6.2-12.0 [facility] Determination of erythrocyte mean corpuscular volume (MCV)Ordered By: Dr. Hidalgo on 04-02-2022 MCV (RBC) [Entitic vol] 96.1 fL 81-99 [facility] Hematocrit Auto (Bld) [Volum e fraction]Ordered By: Dr. Hidalgo on 04-02-2022 Hematocrit (Bld) [Volume fraction] 44.9 % 37-47 [facility] Laboratory - Chemistry and C hemistry - challengeOrdered By: Dr. Hidalgo on 04-02-2022 ALP [Catalytic activity/Vol] 80 U/L 45-117 [facility] ALT [Catalytic activity/Vol] 24 U/L 13-56 [facility] CO2 [Moles/Vol] 20.0 mmol/L 21.0-32.0 [facility] Globulin (S) [Mass/Vol] 3.4 g/dL 2.2-4.2 [facility] Urea nitrogen/Creatinine [Mass ratio] 7.9 mg/mg 10-20 [facility] Laboratory - Hematology and Cell countsOrdered By: Dr. Hidalgo on 04-02-2022 Erythrocyte distribution width (RBC) [Entitic vol] 48.5 fL 35.1-43.9 [facility] Erythrocyte distribution width (RBC) [Ratio] 13.8 % 11.6-14.6 [facility] Immature granulocytes/100 WBC (Bld) 0.200 % 0.0-0.9 [facility] Comment on above: IG% - Immature Granu locytes (promyelocytes, myelocytes and metamyelocytes) > 1% indicates that a LEFT SHIFT is Present. MCH (RBC) [Entitic mass] 31.7 pg 27.0-32.0 [facility] Nucleated RBC/100 WBC (Bld) [Ratio] 0 % 0-5 [facility] MCHC Auto (RBC) [Mass/Vol]Or dered By: Dr. Hidalgo on 04-02-2022 MCHC (RBC) [Mass/Vol] 33.0 g/dL 32-36 [facility] No Panel InformationOrdered By: Dr. Hidalog on 04-02-2022 Estimated GFR (MDRD) Amer 83 mL/min >60 [facility] Comment on above: GFR Calc Estimated GFR (MDRD) Non-Af Amer 69 mL/min >60 [facility] Comment on above: Non- GFR Calc Platelets bldOrdered By: Dr. Hidalgo on 04-02-2022 Platelets (Bld) [#/Vol] 355 10*3/uL 150-450 [facility] Serum or plasma albumin rosie urement (mass/volume)Ordered By: Dr. Hidalgo on 04-02-2022 Albumin [Mass/Vol] 3.8 g/dL 3.2-5.0 [facility] [place] Serum or plasma albumin/glob ulin mass ratioOrdered By: Dr. Hidalgo on 04-02-2022 Albumin/Globulin [Mass ratio] 1.1 {ratio} 0.9-2.4 [facility] Serum or plasma calcium rosie urement (mass/volume)Ordered By: Dr. Hidalgo on 04-02-2022 Calcium [Mass/Vol] 9.3 mg/dL 8.5-10.1 [facility] Serum or plasma creatinine m easurement (mass/volume)Ordered By: Dr. Hidalgo on 04-02-2022 Creatinine [Mass/Vol] 0.88 mg/dL 0.55-1.02 [facility] Comment on above: The validity of the calculated GFR & GFRAA in patients over 70 years has not been determined. Clinical correlation is essential. Serum or plasma urea nitroge n measurement (mass/volume)Ordered By: Dr. Hidalgo on 04-02-2022 Urea nitrogen [Mass/Vol] 7 mg/dL 7-18 [facility] Thin prep Papanicolaou smear with manual screeningOrdered By: Dr. Hidalgo on 04-02-2022 Thin prep Papanicolaou smear with manual screening 24 U/L 15-37 [facility] Comment on above: Slight Hemolysis, Re sult may be falsely increased. Thin prep Papanicolaou smear with manual screening 9 5-15 [facility] Office Visiton 03-17-2022 Follow-up visit [id number] Araceli Reid 1960 F Date Provider Department Center 03/17/2022 [id number] [facility] U[facility] None Family History Problem Relation Age of Onset Heart failure Mother Colon cancer Neg Hx Thyroid disease Mother Heart failure Father Hypertension Father Emphysema Father Hypertension Mother Family Status - Relation Status Age at Mother Alive Neg Hx Father Son Alive Daughter Alive Sister Alive Level of Service:14729 CO POSTOP FOLLOW UP VISIT RELATED TO ORIGINAL PX Reason for Visit and Comments: Post-op Visit [559] - 6 week post op Normal [facility] Progress Noteon 03-17-2022 Progress Note 6 [...] in detail. All questions were aswered. Normal [facility] Culture, urineOrdered By: St eric Mendoza on 02-27-2022 Bacteria identified Cx Nom (U) GPC Poss Enterococcus sp [facility] Basophil percentageOrdered B y: Prieto Mendoza on 02-25-2022 Basophil percentage 5-10 SEEN /hpf 0-5 [facility] Bilirubin Test strip Ql (U)O rdered By: Prieto eMndoza on 02-25-2022 Bilirubin Ql (U) Negative Negative [facility] Ketones Test strip Ql (U)Ord ered By: Prieto Mendoza on 02-25-2022 Ketones Ql (U) Negative Negative [facility] Laboratory - Chemistry and C hemistry - challengeon 02-25-2022 Bilirubin Ql (U) Negative [facility] Glucose Ql (U) Negative [facility] Ketones Ql (U) Negative [facility] pH (U) 6.5 [pH] [facility] Specific gravity (U) [Rel density] 1.005 [facility] Urobilinogen (U) [Mass/Vol] 0.4575678 mg/dL [facility] Laboratory - Hematology and Cell countson 02-25-2022 Hemoglobin Ql (U) Trace [facility] Laboratory - Specimen inform ationon 02-25-2022 Clarity (U) Clear [facility] Color (U) YELLOW [facility] Laboratory - Urinalysison Nitrite Ql (U) Negative [facility] Protein Ql (U) Negative [facility] Mucus LM Ql (Urine sed)Order ed By: Prieto Mendoza on 02-25-2022 Mucus Ql (Urine sed) 0 SEEN /hpf [facility] Nitrite Test strip Ql (U)Ord ered By: Prieto Mendoza on 02-25-2022 Nitrite Ql (U) Negative Negative [facility] No Panel Informationon 02-25 Urine Leukocytes Positive [facility] Urine Non-Hemolyzed Blood Non-Hemolyzed [facility] Protein Test strip Ql (U)Ord ered By: Prieto Mendoza on 02-25-2022 Protein Ql (U) Negative Negative [facility] Squamous epithelial cells de tection in urine sediment by light microscopyOrdered By: Prieto Mendoza on 02-25-2022 Epithelial cells.squamous LM Ql (Urine sed) 0-5 SEEN /hpf 5-10 [facility] Urine blood detectionOrdered By: Prieto Mendoza on 02-25-2022 RBC Ql (U) 10 /ul Negative [facility] RBC Ql (U) 0 SEEN /hpf 0-5 [facility] Urine clarityOrdered By: Smith Mendoza on 02-25-2022 Clarity (U) Clear Clear [facility] Urine color determinationOrd ered By: Prieto Mendoza on 02-25-2022 Color (U) Yellow Yellow [facility] Urine glucose detectionOrder ed By: Prieto Mendoza on 02-25-2022 Glucose Ql (U) Normal mg/dl Normal [facility] Urine leukocyte esterase det ection by dipstickOrdered By: Prieto Mendoza on 02-25-2022 Leukocyte esterase Test strip Ql (U) 500 /ul Negative [facility] Urine pHOrdered By: Prieto corona on 02-25-2022 pH (U) 7.0 [pH] 5.0 - 8.0 [facility] Urine sediment bacteria coun t by microscopy (number/high power field)Ordered By: Prieto Mendoza on 02-25-2022 Bacteria LM.HPF (Urine sed) [#/Area] RARE /hpf None Seen [facility] Urine specific gravity measu rementOrdered By: Prieto Mendoza on 02-25-2022 Specific gravity (U) [Rel density] 1.010 1.002-1.030 [facility] Urobilinogen Auto test strip Ql (U)Ordered By: Prieto Mendoza on 02-25-2022 Urobilinogen Ql (U) Normal mg/dl Normal [facility] Culture, urineOrdered By: St eric Mendoza on 02-05-2022 Bacteria identified Cx Nom (U) Presumptive E. coli [facility] 36on 02-03-2022 36 S: The patient is calling the [facility] About dysuria B: She had [...] triager answers question Protocols used: Medication Question [id number] [facility] 36 Patient cancelled appointment 02/03/2022 @ 7:31 am. Per the comments on the cancellation, patient states she is feeling better. Franchesca Richardson MA [facility] Basophil percentageOrdered B y: Prieto Mendoza on 02-03-2022 Basophil percentage >100 SEEN /hpf 0-5 [facility] Bilirubin Test strip Ql (U)O rdered By: Prieto Mendoza on 02-03-2022 Bilirubin Ql (U) Negative Negative [facility] Ketones Test strip Ql (U)Ord ered By: Prieto Mendoza on 02-03-2022 Ketones Ql (U) Negative Negative [facility] Laboratory - Chemistry and C hemistry - challengeon 02-03-2022 Bilirubin Ql (U) Negative [facility] Glucose Ql (U) Negative [facility] Ketones Ql (U) Negative [facility] pH (U) 5.0 [pH] [facility] Specific gravity (U) [Rel density] 1.005 [facility] Urobilinogen (U) [Mass/Vol] Negative [facility] Laboratory - Hematology and Cell countson 02-03-2022 Hemoglobin Ql (U) Hemolyzed [facility] Laboratory - Specimen inform ationon 02-03-2022 Clarity (U) Cloudy [facility] Color (U) YELLOW [facility] Laboratory - Urinalysison Nitrite Ql (U) Negative [facility] Protein Ql (U) Negative [facility] Mucus LM Ql (Urine sed)Order ed By: Prieto Mendoza on 02-03-2022 Mucus Ql (Urine sed) 0 SEEN /hpf [facility] Nitrite Test strip Ql (U)Ord ered By: Prieto Mendoza on 02-03-2022 Nitrite Ql (U) Negative Negative [facility] No Panel Informationon 02-03 Urine Leukocytes Positive [facility] Urine Non-Hemolyzed Blood Large [facility] Protein Test strip Ql (U)Ord ered By: Prieto Mendoza on 02-03-2022 Protein Ql (U) 15 mg/dl Negative [facility] Squamous epithelial cells de tection in urine sediment by light microscopyOrdered By: Prieto Mendoza on 02-03-2022 Epithelial cells.squamous LM Ql (Urine sed) 0-5 SEEN /hpf 5-10 [facility] Urine blood detectionOrdered By: Prieto Mendoza on 02-03-2022 RBC Ql (U) 50 /ul Negative [facility] RBC Ql (U) 5-10 SEEN /hpf 0-5 [facility] Urine clarityOrdered By: Smith Mendoza on 02-03-2022 Clarity (U) Sl. Cloudy Clear [facility] Urine color determinationOrd ered By: Prieto Mendoza on 02-03-2022 Color (U) Straw Yellow [facility] Urine glucose detectionOrder ed By: Prieto Mendoza on 02-03-2022 Glucose Ql (U) Normal mg/dl Normal [facility] Urine leukocyte esterase det ection by dipstickOrdered By: Prieto Mendoza on 02-03-2022 Leukocyte esterase Test strip Ql (U) 500 /ul Negative [facility] Urine pHOrdered By: Prieto corona on 02-03-2022 pH (U) 7.0 [pH] 5.0 - 8.0 [facility] Urine sediment bacteria coun t by microscopy (number/high power field)Ordered By: Prieto Mendoza on 02-03-2022 Bacteria LM.HPF (Urine sed) [#/Area] 1 /[HPF] None Seen [facility] Urine specific gravity measu rementOrdered By: Prieto Mendoza on 02-03-2022 Specific gravity (U) [Rel density] 1.005 1.002-1.030 [facility] Urobilinogen Auto test strip Ql (U)Ordered By: Prieto Mendoza on 02-03-2022 Urobilinogen Ql (U) Normal mg/dl Normal [facility] 36on 02-02-2022 36 S: Patient spoke wit h [facility] nurse regarding urinary symptoms B: Onset of [...] abdominal pain. R: Pt scheduled at the [place] office for 9 am with Martin Kelley. [...] worsening Maybe a little, Protocols used: [id number] Pt called to advise office of new symptoms. Pt was advised the office was closed for lunch. States she will call the office back after lunch [facility] 36 Patient informed and verbalized understanding [facility] 36on 01-28-2022 36 S: Patient spoke wit [facility] nurse regarding antibiotic post op. B: Onset [...] answer question Protocols used: Post-Op Symptoms and [id number] [facility] Nursing Noteon 01-27-2022 Nursing Note Espinoza output 200ml Urine output post bladder trial 200ml [facility] Op Noteon 01-27-2022 Op Note PREOPERATIVE DIAGNOS ES: Stress urinary incontinence Symptomatic posterior vaginal wall prolapse POSTOPERATIVE DIAGNOSES: Stress urinary incontinence Symptomatic posterior vaginal wall prolapse PROCEDURE: Synthetic midurethral sling Posterior repair Cystoscopy SURGEON: Dr. Gilles Bronson PASTRYCOOK SURGEONS: ANESTHESIA: General SPECIMENS: None. ESTIMATED BLOOD [...] repair part of our procedure. First, a [place] retractor was inserted for better visualization. The [...] recovery room awake and in stable condition. [facility] 36on 01-26-2022 36 Spoke with patient regarding post operative instructions [facility] 36 Name of caller: Araceli Reid Contact phone number: [phone] Relationship to Patient: patient Provider: Gilles Bronson Practice: [facility] Urogynecology Chief Complaint/Reason for Call: Patient has questions about after her surgery and what she should expect. Would like to speak to a nurse. Please advise. Best time of day caller can be reached: Any Patient advised that office/PCP has 24-48 business hours to return their call: Yes [facility] Absolute lymphocyte countOrd ered By: Dr. Hidalgo on 01-11-2022 Lymphocytes Auto (Unsp spec) [#/Vol] 1.28 10*3/uL 0.83-4.51 [facility] Basophil percentageOrdered B y: Dr. Hidalgo on 01-11-2022 Basophils/100 WBC (Bld) 0.8 % 0-1 [facility] Bilirubin [Mass/Vol] 0.50 mg/dL 0.20-1.00 [facility] Comment on above: For patients on eltr ombopag therapy, use of Dimension [place] TBIL is not recommended. Chloride [Moles/Vol] 105 mmol/L 98-107 [facility] Eosinophils/100 WBC (Bld) 1.7 % 0-5 [facility] Glucose [Mass/Vol] 91 mg/dL 74-106 [facility] Neutrophils (Bld) [#/Vol] 2.8 10*3/uL 2.0-7.7 [facility] Neutrophils/100 WBC (Bld) 59.0 % 47-70 [facility] Potassium [Moles/Vol] 4.1 mmol/L 3.5-5.1 [facility] Protein [Mass/Vol] 7.1 g/dL 6.4-8.2 [facility] Sodium [Moles/Vol] 137 mmol/L 136-145 [facility] WBC (Bld) [#/Vol] 4.8 10*3/uL 4.4-11.0 [facility] Blood erythrocytes count (nu mber/volume)Ordered By: Dr. Hidalgo on 01-11-2022 RBC (Bld) [#/Vol] 4.68 10*6/uL 4.2-5.4 [facility] Blood hemoglobin measurement (mass/volume)Ordered By: Dr. Hidalgo on 01-11-2022 Hemoglobin (Bld) [Mass/Vol] 14.7 g/dL 12.0-15.0 [facility] Blood lymphocytes/100 leukoc ytesOrdered By: Dr. Hidalgo on 01-11-2022 Lymphocytes/100 WBC (Bld) 26.8 % 19-41 [facility] Blood monocytes/100 leukocyt esOrdered By: Dr. Hidalgo on 01-11-2022 Monocytes/100 WBC (Bld) 11.5 % 0-10 [facility] Blood platelet mean volumeOr dered By: Dr. Hidalgo on 01-11-2022 Platelet mean volume (Bld) [Entitic vol] 9.7 fL 6.2-12.0 [facility] Determination of erythrocyte mean corpuscular volume (MCV)Ordered By: Dr. Hidalgo on 01-11-2022 MCV (RBC) [Entitic vol] 93.4 fL 81-99 [facility] Hematocrit Auto (Bld) [Volum e fraction]Ordered By: Dr. Hidalgo on 01-11-2022 Hematocrit (Bld) [Volume fraction] 43.7 % 37-47 [facility] Laboratory - Chemistry and C hemistry - challengeOrdered By: Dr. Hidalgo on 01-11-2022 ALP [Catalytic activity/Vol] 86 U/L 45-117 [facility] ALT [Catalytic activity/Vol] 25 U/L 13-56 [facility] CO2 [Moles/Vol] 26.0 mmol/L 21.0-32.0 [facility] Globulin (S) [Mass/Vol] 3.3 g/dL 2.2-4.2 [facility] Urea nitrogen/Creatinine [Mass ratio] 13.5 mg/mg 10-20 [facility] Laboratory - Hematology and Cell countsOrdered By: Dr. Hidalgo on 01-11-2022 Erythrocyte distribution width (RBC) [Entitic vol] 46.5 fL 35.1-43.9 [facility] Erythrocyte distribution width (RBC) [Ratio] 13.7 % 11.6-14.6 [facility] Immature granulocytes/100 WBC (Bld) 0.200 % 0.0-0.9 [facility] Comment on above: IG% - Immature Granu locytes (promyelocytes, myelocytes and metamyelocytes) > 1% indicates that a LEFT SHIFT is Present. MCH (RBC) [Entitic mass] 31.4 pg 27.0-32.0 [facility] Nucleated RBC/100 WBC (Bld) [Ratio] 0 % 0-5 [facility] MCHC Auto (RBC) [Mass/Vol]Or dered By: Dr. Hidalgo on 01-11-2022 MCHC (RBC) [Mass/Vol] 33.6 g/dL 32-36 [facility] No Panel InformationOrdered By: Dr. Hidalgo on 01-11-2022 Estimated GFR (MDRD) Amer 91 mL/min >60 [facility] Comment on above: GFR Calc Estimated GFR (MDRD) Non-Af Amer 75 mL/min >60 [facility] Comment on above: Non- GFR Calc Platelets bldOrdered By: Dr. Hidalgo on 01-11-2022 Platelets (Bld) [#/Vol] 373 10*3/uL 150-450 [facility] Serum or plasma albumin rosie urement (mass/volume)Ordered By: Dr. Hidalgo on 01-11-2022 Albumin [Mass/Vol] 3.8 g/dL 3.2-5.0 [facility] Serum or plasma albumin/glob ulin mass ratioOrdered By: Dr. Hidalgo on 01-11-2022 Albumin/Globulin [Mass ratio] 1.2 {ratio} 0.9-2.4 [facility] Serum or plasma calcium rosie urement (mass/volume)Ordered By: Dr. Hidalgo on 01-11-2022 Calcium [Mass/Vol] 9.7 mg/dL 8.5-10.1 [facility] Serum or plasma creatinine m easurement (mass/volume)Ordered By: Dr. Hidalgo on 01-11-2022 Creatinine [Mass/Vol] 0.82 mg/dL 0.55-1.02 [facility] Comment on above: The validity of the calculated GFR & GFRAA in patients over 70 years has not been determined. Clinical correlation is essential. Serum or plasma urea nitroge n measurement (mass/volume)Ordered By: Dr. Hidalgo on 01-11-2022 Urea nitrogen [Mass/Vol] 11 mg/dL 7-18 [facility] Thin prep Papanicolaou smear with manual screeningOrdered By: Dr. Hidalgo on 01-11-2022 Thin prep Papanicolaou smear with manual screening 21 U/L 15-37 [facility] Thin prep Papanicolaou smear with manual screening 6 5-15 [facility] HM COLONOSCOPYon 11-18-2021 Ordered by an unspecified provider. [facility] Surgical Pathologyon 022 Surgical Pathology [id number] [facility] PATHOLOGY AND LABORATORY MEDICINE [address] [place] [id number] FINAL SURGICAL PATHOLOGY REPORT NAME: CALDERON REID : [id number] 61 Y F BILLING NO.: [id number] LOCATION: 1XEO PROCEDURE 11/18/2021 DATE: SURGEON: SHANNAN [...] x 0.2 cm. Submitted in one cassette. C/JAF Disclaimer: The following statement applies to all immunohistochemistry, in situ hybridization, molecular studies, and immunofluorescence testing. The use of one or more reagents in the above tests is regulated as an analyte specific reagent (ASR). These tests were developed and their performance characteristics determined by the clinical laboratories of [facility] [employer] [facility]. They have not been cleared by [...] negativity on decalcified specimens. Professional Performing Location: [address] [address]. DEPARTMENT OF PATHOLOGY AND LABORATORY MEDICINE [place], [place] [address] [email or web address] Normal [facility] Absolute lymphocyte counton 10-08-2021 Lymphocytes Auto (Unsp spec) [#/Vol] 1.41 10*3/uL 0.83-4.51 [facility] Work Phone: Basophil percentageon 2021 Basophils/100 WBC (Bld) 0.4 % 0-1 [facility] Work Phone: Bilirubin [Mass/Vol] 0.70 mg/dL 0.20-1.00 [facility] Work Phone: Comment on above: For patients on eltr ombopag therapy, use of Dimension [place] TBIL is not recommended. Chloride [Moles/Vol] 102 mmol/L 98-107 [facility] Work Phone: Eosinophils/100 WBC (Bld) 1.4 % 0-5 [facility] Work Phone: Glucose [Mass/Vol] 105 mg/dL 74-106 [facility] Work Phone: Comment on above: Fasting Glucose resu lt from 100 to 125 mg/dL suggests IMPAIRED HOMEOSTASIS per A.D.A. criteria. Neutrophils (Bld) [#/Vol] 5.2 10*3/uL 2.0-7.7 [facility] Work Phone: Neutrophils/100 WBC (Bld) 72.8 % 47-70 [facility] Work Phone: Potassium [Moles/Vol] 4.0 mmol/L 3.5-5.1 [facility] Work Phone: Protein [Mass/Vol] 7.4 g/dL 6.4-8.2 [facility] Work Phone: [phone] Sodium [Moles/Vol] 136 mmol/L 136-145 [facility] Work Phone: [phone] WBC (Bld) [#/Vol] 7.1 10*3/uL 4.4-11.0 [facility] Work Phone: [phone] Blood erythrocytes count (nu mber/volume)on 10-08-2021 RBC (Bld) [#/Vol] 4.82 10*6/uL 4.2-5.4 [facility] Work Phone: [phone] Blood hemoglobin measurement (mass/volume)on 10-08-2021 Hemoglobin (Bld) [Mass/Vol] 15.3 g/dL 12.0-15.0 [facility] Work Phone: [phone] Blood lymphocytes/100 leukoc yteson 10-08-2021 Lymphocytes/100 WBC (Bld) 19.9 % 19-41 [facility] Work Phone: [phone] Blood monocytes/100 leukocyt eson 10-08-2021 Monocytes/100 WBC (Bld) 5.2 % 0-10 [facility] Work Phone: [phone] Blood platelet mean volumeon 10-08-2021 Platelet mean volume (Bld) [Entitic vol] 10.1 fL 6.2-12.0 [facility] Work Phone: [phone] Determination of erythrocyte mean corpuscular volume (MCV)on 10-08-2021 MCV (RBC) [Entitic vol] 93.2 fL 81-99 [facility] Work Phone: [phone] Hematocrit Auto (Bld) [Volum e fraction]on 10-08-2021 Hematocrit (Bld) [Volume fraction] 44.9 % 37-47 [facility] Work Phone: [phone] Laboratory - Chemistry and C hemistry - challengeon 10-08-2021 ALP [Catalytic activity/Vol] 83 U/L 45-117 [facility] Work Phone: [phone] ALT [Catalytic activity/Vol] 27 U/L 13-56 [facility] Work Phone: [phone] CO2 [Moles/Vol] 26.0 mmol/L 21.0-32.0 [facility] Work Phone: [phone] Globulin (S) [Mass/Vol] 3.5 g/dL 2.2-4.2 [facility] Work Phone: [phone] Urea nitrogen/Creatinine [Mass ratio] 11.2 mg/mg 10-20 [facility] Work Phone: [phone] Laboratory - Hematology and Cell countson 10-08-2021 Erythrocyte distribution width (RBC) [Entitic vol] 45.8 fL 35.1-43.9 [facility] Work Phone: [phone] Erythrocyte distribution width (RBC) [Ratio] 13.6 % 11.6-14.6 [facility] Work Phone: [phone] Immature granulocytes/100 WBC (Bld) 0.300 % 0.0-0.9 [facility] Work Phone: [phone] Comment on above: IG% - Immature Granu locytes (promyelocytes, myelocytes and metamyelocytes) > 1% indicates that a LEFT SHIFT is Present. MCH (RBC) [Entitic mass] 31.7 pg 27.0-32.0 [facility] Work Phone: [phone] Nucleated RBC/100 WBC (Bld) [Ratio] 0 % 0-5 [facility] Work Phone: [phone] MCHC Auto (RBC) [Mass/Vol]on 10-08-2021 MCHC (RBC) [Mass/Vol] 34.1 g/dL 32-36 [facility] Work Phone: No Panel Informationon 10-08 Estimated GFR (MDRD) Amer 93 mL/min >60 [facility] Work Phone: [phone] Comment on above: GFR Calc Estimated GFR (MDRD) Non-Af Amer 77 mL/min >60 [facility] Work Phone: [phone] Comment on above: Non- GFR Calc Platelets bldon 10-08-2021 Platelets (Bld) [#/Vol] 356 10*3/uL 150-450 [facility] Work Phone: [phone] Serum or plasma albumin rosie urement (mass/volume)on 10-08-2021 Albumin [Mass/Vol] 3.9 g/dL 3.2-5.0 [facility] Work Phone: [phone] Serum or plasma albumin/glob ulin mass ratioon 10-08-2021 Albumin/Globulin [Mass ratio] 1.1 {ratio} 0.9-2.4 [facility] Work Phone: [phone] Serum or plasma calcium rosie urement (mass/volume)on 10-08-2021 Calcium [Mass/Vol] 9.5 mg/dL 8.5-10.1 [facility] Work Phone: [phone] Serum or plasma creatinine m easurement (mass/volume)on 10-08-2021 Creatinine [Mass/Vol] 0.80 mg/dL 0.55-1.02 [facility] Work Phone: [phone] Comment on above: The validity of the calculated GFR & GFRAA in patients over 70 years has not been determined. Clinical correlation is essential. Serum or plasma urea nitroge n measurement (mass/volume)on 10-08-2021 Urea nitrogen [Mass/Vol] 9 mg/dL 7-18 [facility] Work Phone: [phone] Thin prep Papanicolaou smear with manual screeningon 10-08-2021 Thin prep Papanicolaou smear with manual screening 24 U/L 15-37 [facility] Work Phone: [phone] Thin prep Papanicolaou smear with manual screening 8 5-15 [facility] Work Phone: [phone] Absolute lymphocyte counton 07-22-2021 Lymphocytes Auto (Unsp spec) [#/Vol] 1.29 10*3/uL 0.83-4.51 [facility] Work Phone: [phone] Basophil percentageon 2021 Basophils/100 WBC (Bld) 0.9 % 0-1 [facility] Work Phone: [phone] Bilirubin [Mass/Vol] 0.50 mg/dL 0.20-1.00 [facility] Work Phone: Comment on above: For patients on eltr ombopag therapy, use of Dimension [place] TBIL is not recommended. Chloride [Moles/Vol] 104 mmol/L 98-107 [facility] Work Phone: Eosinophils/100 WBC (Bld) 2.0 % 0-5 [facility] Work [phone] Glucose [Mass/Vol] 96 mg/dL 74-106 [facility] Work Phone: Neutrophils (Bld) [#/Vol] 2.5 10*3/uL 2.0-7.7 [facility] Work Phone: Neutrophils/100 WBC (Bld) 56.6 % 47-70 [facility] Work Phone: Potassium [Moles/Vol] 3.9 mmol/L 3.5-5.1 [facility] Work Phone: Protein [Mass/Vol] 7.0 g/dL 6.4-8.2 [facility] Work Phone: Sodium [Moles/Vol] 137 mmol/L 136-145 [facility] Work Phone: WBC (Bld) [#/Vol] 4.5 10*3/uL 4.4-11.0 [facility] Work Phone: Blood erythrocytes count (nu mber/volume)on 07-22-2021 RBC (Bld) [#/Vol] 4.54 10*6/uL 4.2-5.4 [facility] Work Phone: Blood hemoglobin measurement (mass/volume)on 07-22-2021 Hemoglobin (Bld) [Mass/Vol] 14.5 g/dL 12.0-15.0 [facility] Work Phone: Blood lymphocytes/100 leukoc yteson 07-22-2021 Lymphocytes/100 WBC (Bld) 28.7 % 19-41 [facility] Work Phone: Blood monocytes/100 leukocyt eson 07-22-2021 Monocytes/100 WBC (Bld) 11.6 % 0-10 [facility] Work Phone: Blood platelet mean volumeon 07-22-2021 Platelet mean volume (Bld) [Entitic vol] 10.1 fL 6.2-12.0 [facility] Work Phone: Determination of erythrocyte mean corpuscular volume (MCV)on 07-22-2021 MCV (RBC) [Entitic vol] 93.0 fL 81-99 [facility] Work Phone: Hematocrit Auto (Bld) [Volum e fraction]on 07-22-2021 Hematocrit (Bld) [Volume fraction] 42.2 % 37-47 [facility] Work Phone: Laboratory - Chemistry and C hemistry - challengeon 07-22-2021 ALP [Catalytic activity/Vol] 77 U/L 45-117 [facility] Work Phone: ALT [Catalytic activity/Vol] 23 U/L 13-56 [facility] Work Phone: [phone] CO2 [Moles/Vol] 26.0 mmol/L 21.0-32.0 [facility] Work Phone: Globulin (S) [Mass/Vol] 3.2 g/dL 2.2-4.2 [facility] Work Phone: Urea nitrogen/Creatinine [Mass ratio] 9.9 mg/mg 10-20 [facility] Work Phone: Laboratory - Hematology and Cell countson 07-22-2021 Erythrocyte distribution width (RBC) [Entitic vol] 46.6 fL 35.1-43.9 [facility] Work Phone: [phone] Erythrocyte distribution width (RBC) [Ratio] 13.9 % 11.6-14.6 [facility] Work Phone: Immature granulocytes/100 WBC (Bld) 0.200 % 0.0-0.9 [facility] Work Phone: Comment on above: IG% - Immature Granu locytes (promyelocytes, myelocytes and metamyelocytes) > 1% indicates that a LEFT SHIFT is Present. MCH (RBC) [Entitic mass] 31.9 pg 27.0-32.0 [facility] Work Phone: Nucleated RBC/100 WBC (Bld) [Ratio] 0 % 0-5 [facility] Work Phone: [phone] MCHC Auto (RBC) [Mass/Vol]on 07-22-2021 MCHC (RBC) [Mass/Vol] 34.4 g/dL 32-36 [facility] Work Phone: No Panel Informationon 07-22 Estimated GFR (MDRD) Amer 93 mL/min >60 [facility] Work Phone: Comment on above: GFR Calc Estimated GFR (MDRD) Non-Af Amer 77 mL/min >60 [facility] Work Phone: Comment on above: Non- GFR Calc Platelets bldon 07-22-2021 Platelets (Bld) [#/Vol] 345 10*3/uL 150-450 [facility] Work Phone: [phone] Serum or plasma albumin rosie urement (mass/volume)on 07-22-2021 Albumin [Mass/Vol] 3.8 g/dL 3.2-5.0 [facility] Work Phone: [phone] Serum or plasma albumin/glob ulin mass ratioon 07-22-2021 Albumin/Globulin [Mass ratio] 1.2 {ratio} 0.9-2.4 [facility] Work Phone: [phone] Serum or plasma calcium rosie urement (mass/volume)on 07-22-2021 Calcium [Mass/Vol] 9.3 mg/dL 8.5-10.1 [facility] Work Phone: [phone] Serum or plasma creatinine m easurement (mass/volume)on 07-22-2021 Creatinine [Mass/Vol] 0.81 mg/dL 0.55-1.02 [facility] Work Phone: Comment on above: The validity of the calculated GFR & GFRAA in patients over 70 years has not been determined. Clinical correlation is essential. Serum or plasma urea nitroge n measurement (mass/volume)on 07-22-2021 Urea nitrogen [Mass/Vol] 8 mg/dL 7-18 [facility] Work Phone: Thin prep Papanicolaou smear with manual screeningon 07-22-2021 Thin prep Papanicolaou smear with manual screening 18 U/L 15-37 [facility] Work Phone: [phone] Thin prep Papanicolaou smear with manual screening 7 5-15 [facility] Work Phone: [phone] Absolute lymphocyte counton 04-30-2021 Lymphocytes Auto (Unsp spec) [#/Vol] 1.46 10*3/uL 0.83-4.51 [facility] Work Phone: Basophil percentageon 2021 Basophils/100 WBC (Bld) 0.6 % 0-1 [facility] Work Phone: Bilirubin [Mass/Vol] 0.70 mg/dL 0.20-1.00 [facility] Work Phone: Comment on above: For patients on eltr ombopag therapy, use of Dimension [place] TBIL is not recommended. Chloride [Moles/Vol] 106 mmol/L 98-107 [facility] Work Phone: Eosinophils/100 WBC (Bld) 1.7 % 0-5 [facility] Work Phone: Glucose [Mass/Vol] 116 mg/dL 74-106 [facility] Work Phone: Comment on above: Fasting Glucose resu lt from 100 to 125 mg/dL suggests IMPAIRED HOMEOSTASIS per A.D.A. criteria. Neutrophils (Bld) [#/Vol] 3.1 10*3/uL 2.0-7.7 [facility] Work Phone: Neutrophils/100 WBC (Bld) 59.6 % 47-70 [facility] Work Phone: Potassium [Moles/Vol] 3.6 mmol/L 3.5-5.1 [facility] Work Phone: Comment on above: Slight Hemolysis, Re sult may be falsely increased. Protein [Mass/Vol] 7.3 g/dL 6.4-8.2 [facility] Work Phone: Sodium [Moles/Vol] 136 mmol/L 136-145 [facility] Work Phone: [phone] WBC (Bld) [#/Vol] 5.2 10*3/uL 4.4-11.0 [facility] Work Phone: Blood erythrocytes count (nu mber/volume)on 04-30-2021 RBC (Bld) [#/Vol] 4.60 10*6/uL 4.2-5.4 [facility] Work Phone: Blood hemoglobin measurement (mass/volume)on 04-30-2021 Hemoglobin (Bld) [Mass/Vol] 14.7 g/dL 12.0-15.0 [facility] Work Phone: [phone] Blood lymphocytes/100 leukoc yteson 04-30-2021 Lymphocytes/100 WBC (Bld) 28.2 % 19-41 [facility] Work Phone: [phone] Blood monocytes/100 leukocyt eson 04-30-2021 Monocytes/100 WBC (Bld) 9.7 % 0-10 [facility] Work Phone: [phone] Blood platelet mean volumeon 04-30-2021 Platelet mean volume (Bld) [Entitic vol] 10.2 fL 6.2-12.0 [facility] Work Phone: [phone] Determination of erythrocyte mean corpuscular volume (MCV)on 04-30-2021 MCV (RBC) [Entitic vol] 92.0 fL 81-99 [facility] Work Phone: [phone] Hematocrit Auto (Bld) [Volum e fraction]on 04-30-2021 Hematocrit (Bld) [Volume fraction] 42.3 % 37-47 [facility] Work Phone: Laboratory - Chemistry and C hemistry - challengeon 04-30-2021 ALP [Catalytic activity/Vol] 76 U/L 45-117 [facility] Work Phone: [phone] ALT [Catalytic activity/Vol] 24 U/L 13-56 [facility] Work Phone: [phone] CO2 [Moles/Vol] 22.0 mmol/L 21.0-32.0 [facility] Work Phone: [phone] Globulin (S) [Mass/Vol] 3.4 g/dL 2.2-4.2 [facility] Work Phone: [phone] Urea nitrogen/Creatinine [Mass ratio] 11.0 mg/mg 10-20 [facility] Work Phone: [phone] Laboratory - Hematology and Cell countson 04-30-2021 Erythrocyte distribution width (RBC) [Entitic vol] 46.0 fL 35.1-43.9 [facility] Work Phone: [phone] Erythrocyte distribution width (RBC) [Ratio] 13.7 % 11.6-14.6 [facility] Work Phone: [phone] Immature granulocytes/100 WBC (Bld) 0.200 % 0.0-0.9 [facility] Work Phone: [phone] Comment on above: IG% - Immature Granu locytes (promyelocytes, myelocytes and metamyelocytes) > 1% indicates that a LEFT SHIFT is Present. MCH (RBC) [Entitic mass] 32.0 pg 27.0-32.0 [facility] Work Phone: [phone] Nucleated RBC/100 WBC (Bld) [Ratio] 0 % 0-5 [facility] Work Phone: [phone] MCHC Auto (RBC) [Mass/Vol]on 04-30-2021 MCHC (RBC) [Mass/Vol] 34.8 g/dL 32-36 [facility] Work Phone: [phone] No Panel Informationon 04-30 Estimated GFR (MDRD) Amer 91 mL/min >60 [facility] Work Phone: Comment on above: GFR Calc Estimated GFR (MDRD) Non-Af Amer 75 mL/min >60 [facility] Work Phone: Comment on above: Non- GFR Calc Platelets bldon 04-30-2021 Platelets (Bld) [#/Vol] 335 10*3/uL 150-450 [facility] Work Phone: Serum or plasma albumin rosie urement (mass/volume)on 04-30-2021 Albumin [Mass/Vol] 3.9 g/dL 3.2-5.0 [facility] Work Phone: [phone] Serum or plasma albumin/glob ulin mass ratioon 04-30-2021 Albumin/Globulin [Mass ratio] 1.1 {ratio} 0.9-2.4 [facility] Work Phone: [phone] Serum or plasma calcium rosie urement (mass/volume)on 04-30-2021 Calcium [Mass/Vol] 9.2 mg/dL 8.5-10.1 [facility] Work Phone: Serum or plasma creatinine m easurement (mass/volume)on 04-30-2021 Creatinine [Mass/Vol] 0.82 mg/dL 0.55-1.02 [facility] Work Phone: Comment on above: The validity of the calculated GFR & GFRAA in patients over 70 years has not been determined. Clinical correlation is essential. Serum or plasma urea nitroge n measurement (mass/volume)on 04-30-2021 Urea nitrogen [Mass/Vol] 9 mg/dL 7-18 [facility] Work Phone: [phone] Thin prep Papanicolaou smear with manual screeningon 04-30-2021 Thin prep Papanicolaou smear with manual screening 23 U/L 15-37 [facility] Work Phone: [phone] Comment on above: Slight Hemolysis, Re sult may be falsely increased. Thin prep Papanicolaou smear with manual screening 8 5-15 [facility] Work Phone: [phone] Absolute lymphocyte counton 02-03-2021 Lymphocytes Auto (Unsp spec) [#/Vol] 2.54 10*3/uL 0.83-4.51 [facility] Work Phone: Basophil percentageon 2020 Bilirubin [Mass/Vol] 0.30 mg/dL 0.20-1.00 [facility] Work Phone: [phone] Comment on above: For patients on eltr ombopag therapy, use of Dimension [place] TBIL is not recommended. Chloride [Moles/Vol] 103 mmol/L 98-107 [facility] Work Phone: Eosinophils/100 WBC (Bld) 2.2 % 0-5 [facility] Work Phone: Glucose [Mass/Vol] 89 mg/dL 74-106 [facility] Work Phone: Comment on above: Please note revised GLUCOSE reference range effective 2017. Neutrophils (Bld) [#/Vol] 3.0 10*3/uL 2.0-7.7 [facility] Work Phone: Potassium [Moles/Vol] 3.8 mmol/L 3.5-5.1 [facility] Work Phone: [phone] Protein [Mass/Vol] 7.5 g/dL 6.4-8.2 [facility] Work Phone: Sodium [Moles/Vol] 136 mmol/L 136-145 [facility] Work Phone: WBC (Bld) [#/Vol] 6.5 10*3/uL 4.4-11.0 [facility] Work Phone: Blood erythrocytes count (nu mber/volume)on 02-03-2021 RBC (Bld) [#/Vol] 4.66 10*6/uL 4.2-5.4 [facility] Work Phone: Blood hemoglobin measurement (mass/volume)on 02-03-2021 Hemoglobin (Bld) [Mass/Vol] 14.5 g/dL 12.0-15.0 [facility] Work Phone: Blood lymphocytes/100 leukoc yteson 12-21-2021 Lymphocytes/100 WBC (Bld) 39.2 % 19-41 [facility] Work Phone: Blood monocytes/100 leukocyt eson 02-03-2021 Monocytes/100 WBC (Bld) 11.4 % 0-10 [facility] Work Phone: Blood platelet mean volumeon 02-03-2021 Platelet mean volume (Bld) [Entitic vol] 9.3 fL 6.2-12.0 [facility] Work Phone: Determination of erythrocyte mean corpuscular volume (MCV)on 02-03-2021 MCV (RBC) [Entitic vol] 93.6 fL 81-99 [facility] Work Phone: Hematocrit Auto (Bld) [Volum e fraction]on 02-03-2021 Hematocrit (Bld) [Volume fraction] 43.6 % 37-47 [facility] Work Phone: Laboratory - Chemistry and C hemistry - challengeon 02-03-2021 ALP [Catalytic activity/Vol] 102 U/L 45-117 [facility] Work Phone: ALT [Catalytic activity/Vol] 22 U/L 13-56 [facility] Work Phone: CO2 [Moles/Vol] 26.0 mmol/L 21.0-32.0 [facility] Work Phone: Globulin (S) [Mass/Vol] 3.7 g/dL 2.2-4.2 [facility] Work Phone: Urea nitrogen/Creatinine [Mass ratio] 12.0 mg/mg 10-20 [facility] Work Phone: Laboratory - Hematology and Cell countson 02-03-2021 Basophils/100 WBC (Unsp spec) 0.6 % 0-1 [facility] Work Phone: Erythrocyte distribution width (RBC) [Entitic vol] 45.2 fL 35.1-43.9 [facility] Work Phone: Erythrocyte distribution width (RBC) [Ratio] 13.2 % 11.6-14.6 [facility] Work Phone: [phone] Immature granulocytes/100 WBC (Bld) 0.600 % 0.0-0.9 [facility] Work Phone: [phone] Comment on above: IG% - Immature Granu locytes (promyelocytes, myelocytes and metamyelocytes) > 1% indicates that a LEFT SHIFT is Present. MCH (RBC) [Entitic mass] 31.1 pg 27.0-32.0 [facility] Work Phone: [phone] Neutrophils/100 WBC (Bld) 46.0 % 47-70 [facility] Work Phone: [phone] Nucleated RBC/100 WBC (Bld) [Ratio] 0 % 0-5 [facility] Work Phone: [phone] MCHC Auto (RBC) [Mass/Vol]on 02-03-2021 MCHC (RBC) [Mass/Vol] 33.3 g/dL 32-36 [facility] Work Phone: [phone] No Panel Informationon 02-03 Estimated GFR (MDRD) Amer 89 mL/min >60 [facility] Work Phone: [phone] Comment on above: GFR Calc Estimated GFR (MDRD) Non-Af Amer 74 mL/min >60 [facility] Work Phone: Comment on above: Non- GFR Calc Platelets bldon 02-03-2021 Platelets (Bld) [#/Vol] 421 10*3/uL 150-450 [facility] Work Phone: [phone] Serum or plasma albumin rosie urement (mass/volume)on 02-03-2021 Albumin [Mass/Vol] 3.8 g/dL 3.2-5.0 [facility] Work Phone: [phone] Serum or plasma albumin/glob ulin mass ratioon 02-03-2021 Albumin/Globulin [Mass ratio] 1.0 {ratio} 0.9-2.4 [facility] Work Phone: [phone] Serum or plasma calcium rosie urement (mass/volume)on 02-03-2021 Calcium [Mass/Vol] 9.2 mg/dL 8.5-10.1 [facility] Work Phone: Serum or plasma creatinine m easurement (mass/volume)on 02-03-2021 Creatinine [Mass/Vol] 0.84 mg/dL 0.55-1.02 [facility] Work Phone: Comment on above: The validity of the calculated GFR & GFRAA in patients over 70 years has not been determined. Clinical correlation is essential. Serum or plasma urea nitroge n measurement (mass/volume)on 02-03-2021 Urea nitrogen [Mass/Vol] 10 mg/dL 7-18 [facility] Work Phone: Thin prep Papanicolaou smear with manual screeningon 02-03-2021 Thin prep Papanicolaou smear with manual screening 15 U/L 15-37 [facility] Work Phone: Thin prep Papanicolaou smear with manual screening 7 5-15 [facility] Work Phone: Laboratory - Microbiology an d Antimicrobial susceptibilityon 01-29-2021 SARS-CoV-2 (COVID-19) RNA SHANA+probe Ql (Unsp spec) Not detected [facility] Work Phone: No Panel Informationon 01-29 POC Nasal Swab Influenza A,B Not detected [facility] Work Phone: POC Nasal Swab RSV Not detected [facility] Work Phone: [id number] 02-06-2020 COVID-19 Int [facility] ([place]) Comment on above: Result Comment: Nega tive [...] Int Performed By: #### C OVD19 #### [place] [address] COVID-19 Result Negative Normal Negative [facility] ([place]) Comment on above: Performed By: #### C OVD19 #### [place] [address] Date of Onset [id number] [facility] ([place] Comment on above: Performed By: #### C OVD19 #### [place] [address] Employed in Healthcare No [facility] ([place]) Comment on above: Performed By: #### C OVD19 #### [address] [address] First Test Yes [facility] ([place] Comment on above: Performed By: #### C OVD19 #### [address] [address] Hospitalized No [facility] ([place] Comment on above: Performed By: #### C OVD19 #### [address] [address] ICU No [facility] ([place] Comment on above: Performed By: #### C OVD19 #### [facility] [address] [place] [id number] Not [facility] ([place] Comment on above: Performed By: #### C OVD19 #### [place] [id number] Resides in Congregate Care Setting No [facility] ([place] Comment on above: Performed By: #### C OVD19 #### [address] [address] Symptomatic as Defined by CDC Yes Normal [facility] ([place]) Comment on above: Performed By: #### C OVD19 #### [address] [address] CNOVon 05-02-2019 CNOV Office Visit (WOOB) -------- CALDERON REID ([id number]) 1960 F Date Time Provider Department 05/02/19 [...] by DANIELLA GIRON MD on 05/02/19 Normal [facility] PROGRESSon 05-02-2019 PROGRESS HNO ID: [id number] Author: Daniella Giron Service: ? Author Type: [...] smear is indicated. Daniella Giron MD Normal [facility] Culture, urine Bacteria identified Cx Nom (U) Presumptive E. coli [facility] Work Phone: Vital Signs Date Time Vital Sign Value Performing Clinician Facility 03-17-2022 15:24-0500 Body mass index (BMI) [Ratio] 28.17 kg/m2 Gilles Bronson MD Work Phone: [facility] 03-17-2022 15:24-0500 Body temperature 97.11 [degF] Gilles Bronson MD Work Phone: [facility] 03-17-2022 15:24-0500 Body weight 80.38 kg Gilles Bronson MD Work Phone: [facility] 03-17-2022 15:24-0500 Diastolic blood pressure 78 mm[Hg] Gilles Bronson MD Work Phone: [facility] 03-17-2022 15:24-0500 Systolic blood pressure 120 mm[Hg] Gilles Bronson MD Work Phone: [facility] 02-25-2022 13:36-0500 Body temperature 97.9 [degF] Dr. Dandy Childs Work Phone: [facility] 02-25-2022 13:36-0500 Diastolic blood pressure 82 mm[Hg] Dr. Dandy Childs Work Phone: [facility] 02-25-2022 13:36-0500 Heart rate 70 /min Dr. Dandy Childs Work Phone: [facility] 02-25-2022 13:36-0500 Respiratory rate 20 /min Dr. Dandy Childs Work Phone: [facility] 02-25-2022 13:36-0500 SaO2% (BldA) [Mass fraction] 97 % Dr. Dandy Childs Work Phone: [facility] 02-25-2022 13:36-0500 Systolic blood pressure 118 mm[Hg] Dr. Dandy Childs Work Phone: [facility] 02-03-2022 12:05-0500 Body temperature 97.8 [degF] Dr. Dandy Childs Work Phone: [facility] 02-03-2022 12:05-0500 Diastolic blood pressure 74 mm[Hg] Dr. Dandy Childs Work Phone: [facility] 02-03-2022 12:05-0500 Heart rate 73 /min Dr. Dandy Childs Work Phone: [facility] 02-03-2022 12:05-0500 Respiratory rate 14 /min Dr. Danyd Childs Work Phone: [facility] 02-03-2022 12:05-0500 SaO2% (BldA) [Mass fraction] 99 % Dr. Dandy Childs Work Phone: [facility] 02-03-2022 12:05-0500 Systolic blood pressure 134 mm[Hg] Dr. Dandy Childs Work Phone: [facility] 11-18-2021 10:39-0400 Diastolic blood pressure 79 mm[Hg] Shannan Mon MD Work Phone: [facility] 11-18-2021 10:39-0400 Heart rate 60 /min Shannan Mon MD Work Phone: [facility] 11-18-2021 10:39-0400 Respiratory rate 18 /min Shannan Mon MD Work Phone: [facility] 11-18-2021 10:39-0400 SaO2% (BldA) [Mass fraction] 99 % Shannan Mon MD Work Phone: [facility] 11-18-2021 10:39-0400 Systolic blood pressure 124 mm[Hg] Shannan Mon MD Work Phone: [facility] 11-18-2021 08:59-0400 Body height 168.9 cm Shannan Mon MD Work Phone: [facility] 11-18-2021 08:59-0400 Body mass index (BMI) [Ratio] 27.03 kg/m2 Shannan Mon MD Work Phone: [facility] 11-18-2021 08:59-0400 Body temperature 97 [degF] Shannan Mon MD Work Phone: [facility] 11-18-2021 08:59-0400 Body weight 77.11 kg Shannan Mon MD Work Phone: [facility] 01-29-2021 09:04-0500 Body temperature 96.8 [degF] Dr. Dandy Childs Work Phone: [facility] Work Phone: 01-29-2021 09:04-0500 Diastolic blood pressure 60 mm[Hg] Dr. Dandy Childs Work Phone: [facility] Work Phone: 01-29-2021 09:04-0500 Heart rate 83 /min Dr. Dandy Childs Work Phone: [facility] Work Phone: 01-29-2021 09:04-0500 Respiratory rate 17 /min Dr. Dandy Childs Work Phone: [facility] Work Phone: 01-29-2021 09:04-0500 SaO2% (BldA) [Mass fraction] 98 % Dr. Dandy Childs Work Phone: [facility] Work Phone: 01-29-2021 09:04-0500 Systolic blood pressure 90 mm[Hg] Dr. Dandy Childs Work Phone: [facility] Work Phone: Encounters Encounter Date Encounter Type Care Provider Facility Start: 07-25-2024 End: 07-25-[address] Dandy Childs DO Work Phone: [facility] Work Phone: Start: 07-25-2024 End: 07-25-[address] Marybel Hidalgo MD -Ultrasound [facility] Work Phone: Start: 07-25-2024 End: 07-25-2024 ambulatory Marybel Hidalgo Facility:[facility] Start: 07-18-2024 End: 07-18-[address] Dandy Childs DO Work Phone: [facility] Work Phone: Start: 07-18-2024 End: 07-18-[address] Marybel Hidalgo MD -Laboratory [place] Work Phone: Start: 07-18-2024 End: 07-18-2024 ambulatory Marybel Hidalgo Facility:[facility] Start: 04-17-2024 End: 04-17-[address] Dandy Childs DO Work Phone: [facility] Work Phone: Start: 04-17-2024 End: 04-17-[address] Marybel Hidalgo MD -Laboratory, [place] Work Phone: Start: 04-17-2024 End: 04-17-2024 ambulatory Marybel Hidalgo Facility:[facility] Start: 02-24-2024 Encounter for genera l adult medical examination without abnormal findings [facility] Start: 02-21-2024 End: 02-21-[address] Dandy Childs DO -Outpatient Breast Imaging Work Phone: Start: 02-21-2024 End: 02-21-2024 ambulatory Dandy Childs Facility:[facility] Start: 01-26-2024 End: 01-26-2024 Patient encounter procedure Nik EL[facility] Work Phone: Start: 01-26-2024 End: 01-26-2024 ambulatory Nik ELMORE [facility] Start: 01-24-2024 End: 01-24-[address] Dandy Childs DO -Laboratory, [facility] Start: 01-24-2024 End: 01-24-2024 ambulatory Dandy Childs Facility:[facility] Start: 01-19-2024 End: 01-19-[address] Marybel Hidalgo MD -Laboratory, [place] Work Phone: Start: 01-19-2024 End: 01-19-2024 ambulatory [facility] Facility:[facility] Start: 10-31-2023 End: 10-31-2023 [facility] Start: 08-09-2023 End: 08-09-2023 ambulatory [facility] Facility:[facility] Start: 08-05-2023 End: 08-05-2023 ambulatory Homeroaylin Wood PA Facility:[facility] Start: 08-05-2023 End: 08-05-2023 ambulatory Homero Nina PA Facility:[facility] Start: 05-31-2023 End: 05-31-2023 ambulatory [facility] Work Phone: Start: 05-31-2023 End: 05-31-2023 Patient encounter procedure [facility]-Laboratory Work Phone: Start: 03-10-2023 End: 03-10-2023 ambulatory [facility] Work Phone: Start: 03-10-2023 End: 03-10-2023 Patient encounter procedure [facility]-Laboratory, [place] Work Phone: Start: 12-21-2022 End: 12-21-2022 ambulatory [facility] Work Phone: Start: 12-21-2022 End: 12-21-2022 Patient encounter procedure [facility]-Laboratory, [place] Work Phone: Start: 09-17-2022 End: 09-17-2022 Patient encounter procedure [facility]-Laboratory, [place] Work Phone: Start: 09-03-2022 End: 09-03-2022 Patient encounter procedure [facility]-Outpatient Breast Imaging Work Phone: Start: 06-04-2022 End: 06-04-2022 ambulatory [facility] Start: 05-18-2022 ambulatory Remi Moser RN [facility] Clinical Communication Start: 05-18-2022 Patient encounter procedure Remi Moser RN [facility] Clinical Communication Start: 04-02-2022 End: 04-02-[address] Dandy Childs Work Phone: [facility] Work Phone: Start: 04-02-2022 End: 04-02-[address] Dandy Childs Work Phone: [facility] [place] Start: 03-17-2022 End: 03-17-2022 ambulatory GILLES BRONSON [facility] Start: 03-17-2022 End: 03-17-2022 Postop follow up visit related to original px Gilles Bornson MD Work Phone: [facility] [place] Comment on above: Postop check (Primar y Dx) Start: 02-25-2022 End: 02-25-[address] Dandy Childs Work Phone: [facility] Work Phone: Start: 02-25-2022 End: 02-25-[address] [facility] Start: 02-25-2022 End: 02-25-[address] [facility] Start: 02-03-2022 End: 02-03-[address] [facility] Child[facility] Start: 02-03-2022 End: 02-03-[address] Dandy Childs Work Phone: [facility] Work Phone: Start: 02-03-2022 End: 02-03-[address] Dandy Childs Work Phone: [facility] Start: 01-27-2022 End: 01-28-2022 ambulatory [facility] Start: 01-11-2022 End: 01-11-2022 ambulatory [facility] Work Phone: Start: 01-11-2022 End: 01-11-2022 Patient encounter procedure [facility] Start: 11-18-2021 End: 11-18-2021 ambulatory [facility] Start: 11-18-2021 End: 11-18-2021 Subsequent hospital visit by physician Shannan Mon MD Work Phone: [facility] Comment on above: Arrived Start: 10-08-2021 End: 10-08-2021 ambulatory [facility] Work Phone: Start: 10-08-2021 End: 10-08-2021 Patient encounter procedure [facility] Start: 08-26-2021 End: 08-26-2021 Patient encounter procedure [facility]-Outpatient Breast Imaging Start: 07-22-2021 End: 07-22-2021 Patient encounter procedure [facility] Start: 04-30-2021 End: 04-30-[address] Dandy Childs Work Phone: [facility] Start: 02-03-[address] Dandy Childs Work Phone: [facility] Start: 01-29-2021 End: 01-29-[address] Dandy Childs Work Phone: [facility] Start: 03-23-2016 End: 03-23-2016 Office outpatient new 20 minutes [facility] Procedures Date Procedure Procedure Detail Performing Clinician Start: 07-25-[address] Dandy Childs DO Work Phone: Start: 02-21-2024 Screening mammography Tiffany Childs DO Work Phone: Start: 09-03-2022 Screening mammography Start: 06-04-2022 Follow-up visit Follow-up JUANI KELLEY Start: 11-18-2021 End: 11-18-2021 Colonoscopy Physician Generic Start: 08-26-2021 End: 08-26-2021 Screening mammography Breast biops Maile Slarb Comment on above: Biopsy; left Hysterectomy Maile Slarb Ligation of fallopian tube A ngela Slarb Tonsillectomy Maile Slarb Urine culture Dr. Dandy Adan yamilka Work Phone: Urine culture Dr. Dandy Adan yamilka Work Phone: Urine culture Dr. Dandy Adan yamilka Work Phone: Plan of Treatment Date Care Activity Detail Author Start: 11-19-2031 Screening for malignant neoplasm of colon [facility] Start: 10-15-2022 Influenza vaccination Influenza Vaccine (Season Ended) [facility] Start: 08-26-2022 Screening for malignant neoplasm of breast Mammogram [facility] Start: 06-04-2022 End: 06-04-2022 Patient encounter procedure 06/04/2022 Office Visit Urogynecology Tyler Kelley, ETL CONSULTANT - TABLE CUT OFF SAW OPERATOR [address] [facility] [facility] [address] [place] [address] [facility] Start: 10-15-2021 Influenza vaccination Influenza Vaccine (#1) [facility] Start: 09-29-2021 DTaP/Tdap/Td vaccine (2 - Td or Tdap) DTaP/Tdap/Td vaccine (2 - Td or Tdap) [facility] Start: 09-29-2021 DTaP/Tdap/Td Vaccines (2 - Td or Tdap) DTaP/Tdap/Td Vaccines (2 - Td or Tdap) [facility] Start: 09-14-2021 Influenza vaccination Flu vaccine (#1) [facility] Start: 03-23-2016 Iaadiadoo influenza Rapid Flu (02986 x 2) [facility] Work Phone: Start: 03-23-2016 Procedure Education Eprescribed prescriptions (G8553) [facility] Work Phone: Start: 07-30-2009 Screening for malignant neoplasm of breast Breast cancer screen [facility] Start: 07-30-2009 Shingles vaccine (1 of 2) Shingles vaccine (1 of 2) [facility] Start: 07-30-2009 Zoster Vaccines (1 of 2) Zoster Vaccines (1 of 2) [facility] Start: 07-30-2004 Screening for malignant neoplasm of colon [facility] Start: 1999 Lipid panel Lipids [facility] Start: 1999 Screening for malignant neoplasm of breast Mammogram [facility] Start: 07-30-1994 Diabetes screen Diabetes screen [facility] Start: 07-30-1989 Screening for malignant neoplasm of cervix [facility] Start: 07-30-1980 Screening for malignant neoplasm of cervix Pap smear [facility] Start: 07-30-1977 Diabetes mellitus screening Diabetes Screening [facility] Start: 07-30-1977 Hepatitis C screening [facility] Start: 07-30-1974 HIV screening HIV screen [facility] Start: 1971 Depression Screen Depression Screen [facility] Start: 07-30-1960 MMR Vaccines (1 of 1 - Standard series) MMR Vaccines (1 of 1 - Standard series) [facility] Start: 01-30-1960 COVID-19 Vaccine (#1) COVID-19 Vaccine (#1) [facility] Start: 1960 Hepatitis B Vaccines (1 of 3 - 3-dose series) Hepatitis B Vaccines (1 of 3 - 3-dose series) [facility] Start: 1960 HIV screening HIV Screening [facility] Start: 1960 Screening for malignant neoplasm of colon [facility] Start: 1960 Thyroid stimulating hormone measurement TSH Level [facility] Immunizations Immunization Date Immunization Notes Care Provider Fa cility 11-01-2016 influenza virus vacc ine, unspecified formulation Gilles Bronson MD Work Phone: [facility] Payers Date Payer Category Payer Private Health Insurance [id number] 2023 Self-pay [id number] 2020 Unknown 2016 Unknown [id number] 1960 Unknown [id number] 2.16. [id number] Unknown [id number] 2.16.8 [id number] Unknown [id number] 2.16.8 [id number] Unknown [id number] 2.16.8 [id number] Unknown [id number] 2.16.8 [id number] Unknown [id number] 2.16.8 [id number] Unknown [id number] 2.16.8 [id number] Unknown [id number] 2.16.8 [id number] Unknown [id number] 2.16.8 [id number] Unknown [id number] 2.16.8 [id number] Unknown [id number] 2.16.8 [id number] Unknown [id number] 2.16.8 [id number] Social History Date Type Detail Facility Alcohol use: Alcohol use: [facility] Work Phone: Tobacco use: Tobacco use: [facility] Work Phone: Start: 01-29-2021 End: 05-11-2022 Tobacco smoking status NHIS Unknown if ever smoked [facility] Start: 02-13-2019 Non-smoker [facility] Start: 1960 Sex Assigned At Female [facility] Start: 11-05-2021 Tobacco smoking status NHIS Never smoked tobacco [facility] Start: 11-05-2021 Tobacco use and exposure Smokeless tobacco non-user [facility] Work Phone: Start: 11-18-2021 End: 02-02-2022 Alcohol intake Ex-drinker (finding) [employer] Work Phone: Start: 10-21-2021 History SDOH Alcohol Comment rare [employer] Work Phone: Start: 1960 Sex Assigned At Not on file [facility] [employer] Work Phone: Start: 11-08-2021 End: 03-17-2022 Exposure to SARS-CoV-2 (event) Not sure [employer] Work Phone: Start: 05-11-2022 Tobacco smoking status NHIS Ex-smoker (finding) [facility] Start: 04-27-2024 Sex Female (finding) [facility] Medical Equipment Procedure Code Equipment Code Equipment Origin al Text Equipment Identifier Dates System Sling Transvaginal Midurethral Advantage Fit Blue Polypropylene 2.7 Mm Dilator [facility] Tab Delivery Device Handle Curve Needle Tip Steril - [id number] Start: 01-27-2022 Clinical Notes 11-18-2021 to 07-25-2024 Note Date & Type Note Facility 07-25-2024 Radiology Diagnostic study note [facility] [address] [place], [place] [address] Liver MR#: [id number] Acct: [id number] Name: CALDERON REID Rep #: [id number] : 1960 F 63 From: Chucky Corrales MD PCP: Dr. Dandy Childs, DO Status: REG CLI Study:Liver Date of Exam: 07/25/24 Exam# [id number] Ordering Dr: Marybel Hidalgo MD PROCEDURE: LIVER 07/25/2024 REASON FOR EXAM: ELEVATED LIVER ENZYMES COMPARISON: None FINDINGS: Liver: Diffusely echogenic suggesting fatty infiltration. Liver measures 15.6 cm. Gallbladder: No stones, sludge, wall thickening or tenderness. Common bile duct: Normal measuring 4 mm. . Pancreas: Visualized portions are sonographically unremarkable. Other: Visualized portions of the right kidney are unremarkable. No right upperquadrant ascites. US/Liver IMPRESSION: Fatty infiltration of the liver. Reading Location: [facility] CC: Dr. Dandy Childs DO; Dr. Marybel Hidalgo MD ~ Malted Milk Mixer: Signed [facility] 01-26-2024 Evaluation note Diagnosis Onset Date Resolution Sinus infection acute January 26, 2024 9:39am [facility] Work Phone: 1(427) 136-498804-07-2023 Telephone encounter Note* Telephone Encounter - Jesica Dorado MA - 05/21/2022 8:38 AM EDT Pt scheduled appt. [id number] Miscellaneous Notes* Telephone Encounter - Jesica Dorado [...] If Yes, ask: How much? and Where? [place] discharge with intercourse mostly. 10. OTHER SYMPTOMS: Do you have any other symptoms? (e.g., drainage from wound, painful urination, constipation) Protocols used: Post-Op Symptoms and [id number] S: Patient spoke with [facility] nurse regarding [...] new or worsening symptoms. documented in this [facility]04-04-2023 Telephone encounter Note* Telephone Encounter - Remi [...] If Yes, ask: How much? and Where? [place] discharge with intercourse mostly. 10. OTHER SYMPTOMS: Do you have any other symptoms? (e.g., drainage from wound, painful urination, constipation) Protocols used: Post-Op Symptoms and [id number] S: Patient spoke with [facility] nurse regarding painful intercourse since [...] call back with new or worsening symptoms. [id number] History of Present illness Narrative* Gilles Bronson [...] All questions were aswered. documented in this [facility]12-21-2022 Telephone encounter Note* Telephone Encounter - Cassidy Galan RN - 02/03/2022 1:19 PM EST S: The patient is calling the [facility] About dysuria B: She had [...] and triager answersquestion Protocols used: Medication Question [id number] [facility] [id number] Miscellaneous Notes* Telephone Encounter - Cassidy Pride RN - 02/03/2022 1:19 PM EST S: The patient is calling the [facility] About dysuria B: She had [...] and triager answersquestion Protocols used: Medication Question [id number] documented in this [facility]12-14-2022 [facility] - Patient Pre-procedure Instructions Sleep Apnea: If yes, please bring CPAP machine May shower/brush teeth. Leave valuables/jewelry at home. No makeup, lotion, powder, deodorant or body sprays. No contact lenses No makeup, contact lenses, piercings, or dark nail yi No solid food after midnight before procedure. [...] to your arrival time. Please Bring your Film Or Videotape Editor's license/photo ID, insurance card, eye drops/sunglasses, inhalers if applicable If you have a Medical Power of Money Market Clerk, living will, or an advanced directive, please bring a copy with you. We are required to resuscitate and transfer you to the hospital along with your directive.[facility] [id number] Note Patient: Calderon Reid Procedure Summary Date: 01/27/22 Room / Location: [facility] 2 / [facility] OR Anesthesia Start: 814 Anesthesia Stop: 915 Procedures: SLING OPERATION FOR STRESS INCONTINENCE (Perineum) POSTERIOR COLPORRHAPHY REPAIR RECTOCELE (Perineum) CYSTOSCOPY (Urethra) Diagnosis: Stress incontinence (female) (male) (POSTERIOR REPAIR) (CYSTOSCOPY) (SLING) Surgeons: Gilles Bronson MD Responsible Provider: No Anesthesiologist - Adrien/MD Melvin Anesthesia Type: general anesthesia ASA Status: 2 Anesthesia Type: general anesthesia Vitals Value Taken Time BP 146/78 01/27/22 0917 Temp 37 01/27/22 0917 Pulse 81 01/27/22 0917 Resp 14 01/27/22 0917 SpO2 98 01/27/22 0917 Anesthesia Post Evaluation Patient location during evaluation: [...] start time until discharged from PACU ([id number]) [facility]404 Anesthesiology Smoking Abstinence [facility] 404 I completed my handoff to the receiving clinician during which we: 1. Identified the patient 2. Identified the responsible provider 3. Reviewed the pertinent medical history 4. Discussed the surgical course 5. Reviewed intra-op anesthesia management and issues during anesthesia 6. Set expectations for post-procedure period 7. Allowed opportunity for questions and acknowledgement of understanding.[facility]12-14-2022 NotePatient: Calderon Reid Procedure Summary Date: 01/27/22 Room / Location: [facility] 2 / [facility] OR Anesthesia [...] discharged once all PACU criteria has been met.[facility]12-14-2022 NoteAirway Date/Time: 01/27/2022 8:12 AM Urgency: scheduled General Information and Staff Patient location during procedure: Procedural Resident/PRODUCT SAFETY COMPLIANCE LEADER: Dandy Arellano APRN - PRODUCT SAFETY COMPLIANCE LEADER Performed: PRODUCT SAFETY COMPLIANCE LEADER Indications and Patient Condition Sedation level: Asleep Patient position: sniffing Mask difficulty assessment: 1 - vent by mask Final Airway Details Final airway type: supraglottic airway Successful airway: Igel Size 4 ETT size (mm): 7.5 Number of attempts at approach: 1[facility] [id number] NotePatient: Calderon Reid Procedure Information Date/Time: 01/27/22 0800 Procedures: SLING OPERATION FOR STRESS INCONTINENCE (Perineum) POSTERIOR COLPORRHAPHY REPAIR RECTOCELE (Perineum) CYSTOSCOPY (Urethra) Location: [facility] 2 / [facility] Surgeons: Gilles Bronson MD Relevant Problems No relevant active problems Past Medical History: Past Medical History: No date: GERD (gastroesophageal reflux disease) No date: Hypothyroidism No date: Melanoma (HCC) No date: Psoriatic arthritis (HCC) Past Surgical History: Past Surgical History: No date: BLADDER SURGERY Comment: Bladder lift No date: COLONOSCOPY 11/18/2021: COLONOSCOPY Comment: dr omn No date: EGD No date: HYSTERECTOMY No [...] results found for this or any previous visit.[facility] 01-26-2022 Note61 y.o. female Complaints started [...] recommended. I discussed the (more content not included)...[facility]10-05-2022 Hospital Discharge instructions* Discharge Instructions* Carmen Hernandez RN - 11/18/2021 10:22 AM [...] TO NEAREST EMERGENCY DEPARTMENT documented in this [facility] Work Phone: Evaluation note* Diagnosis Onset Date Resolution Status Acute bronchitis, unspecified acute Encounter for screening for COVID-19 acute [facility] Work Phone: Evaluation noteNo assessment information available [facility] Work Phone: Evaluation note* Diagnosis Onset Date Resolution Status Urinary tract infection with hematuria acute [facility] Work Phone: Evaluation note* Diagnosis Postop check- Primary Follow-up examination, following unspecified surgery [facility] (narrative)No reason for referral information availableJ[facility] Work Phone: Summary Purpose Family History No [...] No November 01, 2019 4:20pm Power of Money Market Clerk No October 4:20pm Latest Code Status on File Code Status Date Activated Date Inactivated Comments Full Code 11/18/2021 9:46 AM Advance Directive Response Recorded Date/ Time Advance Directives No January 10:20am Living Will No November 01, 2019 3:20pm Power of Money Market Clerk No October 3:20pm Latest Code Status on [...] COPY PCP July 18, 2024 2:19p m Chief Complaint Admit Date S/O- PAIN- COPY PCP April 17, 2024 11:4 3am S/O- PAIN- COPY PCP July 18, 2024 2:19p m Other psoriatic arthropathy July 25, 2 025 6:58am Additional Source Comments INFORMATION SOURCE (unrecogn ized section and content) DATE CREATED AUTHOR 05/02/2019 [facility] DATE CREATED AUTHOR AUTHOR'S ORGANIZ ATION 03/03/2020 [facility] ([place] DATE CREATED AUTHOR AUTHOR'S ORGANIZ ATION 11/20/2021 [facility] DATE CREATED AUTHOR AUTHOR'S ORGANIZ ATION 06/04/2022 [facility] DATE CREATED AUTHOR AUTHOR'S ORGANIZ ATION 07/30/2024 [place] [facility] Goals (unrecognized section and content) Goals may [...] Care Teams (unrecognized sec tion and content) Director Process Engineering Relationship Specialty Start Date End Date Dandy Childs [address] [place] [address] PCP - General Family Medicine 08/13/21 Team Status: Active Member Role Status Dates Dr. Dandy Childs DO Family Provider Active Dr. Dandy Childs , DO Primary Care Provider Active Team Status: Inactive Member Role Status Dates Dr. Dandy Childs DO Primary Care Provider, Referrin g Provider Active Prieto ELMORE, PA Attending Provider Active Team Status: Inactive Member Role Status Dates Dr. Dandy Childs DO Primary Care Provider Active Dr. Marybel Hidalgo MD Attending Provider, Referring Provider Active Team Status: Inactive Member Role Status Dates Dr. Dandy Childs DO Primary Care Provider Active Prieto ELMORE, PA Attending Provider Active Director Process Engineering Relationship Specialty Start Date End Date Dandy Childs [address] [place] [address] PCP - General 08/13/21 Team Status: Inactive Member Role Status Dates Dr. Dandy Childs DO Primary Care Prov ider, Attending Provider, Referring Provider Active Director Process Engineering Relationship Specialty Start Date End Date Dandy Childs [address] [place] [id number] PCP - General 08/13/21 Director Process Engineering Relationship Specialty Start Date End Date Naz Dandy Ortiz [address] [place] [phone] PCP - General 08/13/21 Team Status: Inactive [...] January 26, 2024 End: January 26, 2024 Nik ELMORE PA Attending Provider Active Sta rt: January 26, [...] April 17, 2024 Dr. Marybel Hidalgo MD Referring Provider Active Start: April [...] July 18, 2024 End: July 18, 2024 Team Status: Inactive Member Role Status Dates Dr. Dandy Childs DO Primary Care Provider Active Start: July 25, 2024 End: July 25, 2024 Dr. Marybel Hidalgo MD Attending Provider Active Start: July 25, 2024 End: July 25, 2024 Dr. Marybel Hidalgo MD Referring Provider Active Start: July 25, 2024 End: July 25, 2024 Reason for Visit (unrecogniz ed section [...] BE BASED ON THE PRIMARY CLINICAL RECORDS. [facility]. provides no warranty or guarantee of the accuracy or completeness of information in this document.
== END | disposition home or self-care (01) ==
LOC: MTLAB 14:56
PROVIDERS: PCP Family Medicine; Referring Provider Internal Medicine Rheumatology; Visit Provider Internal Medicine Rheumatology
DX: L40.59 Other psoriatic arthropathy (principal); Z79.899 Other long term (current) drug therapy; L40.8 Other psoriasis; M35.00 Sjogren syndrome, unspecified; M65.332 Trigger finger, left middle finger
CPT/HCPCS: 36415; 80053

== ENCOUNTER → 2025-01-24 | Outpatient (CLI) | payer MEDICARE, SELFPAY ==
[2025-01-24 11:21] LABS: AST(SGOT) 28 U/L (<=31); Alanine Aminotransfer ALT/SGPT 18 U/L (<=34); Albumin, Serum 4.3 g/dL (3.4-4.8); Alkaline Phosphatase 91 U/L (35-104); Bilirubin, Direct 0.25 mg/dL (0.00-0.30); Cholesterol 190 mg/dL (<=200); Globulin 3.1 g/dL (2.2-4.2); Glucose 88 mg/dL (70-99); Low Density Lipoprotein Calc. 122 mg/dL; Triglycerides 116 mg/dL; Very Low Density Lipoprotein 23 mg/dL (5-40); cholesterol:hdl ratio screen 4.00
== END | disposition home or self-care (01) ==
LOC: MTLAB 08:49
PROVIDERS: PCP Family Medicine; Referring Provider Family Medicine; Visit Provider Family Medicine
DX: K76.0 Fatty (change of) liver, not elsewhere classified (principal); E03.9 Hypothyroidism, unspecified; R73.01 Impaired fasting glucose; E78.1 Pure hyperglyceridemia
CPT/HCPCS: 36415; 80061; 80076; 82947; 84439; 84443

== ENCOUNTER → 2025-01-31 | Outpatient (CLI) | payer MEDICARE, SELFPAY ==
[2025-01-31 12:38] LABS: Hematocrit 43.9 % (37-47); Hemoglobin 15.1 g/dL (12.0-15.0); Immature Granulocytes Count 0.010 X10^3/uL (0.0-0.0); Mean Corp Hgb Conc 34.4 g/dL (32-36); Mean Corpuscular Volume 89.4 fL (81-99); Mean Platelet Vol. 10.0 fl (6.2-12.0); NRBC Flagged by Analyzer 0 % (0-5); Platelet Count 334 K/mm3 (150-450); RBC Distribution Width CV 12.9 % (11.6-14.6); RBC Distribution Width SD 42.2 fl (35.1-43.9); Red Blood Count 4.91 M/mm3 (4.2-5.4); White Blood Count 5.1 K/mm3 (4.4-11.0)
[2025-01-31 13:26] LABS: AST(SGOT) 24 U/L (<=31); Alanine Aminotransfer ALT/SGPT 17 U/L (<=34); Albumin, Serum 4.3 g/dL (3.4-4.8); Alkaline Phosphatase 85 U/L (35-104); Anion Gap 12 (5-15); BUN 12 mg/dL (4-19); BUN/Creat Ratio 14.2 RATIO (10-20); Calcium,Total 9.8 mg/dL (7.6-11.0); Carbon Dioxide 21.1 mmol/L (21.0-32.0); Chloride 102 mmol/L (98-108); Globulin 2.8 g/dL (2.2-4.2); Glucose 99 mg/dL (70-99); Potassium 4.2 mmol/L (3.3-5.1)
== END | disposition home or self-care (01) ==
LOC: MTLAB 10:15
PROVIDERS: PCP Family Medicine; Referring Provider Internal Medicine Rheumatology; Visit Provider Internal Medicine Rheumatology
DX: L40.59 Other psoriatic arthropathy (principal); Z79.899 Other long term (current) drug therapy
CPT/HCPCS: 36415; 80053; 85025